=== PATIENT | female | born 1995 | race Caucasian/White ===

== ENCOUNTER 2022-08-23 11:09 | Inpatient (IN) | payer OTHER, SELFPAY ==
[2022-08-23] VITALS (57 sets, daily range): BP systolic 115–183; BP diastolic 59–137; PULSE 131–168; RESP 16–40; TEMP 36.6–37.1; O2SAT 90–98; BMI 33.8; BMI 37.0
--- NOTE | 2022-08-23 11:15 | ECG_ITS ---
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
--- NOTE | 2022-08-23 11:18 | ED_ITS ---
HPI - SOB/Dyspnea General Chief Complaint: Shortness of Breath/Dyspnea Stated Complaint: ASTHMA/SHORTNESS OF BREATH Time Seen by Provider: 08/23/22 11:15 Source: patient Mode of arrival: ambulance Limitations: no limitations History of Present Illness HPI Narrative: patient presents by ambulance with her daughter for evaluation of shortness of breath. She is a known asthmatic. She did not sleep much last night because of frequent use of her inhaler and coughing. She is not running a fever. There's been no nausea vomiting or diarrhea. There is no chest pain. She's not had purulent sputum. She is not on any steroids recently. She does not had any cardiovascular diseases. She was given a nebulizer treatment by the squad and also given Solu-Medrol intravenously. She does not use supplemental oxygen at home. She does not have any other comorbidities. Related Data Allergies Allergy/AdvReac Type Severity Reaction Status Date / Time No Known Drug Allergies Allergy Verified 08/23/22 11:11 Exam Narrative Exam Narrative: patient was definitely wheezing and laboring upon our arrival here. She had a borderline pulse oximetry in the upper 80s to low 90s despite tachypnea so she was placed on low-flow cannula to assist. She had no stridor. She was not posturing. Her skin was warm and dry and not diaphoretic HEENT showed no focus of infection. Lips and tongue oral cavity are normal. I shows no evidence of conjunctivitis. Neck was soft and supple. Respiratory showed substantial decrease aeration bilaterally with no pleural or pericardial rub. She had expiratory wheezing bilaterally. A stat portable chest x-ray is ordered. Cardiovascular she does have sinus tachycardia. Extremities show no sign of leg swelling edema or venous cords. Neuro no focal neurological deficits or symptoms at this time. Constitutional Vital Signs - 24 hr 08/23/22 11:12 08/23/22 11:31 08/23/22 11:53 Temperature 98.6 F Pulse Rate [Monitor] 156 H 135 H Respiratory Rate 24 22 Blood Pressure [Left Arm] 183/110 H 134/86 H Pulse Oximetry 92 L 90 L 94 L Oxygen Delivery Method Room Air Nasal Cannula Oxygen Delivery Flow Rate 1 2 Course Vital Signs Vital signs: Vital Signs Temperature 98.6 F 08/23/22 11:12 Pulse Rate 156 H 08/23/22 11:12 Respiratory Rate 24 08/23/22 11:12 Blood Pressure 183/110 H 06/27/23 11:12 Pulse Oximetry 92 L 08/23/22 11:12 Temperature 98.6 F 08/23/22 11:12 Pulse Rate 135 H 08/23/22 11:53 Respiratory Rate 22 08/23/22 11:53 Blood Pressure 134/86 H 08/23/22 11:53 Pulse Oximetry 94 L 08/23/22 11:53 Oxygen Delivery Method Nasal Cannula 08/23/22 11:53 Oxygen Delivery Flow Rate 2 08/23/22 11:53 MDM - SOB/Dyspnea MDM Narrative Medical decision making narrative: upon further questioning the patient says she ran out of her steroid inhaler several days ago and had been using a regular basis. She is now received a total of three nebulizer treatments and is still having substantial amount of wheezing and decreased air flow. She agrees that she needs to be admitted to the hospital. The chest x-ray did not show a pneumonia. Do not see any clinical indication of ovarian embolism.she is d-dimer was negative. Her arterial blood gases were interpreted and do not show any hypercarbia. Lab Data Labs: Lab Results 08/23/22 08/23/22 Range/Units 11:28 11:35 WBC 17.3 H (4.0-11.0) 10^3/uL RBC 4.91 (4.20-5.40) 10^6/uL Hgb 15.8 (12.0-16.0) g/dL Hct 46.5 (36.0-48.0) % MCV 94.7 (81.0-99.0) fL MCH 32.2 (26.7-34.0) pg MCHC 34.0 (29.9-35.2) g/dL RDW 12.2 (11.0-15.0) % Plt Count 305 (150-450) 10^3/uL MPV 10.2 (9.5-13.5) fL Neut % (Auto) 84.8 H (43.0-75.0) % Lymph % (Auto) 8.4 L (20.5-60.0) % [place] % (Auto) 5.0 (1.7-12.0) % Eos % (Auto) 1.0 (0.9-7.0) % Baso % (Auto) 0.3 (0.2-2.0) % Neut # (Auto) 14.6 H (1.4-6.5) 10^3/uL Lymph # (Auto) 1.5 (1.2-3.8) 10^3/uL [place] # (Auto) 0.9 H (0.3-0.8) 10^3/uL Eos # (Auto) 0.2 (0.0-0.7) 10^3/uL Baso # (Auto) 0.1 (0.0-0.1) 10^3/uL Abs Immat Gran (auto) 0.08 H (0.00-0.03) 10^3/uL Imm/Tot Granulo (auto) 0.5 (0.0-0.5) % D-Dimer 0.29 (<=0.59) mg/L FEU Puncture Site Lr ABG pH 7.396 (7.350-7.450) ABG pCO2 32.2 L (35.0-45.0) mmHg ABG pO2 71.9 L (80.0-100.0) mmHg ABG HCO3 19.8 L (22.0-26.0) mmol/L ABG O2 Saturation 95.0 % ABG Base Excess -5.1 L (-2.0-2.0) mmol/L Son Test Positive (POSITIVE) Sodium 140 (136-145) mmol/L Potassium 3.7 (3.5-5.1) mmol/L Chloride 104 (98-107) mmol/L Carbon Dioxide 24.3 (21.0-32.0) mmol/L Anion Gap 15.4 BUN 7.0 (7.0-18.0) mg/dL Creatinine 0.86 (0.55-1.02) mg/dL Est GFR ( Amer) >60 (>=60) Est GFR (Non-Af Amer) >60 (>=60) BUN/Creatinine Ratio 8.1 Glucose 122 H (74-106) mg/dL Calcium 9.1 (8.5-10.1) mg/dL Discharge Plan Discharge Chief Complaint: Shortness of Breath/Dyspnea Clinical Impression: Asthma with acute exacerbation Patient Disposition: Admitted as Observation Time of Disposition Decision: 13:26 Referrals: Physician,Non-Staff, MD [Primary Care Provider] - 1 week
[2022-08-23 11:36] LABS: Basophils Absolute Auto 0.1 10^3/uL (0.0-0.1); Basophils Percent Auto 0.3 % (0.2-2.0); Eosinophils Absolute Auto 0.2 10^3/uL (0.0-0.7); Hematocrit 46.5 % (36.0-48.0); Hemoglobin 15.8 g/dL (12.0-16.0); Immature Granulocytes Abs Auto 0.08 10^3/uL (0.00-0.03); Immature Granulocytes Pct Auto 0.5 % (0.0-0.5); Lymphocytes Absolute Auto 1.5 10^3/uL (1.2-3.8); Lymphocytes Percent Auto 8.4 % (20.5-60.0); Mean Corpuscular Hemoglobin 32.2 pg (26.7-34.0); Mean Corpuscular Volume 94.7 fL (81.0-99.0); Mean Platelet Volume 10.2 fL (9.5-13.5); Monocytes Absolute Auto 0.9 10^3/uL (0.3-0.8); Neutrophils Absolute Auto 14.6 10^3/uL (1.4-6.5); Neutrophils Percent Auto 84.8 % (43.0-75.0); Platelet Count 305 10^3/uL (150-450); Red Blood Count 4.91 10^6/uL (4.20-5.40); Red Cell Distribution Width 12.2 % (11.0-15.0); White Blood Count 17.3 10^3/uL (4.0-11.0)
--- NOTE | 2022-08-23 11:37 | PC.NURSE ---
cardiopulmonary at bedside abgs obtained
[2022-08-23] MEDS: METHYLPREDNISOLONE SOD SUCC PF 125 MG/2 ML VIAL IVP (11:39)
[2022-08-23 11:43] LABS: ABG PCO2 32.2 mmHg (35.0-45.0); PO2 ABG 71.9 mmHg (80.0-100.0); pH ABG 7.396 (7.350-7.450)
[2022-08-23 11:43] LABS: Anion Gap 15.4; BUN Creatinine Ratio 8.1; Calcium 9.1 mg/dL (8.5-10.1); Carbon Dioxide 24.3 mmol/L (21.0-32.0); Chloride 104 mmol/L (98-107); Estimated GFR (African America >60 (>=60); Estimated GFR (Non-African Ame >60 (>=60); Glucose 122 mg/dL (74-106); Potassium 3.7 mmol/L (3.5-5.1); Sodium 140 mmol/L (136-145)
[2022-08-23 11:44] LABS: Allen Test POSITIVE (POSITIVE); Base Excess ABG -5.1 mmol/L (-2.0-2.0); HCO3 ABG 19.8 mmol/L (22.0-26.0); O2 Mode RA; Puncture Site LR
--- NOTE | 2022-08-23 11:49 | PC.NURSE ---
136/86 143 hr pt respirations 22/min 93% [id number]
[2022-08-23] MEDS: IPRATROPIUM/ALBUTEROL SULFATE 3 ML AMPUL.NEB IH ×4 (11:54→23:17)
[2022-08-23 11:56] LABS: D Dimer 0.29 mg/L FEU (<=0.59)
--- NOTE | 2022-08-23 12:00 | XR_ITS ---
[address] [address] Patient Name: PARK TORREZ MRN: [id number] date: 1995 Sex: F Assigned Patient Location: ED.MAIN Current Patient Location: ER Accession/Order Number: [id number] Exam Date: 08/23/2022 11:55 Report Date: 08/23/2022 12:21 At the request of: SONG FERRO Procedure: XR chest 1V EXAM: XR chest 1V at 1202 hours HISTORY: dyspnea COMPARISON: 02/12/2020 TECHNIQUE: AP upright portable chest x-ray FINDINGS: The heart is not enlarged and the vasculature is not distended. No acute infiltrate, effusion or pneumothorax is identified. The osseous structures are grossly intact. IMPRESSION: No acute infiltrate or evidence of cardiac decompensation. The overall appearance of the chest is unchanged. Electronically authenticated by: ENRRIQUE CAMPBELL Date: 08/23/2022 12:21
--- NOTE | 2022-08-23 12:00 | PC.NURSE ---
xray at bedside
--- NOTE | 2022-08-23 12:11 | PC.NURSE ---
pt given ice chips and water per request
[2022-08-23] MEDS: ALBUTEROL SULFATE 2.5 MG/3 ML VIAL NEB IH (13:41)
[2022-08-23] MEDS: LACTATED RINGER'S SOLUTION 1,000 ML 125 ML IV (15:46)
[2022-08-23] MEDS: ALPRAZOLAM 0.5 MG TABLET PO ×2 (15:46→23:38)
[2022-08-23] MEDS: ENOXAPARIN SODIUM 40 MG/0.4 ML SYRINGE SUBQ (17:06)
[2022-08-23 17:24] LABS: SARS-CoV-2 Ag NEGATIVE (NEGATIVE)
[2022-08-23] MEDS: LORAZEPAM 2 MG/ML 1 ML VIAL 1 MG IV (18:04)
--- NOTE | 2022-08-23 19:19 | ECG_ITS ---
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
[2022-08-23 19:43] LABS: Allen Test POSITIVE (POSITIVE); HCO3 ABG 19.2 mmol/L (22.0-26.0); Liters per Minute 5; O2 Mode NASAL CANNULA; Oxygen Saturation ABG 94.9 %; PO2 ABG 76.1 mmHg (80.0-100.0); pH ABG 7.312 (7.350-7.450)
[2022-08-23 19:44] LABS: Puncture Site L RADIAL
--- NOTE | 2022-08-23 19:46 | P.PN_ITS ---
Progress Note: Subjective Subjective Interval history: I was called to see this patient because of worsening work of breathing. Patient is admitted here late today for asthma exacerbation. Patient remains quite short of breath. Expiratory wheezing. Heart rate is up 240?160. Able to speak short sentences. Sitting upright. Respiratory rate 35?40/minute Exam Narrative Exam Narrative: . Physical Exam: Respiratory distress, pleasant, lucid, cooperative, Head - atraumatic, eyes - pupils equal, round, reactive to light, extra ocular movement intact, MMM Neck - supple, thyroid not enlarged, LN not palpated Lungs -coarse breath sounds bilaterally, expiratory wheezing, using accessory muscles, tachypnea CVS - heart sounds S1, S2, no additional murmurs gallop, regular rate and rhyt hm, tachycardia Gastrointestinal?abdomen is soft, non-tender, non-distended, no organomegaly, positive bowel sounds Extremities no clubbing, cyanosis or edema Neurological?cranial nerve II?XII grossly intact, no meningeal signs, no cerebellar signs, no sensory deficit Musculoskeletal - joints, no effusions, ROM preserved Dermatological - the skin dry, warm, no rashes Psychiatric?patient is AAO X3, patient has normal affect Constitutional Vital Signs - 24 hr 08/23/22 11:12 08/23/22 11:31 08/23/22 11:53 Temperature 98.6 F Pulse Rate Pulse Rate [Monitor] 156 H 135 H Respiratory Rate 24 22 Blood Pressure Blood Pressure [Left Arm] 183/110 H 134/86 H Pulse Oximetry 92 L 90 L 94 L Oxygen Delivery Method Room Air Nasal Cannula Oxygen Delivery Flow Rate 1 2 08/23/22 13:41 08/23/22 11:24 08/23/22 11:30 Temperature Pulse Rate 131 H 151 H Pulse Rate [Monitor] Respiratory Rate 21 35 H Blood Pressure Blood Pressure [Left Arm] Pulse Oximetry 95 94 L 91 L Oxygen Delivery Method Oxygen Delivery Flow Rate 08/23/22 11:36 08/23/22 11:37 08/23/22 11:43 Temperature Pulse Rate 147 H 145 H 143 H Pulse Rate [Monitor] Respiratory Rate 16 22 18 Blood Pressure 158/137 H 175/125 H Blood Pressure [Left Arm] Pulse Oximetry 91 L 92 L 90 L Oxygen Delivery Method Oxygen Delivery Flow Rate 08/23/22 11:48 08/23/22 11:57 08/23/22 12:01 Temperature Pulse Rate 143 H 156 H 143 H Pulse Rate [Monitor] Respiratory Rate 21 27 H 17 Blood Pressure 134/86 H 131/91 H 130/93 H Blood Pressure [Left Arm] Pulse Oximetry 96 94 L 93 L Oxygen Delivery Method Oxygen Delivery Flow Rate 08/23/22 12:16 08/23/22 12:31 08/23/22 12:46 Temperature Pulse Rate 137 H 136 H 141 H Pulse Rate [Monitor] Respiratory Rate 23 23 23 Blood Pressure 144/114 H 143/119 H 141/100 H Blood Pressure [Left Arm] Pulse Oximetry 93 L 93 L 93 L Oxygen Delivery Method Oxygen Delivery Flow Rate 08/23/22 13:01 08/23/22 13:16 08/23/22 13:31 Temperature Pulse Rate 139 H 144 H 149 H Pulse Rate [Monitor] Respiratory Rate 25 H 18 28 H Blood Pressure 137/100 H 143/112 H 126/99 H Blood Pressure [Left Arm] Pulse Oximetry 92 L 94 L 97 Oxygen Delivery Method Oxygen Delivery Flow Rate 08/23/22 13:46 08/23/22 14:20 08/23/22 14:30 Temperature 97.9 F Pulse Rate 160 H 140 H Pulse Rate [Monitor] 144 H Respiratory Rate 22 18 28 H Blood Pressure 138/83 H Blood Pressure [Left Arm] 144/76 H 144/86 H Pulse Oximetry 93 L 92 L 94 L Oxygen Delivery Method Nasal Cannula Room Air Oxygen Delivery Flow Rate 2 08/23/22 16:15 08/23/22 14:30 Temperature Pulse Rate 137 H Pulse Rate [Monitor] Respiratory Rate Blood Pressure Blood Pressure [Left Arm] Pulse Oximetry Oxygen Delivery Method Nasal Cannula Oxygen Delivery Flow Rate 2 Progress Note: Objective Labs Labs: Short CBC 08/23/22 Range/Units 11:28 WBC 17.3 H (4.0-11.0) 10^3/uL Hgb 15.8 (12.0-16.0) g/dL Hct 46.5 (36.0-48.0) % Plt Count 305 (150-450) 10^3/uL BMP 08/23/22 11:28 Sodium 140 Potassium 3.7 Chloride 104 Carbon Dioxide 24.3 BUN 7.0 Creatinine 0.86 Glucose 122 H Calcium 9.1 Progress Note: A&P Assessment and Plan (1) Asthma with acute exacerbation: (2) Acute hypoxemic respiratory failure: Plan Asthma with exacerbation. Acute hypoxemic respiratory failure due to above. -Patient maintaining pulse ox of 91% on 5 L supplemental oxygen, work of breathing is increasing -I am going to transfer patient to intensive care unit for close monitoring -I obtained stat EKG revealed sinus tachycardia with possible flutter -I am going to start patient on diltiazem drip -Blood gas to be repeated as well as CBC, metabolic panel, magnesium -I added inhaled Pulmicort as well as oral singular -I start the patient on high flow nasal cannula -If no improvement?patient might need to be intubated Telemedicine Attestation Telemedicine Attestation I conducted this encounter from [[place]] via secure live, [id number] video conference with the patient, located at [facility] with [asthma exacerbation, acute respiratory failure : As the provider for the telehealth service, I attest that I introduced myself to the patient, provided my credentials, disclosed by location and determined that based on a review of the patient's chart and discussion with members of the patient's treatment team, telemedicine via real-time, 2 way, and interactive audio and video platform is an appropriate and effective means of providing the service. ?The patient and I mutually agree this visit is appropriate for telemedicine. ?The virtual encounter was taken place from? [place], [place]. ?The encounter took approximately 35 minutes. ?The nurse was present during the entire time and I was able to move the stethoscope in appropriate directions. ?The patient was evaluated at the Hospital ? Portions of this note may be dictated using [employer] voice recognition software. Variances in spelling and vocabulary are possible and unintentional. Not all errors may be caught and/or corrected. Please notify the author if any discrepancies are noted and/or if the meaning of any statement is unclear.? ? Patient verbally consented for treatment via video visit with patient currently located at [facility] and provider located in [place].]. Prior to the interview, the risks and benefits of telemedicine were discussed with the patient and verbal consent was obtained.
[2022-08-23] MEDS: dilTIAZem HCL 125 MG in 0.9 % SODIUM CHLORIDE 100 ML IV (20:05)
[2022-08-23 20:06] LABS: Basophils Percent Auto 0.1 % (0.2-2.0); Hematocrit 46.2 % (36.0-48.0); Hemoglobin 15.8 g/dL (12.0-16.0); Immature Granulocytes Abs Auto 0.11 10^3/uL (0.00-0.03); Immature Granulocytes Pct Auto 0.5 % (0.0-0.5); Lymphocytes Absolute Auto 0.7 10^3/uL (1.2-3.8); Mean Corpuscular HGB Conc 34.2 g/dL (29.9-35.2); Mean Corpuscular Hemoglobin 32.6 pg (26.7-34.0); Mean Corpuscular Volume 95.5 fL (81.0-99.0); Mean Platelet Volume 10.1 fL (9.5-13.5); Monocytes Absolute Auto 0.2 10^3/uL (0.3-0.8); Monocytes Percent Auto 0.8 % (1.7-12.0); Neutrophils Absolute Auto 20.9 10^3/uL (1.4-6.5); Neutrophils Percent Auto 95.6 % (43.0-75.0); Platelet Count 327 10^3/uL (150-450); Red Blood Count 4.84 10^6/uL (4.20-5.40); Red Cell Distribution Width 12.5 % (11.0-15.0); White Blood Count 21.9 10^3/uL (4.0-11.0)
[2022-08-23 20:28] LABS: Alanine Aminotransferase 43 U/L (14-59); Albumin Globulin Ratio 0.8; Albumin Level 3.8 g/dL (3.4-5.0); Alkaline Phosphatase 149 U/L (46-116); Aspartate Amino Transferase 19 U/L (15-37); BUN Creatinine Ratio 7.3; Bilirubin Total 0.7 mg/dL (0.2-1.0); Calcium 9.2 mg/dL (8.5-10.1); Carbon Dioxide 20.4 mmol/L (21.0-32.0); Chloride 104 mmol/L (98-107); Estimated GFR (African America >60 (>=60); Estimated GFR (Non-African Ame >60 (>=60); Globulin 4.6 g/dL; Glucose 164 mg/dL (74-106); Magnesium 2.6 mg/dL (1.8-2.4); Potassium 4.4 mmol/L (3.5-5.1); Sodium 138 mmol/L (136-145); Total Protein 8.4 g/dL (6.4-8.2)
[2022-08-23] MEDS: LACTATED RINGER'S SOLUTION 1,000 ML 50 ML IV (20:49)
--- NOTE | 2022-08-23 20:50 | RESP.RT ---
Sp02 92% on 5L nasal cannula, RR 30, HR 163. Placed pt on Vapotherm 40L Fi02 50% due to patients increased work of breathing. Sp02 increased to 95% on Vapotherm.
[2022-08-23] MEDS: ACETAMINOPHEN 325 MG TABLET 650 MG PO (22:14)
[2022-08-23] MEDS: BUDESONIDE 0.5 MG/2 ML AMPULE NEB IH (23:17)
[2022-08-24] VITALS (104 sets, daily range): BP systolic 118–183; BP diastolic 80–140; PULSE 1–152; RESP 15–32; TEMP 36.3–36.9; O2SAT 90–99
[2022-08-24] MEDS: METHYLPREDNISOLONE SOD SUCC PF 40 MG/ML VIAL IVP (00:31)
[2022-08-24] MEDS: ONDANSETRON PF 4 MG/2 ML VIAL IV (00:32)
--- NOTE | 2022-08-24 02:07 | PC.NURSE ---
pt feeling light headed. Vitals better, took vapotherm off and applied 5 lts NC. Pt denies feeling more SOB at this time. Will continue to monitor
--- NOTE | 2022-08-24 02:33 | PC.NURSE ---
decreased fio2 40% d/t pt 99% spo2. RT coming up to give pt a breathing trmt
[2022-08-24] MEDS: IPRATROPIUM/ALBUTEROL SULFATE 3 ML AMPUL.NEB IH ×4 (03:01→15:32)
--- NOTE | 2022-08-24 03:16 | PC.NURSE ---
RT gave pt breathing trmt
--- NOTE | 2022-08-24 03:29 | PC.NURSE ---
decreased cardizem 10mg/hr - HR currently 104
--- NOTE | 2022-08-24 04:20 | PC.NURSE ---
decreased cardizem gtt 5mg/hr
--- NOTE | 2022-08-24 04:31 | RESP.RT ---
fio2 decreased down to 40%
[2022-08-24 04:50] LABS: Basophils Percent Auto 0.1 % (0.2-2.0); Hematocrit 45.8 % (36.0-48.0); Hemoglobin 15.3 g/dL (12.0-16.0); Immature Granulocytes Abs Auto 0.09 10^3/uL (0.00-0.03); Immature Granulocytes Pct Auto 0.5 % (0.0-0.5); Lymphocytes Absolute Auto 0.8 10^3/uL (1.2-3.8); Lymphocytes Percent Auto 4.4 % (20.5-60.0); Mean Corpuscular HGB Conc 33.4 g/dL (29.9-35.2); Mean Corpuscular Hemoglobin 32.2 pg (26.7-34.0); Mean Corpuscular Volume 96.4 fL (81.0-99.0); Mean Platelet Volume 10.3 fL (9.5-13.5); Monocytes Absolute Auto 0.4 10^3/uL (0.3-0.8); Monocytes Percent Auto 2.4 % (1.7-12.0); Neutrophils Absolute Auto 16.4 10^3/uL (1.4-6.5); Neutrophils Percent Auto 92.6 % (43.0-75.0); Platelet Count 287 10^3/uL (150-450); Red Blood Count 4.75 10^6/uL (4.20-5.40); Red Cell Distribution Width 12.7 % (11.0-15.0); White Blood Count 17.7 10^3/uL (4.0-11.0)
[2022-08-24 05:15] LABS: Alanine Aminotransferase 42 U/L (14-59); Albumin Globulin Ratio 0.8; Albumin Level 3.7 g/dL (3.4-5.0); Alkaline Phosphatase 140 U/L (46-116); Anion Gap 16.4; Aspartate Amino Transferase 17 U/L (15-37); BUN Creatinine Ratio 10.5; Bilirubin Total 0.7 mg/dL (0.2-1.0); Calcium 9.3 mg/dL (8.5-10.1); Chloride 103 mmol/L (98-107); Estimated GFR (African America >60 (>=60); Estimated GFR (Non-African Ame >60 (>=60); Globulin 4.4 g/dL; Glucose 160 mg/dL (74-106); Potassium 4.4 mmol/L (3.5-5.1); Sodium 139 mmol/L (136-145); Total Protein 8.1 g/dL (6.4-8.2)
[2022-08-24] MEDS: METHYLPREDNISOLONE SOD SUCC PF 40 MG/ML VIAL 60 MG IVP (07:45)
[2022-08-24 07:51] LABS: Glucometer 137 mg/dL (74-106)
[2022-08-24 07:59] LABS: Adenovirus NOT DETECTED (NOT DETECTE); Bordetella parapertussis NOT DETECTED (NOT DETECTE); Coronavirus 229E NOT DETECTED (NOT DETECTE); Coronavirus HKU1 NOT DETECTED (NOT DETECTE); Coronavirus NL63 NOT DETECTED (NOT DETECTE); Coronavirus OC43 NOT DETECTED (NOT DETECTE); Human Metapneumovirus NOT DETECTED (NOT DETECTE); Influenza A NOT DETECTED (NOT DETECTE); Influenza B NOT DETECTED (NOT DETECTE); Mycoplasma pneumoniae NOT DETECTED (NOT DETECTE); Parainfluenza Virus 1 NOT DETECTED (NOT DETECTE); Parainfluenza Virus 2 NOT DETECTED (NOT DETECTE); Parainfluenza Virus 3 NOT DETECTED (NOT DETECTE); Parainfluenza Virus 4 NOT DETECTED (NOT DETECTE); Respiratory Syncytial Virus NOT DETECTED (NOT DETECTE); SARS-CoV-2 NOT DETECTED (NOT DETECTE)
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
--- NOTE | 2022-08-24 08:04 | P.HP_ITS ---
H&P: HPI History of Present Illness Chief complaint: ASTHMA/SHORTNESS OF BREATH Narrative: Patient is a history of asthma presented to the emergency room with increasing shortness of breath, found to have acute exacerbation of asthma as well and is admitted to the [facility] floor, overnight she had some tachycardia and was transferred back to the intensive care unit. Review of Systems ROS Constitutional Denies: fever or chills Respiratory Reports: shortness of breath, cough and wheezing PFSH PFSH Medical History (Updated 08/24/22 @ 09:19 by Jonathan Umanzor DO) Family History (Updated 08/23/22 @ 15:39 by Mariya Hayes RN) Grandmother Family history of cancer Family history of diabetes mellitus Family history of hypertension Mother Family history of hypertension Grandfather Family history of diabetes mellitus Family history of myocardial infarction Father Family history of diabetes mellitus Social History (Updated 08/23/22 @ 15:42 by Mariya Hayes RN) Within the past year, how often did you have a drink containing alcohol: 2-4 times a month Within the past year, how many standard drinks containing alcohol did you have on a typical day: 1 or 2 Within the past year, how often did you have six or more drinks on one occasion: less than monthly Total score: 1 Score interpretation: A score of 3 or more indicates drinking is likely to affect patient's safety. Smoking status: Former smoker Second hand tobacco smoke exposure: Yes Non-prescribed substance use: denies use Previous occupational history: Not employed Known occupational exposures/hazards: No Highest level of school completed/degree received: 12th grade, no diploma Are you now , , , , never or living with a partner: living with partner In a typical week, how many times do you talk on the telephone with family, friends, or neighbors: 3 or more times per week How often do you get together with friends or relatives: twice per week How often do you attend confucianist or gnosticist services: 1-3 times per year Do you belong to any clubs or organizations such as confucianist groups unions, fraternal or athletic groups, or school groups: no Total score: 2 Score interpretation: A score of greater than or equal to 2 indicates the lowest level of social isolation. Little interest or pleasure in doing things: several days Feeling down, depressed, or hopeless: not at all Feel stressed/tense/nervous/anxious/difficulty sleeping: not at all Do you think of yourself as: straight/heterosexual Gender Identity: female Meds Home Medications and Allergies Home Medications Medication Instructions Recorded Confirmed Type No Known Home Medications 08/23/22 08/23/22 History Allergies Allergy/AdvReac Type Severity Reaction Status Date / Time No Known Drug Allergies Allergy Verified 08/23/22 11:11 Exam Constitutional Vital Signs - 24 hr 08/23/22 11:12 08/23/22 11:31 08/23/22 11:53 Temperature 98.6 F Pulse Rate Pulse Rate [Monitor] 156 H 135 H Respiratory Rate 24 22 Blood Pressure Blood Pressure [Left Arm] 183/110 H 134/86 H Pulse Oximetry 92 L 90 L 94 L Oxygen Delivery Method Room Air Nasal Cannula Oxygen Delivery Flow Rate 1 2 Fraction of Inspired Oxygen 08/23/22 13:41 08/23/22 11:24 08/23/22 11:30 Temperature Pulse Rate 131 H 151 H Pulse Rate [Monitor] Respiratory Rate 21 35 H Blood Pressure Blood Pressure [Left Arm] Pulse Oximetry 95 94 L 91 L Oxygen Delivery Method Oxygen Delivery Flow Rate Fraction of Inspired Oxygen 08/23/22 11:36 08/23/22 11:37 08/23/22 11:43 Temperature Pulse Rate 147 H 145 H 143 H Pulse Rate [Monitor] Respiratory Rate 16 22 18 Blood Pressure 158/137 H 175/125 H Blood Pressure [Left Arm] Pulse Oximetry 91 L 92 L 90 L Oxygen Delivery Method Oxygen Delivery Flow Rate Fraction of Inspired Oxygen 08/23/22 11:48 08/23/22 11:57 08/23/22 12:01 Temperature Pulse Rate 143 H 156 H 143 H Pulse Rate [Monitor] Respiratory Rate 21 27 H 17 Blood Pressure 134/86 H 131/91 H 130/93 H Blood Pressure [Left Arm] Pulse Oximetry 96 94 L 93 L Oxygen Delivery Method Oxygen Delivery Flow Rate Fraction of Inspired Oxygen 08/23/22 12:16 08/23/22 12:31 08/23/22 12:46 Temperature Pulse Rate 137 H 136 H 141 H Pulse Rate [Monitor] Respiratory Rate 23 23 23 Blood Pressure 144/114 H 143/119 H 141/100 H Blood Pressure [Left Arm] Pulse Oximetry 93 L 93 L 93 L Oxygen Delivery Method Oxygen Delivery Flow Rate Fraction of Inspired Oxygen 08/23/22 13:01 08/23/22 13:16 08/23/22 13:31 Temperature Pulse Rate 139 H 144 H 149 H Pulse Rate [Monitor] Respiratory Rate 25 H 18 28 H Blood Pressure 137/100 H 143/112 H 126/99 H Blood Pressure [Left Arm] Pulse Oximetry 92 L 94 L 97 Oxygen Delivery Method Oxygen Delivery Flow Rate Fraction of Inspired Oxygen 08/23/22 13:46 08/23/22 14:20 08/23/22 14:30 Temperature 97.9 F Pulse Rate 160 H 140 H Pulse Rate [Monitor] 144 H Respiratory Rate 22 18 28 H Blood Pressure 138/83 H Blood Pressure [Left Arm] 144/76 H 144/86 H Pulse Oximetry 93 L 92 L 94 L Oxygen Delivery Method Nasal Cannula Room Air Oxygen Delivery Flow Rate 2 Fraction of Inspired Oxygen 08/23/22 16:15 08/23/22 14:30 08/23/22 20:05 Temperature Pulse Rate 137 H Pulse Rate [Monitor] Respiratory Rate Blood Pressure 150/130 H Blood Pressure [Left Arm] Pulse Oximetry Oxygen Delivery Method Nasal Cannula Oxygen Delivery Flow Rate 2 Fraction of Inspired Oxygen 08/23/22 21:00 08/23/22 20:00 08/23/22 19:04 Temperature Pulse Rate 144 H Pulse Rate [Monitor] 155 H Respiratory Rate Blood Pressure Blood Pressure [Left Arm] Pulse Oximetry 97 93 L Oxygen Delivery Method Nasal Cannula Oxygen Delivery Flow Rate 5 Fraction of Inspired Oxygen 08/23/22 20:04 08/23/22 19:04 08/23/22 19:18 Temperature Pulse Rate 150 H 168 H Pulse Rate [Monitor] Respiratory Rate 28 H 30 H Blood Pressure Blood Pressure [Left Arm] Pulse Oximetry 95 93 L 92 L Oxygen Delivery Method Vapotherm Nasal Cannula Nasal Cannula Oxygen Delivery Flow Rate 40 5 5 Fraction of Inspired Oxygen 50 08/23/22 18:48 08/23/22 18:50 08/23/22 19:00 Temperature Pulse Rate 155 H 157 H 153 H Pulse Rate [Monitor] Respiratory Rate 38 H 28 H Blood Pressure Blood Pressure [Left Arm] Pulse Oximetry 93 L Oxygen Delivery Method Nasal Cannula Oxygen Delivery Flow Rate 5 Fraction of Inspired Oxygen 08/23/22 19:10 08/23/22 19:20 08/23/22 19:30 Temperature Pulse Rate 156 H 168 H 164 H Pulse Rate [Monitor] Respiratory Rate 25 H 34 H 36 H Blood Pressure Blood Pressure [Left Arm] Pulse Oximetry 94 L 93 L 93 L Oxygen Delivery Method Oxygen Delivery Flow Rate Fraction of Inspired Oxygen 08/23/22 19:40 08/23/22 19:50 08/23/22 20:03 Temperature Pulse Rate 163 H 162 H Pulse Rate [Monitor] Respiratory Rate 33 H 40 H Blood Pressure Blood Pressure [Left Arm] Pulse Oximetry 93 L 92 L 93 L Oxygen Delivery Method Oxygen Delivery Flow Rate Fraction of Inspired Oxygen 08/23/22 20:10 08/23/22 20:14 08/23/22 20:15 Temperature Pulse Rate 154 H 150 H Pulse Rate [Monitor] Respiratory Rate 27 H 32 H Blood Pressure 135/115 H Blood Pressure [Left Arm] Pulse Oximetry 95 94 L 95 Oxygen Delivery Method Oxygen Delivery Flow Rate Fraction of Inspired Oxygen 08/23/22 20:19 08/23/22 20:20 08/23/22 20:30 Temperature Pulse Rate 153 H 150 H 146 H Pulse Rate [Monitor] Respiratory Rate 23 27 H 22 Blood Pressure 143/117 H 139/116 H 137/103 H Blood Pressure [Left Arm] Pulse Oximetry 95 96 96 Oxygen Delivery Method Oxygen Delivery Flow Rate Fraction of Inspired Oxygen 08/23/22 20:41 08/23/22 20:50 08/23/22 21:00 Temperature Pulse Rate 144 H 160 H 145 H Pulse Rate [Monitor] Respiratory Rate 32 H 31 H 28 H Blood Pressure 154/92 H 151/130 H 132/92 H Blood Pressure [Left Arm] Pulse Oximetry 96 97 Oxygen Delivery Method Oxygen Delivery Flow Rate Fraction of Inspired Oxygen 08/23/22 21:12 08/23/22 21:19 08/23/22 21:20 Temperature Pulse Rate 147 H 143 H 141 H Pulse Rate [Monitor] Respiratory Rate 28 H 25 H 30 H Blood Pressure 136/95 H Blood Pressure [Left Arm] Pulse Oximetry 96 96 96 Oxygen Delivery Method Oxygen Delivery Flow Rate Fraction of Inspired Oxygen 08/23/22 21:31 08/23/22 21:31 08/23/22 21:58 Temperature Pulse Rate 138 H 138 H 137 H Pulse Rate [Monitor] Respiratory Rate 28 H 24 Blood Pressure 136/91 H 136/91 H Blood Pressure [Left Arm] Pulse Oximetry 96 96 97 Oxygen Delivery Method Vapotherm Oxygen Delivery Flow Rate Fraction of Inspired Oxygen 08/23/22 22:00 08/23/22 21:31 08/23/22 21:41 Temperature Pulse Rate 143 H 139 H Pulse Rate [Monitor] Respiratory Rate 28 H 32 H Blood Pressure 136/91 H 127/85 H Blood Pressure [Left Arm] Pulse Oximetry 96 96 96 Oxygen Delivery Method Vapotherm Oxygen Delivery Flow Rate 40 Fraction of Inspired Oxygen 50 08/23/22 21:51 08/23/22 22:00 08/23/22 22:30 Temperature 98.7 F Pulse Rate 138 H 135 H 133 H Pulse Rate [Monitor] 133 H Respiratory Rate 32 H 24 29 H Blood Pressure 134/59 H 115/95 H 121/93 H Blood Pressure [Left Arm] Pulse Oximetry 96 95 96 Oxygen Delivery Method Vapotherm Vapotherm Oxygen Delivery Flow Rate 40 40 Fraction of Inspired Oxygen 50 50 08/23/22 23:17 08/23/22 23:17 08/23/22 23:31 Temperature Pulse Rate 134 H 135 H 134 H Pulse Rate [Monitor] Respiratory Rate 28 H 30 H Blood Pressure Blood Pressure [Left Arm] Pulse Oximetry 97 96 97 Oxygen Delivery Method Vapotherm Vapotherm Oxygen Delivery Flow Rate 40 40 Fraction of Inspired Oxygen 50 50 08/23/22 22:30 08/23/22 23:00 08/23/22 23:31 Temperature Pulse Rate 131 H 131 H 140 H Pulse Rate [Monitor] Respiratory Rate 34 H 26 H 30 H Blood Pressure 121/93 H 134/101 H 128/91 H Blood Pressure [Left Arm] Pulse Oximetry 96 98 94 L Oxygen Delivery Method Oxygen Delivery Flow Rate Fraction of Inspired Oxygen 08/24/22 00:01 08/24/22 00:25 08/24/22 00:30 Temperature Pulse Rate 128 H 127 H 122 H Pulse Rate [Monitor] Respiratory Rate 32 H 28 H 24 Blood Pressure 183/140 H 167/91 H 161/107 H Blood Pressure [Left Arm] Pulse Oximetry 97 97 96 Oxygen Delivery Method Oxygen Delivery Flow Rate Fraction of Inspired Oxygen 08/24/22 01:10 08/24/22 02:00 08/24/22 02:00 Temperature Pulse Rate 120 H 115 H Pulse Rate [Monitor] 115 H Respiratory Rate Blood Pressure Blood Pressure [Left Arm] Pulse Oximetry 97 96 Oxygen Delivery Method Oxygen Delivery Flow Rate Fraction of Inspired Oxygen 08/24/22 00:30 08/24/22 01:00 08/24/22 01:31 Temperature Pulse Rate 126 H 119 H 115 H Pulse Rate [Monitor] Respiratory Rate 26 H 28 H 32 H Blood Pressure 161/107 H 132/103 H 155/95 H Blood Pressure [Left Arm] Pulse Oximetry 96 98 97 Oxygen Delivery Method Oxygen Delivery Flow Rate 40 Fraction of Inspired Oxygen 50 08/24/22 02:00 08/24/22 02:00 08/24/22 02:00 Temperature 98 F Pulse Rate 117 H 117 H 120 H Pulse Rate [Monitor] Respiratory Rate 31 H 22 30 H Blood Pressure 147/115 H 147/115 H 147/115 H Blood Pressure [Left Arm] Pulse Oximetry 96 96 97 Oxygen Delivery Method Nasal Cannula Oxygen Delivery Flow Rate 5 40 Fraction of Inspired Oxygen 40 08/24/22 02:58 08/24/22 03:01 08/24/22 03:01 Temperature Pulse Rate 111 H Pulse Rate [Monitor] Respiratory Rate 30 H Blood Pressure Blood Pressure [Left Arm] Pulse Oximetry 96 99 99 Oxygen Delivery Method Vapotherm Vapotherm Oxygen Delivery Flow Rate 40 40 Fraction of Inspired Oxygen 50 50 08/24/22 02:31 08/24/22 03:00 08/24/22 03:00 Temperature Pulse Rate 112 H 112 H 112 H Pulse Rate [Monitor] Respiratory Rate 27 H 25 H 31 H Blood Pressure 118/100 H 124/95 H 124/95 H Blood Pressure [Left Arm] Pulse Oximetry 99 98 99 Oxygen Delivery Method Vapotherm Oxygen Delivery Flow Rate 40 40 Fraction of Inspired Oxygen 40 40 08/24/22 03:00 08/24/22 04:29 08/24/22 03:00 Temperature 98.4 F Pulse Rate 110 H 110 H 104 H Pulse Rate [Monitor] Respiratory Rate 31 H 29 H Blood Pressure 124/95 H 124/95 H Blood Pressure [Left Arm] Pulse Oximetry 99 97 99 Oxygen Delivery Method Vapotherm Oxygen Delivery Flow Rate 40 40 Fraction of Inspired Oxygen 40 40 08/24/22 03:32 08/24/22 04:01 08/24/22 04:01 Temperature Pulse Rate 115 H 112 H 111 H Pulse Rate [Monitor] Respiratory Rate 29 H 29 H 28 H Blood Pressure 159/119 H 143/108 H 143/108 H Blood Pressure [Left Arm] Pulse Oximetry 97 98 98 Oxygen Delivery Method Vapotherm Oxygen Delivery Flow Rate 40 Fraction of Inspired Oxygen 40 08/24/22 03:10 08/24/22 05:00 08/24/22 04:01 Temperature Pulse Rate 109 H 114 H Pulse Rate [Monitor] Respiratory Rate 30 H Blood Pressure 143/108 H Blood Pressure [Left Arm] Pulse Oximetry 98 96 97 Oxygen Delivery Method Vapotherm Oxygen Delivery Flow Rate 40 Fraction of Inspired Oxygen 40 08/24/22 04:30 08/24/22 05:01 08/24/22 05:01 Temperature Pulse Rate 111 H 116 H 100 H Pulse Rate [Monitor] Respiratory Rate 30 H 29 H 26 H Blood Pressure 154/103 H 125/96 H 125/96 H Blood Pressure [Left Arm] Pulse Oximetry 96 96 99 Oxygen Delivery Method Oxygen Delivery Flow Rate Fraction of Inspired Oxygen 08/24/22 05:30 08/24/22 05:30 08/24/22 07:00 Temperature Pulse Rate 101 H 103 H 95 H Pulse Rate [Monitor] Respiratory Rate 22 24 Blood Pressure 126/86 H 126/86 H Blood Pressure [Left Arm] Pulse Oximetry 99 99 Oxygen Delivery Method Vapotherm Oxygen Delivery Flow Rate 40 Fraction of Inspired Oxygen 40 08/24/22 07:29 08/24/22 07:30 Temperature 97.6 F Pulse Rate 104 H 104 H Pulse Rate [Monitor] Respiratory Rate 28 H Blood Pressure Blood Pressure [Left Arm] 139/98 H Pulse Oximetry 98 Oxygen Delivery Method Vapotherm Oxygen Delivery Flow Rate Fraction of Inspired Oxygen 40 Common normals: average body habitus; apparent distress Exam limitations: altered mental status General appearance: cooperative; not comfortable HENCA Common normals: normocephalic Chest Common normals: inspection of chest normal Respiratory Common normals: no retractions; abnormal respiratory effort and use of accessory muscles Effort & inspection: respiratory distress and audible wheezes Auscultation: rhonchi and wheezes Cardio Rate: tachycardic; not bradycardic Rhythm: regular rhythm GI Common normals: Normal to inspection, nondistended, normoactive bowel sounds present Results Labs Labs: Short CBC 08/23/22 08/23/22 08/24/22 Range/Units 11:28 19:59 04:03 WBC 17.3 H 21.9 H 17.7 H (4.0-11.0) 10^3/uL Hgb 15.8 15.8 15.3 (12.0-16.0) g/dL Hct 46.5 46.2 45.8 (36.0-48.0) % Plt Count 305 327 287 (150-450) 10^3/uL BMP 08/23/22 08/23/22 08/24/22 11:28 19:59 04:03 Sodium 140 138 139 Potassium 3.7 4.4 4.4 Chloride 104 104 103 Carbon Dioxide 24.3 20.4 L 24.0 BUN 7.0 8.0 9.0 Creatinine 0.86 1.09 H 0.86 Glucose 122 H 164 H 160 H Calcium 9.1 9.2 9.3 Liver Function 08/23/22 08/24/22 Range/Units 19:59 04:03 Total Bilirubin 0.7 0.7 (0.2-1.0) mg/dL AST 19 17 (15-37) U/L ALT 43 42 (14-59) U/L Alkaline Phosphatase 149 H 140 H (46-116) U/L Albumin 3.8 3.7 (3.4-5.0) g/dL ABG ABG results: 08/23/22 08/23/22 11:35 19:29 ABG pH 7.396 7.312 L ABG pCO2 32.2 L 38.0 ABG pO2 71.9 L 76.1 L ABG HCO3 19.8 L 19.2 L ABG O2 Saturation 95.0 94.9 ABG Base Excess -5.1 L -7.0 L Assessment and Plan Assessment and Plan (1) Asthma with acute exacerbation: (2) Acute hypoxemic respiratory failure: (3) Unspecified asthma with status asthmaticus: Plan Tachycardia already, respiratory distress, acute hypoxia, uncontrolled hypertension, leukocytosis with mild acute kidney injury secondary to acute exacerbation of asthma likely related to bronchitis. With worsening respiratory status consult to pulmonology. Increased steroids, added antibiotics. Try to obtain sputum culture. Leukocytosis-monitor daily-Improved Acute kidney injury-improved, monitor daily Tachycardia-check echocardiogram, repeat EKG when slower,Repeat EKG does suggest possible pericarditis-added Toradol and continue with steroids, Awaiting final confirmation on results of echo, Check inflammatory markers
--- NOTE | 2022-08-24 08:12 | XR_ITS ---
The [address] [address] Patient Name: PARK TORREZ MRN: [id number] date: 1995 Sex: F Assigned Patient Location: ICU Current Patient Location: ICU Accession/Order Number: [id number] Exam Date: 08/24/2022 08:24 Report Date: 08/24/2022 08:38 At the request of: HILLARY PALOMARES Procedure: XR chest 1V PROCEDURE: XR chest 1V DATE: 08/24/2022 7:24 AM CDT COMPARISONS: 08/23/2022 CLINICAL INDICATION: 26 years Female Status asthmaticus FINDINGS: The cardiomediastinal silhouette and pulmonary vasculature are within normal limits. The lungs are clear. There is no evidence of pleural effusion or pneumothorax. IMPRESSION: Chest radiograph is within normal limits. Chest is stable from exam done the previous day. No lung infiltrates identified. Electronically authenticated by: CAIO ALVES Date: 08/24/2022 08:38
[2022-08-24 08:14] LABS: Magnesium 2.3 mg/dL (1.8-2.4)
[2022-08-24] MEDS: ALPRAZOLAM 0.5 MG TABLET PO ×2 (08:27→20:24)
[2022-08-24] MEDS: LEVOFLOXACIN IN DEXTROSE 5 % 750 MG/150 ML PIGGYBACK IV (08:28)
--- NOTE | 2022-08-24 08:36 | CM.NOTE ---
Rounds made with Dr. Petersen, increased work of breathing today and need high flow oxygen. Dr. Petersen reached out to Dr. Umanzor for consult. No discharge today.
[2022-08-24 08:45] LABS: Gamma Glutamyl Transpeptidase 41 U/L (8-55)
[2022-08-24 08:57] LABS: Lactate/Lactic Acid 2.7 mmol/L (0.4-2.0)
[2022-08-24 09:02] LABS: Human Rhinovirus/Enterovirus DETECTED (NOT DETECTE)
--- NOTE | 2022-08-24 09:40 | SWNOTE1 ---
SW met with pt to discuss dc needs, pt's mother was in room as well. Pt lives at home with her spouse and her daughter. Pt does not wear home oxygen, but she does have inhalers at home that she uses. Pt is currently on vapotherm. Pt is independent at home. At this time no concerns or needs at discharge. SW to watch for home oxygen needs.
[2022-08-24] MEDS: LACTATED RINGER'S SOLUTION 1,000 ML 499 ML IV (10:00)
[2022-08-24] MEDS: LEVOFLOXACIN IN DEXTROSE 5 % 750 MG/150 ML IV.SOLN 100 MG IV (11:44)
[2022-08-24] MEDS: METHYLPREDNISOLONE SOD SUCC PF 125 MG/2 ML VIAL 60 MG IVP (13:00)
[2022-08-24] MEDS: LACTATED RINGER'S SOLUTION 1,000 ML 70 ML IV (13:01)
[2022-08-24 14:09] LABS: HCG Quantitative 1 mIU/mL; Thyroid Stimulating Hormone 0.273 uIU/mL (0.358-3.740)
--- NOTE | 2022-08-24 15:05 | CA_ITS ---
Patient: PARK TORREZ Exam Date: 08/24/2022 : 1995 Gender:F Ordering : DR Maldonado Petersen . Admission #: [id number] Family : SHAIKH Trino HANLEY . Order #: [id number] CLICK HERE TO VIEW EXAM ECHOCARDIOGRAM REPORT PROCEDURE: CA ECHO DOPPLER COMPLETE INDICATIONS: DUQUE, Abnormal EKG, R/O Pericarditis COMPARISON: None. DESCRIPTION: COMPLETE ECHOCARDIOGRAM Real-time transthoracic echocardiography with 2D, M-mode, spectral and color flow Doppler performed. QUALITY: Technical quality was adequate. LEFT VENTRICLE: Normal chamber size. Normal left ventricular wall thickness. Systolic function appears normal. LV EF: Visual estimation of left ventricular ejection fraction is 55%, but difficult to access accurately due to heartrate. DIASTOLIC: Normal diastolic function. ATRIAL SEPTUM: LEFT ATRIUM: Normal chamber size. RIGHT ATRIUM: Normal chamber size. RIGHT VENTRICLE: Normal chamber size. Normal right ventricular systolic function. TRICUSPID VALVE: Normal mobility and thickness. No stenosis with trivial regurgitation. Unable to assess right sided pressure due to lack of measurable tricuspid regurgitation. MITRAL VALVE: Normal mobility and thickness. No evidence of mitral valve stenosis. There is no mitral annular calcification. No mitral regurgitation. AORTIC VALVE: Normal trileaflet appearance. No visible sclerosis. Normal leaflet mobility. No evidence of aortic valve stenosis. No aortic regurgitation. AORTIC ROOT: Normal diameter and appearance. PULMONIC VALVE: Normal thickness and mobility. No stenosis. No regurgitation. PERICARDIUM: Trivial pericardial effusion is seen. IVC: Collapses with inspirations. Normal in size. The hepatic veins were difficult to visualize. PLEURA: CONCLUSION: 1. Normal ventricular function. LVEF is difficult to assess due to tachycardia but appears normal at 55%. 2. No significant valvular abnormalities. 3. Unable to assess right-sided pressures due to lack of measurable tricuspid regurgitation. 4. Trivial pericardial effusion is seen. 5. The patient appears to be in sinus tachycardia during the exam. Adult Echocardiography Procedure Report Left Ventricle LVEDD (3.7 - 5.6 cm): 4.92 cm LVESD (2.2 - 4.0 cm): 3.10 cm LVIVS thickness (0.6 - 1.2 cm): 0.65 cm LVPW thickness (0.5 - 1.0 cm): 0.78 cm e': 0.19 m/s E - e': 6.51 LVOT Max Gradient: 7.56 mm[Hg] LVOT Area (cm2): 1.37 m/s Peak Velocity (LVOT): 1.37 m/s LVOT Diameter 1.96 cm Left Atrium LA Volume Index (2D A2C): 11.78 ml/m2 Left Atrium Systolic Dimension: 2.75 cm Mitral Valve MV E to A Ratio: 200.12 Mitral Valve A-Wave Peak Velocity: 0.01 m/s Mitral Valve E-Wave Peak Velocity: 1.25 m/s Right Ventricle RV Internal Diastolic Dimension: 2.90 cm Aorta AO Root Diam: 2.45 cm Ascending Ao Diam: 2.20 cm Aortic Valve AoV Area (Peak Mohsen): 2.38 cm2, 2.38 cm2 Peak Velocity(Antegrade Flow): 1.73 m/s Peak Gradient(Antegrade Flow): 11.99 mm[Hg] Tricuspid Valve Peak Velocity (Regurgitant Flow): 1.91 m/s Pulmonic Valve Mean Gradient: 8.36 mm[Hg], 5.92 mm[Hg], 5.03 mm[Hg], 6.21 mm[Hg], 8.39 mm[Hg], 6.18 mm[Hg] Mean Velocity: 1.39 m/s, 1.15 m/s, 1.06 m/s, 1.23 m/s, 1.39 m/s, 1.18 m/s Peak Velocity: 1.66 m/s Peak Gradient: 13.27 mm[Hg], 11.35 mm[Hg], 9.48 mm[Hg], 8.70 mm[Hg], 13.27 mm[Hg], 10.39 mm[Hg] Right Atrium Right Atrium Systolic Pressure: 27.23 ml, 27.23 ml Dictated by: Shaquille Young M.D. on 08/25/2022 at 09:17 Approved by: Shaquille Young M.D. on 08/25/2022 at 09:27
--- NOTE | 2022-08-24 15:05 | ECG_ITS ---
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1995 Requested By: TULIO ESPINOSA Order Number: [id number] Reading MD: TULIO ESPINOSA Measurements Intervals Pine Rate: 87 P: 66 OR: 134 QRS: 93 QRSD: 86 T: -70 QT: 368 QTc: 413 Interpretive Statements 1100 Sinus rhythm 1102 Sinus arrhythmia 4364 Twave abnormality, possible anterolateral ischemia 4664 Twave abnormality, possible inferior ischemia Multifocal T wave inversions, possible pericardidtis 7102 Moderate right axis deviation 9150 abnormal ECG Compared to ECG 08/23/2022 19:33:57 Possible ischemia now present Right-axis deviation now present T-wave abnormality no longer present Electronically Signed On 08-25-2022 6:52:35 EDT by TULIO ESPINOSA
[2022-08-24] MEDS: ENOXAPARIN SODIUM 40 MG/0.4 ML SYRINGE SUBQ (16:44)
[2022-08-24 17:15] LABS: Creatine Kinase 151 U/L (26-192); Creatine Kinase MB 4.56 ng/mL (<=3.60); Myoglobin 42 ng/mL (9-82); Troponin I High Sensitivity 13.9 pg/mL (4.0-51.3)
[2022-08-24] MEDS: KETOROLAC TROMETHAMINE 30 MG/ML VIAL IVP ×2 (18:09→23:53)
[2022-08-24] MEDS: METHYLPREDNISOLONE SOD SUCC PF 125 MG/2 ML VIAL IVP ×2 (18:09→23:53)
[2022-08-24] MEDS: PANTOPRAZOLE SODIUM 40 MG VIAL IV (18:09)
[2022-08-24 18:33] LABS: C Reactive Protein 3.3 mg/dL (<=1.0)
[2022-08-24] MEDS: LEVALBUTEROL HCL 0.63 MG/3 ML VIAL.NEB IH ×2 (20:09→23:51)
[2022-08-24] MEDS: IPRATROPIUM BROMIDE 0.5 MG/2.5 ML VIAL.NEB IH ×2 (20:10→23:51)
[2022-08-24 20:24] LABS: Glucometer 145 mg/dL (74-106)
[2022-08-24 20:24] LABS: Glucometer 135 mg/dL (74-106)
[2022-08-24 20:27] LABS: Glucometer 171 mg/dL (74-106)
[2022-08-24] MEDS: MONTELUKAST SODIUM 10 MG TABLET PO (21:07)
[2022-08-24 21:53] LABS: Creatine Kinase 126 U/L (26-192); Creatine Kinase MB 3.59 ng/mL (<=3.60); Troponin I High Sensitivity 13.7 pg/mL (4.0-51.3)
[2022-08-24] MEDS: BUDESONIDE 0.5 MG/2 ML AMPULE NEB IH (23:51)
[2022-08-25] VITALS (29 sets, daily range): BP systolic 104–135; BP diastolic 77–88; PULSE 77–127; RESP 16–30; TEMP 36.3–36.6; O2SAT 89–99
[2022-08-25 01:08] LABS: Basophils Percent Auto 0.2 % (0.2-2.0); Hematocrit 41.4 % (36.0-48.0); Hemoglobin 13.7 g/dL (12.0-16.0); Immature Granulocytes Pct Auto 0.8 % (0.0-0.5); Lymphocytes Absolute Auto 1.1 10^3/uL (1.2-3.8); Lymphocytes Percent Auto 8.5 % (20.5-60.0); Mean Corpuscular HGB Conc 33.1 g/dL (29.9-35.2); Mean Corpuscular Hemoglobin 32.1 pg (26.7-34.0); Mean Platelet Volume 10.2 fL (9.5-13.5); Monocytes Absolute Auto 0.4 10^3/uL (0.3-0.8); Monocytes Percent Auto 3.3 % (1.7-12.0); Neutrophils Absolute Auto 11.4 10^3/uL (1.4-6.5); Neutrophils Percent Auto 87.2 % (43.0-75.0); Platelet Count 267 10^3/uL (150-450); Red Blood Count 4.27 10^6/uL (4.20-5.40); White Blood Count 13.1 10^3/uL (4.0-11.0)
[2022-08-25 01:25] LABS: C Reactive Protein 1.4 mg/dL (<=1.0)
[2022-08-25 01:27] LABS: Alanine Aminotransferase 34 U/L (14-59); Albumin Globulin Ratio 0.8; Albumin Level 3.2 g/dL (3.4-5.0); Alkaline Phosphatase 115 U/L (46-116); Anion Gap 11.6; Aspartate Amino Transferase 15 U/L (15-37); BUN Creatinine Ratio 14.3; Bilirubin Total 0.4 mg/dL (0.2-1.0); Calcium 9.2 mg/dL (8.5-10.1); Carbon Dioxide 27.2 mmol/L (21.0-32.0); Chloride 105 mmol/L (98-107); Estimated GFR (African America >60 (>=60); Estimated GFR (Non-African Ame >60 (>=60); Globulin 3.9 g/dL; Glucose 164 mg/dL (74-106); Potassium 3.8 mmol/L (3.5-5.1); Sodium 140 mmol/L (136-145); Total Protein 7.1 g/dL (6.4-8.2)
[2022-08-25 01:38] LABS: Creatine Kinase 126 U/L (26-192); Creatine Kinase MB 2.72 ng/mL (<=3.60); Troponin I High Sensitivity 10.4 pg/mL (4.0-51.3)
[2022-08-25 01:39] LABS: Erythrocyte Sedimentation Rate 15 mm/hr (<=20)
[2022-08-25] MEDS: LEVALBUTEROL HCL 0.63 MG/3 ML VIAL.NEB IH ×4 (03:42→15:15)
[2022-08-25] MEDS: IPRATROPIUM BROMIDE 0.5 MG/2.5 ML VIAL.NEB IH ×3 (03:42→11:21)
[2022-08-25] MEDS: METHYLPREDNISOLONE SOD SUCC PF 125 MG/2 ML VIAL IVP (05:24)
[2022-08-25] MEDS: LACTATED RINGER'S SOLUTION 1,000 ML 70 ML IV (05:24)
[2022-08-25] MEDS: KETOROLAC TROMETHAMINE 30 MG/ML VIAL IVP ×2 (05:25→12:52)
[2022-08-25 07:51] LABS: Glucometer 133 mg/dL (74-106)
--- NOTE | 2022-08-25 07:55 | RESP.RT ---
Treatment nearly finished, but stopped due to HR increase from 77 to 121.
[2022-08-25] MEDS: LEVOFLOXACIN IN DEXTROSE 5 % 750 MG/150 ML IV.SOLN 150 MG IV (09:58)
[2022-08-25] MEDS: BUDESONIDE 0.5 MG/2 ML AMPULE NEB IH (11:21)
--- NOTE | 2022-08-25 11:54 | CM.NOTE ---
Rounds made with warren Ventura for discharge today. Dr. Almanzar discussed importance of establishing family MD and f/u with pulmonology for management of her asthma. Pt verbalizes understanding. Will give pt list of accepting physicians prior to discharge.
[2022-08-25 12:52] LABS: Glucometer 130 mg/dL (74-106)
--- NOTE | 2022-08-25 13:35 | CM.NOTE ---
Discussed with pt about preventive care and importance of f/u appointments. Pt given list of accepting physicians. Pt was very receptive and appreciative of information.
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
[2022-08-25] MEDS: METHYLPREDNISOLONE SOD SUCC PF 125 MG/2 ML VIAL 60 MG IVP (14:03)
[2022-08-25 15:19] LABS: SARS-CoV-2 NAA NOT DETECTED (NOT DETECTE)
--- NOTE | 2022-08-25 15:38 | PM.DS1 ---
DS: Providers Provider Date of admission: 08/23/22 14:13 Primary care physician: Non-Staff Physician, Consults: 08/23/22 Consult to [employer] Routine 08/24/22 Consult to Pulmonology Routine Consulting Provider: Jonathan Umanzor 08/24/22 08:01 Consult to Pulmonology Routine Consulting Provider: Jonathan Umanzor Attending physician on discharge: Shaikh Jenelle Discharging clinician: Shaikh Jenelle Anticipated date of discharge: 08/25/22 DS: Diagnosis Discharge Diagnosis (1) Unspecified asthma with status asthmaticus: Assessment and plan: Likely likely provoked by rhino/entero virus infection along with poor air quality. Pt also not been using ICS for her asthma. Had severe bronchospasm and acute resp failure with hypoxia where she was close to being intubated and put on mechanical ventilator but turned around quickly. On RA, denies SOB. Has mild cough but no DUQUE and doing really well. Will d/c home on oral prednisone and Symbicort. (2) Acute hypoxemic respiratory failure: Assessment and plan: Sec to Status asthmaticus. Resolved. Stable for dc on Symbicort. (3) Sepsis: Assessment and plan: HR >90, RR>20 , Resp panel positive for Entero/rhino virus. Stable hemodynamics now. Stable for discharge (4) Tachycardia with heart rate 141-160 beats per minute: Assessment and plan: Combination of albuterol use along with anxiety, acute stress of asthma exacerbation. Resolved now. DS: Summary Hospital Course Hospital Course: 26 y o female presented with acute resp failure with hypoxia sec to asthma exacerbation, initially required O2 supplementation via NC but then graduated to high flow O2 and was at the verge of mechanical ventilation but turned around now on RA with no resp symptoms except for mild cough. She received IV steroids, inhaled bronchodilators but due to worsening resp status, Pulmonary service was consulted to help manage her resp failure, status asthmaticus. She gradually improved and today - on RA with no SOB and only active complaint is mild cough Discharge home on oral prednisone, symbicort. Atrovent as needed as pt experiences tachycardia from ventolin Status at Discharge Functional status at discharge: independent ambulation Overall status at discharge: patient is back to baseline Time Spent with Patient Time attestation: Total time spent providing and/or coordinating discharge services: Time spent: greater than 30 minutes Exam Constitutional Vital Signs - 24 hr 08/24/22 15:47 08/24/22 16:00 08/24/22 18:00 Temperature Pulse Rate 143 H 123 H 121 H Pulse Rate [Monitor] Respiratory Rate Blood Pressure Blood Pressure [Left Arm] Pulse Oximetry 95 95 Oxygen Delivery Method Nasal Cannula Oxygen Delivery Flow Rate 2 Fraction of Inspired Oxygen 08/24/22 18:17 08/24/22 19:27 08/24/22 19:42 Temperature 97.4 F L Pulse Rate 1 L Pulse Rate [Monitor] 115 H Respiratory Rate 20 20 Blood Pressure Blood Pressure [Left Arm] 134/90 H Pulse Oximetry 93 L 92 L Oxygen Delivery Method Room Air Room Air Oxygen Delivery Flow Rate Fraction of Inspired Oxygen 08/24/22 19:45 08/24/22 21:00 08/24/22 20:09 Temperature Pulse Rate 115 H 133 H 106 H Pulse Rate [Monitor] Respiratory Rate 20 Blood Pressure Blood Pressure [Left Arm] Pulse Oximetry 93 L 93 L 96 Oxygen Delivery Method Oxygen Delivery Flow Rate Fraction of Inspired Oxygen 08/24/22 20:26 08/24/22 23:00 08/25/22 01:00 Temperature Pulse Rate 120 H 113 H 115 H Pulse Rate [Monitor] Respiratory Rate Blood Pressure Blood Pressure [Left Arm] Pulse Oximetry 92 L 91 L Oxygen Delivery Method Oxygen Delivery Flow Rate Fraction of Inspired Oxygen 08/25/22 03:00 08/25/22 04:00 08/25/22 04:00 Temperature 97.4 F L Pulse Rate 115 H 90 Pulse Rate [Monitor] 115 H Respiratory Rate 18 18 Blood Pressure Blood Pressure [Left Arm] 135/77 H Pulse Oximetry 91 L 92 L Oxygen Delivery Method Room Air Oxygen Delivery Flow Rate 2 Fraction of Inspired Oxygen 35 08/25/22 05:00 08/24/22 23:51 08/25/22 00:06 Temperature Pulse Rate 99 H 98 H 111 H Pulse Rate [Monitor] Respiratory Rate 18 Blood Pressure Blood Pressure [Left Arm] Pulse Oximetry 91 L 93 L Oxygen Delivery Method Oxygen Delivery Flow Rate Fraction of Inspired Oxygen 08/25/22 00:00 08/25/22 00:00 08/25/22 04:44 Temperature 97.4 F L 98 F Pulse Rate 117 H 106 H Pulse Rate [Monitor] 115 H Respiratory Rate 18 18 18 Blood Pressure Blood Pressure [Left Arm] 135/77 H 104/88 H Pulse Oximetry 93 L 90 L Oxygen Delivery Method Room Air Room Air Oxygen Delivery Flow Rate Fraction of Inspired Oxygen 08/25/22 03:42 08/25/22 05:33 08/25/22 07:39 Temperature Pulse Rate 90 109 H 77 Pulse Rate [Monitor] Respiratory Rate 18 20 Blood Pressure Blood Pressure [Left Arm] Pulse Oximetry 92 L 92 L 93 L Oxygen Delivery Method Oxygen Delivery Flow Rate Fraction of Inspired Oxygen 08/25/22 07:41 08/25/22 08:00 08/25/22 08:00 Temperature 97.8 F Pulse Rate 122 H 120 H Pulse Rate [Monitor] Respiratory Rate 20 Blood Pressure Blood Pressure [Left Arm] 124/82 H Pulse Oximetry 93 L 92 L Oxygen Delivery Method Room Air Room Air Oxygen Delivery Flow Rate Fraction of Inspired Oxygen 08/25/22 08:00 08/24/22 20:25 08/24/22 20:30 Temperature Pulse Rate 102 H 120 H Pulse Rate [Monitor] Respiratory Rate 18 17 18 Blood Pressure 124/82 H Blood Pressure [Left Arm] Pulse Oximetry 92 L 93 L Oxygen Delivery Method Oxygen Delivery Flow Rate Fraction of Inspired Oxygen 08/24/22 20:35 08/24/22 20:40 08/24/22 20:45 Temperature Pulse Rate 128 H 129 H 120 H Pulse Rate [Monitor] Respiratory Rate 23 23 15 Blood Pressure Blood Pressure [Left Arm] Pulse Oximetry 94 L 93 L 96 Oxygen Delivery Method Oxygen Delivery Flow Rate Fraction of Inspired Oxygen 08/24/22 20:50 08/24/22 20:55 08/24/22 21:00 Temperature Pulse Rate 152 H 126 H 132 H Pulse Rate [Monitor] Respiratory Rate 15 20 21 Blood Pressure Blood Pressure [Left Arm] Pulse Oximetry 98 94 L 96 Oxygen Delivery Method Oxygen Delivery Flow Rate Fraction of Inspired Oxygen 08/24/22 21:05 08/24/22 21:10 08/24/22 21:15 Temperature Pulse Rate 126 H 127 H 124 H Pulse Rate [Monitor] Respiratory Rate 25 H 22 22 Blood Pressure Blood Pressure [Left Arm] Pulse Oximetry 91 L 92 L 91 L Oxygen Delivery Method Oxygen Delivery Flow Rate Fraction of Inspired Oxygen 08/24/22 21:20 08/24/22 21:25 08/24/22 21:30 Temperature Pulse Rate 126 H 135 H 126 H Pulse Rate [Monitor] Respiratory Rate 20 24 24 Blood Pressure Blood Pressure [Left Arm] Pulse Oximetry 90 L 93 L 93 L Oxygen Delivery Method Oxygen Delivery Flow Rate Fraction of Inspired Oxygen 08/24/22 21:35 08/24/22 21:40 08/24/22 21:45 Temperature Pulse Rate 122 H 123 H 123 H Pulse Rate [Monitor] Respiratory Rate 21 21 21 Blood Pressure Blood Pressure [Left Arm] Pulse Oximetry 92 L 92 L 91 L Oxygen Delivery Method Oxygen Delivery Flow Rate Fraction of Inspired Oxygen 08/24/22 21:50 08/24/22 21:55 08/24/22 22:00 Temperature Pulse Rate 122 H 120 H 118 H Pulse Rate [Monitor] Respiratory Rate 21 21 20 Blood Pressure Blood Pressure [Left Arm] Pulse Oximetry 91 L 91 L 91 L Oxygen Delivery Method Oxygen Delivery Flow Rate Fraction of Inspired Oxygen 08/24/22 22:05 08/24/22 22:10 08/24/22 22:15 Temperature Pulse Rate 117 H 117 H 117 H Pulse Rate [Monitor] Respiratory Rate 21 20 20 Blood Pressure Blood Pressure [Left Arm] Pulse Oximetry 91 L 91 L 92 L Oxygen Delivery Method Oxygen Delivery Flow Rate Fraction of Inspired Oxygen 08/24/22 22:20 08/24/22 22:25 08/24/22 22:30 Temperature Pulse Rate 114 H 121 H 114 H Pulse Rate [Monitor] Respiratory Rate 20 21 20 Blood Pressure Blood Pressure [Left Arm] Pulse Oximetry 92 L 91 L 91 L Oxygen Delivery Method Oxygen Delivery Flow Rate Fraction of Inspired Oxygen 08/24/22 22:35 08/24/22 22:40 08/24/22 22:45 Temperature Pulse Rate 110 H 113 H 113 H Pulse Rate [Monitor] Respiratory Rate 26 H 22 19 Blood Pressure Blood Pressure [Left Arm] Pulse Oximetry 94 L 91 L 91 L Oxygen Delivery Method Oxygen Delivery Flow Rate Fraction of Inspired Oxygen 08/24/22 22:50 08/24/22 22:55 08/24/22 23:00 Temperature Pulse Rate 112 H 112 H 110 H Pulse Rate [Monitor] Respiratory Rate 20 20 20 Blood Pressure Blood Pressure [Left Arm] Pulse Oximetry 92 L 92 L 92 L Oxygen Delivery Method Oxygen Delivery Flow Rate Fraction of Inspired Oxygen 08/24/22 23:05 08/24/22 23:10 08/24/22 23:15 Temperature Pulse Rate 110 H 110 H 108 H Pulse Rate [Monitor] Respiratory Rate 19 19 19 Blood Pressure Blood Pressure [Left Arm] Pulse Oximetry 92 L 92 L 92 L Oxygen Delivery Method Oxygen Delivery Flow Rate Fraction of Inspired Oxygen 08/24/22 23:20 08/24/22 23:25 08/24/22 23:30 Temperature Pulse Rate 104 H 103 H 103 H Pulse Rate [Monitor] Respiratory Rate 19 19 18 Blood Pressure Blood Pressure [Left Arm] Pulse Oximetry 92 L 92 L 93 L Oxygen Delivery Method Oxygen Delivery Flow Rate Fraction of Inspired Oxygen 08/24/22 23:35 08/24/22 23:40 08/24/22 23:45 Temperature Pulse Rate 103 H 106 H 101 H Pulse Rate [Monitor] Respiratory Rate 18 18 18 Blood Pressure Blood Pressure [Left Arm] Pulse Oximetry 92 L 93 L 93 L Oxygen Delivery Method Oxygen Delivery Flow Rate Fraction of Inspired Oxygen 08/24/22 23:50 08/24/22 23:55 08/25/22 00:00 Temperature Pulse Rate 96 H 96 H 102 H Pulse Rate [Monitor] Respiratory Rate 17 28 H 23 Blood Pressure Blood Pressure [Left Arm] Pulse Oximetry 93 L 99 99 Oxygen Delivery Method Oxygen Delivery Flow Rate Fraction of Inspired Oxygen 08/25/22 00:05 08/25/22 00:10 08/25/22 00:13 Temperature Pulse Rate 111 H 115 H 127 H Pulse Rate [Monitor] Respiratory Rate 22 28 H 30 H Blood Pressure Blood Pressure [Left Arm] Pulse Oximetry 99 98 93 L Oxygen Delivery Method Oxygen Delivery Flow Rate Fraction of Inspired Oxygen 08/25/22 00:14 08/25/22 04:38 08/25/22 07:52 Temperature Pulse Rate 113 H 109 H 95 H Pulse Rate [Monitor] Respiratory Rate 22 22 20 Blood Pressure 135/77 H 104/88 H 124/82 H Blood Pressure [Left Arm] Pulse Oximetry 89 L 98 93 L Oxygen Delivery Method Oxygen Delivery Flow Rate Fraction of Inspired Oxygen 08/25/22 08:00 08/25/22 10:00 08/25/22 11:03 Temperature Pulse Rate 121 H 94 H 102 H Pulse Rate [Monitor] Respiratory Rate Blood Pressure Blood Pressure [Left Arm] Pulse Oximetry Oxygen Delivery Method Oxygen Delivery Flow Rate Fraction of Inspired Oxygen 08/25/22 11:20 08/25/22 11:24 08/25/22 11:24 Temperature Pulse Rate 108 H 108 H Pulse Rate [Monitor] Respiratory Rate Blood Pressure Blood Pressure [Left Arm] Pulse Oximetry 90 L 90 L Oxygen Delivery Method Room Air Oxygen Delivery Flow Rate Fraction of Inspired Oxygen 08/25/22 11:42 08/25/22 12:00 08/25/22 13:00 Temperature Pulse Rate 120 H 94 H Pulse Rate [Monitor] 100 H Respiratory Rate 16 Blood Pressure Blood Pressure [Left Arm] Pulse Oximetry Oxygen Delivery Method Oxygen Delivery Flow Rate Fraction of Inspired Oxygen 08/25/22 14:06 08/25/22 15:15 08/25/22 15:17 Temperature Pulse Rate 98 H 89 89 Pulse Rate [Monitor] Respiratory Rate Blood Pressure Blood Pressure [Left Arm] Pulse Oximetry 91 L 94 L Oxygen Delivery Method Room Air Oxygen Delivery Flow Rate Fraction of Inspired Oxygen 08/25/22 15:35 Temperature Pulse Rate 107 H Pulse Rate [Monitor] Respiratory Rate Blood Pressure Blood Pressure [Left Arm] Pulse Oximetry 91 L Oxygen Delivery Method Oxygen Delivery Flow Rate Fraction of Inspired Oxygen Documenting provider has reviewed patient's vital signs: yes Common normals: no apparent distress General appearance: cooperative and comfortable HENMT Common normals: normocephalic and head/scalp atraumatic Eye Common normals: conjunctivae normal and no scleral icterus Respiratory Common normals: normal respiratory effort, no retractions and no use of accessory muscles Auscultation: wheezes scattered wheezes Cardio Common normals: regular rate, regular rhythm, S1 normal heart sound, S2 normal heart sound and no murmurs Extremity Common normals: normal to inspection and full ROM Neuro Common normals: oriented x3, moves all extremities, no focal motor deficits and no sensory deficits noted Psych Common normals: mental status grossly normal, thought process normal, cooperative, denies hallucinations and denies homicidal ideation DS: Data Data Completed and Pending Labs on day of discharge: Labs from last 24 hours 08/25/22 08/25/22 08/25/22 12:50 07:50 00:55 WBC 13.1 H RBC 4.27 Hgb 13.7 Hct 41.4 MCV 97.0 MCH 32.1 MCHC 33.1 RDW 13.0 Plt Count 267 MPV 10.2 Neut % (Auto) 87.2 H Lymph % (Auto) 8.5 L [place] % (Auto) 3.3 Eos % (Auto) 0.0 L Baso % (Auto) 0.2 Neut # (Auto) 11.4 H Lymph # (Auto) 1.1 L [place] # (Auto) 0.4 Eos # (Auto) 0.0 Baso # (Auto) 0.0 Abs Immat Gran (auto) 0.10 H Imm/Tot Granulo (auto) 0.8 H ESR 15 Sodium 140 Potassium 3.8 Chloride 105 Carbon Dioxide 27.2 Anion Gap 11.6 BUN 13.0 Creatinine 0.91 Est GFR ( Amer) >60 Est GFR (Non-Af Amer) >60 BUN/Creatinine Ratio 14.3 Glucose 164 H Calcium 9.2 Total Bilirubin 0.4 AST 15 ALT 34 Alkaline Phosphatase 115 Total Creatine Kinase 126 CK-MB (CK-2) 2.72 Myoglobin Troponin I High Sens 10.4 C-Reactive Protein 1.4 H Total Protein 7.1 Albumin 3.2 L Globulin 3.9 Albumin/Globulin Ratio 0.8 SARS-CoV-2 RNA (SEEMA) POC Glucose 130 H 133 H 08/24/22 08/24/22 08/24/22 21:06 20:26 16:46 WBC RBC Hgb Hct MCV MCH MCHC RDW Plt Count MPV Neut % (Auto) Lymph % (Auto) [place] % (Auto) Eos % (Auto) Baso % (Auto) Neut # (Auto) Lymph # (Auto) [place] # (Auto) Eos # (Auto) Baso # (Auto) Abs Immat Gran (auto) Imm/Tot Granulo (auto) ESR Sodium Potassium Chloride Carbon Dioxide Anion Gap BUN Creatinine Est GFR ( Amer) Est GFR (Non-Af Amer) BUN/Creatinine Ratio Glucose Calcium Total Bilirubin AST ALT Alkaline Phosphatase Total Creatine Kinase 126 CK-MB (CK-2) 3.59 Myoglobin Troponin I High Sens 13.7 C-Reactive Protein 3.3 H Total Protein Albumin Globulin Albumin/Globulin Ratio SARS-CoV-2 RNA (SEEMA) POC Glucose 171 H 08/24/22 08/24/22 08/24/22 16:41 15:15 12:06 WBC RBC Hgb Hct MCV MCH MCHC RDW Plt Count MPV Neut % (Auto) Lymph % (Auto) [place] % (Auto) Eos % (Auto) Baso % (Auto) Neut # (Auto) Lymph # (Auto) [place] # (Auto) Eos # (Auto) Baso # (Auto) Abs Immat Gran (auto) Imm/Tot Granulo (auto) ESR Sodium Potassium Chloride Carbon Dioxide Anion Gap BUN Creatinine Est GFR ( Amer) Est GFR (Non-Af Amer) BUN/Creatinine Ratio Glucose Calcium Total Bilirubin AST ALT Alkaline Phosphatase Total Creatine Kinase 151 CK-MB (CK-2) 4.56 H* Myoglobin 42 Troponin I High Sens 13.9 C-Reactive Protein Total Protein Albumin Globulin Albumin/Globulin Ratio SARS-CoV-2 RNA (SEEMA) POC Glucose 145 H 135 H 08/23/22 17:05 WBC RBC Hgb Hct MCV MCH MCHC RDW Plt Count MPV Neut % (Auto) Lymph % (Auto) [place] % (Auto) Eos % (Auto) Baso % (Auto) Neut # (Auto) Lymph # (Auto) [place] # (Auto) Eos # (Auto) Baso # (Auto) Abs Immat Gran (auto) Imm/Tot Granulo (auto) ESR Sodium Potassium Chloride Carbon Dioxide Anion Gap BUN Creatinine Est GFR ( Amer) Est GFR (Non-Af Amer) BUN/Creatinine Ratio Glucose Calcium Total Bilirubin AST ALT Alkaline Phosphatase Total Creatine Kinase CK-MB (CK-2) Myoglobin Troponin I High Sens C-Reactive Protein Total Protein Albumin Globulin Albumin/Globulin Ratio SARS-CoV-2 RNA (SEEMA) Not detected POC Glucose Preliminary micro results at discharge 08/24/22 11:00 Sputum Culture - Preliminary Sputum - Expectorated Sputum Discharge Plan Discharge Disposition: Home, Self-Care Condition: Good Discharge Medications: New prednisone 20 mg tablet 20 mg PO BID 7 Days Qty: 14 0RF budesonide-formoterol [Symbicort] 160-4.5 mcg/actuation HFA aerosol inhaler 2 inh inhalation BID Qty: 10.2 0RF Atrovent HFA 17 mcg/actuation HFA aerosol inhaler 2 inh inhalation Q6H PRN (Reason: shortness of breath or wheezing) Qty: 12.9 0RF Rx Instructions: administer with spacer Activity: resume usual activities as tolerated Diet: regular diet Patient Instructions: Ipratropium (By breathing) (Atrovent HFA), Prednisone (By mouth), Budesonide/Formoterol (By breathing), Asthma (GEN) Forms: Portal Instructions Follow Up Appointments: Get established with family physician and follow up in 1 week. Discharge Date/Time: 08/25/22 16:00
--- NOTE | 2022-08-29 14:38 | CM.DCFOLLOWU ---
Person spoke with:patient How are you feeling? well How is your pain? no pain Did you understand your discharge instructions? yes Do you have any questions about your discharge instructions? no Were you given any prescriptions at discharge? yes Were you able to get your prescriptions filled? yes Do you understand how to take your medications as ordered? yes Do you have any questions about your follow up appointment and do you plan to keep your follow up appointment? no questions and established care with Dr. Almanzar Is there anything else that you would like to discuss? no Questions/Comments/Concerns/Other:
== END 2022-08-25 16:00 | disposition home or self-care (01) | DRG 720 ==
LOC: ER 13:55 → MS 14:22 → ICU 20:31
PROVIDERS: Family Medicine; Internal Medicine; Admitting Provider Internal Medicine; Emergency Provider Emergency Medicine Emergency Medical Services; Visit Provider Internal Medicine
DX: A41.89 Other specified sepsis (principal); J12.89 Other viral pneumonia; J96.01 Acute respiratory failure with hypoxia; J45.902 Unspecified asthma with status asthmaticus; B97.10 Unspecified enterovirus as the cause of diseases classified elsewhere; B97.89 Other viral agents as the cause of diseases classified elsewhere; R74.8 Abnormal levels of other serum enzymes; E87.20 Acidosis, unspecified; R65.20 Severe sepsis without septic shock; Z77.110 Contact with and (suspected) exposure to air pollution; Z87.891 Personal history of nicotine dependence; Z20.822 Contact with and (suspected) exposure to COVID-19; Z83.3 Family history of diabetes mellitus; Z82.49 Family history of ischemic heart disease and other diseases of the circulatory system; Z80.9 Family history of malignant neoplasm, unspecified
CPT/HCPCS: 0202U; 36415; 36600; 71045; 80048; 80053; 82550; 82553; 82805; 82977; 83605; 83735; 83874; 84443; 84484; 84702; 85025; 85378; 85652; 86140; 87070; 87205; 87635; 87811; 93005; 93306; 94640; 94761; 94799; 96365; 96366; 96367; 96372; 96375; 96376; 99285; J2920; J2930

== ENCOUNTER 2022-10-19 20:36 | Observation (INO) | payer OTHER, SELFPAY ==
[2022-10-19] VITALS (7 sets, daily range): BP systolic 124–135; BP diastolic 73–104; PULSE 127–157; RESP 20–28; TEMP 37.1–37.6; O2SAT 94–97; BMI 38.1
--- NOTE | 2022-10-19 20:50 | XR_ITS ---
[address] [address] Patient Name: PARK TORREZ MRN: [id number] date: 1995 Sex: F Assigned Patient Location: ER Current Patient Location: ED.MAIN Accession/Order Number: [id number] Exam Date: 10/19/2022 21:00 Report Date: 10/19/2022 21:27 At the request of: JUAN RAMON ELLISON Procedure: XR chest 1V EXAMINATION: XR chest 1V HISTORY: Shortness of breath COMPARISON: Chest x-ray 08/24/2022 TECHNIQUE: Portable chest FINDINGS: The lung parenchyma is free of consolidation or infiltrate. No pneumothorax or pleural effusion. The cardiac, mediastinal and hilar contours are normal. The visualized osseous structures exhibit no gross abnormality. XR/XR chest 1V IMPRESSION: No acute cardiopulmonary abnormality. Electronically authenticated by: OSCAR HUTTON Date: 10/19/2022 21:27
--- NOTE | 2022-10-19 20:52 | ED.SOB1 ---
HPI - SOB/Dyspnea General Chief Complaint: Shortness of Breath/Dyspnea Stated Complaint: SOB Time Seen by Provider: 10/19/22 20:48 Source: patient Mode of arrival: walk-in Limitations: no limitations History of Present Illness HPI Narrative: history of asthma. Is on maintenance Symbicort. just completed Prednisone today. No fever. no chest pain or nausea. has been hospitalized in the past for asthma MD elicited complaint: shortness of breath Related Data Previous Rx's Medication Instructions Recorded budesonide-formoterol HFA 160 2 inh inhalation BID #10.2 grams 08/25/22 mcg-4.5 mcg/actuation aerosol inhaler (Symbicort) ipratropium bromide 17 2 inh inhalation Q6H PRN shortness 08/25/22 mcg/actuation HFA aerosol inhaler of breath or wheezing #12.9 grams (Atrovent HFA) Allergies Allergy/AdvReac Type Severity Reaction Status Date / Time No Known Drug Allergies Allergy Verified 10/19/22 20:51 Review of Systems ROS Status of ROS 10 or more systems reviewed and unremarkable except as noted in history and below Respiratory Reports: shortness of breath, cough and wheezing PFSH PFS Medical History (Updated 10/19/22 @ 23:05 by Humble Richardson MD) Family History (Updated 08/23/22 @ 15:39 by Mariya Hayes RN) Grandmother Family history of cancer Family history of diabetes mellitus Family history of hypertension Mother Family history of hypertension Grandfather Family history of diabetes mellitus Family history of myocardial infarction Father Family history of diabetes mellitus Social History (Updated 08/23/22 @ 15:42 by Mariya Hayes RN) Within the past year, how often did you have a drink containing alcohol: 2-4 times a month Within the past year, how many standard drinks containing alcohol did you have on a typical day: 1 or 2 Within the past year, how often did you have six or more drinks on one occasion: less than monthly Total score: 1 Score interpretation: A score of 3 or more indicates drinking is likely to affect patient's safety. Smoking status: Never smoker Second hand tobacco smoke exposure: Yes Non-prescribed substance use: denies use Previous occupational history: Not employed Known occupational exposures/hazards: No Highest level of school completed/degree received: 12th grade, no diploma Are you now , , , , never or living with a partner: living with partner In a typical week, how many times do you talk on the telephone with family, friends, or neighbors: 3 or more times per week How often do you get together with friends or relatives: twice per week How often do you attend bahai or baptist services: 1-3 times per year Do you belong to any clubs or organizations such as bahai groups unions, fraternal or athletic groups, or school groups: no Total score: 2 Score interpretation: A score of greater than or equal to 2 indicates the lowest level of social isolation. Little interest or pleasure in doing things: several days Feeling down, depressed, or hopeless: not at all Feel stressed/tense/nervous/anxious/difficulty sleeping: not at all Do you think of yourself as: straight/heterosexual Gender Identity: female Exam Constitutional Vital Signs, click to edit/add: Last Vital Signs Temp 99.7 F 10/19/22 20:46 Pulse 138 H 10/19/22 22:24 Resp 26 H 10/19/22 22:24 BP 130/88 10/19/22 21:59 Pulse Ox 96 10/19/22 22:19 O2 Del Method Nasal Cannula 10/19/22 22:19 O2 Flow Rate 2 10/19/22 22:19 Common normals: oriented x3 General appearance: in distress Other: mild-moderate distress HENMT Common normals: normocephalic and head/scalp atraumatic Eye Common normals: PERRL, EOMs intact bilaterally and conjunctivae normal Chest Common normals: inspection of chest normal and palpation of chest normal Respiratory Effort & inspection: tachypneic, respiratory distress and audible wheezes Other: able to speak in short sentences Cardio Common normals: no murmurs Rate: tachycardic GI Common normals: Normal to inspection, nondistended, normoactive bowel sounds present, soft to palpation and non-tender Extremity Common normals: normal to inspection and full ROM Neuro Common normals: oriented x3, CN's II-XII intact bilaterally, moves all extremities, no focal motor deficits and no sensory deficits noted Psych Appearance: grossly normal Course Vital Signs Vital signs: Vital Signs Temperature 99.7 F 10/19/22 20:46 Pulse Rate 157 H 10/19/22 20:46 Respiratory Rate 28 H 10/19/22 20:46 Blood Pressure 124/104 H 10/19/22 20:46 Pulse Oximetry 94 L 10/19/22 20:46 Oxygen Delivery Method Room Air 10/19/22 20:46 Temperature 99.7 F 10/19/22 20:46 Pulse Rate 138 H 10/19/22 22:24 Respiratory Rate 26 H 10/19/22 22:24 Blood Pressure 130/88 10/19/22 21:59 Pulse Oximetry 96 10/19/22 22:19 Oxygen Delivery Method Nasal Cannula 10/19/22 22:19 Oxygen Delivery Flow Rate 2 10/19/22 22:19 MDM - SOB/Dyspnea MDM Narrative Medical decision making narrative: patient presents with acute asthma exacerbation. Arrived short of breath with use of accessory muscles and diffuse wheezing. cxray clear. Treated with xopenex x 2 and solumedrol. Breathing easier now and no longer in respiratory distress. Still has diffuse wheeze. Discussed with the hospitalist and she has been accepted for admission Lab Data Labs: Lab Results 10/19/22 10/19/22 Range/Units 21:00 21:05 WBC 12.4 H (4.0-11.0) 10^3/uL RBC 4.36 (4.20-5.40) 10^6/uL Hgb 14.3 (12.0-16.0) g/dL Hct 41.2 (36.0-48.0) % MCV 94.5 (81.0-99.0) fL MCH 32.8 (26.7-34.0) pg MCHC 34.7 (29.9-35.2) g/dL RDW 12.5 (11.0-15.0) % Plt Count 254 (150-450) 10^3/uL MPV 10.4 (9.5-13.5) fL Neut % (Auto) 70.4 (43.0-75.0) % Lymph % (Auto) 17.5 L (20.5-60.0) % [place] % (Auto) 10.1 (1.7-12.0) % Eos % (Auto) 1.2 (0.9-7.0) % Baso % (Auto) 0.5 (0.2-2.0) % Neut # (Auto) 8.7 H (1.4-6.5) 10^3/uL Lymph # (Auto) 2.2 (1.2-3.8) 10^3/uL [place] # (Auto) 1.3 H (0.3-0.8) 10^3/uL Eos # (Auto) 0.2 (0.0-0.7) 10^3/uL Baso # (Auto) 0.1 (0.0-0.1) 10^3/uL Abs Immat Gran (auto) 0.04 H (0.00-0.03) 10^3/uL Imm/Tot Granulo (auto) 0.3 (0.0-0.5) % Sodium 140 (136-145) mmol/L Potassium 3.9 (3.5-5.1) mmol/L Chloride 105 (98-107) mmol/L Carbon Dioxide 26.0 (21.0-32.0) mmol/L Anion Gap 12.9 BUN 7.0 (7.0-18.0) mg/dL Creatinine 0.87 (0.55-1.02) mg/dL Est GFR ( Amer) >60 (>=60) Est GFR (Non-Af Amer) >60 (>=60) BUN/Creatinine Ratio 8.0 Glucose 128 H (74-106) mg/dL Calcium 8.7 (8.5-10.1) mg/dL Serum HCG, Qual Negative (NEGATIVE) Discharge Plan Discharge Chief Complaint: Shortness of Breath/Dyspnea Clinical Impression: Asthma with acute exacerbation Patient Disposition: Admitted as Observation Prescriptions / Home Meds: No Action budesonide-formoterol [Symbicort] 160-4.5 mcg/actuation HFA aerosol inhaler 2 inh inhalation BID Qty: 10.2 0RF Atrovent HFA 17 mcg/actuation HFA aerosol inhaler 2 inh inhalation Q6H PRN (Reason: shortness of breath or wheezing) Qty: 12.9 0RF Rx Instructions: administer with spacer Referrals: Physician,Non-Staff, MD [Primary Care Provider] - 1 week
[2022-10-19] MEDS: LEVALBUTEROL HCL 1.25 MG/3 ML VIAL NEB IH ×2 (21:00→22:19)
[2022-10-19 21:08] LABS: Basophils Absolute Auto 0.1 10^3/uL (0.0-0.1); Basophils Percent Auto 0.5 % (0.2-2.0); Eosinophils Absolute Auto 0.2 10^3/uL (0.0-0.7); Eosinophils Percent Auto 1.2 % (0.9-7.0); Hematocrit 41.2 % (36.0-48.0); Hemoglobin 14.3 g/dL (12.0-16.0); Immature Granulocytes Abs Auto 0.04 10^3/uL (0.00-0.03); Immature Granulocytes Pct Auto 0.3 % (0.0-0.5); Lymphocytes Absolute Auto 2.2 10^3/uL (1.2-3.8); Lymphocytes Percent Auto 17.5 % (20.5-60.0); Mean Corpuscular HGB Conc 34.7 g/dL (29.9-35.2); Mean Corpuscular Hemoglobin 32.8 pg (26.7-34.0); Mean Corpuscular Volume 94.5 fL (81.0-99.0); Mean Platelet Volume 10.4 fL (9.5-13.5); Monocytes Absolute Auto 1.3 10^3/uL (0.3-0.8); Monocytes Percent Auto 10.1 % (1.7-12.0); Neutrophils Absolute Auto 8.7 10^3/uL (1.4-6.5); Neutrophils Percent Auto 70.4 % (43.0-75.0); Platelet Count 254 10^3/uL (150-450); Red Blood Count 4.36 10^6/uL (4.20-5.40); Red Cell Distribution Width 12.5 % (11.0-15.0); White Blood Count 12.4 10^3/uL (4.0-11.0)
[2022-10-19] MEDS: METHYLPREDNISOLONE SOD SUCC PF 125 MG/2 ML VIAL IVP (21:08)
[2022-10-19 21:18] LABS: Anion Gap 12.9; Calcium 8.7 mg/dL (8.5-10.1); Chloride 105 mmol/L (98-107); Estimated GFR (African America >60 (>=60); Estimated GFR (Non-African Ame >60 (>=60); Glucose 128 mg/dL (74-106); Potassium 3.9 mmol/L (3.5-5.1); Sodium 140 mmol/L (136-145)
[2022-10-19 21:22] LABS: HCG Qualitative NEGATIVE (NEGATIVE)
[2022-10-20] VITALS (17 sets, daily range): BP systolic 119–148; BP diastolic 79–88; PULSE 98–140; RESP 18–22; TEMP 36.7–37.1; O2SAT 86–96; BMI 36.9
--- NOTE | 2022-10-20 02:27 | W.PM.TELEPN ---
Progress Note: Subjective Subjective Interval history: Shortness of breath HPI: This is a very pleasant 27 years old female with history of asthma who presents with above complaints. Patient stated that over the course of the last few days she not been feeling well developing nasal congestion and sinus pressure which ultimately led to worsening shortness of breath, bronchospasm and asthma flare. Patient came to emergency room and asthma attack. She is getting better with IV steroids, bronchodilators. Denies fevers or chills. Exam Narrative Exam Narrative: Physical Exam: Not in distress, pleasant, lucid, cooperative, Head - atraumatic, eyes - pupils equal, round, reactive to light, extra ocular movement intact, MMM Neck - supple, thyroid not enlarged, LN not palpated Lungs -decreased breath sounds at bases, wheezing CVS - heart sounds S1, S2, no additional murmurs gallop, regular rate and rhythm Gastrointestinal?abdomen is soft, non-tender, non-distended, no organomegaly, positive bowel sounds Extremities no clubbing, cyanosis or edema Neurological?cranial nerve II?XII grossly intact, no meningeal signs, no cerebellar signs, no sensory deficit Musculoskeletal - joints, no effusions, ROM preserved Dermatological - the skin dry, warm, no rashes Psychiatric?patient is AAO X3, patient has normal affect Constitutional Vital Signs, click to edit/add: Last Vital Signs Temp 98.6 F 10/20/22 00:19 Pulse 128 H 10/20/22 00:19 Resp 22 10/20/22 00:19 BP 148/79 H 10/20/22 00:19 Pulse Ox 95 10/20/22 02:17 O2 Del Method Nasal Cannula 10/20/22 02:17 O2 Flow Rate 2 10/20/22 02:17 Progress Note: Objective Labs Labs: Short CBC 10/19/22 Range/Units 21:00 WBC 12.4 H (4.0-11.0) 10^3/uL Hgb 14.3 (12.0-16.0) g/dL Hct 41.2 (36.0-48.0) % Plt Count 254 (150-450) 10^3/uL BMP 10/19/22 21:00 Sodium 140 Potassium 3.9 Chloride 105 Carbon Dioxide 26.0 BUN 7.0 Creatinine 0.87 Glucose 128 H Calcium 8.7 Progress Note: A&P Assessment and Plan (1) Asthma: Assessment and Plan: Monitor on medical floor Continue with inhaled and systemic steroids and bronchodilators Continue with empiric antibiotics Oxygen supplementation Plan END: As the provider for the telehealth service, I attest that I introduced myself to the patient, provided my credentials, disclosed by location and determined that based on a review of the patient's chart and discussion with members of the patient's treatment team, telemedicine via real-time, 2 way, and interactive audio and video platform is an appropriate and effective means of providing the service. ?The patient and I mutually agree this visit is appropriate for telemedicine. ?[place] ?The encounter took approximately 35 minutes. ?The nurse was present during the entire time and I was able to move the stethoscope in appropriate directions. ?The patient was evaluated at the Hospital ? Portions of this note may be dictated using [employer] voice recognition software. Variances in spelling and vocabulary are possible and unintentional. Not all errors may be caught and/or corrected. Please notify the author if any discrepancies are noted and/or if the meaning of any statement is unclear.? ? Patient verbally consented for treatment via video visit with patient currently located at [facility] and provider located in [place]. Telemedicine Attestation Telemedicine Attestation I conducted this encounter from [[place]] via secure live, [id number] video conference with the patient, located at [facility] with [asthma]. Prior to the interview, the risks and benefits of telemedicine were discussed with the patient and verbal consent was obtained.
[2022-10-20] MEDS: CEFTRIAXONE 1,000 MG in 0.9 % SODIUM CHLORIDE 50 ML 100 MG IV ×2 (03:07→15:17)
[2022-10-20] MEDS: AZITHROMYCIN 500 MG in 0.9 % SODIUM CHLORIDE 250 ML 250 MG IV (04:16)
[2022-10-20 05:25] LABS: Anion Gap 14.7; Calcium 9.1 mg/dL (8.5-10.1); Carbon Dioxide 22.6 mmol/L (21.0-32.0); Chloride 101 mmol/L (98-107); Estimated GFR (African America >60 (>=60); Estimated GFR (Non-African Ame >60 (>=60); Glucose 168 mg/dL (74-106); Potassium 4.3 mmol/L (3.5-5.1); Sodium 134 mmol/L (136-145)
[2022-10-20] MEDS: METHYLPREDNISOLONE SOD SUCC PF 40 MG/ML VIAL IVP ×3 (05:26→21:53)
--- NOTE | 2022-10-20 09:40 | CM.NOTE ---
Rounds made with Dr. Alonso, no discharge today. ABG's ordered.
--- NOTE | 2022-10-20 10:01 | PM.HP ---
H&P: HPI History of Present Illness Chief complaint: SOB Narrative: 27 y/o female with a history of asthma to ER with SOB. Admitted at end of July for asthma exacerbation and required BiPAP during that hospitalization. C/o URI symptoms with congestion and sinus pressure over the past several days. Day of admission woke up with SOB. SOB worsened and worse with exertion. Chest tight and hard to take deep breath. Mild nonproductive cough. Continued SOB and to ER. BS decreased and given steroids and breathing treatments. WBC 12.4 and low grade temp 99.7. Chest x-ray negative. Admitted for treatment. Started solu-medrol and Xopenex. Started zithromax and rocephin for possible infection. Feels better overnight but continues to have SOB with exertion and chest tightness. Review of Systems ROS Constitutional Denies: fever, chills or night sweats Cardiovascular Denies: chest pain, palpitations or edema Respiratory Reports: shortness of breath, cough and wheezing Genitourinary Denies: painful urination [facility] Medical History (Updated 10/19/22 @ 23:05 by Humble Richardson MD) Family History (Updated 10/20/22 @ 00:35 by Channing Olivera) Grandmother Family history of cancer Family history of diabetes mellitus Family history of COPD (chronic obstructive pulmonary disease) Mother Family history of hypertension Grandfather Family history of diabetes mellitus Family history of myocardial infarction Family history of cancer Father Family history of diabetes mellitus Social History (Updated 10/20/22 @ 00:39 by Channing Olivera) Within the past year, how often did you have a drink containing alcohol: 2-4 times a month Within the past year, how many standard drinks containing alcohol did you have on a typical day: 1 or 2 Within the past year, how often did you have six or more drinks on one occasion: less than monthly Total score: 1 Score interpretation: A score of 3 or more indicates drinking is likely to affect patient's safety. Smoking status: Never smoker Do you use any of these nicotine containing products: vaping products Nicotine containing products detail: NOT HAD ANY FOR OVER TWO YEARS Second hand tobacco smoke exposure: Yes Non-prescribed substance use: denies use Previous occupational history: Not employed Known occupational exposures/hazards: No Highest level of school completed/degree received: high school graduate Are you now , , , , never or living with a partner: living with partner In a typical week, how many times do you talk on the telephone with family, friends, or neighbors: 3 or more times per week How often do you get together with friends or relatives: twice per week How often do you attend confucianism or restorationist services: 1-3 times per year Do you belong to any clubs or organizations such as confucianism groups unions, [employer] or athletic groups, or school groups: no Total score: 2 Score interpretation: A score of greater than or equal to 2 indicates the lowest level of social isolation. Little interest or pleasure in doing things: not at all Feeling down, depressed, or hopeless: not at all Feel stressed/tense/nervous/anxious/difficulty sleeping: not at all Do you think of yourself as: straight/heterosexual Gender Identity: female Meds Home Medications and Allergies Home Medications Medication Instructions Recorded Confirmed Type budesonide-formoterol HFA 160 2 inh inhalation BID #10.2 grams 08/25/22 10/19/22 Rx mcg-4.5 mcg/actuation aerosol inhaler (Symbicort) ipratropium bromide 17 2 inh inhalation Q6H PRN shortness 08/25/22 10/19/22 Rx mcg/actuation HFA aerosol inhaler of breath or wheezing #12.9 grams (Atrovent HFA) Allergies Allergy/AdvReac Type Severity Reaction Status Date / Time No Known Drug Allergies Allergy Verified 10/19/22 20:51 Exam Constitutional Vital Signs, click to edit/add: Last Vital Signs Temp 98.7 F 10/20/22 05:29 Pulse 106 H 10/20/22 07:47 Resp 18 10/20/22 05:29 BP 119/87 10/20/22 05:29 Pulse Ox 86 L 10/20/22 09:44 O2 Del Method Room Air 10/20/22 09:44 O2 Flow Rate 1 10/20/22 09:06 Documenting provider has reviewed patient's vital signs: yes Common normals: no apparent distress, oriented x3 and alert HENMT Common normals: normocephalic Eye Common normals: PERRL and EOMs intact bilaterally Respiratory Auscultation: wheezes and diminished lung sounds (Poor air movement throughout) Cardio Common normals: regular rate, regular rhythm, no gallops, no murmurs and no rub GI Common normals: Normal to inspection, nondistended, normoactive bowel sounds present and non-tender Extremity Common normals: no pedal edema Results Labs Labs: Short CBC 10/19/22 Range/Units 21:00 WBC 12.4 H (4.0-11.0) 10^3/uL Hgb 14.3 (12.0-16.0) g/dL Hct 41.2 (36.0-48.0) % Plt Count 254 (150-450) 10^3/uL BMP 10/19/22 10/20/22 21:00 04:40 Sodium 140 134 L Potassium 3.9 4.3 Chloride 105 101 Carbon Dioxide 26.0 22.6 BUN 7.0 8.0 Creatinine 0.87 0.80 Glucose 128 H 168 H Calcium 8.7 9.1 Assessment and Plan Assessment and Plan (1) Asthma with acute exacerbation: Plan Admitted with asthma exacerbation and continues to have poor air movement. Continue antibiotics, steroids, and breathing treatments. Check ABG. Resume inhaled steroid. Increased ambulation. If continues to improve possible discharge in am.
[2022-10-20] MEDS: LEVALBUTEROL HCL 1.25 MG/3 ML VIAL NEB IH ×3 (10:13→22:16)
[2022-10-20 10:32] LABS: ABG PCO2 32.4 mmHg (35.0-45.0); HCO3 ABG 21.4 mmol/L (22.0-26.0); PO2 ABG 67.4 mmHg (80.0-100.0); pH ABG 7.428 (7.350-7.450)
[2022-10-20 10:33] LABS: Allen Test POSITIVE (POSITIVE); O2 Mode ROOM AIR; Oxygen Saturation ABG 94.7 %; Puncture Site L RADIAL
[2022-10-20] MEDS: BUDESONIDE 0.5 MG/2 ML AMPULE NEB IH (22:17)
[2022-10-21] MEDS: CEFTRIAXONE 1,000 MG in 0.9 % SODIUM CHLORIDE 50 ML 100 MG IV (03:04)
[2022-10-21] MEDS: AZITHROMYCIN 500 MG in 0.9 % SODIUM CHLORIDE 250 ML 150 MG IV (03:41)
[2022-10-21] MEDS: METHYLPREDNISOLONE SOD SUCC PF 40 MG/ML VIAL IVP (05:05)
[2022-10-21 05:08] LABS: pH ABG 7.401 (7.350-7.450)
[2022-10-21 05:09] LABS: ABG PCO2 36.7 mmHg (35.0-45.0); Allen Test POSITIVE (POSITIVE); Base Excess ABG -2 mmol/L (-2.0-2.0); HCO3 ABG 22.8 mmol/L (22.0-26.0); O2 Mode ROOM AIR; Oxygen Saturation ABG 95.3 %; PO2 ABG 73.1 mmHg (80.0-100.0)
[2022-10-21 05:10] LABS: Puncture Site R RADIAL
[2022-10-21 05:15] VITALS: BP 131/87; PULSE 97; TEMP 37.2; O2SAT 95
--- NOTE | 2022-10-21 10:01 | CM.NOTE ---
Rounds made with warren Montes to discharge to home. 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 Almanzar as primary care physician.
--- NOTE | 2022-10-21 10:14 | P.DS_ITS ---
DS: Providers Provider Date of admission: 10/20/22 02:18 Primary care physician: Non-Staff Physician, DS: Diagnosis Discharge Diagnosis (1) Asthma with acute exacerbation: (2) Acute respiratory failure with hypoxia: DS: Summary Hospital Course Hospital Course: Reason for admission: See H&P for details. 27 y/o female with a history of asthma to ER with SOB. Admitted at end of July for asthma exacerbation and required BiPAP during that hospitalization. C/o URI symptoms with congestion and sinus pressure over the past several days. Day of admission woke up with SOB. SOB worsened and worse with exertion. Chest tight and hard to take deep breath. Mild nonproductive cough. Continued SOB and to ER. BS decreased and given steroids and breathing treatments. WBC 12.4 and low grade temp 99.7. Chest x-ray negative. Admitted for treatment. Hospital course: Started solu-medrol and Xopenex. Started zithromax and bin ephin for possible infection. Improved overnight but continues to have SOB with exertion and chest tightness. BS diminished and ABG with low pO2 67. Continued treatments and improved. Able to ambulate around room with less SOB. Mild cough. Afebrile. Repeat ABG with improved pO2. Discharged home in stable condition. Will take cefdinir and zithromax for infection. Take prednisone tapered over 12 days. Resume medication as directed. Arranged for f/u with new pulmonology at [facility]. Time Spent with Patient Time attestation: Total time spent providing and/or coordinating discharge services: Exam Constitutional Vital Signs, click to edit/add: Last Vital Signs Temp 98.9 F 10/21/22 05:15 Pulse 97 H 10/21/22 05:15 Resp 20 10/20/22 22:16 BP 131/87 10/21/22 05:15 Pulse Ox 95 10/21/22 05:15 O2 Del Method Room Air 10/21/22 05:15 O2 Flow Rate 1 10/20/22 09:06 Documenting provider has reviewed patient's vital signs: yes Common normals: no apparent distress, oriented x3 and alert HENMT Common normals: normocephalic Eye Common normals: PERRL and EOMs intact bilaterally Respiratory Auscultation: wheezes and diminished lung sounds Cardio Common normals: regular rate, regular rhythm, no gallops, no murmurs and no rub GI Common normals: Normal to inspection, nondistended, normoactive bowel sounds present and non-tender Extremity Common normals: no pedal edema DS: Data Data Completed and Pending Labs on day of discharge: Labs from last 24 hours 10/21/22 10/20/22 05:00 10:26 Puncture Site R radial L radial ABG pH 7.401 7.428 ABG pCO2 36.7 32.4 L ABG pO2 73.1 L 67.4 L ABG HCO3 22.8 21.4 L ABG O2 Saturation 95.3 94.7 ABG Base Excess -2 -3.0 L Son Test Positive Positive Discharge Plan Discharge Disposition: Home, Self-Care Condition: Fair Discharge Medications: New azithromycin [Zithromax] 250 mg tablet 250 mg PO DAILY 4 Days Qty: 4 0RF Rx Instructions: start on day 2 of therapy prednisone 10 mg tablets,dose pack 10 mg PO DAILY Qty: 39 0RF Rx Instructions: 6 PO daily x 3 days, then 4 PO daily x 3 days, then 2 PO daily x 3 days, then 1 PO daily x 3 days cefdinir 300 mg capsule 300 mg PO BID 10 Days Qty: 20 0RF Continued budesonide-formoterol [Symbicort] 160-4.5 mcg/actuation HFA aerosol inhaler 2 inh inhalation BID Qty: 10.2 0RF Atrovent HFA 17 mcg/actuation HFA aerosol inhaler 2 inh inhalation Q6H PRN (Reason: shortness of breath or wheezing) Qty: 12.9 0RF Rx Instructions: administer with spacer Activity: resume usual activities as tolerated Diet: advance to your usual diet Forms: Portal Instructions Follow Up Appointments: [facility] nov 14 @1:30 1919Mariya Daily [phone]
--- NOTE | 2022-10-25 14:51 | CM.DCFOLLOWU ---
Person spoke with: Jaja How are you feeling? Much better How is your pain? None Did you understand your discharge instructions? Yes Do you have any questions about your discharge instructions? No Were you given any prescriptions at discharge? Yes Were you able to get your prescriptions filled? Yes Do you understand how to take your medications as ordered? Yes Do you have any questions about your follow up appointment and do you plan to keep your follow up appointment? No Is there anything else that you would like to discuss? I did wake up with hives and itching and not sure what caused the hives. Pt took one dose of Benadryl and they are gone. Denies any trouble breathing, hives only. Nothing after medication taken today. Encouraged pt to reach out to primary care doctor. uestions/Comments/Concerns/Other:
== END 2022-10-21 11:12 | disposition home or self-care (01) ==
LOC: ER 23:05 → MS 10-20 02:19
PROVIDERS: Internal Medicine; Admitting Provider Family Medicine; Emergency Provider Internal Medicine; Visit Provider Family Medicine
DX: J45.901 Unspecified asthma with (acute) exacerbation (principal); J96.01 Acute respiratory failure with hypoxia; Z79.899 Other long term (current) drug therapy
CPT/HCPCS: 36415; 36600; 71045; 80048; 82805; 84703; 85025; 94640; 94761; 96365; 96366; 96367; 96375; 96376; 99285; G0378; J0456; J2920; J2930; Q3014

== ENCOUNTER 2022-11-19 12:30 | Emergency (ER) | payer OTHER, SELFPAY ==
[2022-11-19 12:48] VITALS: BP 132/87; PULSE 83; RESP 18; TEMP 37; O2SAT 100; BMI 37.9
--- NOTE | 2022-11-19 12:58 | XR_ITS ---
[facility] [id number] Patient Name: PARK TORREZ MRN: [id number] date: 1995 Sex: F Assigned Patient Location: ER Current Patient Location: Accession/Order Number: [id number] Exam Date: 11/19/2022 13:00 Report Date: 11/19/2022 14:31 At the request of: KALEB HORN Procedure: XR elbow RT min 3V HISTORY: Right elbow pain with decreased range motion after a fall. XR elbow RT min 3V: 11/19/2022 1:00 PM EDT COMPARISON: None. FINDINGS: 3 views of the right elbow were obtained. No fracture or dislocation is seen, but there is evidence of a large joint effusion/hemarthrosis with prominence of the anterior and posterior fat pads seen on the lateral view. Incidental note is made of a probable linear radiopaque control implant within the subcutaneous fat of the medial aspect of the upper arm at the level of the distal humeral diaphysis at the edge of the [id number]. XR/XR elbow RT min 3V IMPRESSION: No fracture or dislocation is seen, but there is evidence of a large joint effusion/hemarthrosis and this is compatible with a probable occult, nondisplaced fracture of the elbow given the clinical history of trauma. This should be treated as a fracture and follow-up radiographs in 7-10 days could be obtained to evaluate for the occult fracture. Electronically authenticated by: TULIO QUINTANA Date: 11/19/2022 14:31
--- NOTE | 2022-11-19 13:04 | ED.UPPEXIN1 ---
HPI - Extremity Injury (Upper) General Chief Complaint: Extremity Injury, Upper Stated Complaint: R ELBOW INJURY Time Seen by Provider: 11/19/22 12:51 Source: patient Mode of arrival: ambulance Limitations: no limitations History of Present Illness HPI narrative: 27-year-old female presents for right elbow pain. She fell onto it hitting asphalt last night. The shoulder and wrist don't hurt. The pain is moderate and worse when she moves it. Related Data Home Medications Medication Instructions Recorded Confirmed albuterol sulfate 90 mcg/actuation inhalation 11/19/22 aerosol inhaler Previous Rx's Medication Instructions Recorded budesonide-formoterol HFA 160 2 inh inhalation BID #10.2 grams 08/25/22 mcg-4.5 mcg/actuation aerosol inhaler (Symbicort) acetaminophen 300 mg-codeine 30 mg 1 tab PO Q6H PRN pain #20 tabs 11/19/22 tablet Allergies Allergy/AdvReac Type Severity Reaction Status Date / Time No Known Drug Allergies Allergy Verified 11/19/22 12:46 Review of Systems ROS Narrative A ten point review of systems is negative except as noted above. [facility] Medical History (Updated 11/19/22 @ 13:40 by Henry Mcdonnell MD) Family History (Updated 10/20/22 @ 00:35 by Channing Olivera) Grandmother Family history of cancer Family history of diabetes mellitus Family history of COPD (chronic obstructive pulmonary disease) Mother Family history of hypertension Grandfather Family history of diabetes mellitus Family history of myocardial infarction Family history of cancer Father Family history of diabetes mellitus Social History (Updated 10/20/22 @ 00:39 by Channing Olivera) Within the past year, how often did you have a drink containing alcohol: 2-4 times a month Within the past year, how many standard drinks containing alcohol did you have on a typical day: 1 or 2 Within the past year, how often did you have six or more drinks on one occasion: less than monthly Total score: 1 Score interpretation: A score of 3 or more indicates drinking is likely to affect patient's safety. Smoking status: Former smoker Do you use any of these nicotine containing products: vaping products Nicotine containing products detail: NOT HAD ANY FOR OVER TWO YEARS Second hand tobacco smoke exposure: Yes Non-prescribed substance use: denies use Previous occupational history: Not employed Known occupational exposures/hazards: No Highest level of school completed/degree received: high school graduate Are you now , , , , never or living with a partner: living with partner In a typical week, how many times do you talk on the telephone with family, friends, or neighbors: 3 or more times per week How often do you get together with friends or relatives: twice per week How often do you attend taoist or pentecostal services: 1-3 times per year Do you belong to any clubs or organizations such as taoist groups unions, fraternal or athletic groups, or school groups: no Total score: 2 Score interpretation: A score of greater than or equal to 2 indicates the lowest level of social isolation. Little interest or pleasure in doing things: not at all Feeling down, depressed, or hopeless: not at all Feel stressed/tense/nervous/anxious/difficulty sleeping: not at all Do you think of yourself as: straight/heterosexual Gender Identity: female Exam Narrative Exam Narrative: Nurses note and vital signs reviewed and patient is not hypoxic. General: The patient appears well and in no apparent distress. Patient is resting comfortably on cart. Skin: Warm, dry, no pallor noted. There is no rash noted. Head: Normocephalic, atraumatic Eye: Normal conjunctiva, no drainage, Ears, Nose, Mouth, and Throat: oral mucosa is moist. Nares patent. Cardiovascular: Regular Rate and Rhythm Respiratory: Patient is in no distress, no accessory muscle use, lungs are clear to auscultation, no wheezing, rales or rhonchi Back: non-tender GI: nontender Musculoskeletal: the right wrist and shoulder are nontender and have full range of motion. She is reluctant to fully extend the right elbow. No break in the skin or obvious deformity. Neurological: A&O, normal speech Psychiatric: Cooperative Constitutional Vital Signs, click to edit/add: Last Vital Signs Temp 98.6 F 11/19/22 12:48 Pulse 83 11/19/22 12:48 Resp 18 11/19/22 12:48 BP 132/87 11/19/22 12:48 Pulse Ox 100 11/19/22 12:48 O2 Del Method Room Air 11/19/22 12:48 Course Vital Signs Vital signs: Vital Signs Temperature 98.6 F 11/19/22 12:48 Pulse Rate 83 11/19/22 12:48 Respiratory Rate 18 11/19/22 12:48 Blood Pressure 132/87 11/19/22 12:48 Pulse Oximetry 100 11/19/22 12:48 Oxygen Delivery Method Room Air 11/19/22 12:48 Temperature 98.6 F 11/19/22 12:48 Pulse Rate 83 11/19/22 12:48 Respiratory Rate 18 11/19/22 12:48 Blood Pressure 132/87 11/19/22 12:48 Pulse Oximetry 100 11/19/22 12:48 Oxygen Delivery Method Room Air 11/19/22 12:48 MDM - Extremity Injury (Upper) MDM Narrative Medical decision making narrative: x-ray of the elbow on my interpretation shows a posterior fat pad and sail sign. She has an effusion. This is most likely from a nondisplaced radial head fracture. Long arm posterior splint is applied by me, application checked by me and found to be appropriate, she is neurovascularly intact. Sling applied, application checked by me and found to be appropriate, she is neurovascular intact. She'll follow-up with orthopedics. Treatment diagnosis and follow up are discussed with the patient. Differential Diagnosis Differential diagnosis: Likely other (elbow fracture, elbow contusion) Imaging Data right elbow fracture: My impression: effusion Discharge Plan Discharge Chief Complaint: Extremity Injury, Upper Clinical Impression: Elbow fracture, right Patient Disposition: Home, Self-Care Time of Disposition Decision: 13:39 Condition: Good Mode of Transportation: Private Vehicle Prescriptions / Home Meds: New acetaminophen-codeine 300-30 mg tablet 1 tab PO Q6H PRN (Reason: pain) Qty: 20 0RF No Action budesonide-formoterol [Symbicort] 160-4.5 mcg/actuation HFA aerosol inhaler 2 inh inhalation BID Qty: 10.2 0RF albuterol sulfate 90 mcg/actuation HFA aerosol inhaler INHALATION Instructions: Elbow Fracture (ED), How to Use a Sling (ED) Additional Instructions: follow-up with Dr. Valentino Stand Alone Forms: Portal Instructions Referrals: Physician,Non-Staff, MD [Primary Care Provider] - 1 week
== END 2022-11-19 13:53 | disposition home or self-care (01) ==
PROVIDERS: Emergency Provider Emergency Medicine
DX: S52.124A Nondisplaced fracture of head of right radius, initial encounter for closed fracture (principal); W19.XXXA Unspecified fall, initial encounter; Z79.899 Other long term (current) drug therapy; Z87.891 Personal history of nicotine dependence
CPT/HCPCS: 73080; 99283

== ENCOUNTER 2022-12-05 09:01 | Outpatient (OUT) | payer OTHER, SELFPAY ==
--- NOTE | 2022-12-05 09:23 | XR_ITS ---
The [address] [address] Patient Name: PARK TORREZ MRN: [id number] date: 1995 Sex: F Assigned Patient Location: RAD Current Patient Location: RAD Accession/Order Number: [id number] Exam Date: 12/05/2022 09:18 Report Date: 12/05/2022 11:08 At the request of: YESIKA SANDOVAL Procedure: XR elbow RT min 3V PROCEDURE: XR elbow RT min 3V DATE: 12/05/2022 8:18 AM CDT COMPARISONS: 11/19/2022 CLINICAL INDICATION: Occult Closed Fracture Of Right Elbow S42.401A FINDINGS: Previous exam showed evidence of occult right elbow fracture as there was a large joint effusion. Today the elbow joint effusion has resolved.. As on previous exam it is difficult to identify the occult fracture. It is presumed there is a nondisplaced radial head fracture but this cannot be proven on these images. All osseous structures are in good alignment. XR/XR elbow RT min 3V IMPRESSION: 1. Resolution of previously noted right elbow joint effusion 2. Probable occult radial head fracture although the images do not definitely demonstrate a fracture Electronically authenticated by: CAIO ALVES Date: 12/05/2022 11:08
== END 2022-12-05 09:02 | disposition home or self-care (01) ==
LOC: RAD 09:01
PROVIDERS: Visit Provider Orthopaedic Surgery
DX: S42.401A Unspecified fracture of lower end of right humerus, initial encounter for closed fracture (principal)
CPT/HCPCS: 73080

== ENCOUNTER 2023-03-01 07:15 | Emergency (ER) | payer SELFPAY ==
[2023-03-01 07:16] VITALS: BP 131/95; PULSE 132; RESP 18; TEMP 36.6; O2SAT 91; BMI 37.6
[2023-03-01 07:29] VITALS: O2SAT 94
--- NOTE | 2023-03-01 07:30 | ED.GENADUL1 ---
HPI - General Adult General Chief complaint: Shortness of Breath/Dyspnea Stated complaint: SHORTNESS OF BREATH Time Seen by Provider: 03/01/23 07:22 Source: patient Mode of arrival: ambulance History of Present Illness HPI narrative: Patient is a 27-year-old female who is presenting to the Emergency Room with chief complaint of running out of her albuterol inhaler, shortness of breath, cough, congestion and mild sinus pressure for the past 2 days. Patient PCP is Dr. Sanchez, she saw him approximately 2 or 3 months ago in the office. Patient is uncertain if she has a refill for her albuterol inhaler not. Patient's had no nausea, vomiting, diarrhea. She has had shortness of breath, no chest pain or tightness. Patient has a special needs child at home that has a high sensory output, somewhat fluctuant isn't. Patient's child has been coughing. Her face for the past several days. Patient has no recent traveling. Patient is nonsmoker, no smoking around her. Last time patient was on steroids was approximately 2 or 3 months ago, patient does not believe she needs steroids at this time. Patient will need a refill of her albuterol inhaler. No other acute complaints this time. Patient feels like she is breathing much better after albuterol nebulizer was given by EMS. Patient came in by EMS. . All systems are negative except as noted/marked. All systems reviewed and otherwise negative. . Nurses note and vital signs reviewed and patient is not hypoxic. General: The patient appears well and in no apparent distress. Patient is resting comfortably on cart. Patient is not toxic, lethargic, or listless Skin: Warm, dry, no pallor noted. There is no rash noted. No petechiae, purpura. Head: Normocephalic, atraumatic, No tenderness to palpation of bilateral frontal or maxillary sinus. Eye: Normal conjunctiva, no drainage, EOMI. PERRL Ears, Nose, Mouth, and Throat: oral mucosa is moist. Nares patent. Mouth without vesicles. Cardiovascular: Regular Rate and Rhythm, no murmur, gallop, rub Respiratory: Patient is in no distress, no accessory muscle use, lungs are Decreased bilateral, family's left lower base, no rhonchi or rales or crackles, slightly prolonged expiratory phase. Back: non-tender, GI: soft, no tenderness Musculoskeletal: Patient has full range of motion of all of the extremities, no motor, sensory, or focal neurological deficits Neurological: A&O x3, normal speech Psychiatric: Cooperative Related Data Home Medications Medication Instructions Recorded Confirmed albuterol sulfate 90 mcg/actuation inhalation 11/19/22 aerosol inhaler Previous Rx's Medication Instructions Recorded budesonide-formoterol HFA 160 2 inh inhalation BID #10.2 grams 08/25/22 mcg-4.5 mcg/actuation aerosol inhaler (Symbicort) acetaminophen 300 mg-codeine 30 mg 1 tab PO Q6H PRN pain #20 tabs 11/19/22 tablet albuterol sulfate 90 mcg/actuation 2 inh inhalation Q4H PRN shortness 03/01/23 breath activated powder inhaler of breath or wheezing #1 ea Allergies Allergy/AdvReac Type Severity Reaction Status Date / Time No Known Drug Allergies Allergy Verified 03/01/23 07:20 [facility] Medical History (Updated 03/01/23 @ 07:44 by Jus Yan MD) Asthma with acute exacerbation ?J45.901 - Unspecified asthma with (acute) exacerbation (ICD-10) delivery affecting ?P03.4 - [place] affected by delivery (ICD-10) Asthma ?J45.909 - Unspecified asthma, uncomplicated (ICD-10) Family History (Updated 10/20/22 @ 00:35 by Channing Olivera) Grandmother Family history of cancer Family history of diabetes mellitus Family history of COPD (chronic obstructive pulmonary disease) Mother Family history of hypertension Grandfather Family history of diabetes mellitus Family history of myocardial infarction Family history of cancer Father Family history of diabetes mellitus Social History (Updated 10/20/22 @ 00:39 by Channing Olivera) Within the past year, how often did you have a drink containing alcohol: 2-4 times a month Within the past year, how many standard drinks containing alcohol did you have on a typical day: 1 or 2 Within the past year, how often did you have six or more drinks on one occasion: less than monthly Total score: 1 Score interpretation: A score of 3 or more indicates drinking is likely to affect patient's safety. Smoking status: Never smoker Do you use any of these nicotine containing products: vaping products Nicotine containing products detail: NOT HAD ANY FOR OVER TWO YEARS Second hand tobacco smoke exposure: Yes Non-prescribed substance use: denies use Previous occupational history: Not employed Known occupational exposures/hazards: No Highest level of school completed/degree received: high school graduate Are you now , , , , never or living with a partner: living with partner In a typical week, how many times do you talk on the telephone with family, friends, or neighbors: 3 or more times per week How often do you get together with friends or relatives: twice per week How often do you attend oriental orthodox or yazdanism services: 1-3 times per year Do you belong to any clubs or organizations such as oriental orthodox groups unions, [email or web address] or athletic groups, or school groups: no Total score: 2 Score interpretation: A score of greater than or equal to 2 indicates the lowest level of social isolation. Little interest or pleasure in doing things: not at all Feeling down, depressed, or hopeless: not at all Feel stressed/tense/nervous/anxious/difficulty sleeping: not at all Do you think of yourself as: straight/heterosexual Gender Identity: female Exam Constitutional Vital Signs, click to edit/add: Last Vital Signs Temp 97.8 F 03/01/23 07:16 Pulse 132 H 03/01/23 07:16 Resp 18 03/01/23 07:16 BP 131/95 H 03/01/23 07:16 Pulse Ox 94 L 03/01/23 07:35 O2 Del Method Nasal Cannula 03/01/23 07:35 O2 Flow Rate 2 03/01/23 07:35 Course Vital Signs Vital signs: Vital Signs Temperature 97.8 F 03/01/23 07:16 Pulse Rate 132 H 03/01/23 07:16 Respiratory Rate 18 03/01/23 07:16 Blood Pressure 131/95 H 03/01/23 07:16 Pulse Oximetry 91 L 03/01/23 07:16 Oxygen Delivery Method Room Air 03/01/23 07:16 Temperature 97.8 F 03/01/23 07:16 Pulse Rate 132 H 03/01/23 07:16 Respiratory Rate 18 03/01/23 07:16 Blood Pressure 131/95 H 03/01/23 07:16 Pulse Oximetry 94 L 03/01/23 07:35 Oxygen Delivery Method Nasal Cannula 03/01/23 07:35 Oxygen Delivery Flow Rate 2 03/01/23 07:35 Medical Decision Making MDM Narrative Medical decision making narrative: Patient had respiratory syncytial virus, influenza,: Instructed testing there were all negative. Patient was given a DuoNeb breathing treatment did help. Patient is given a refill on her albuterol inhaler. Patient will follow-up with PCP. Patient agrees that she does not need steroids at this time, she'll follow up with PCP if symptoms worse. Patient wheeze [id number] DayQuil, NyQuil, Flonase, Mucinex. Patient ambulated with pulse ox at discharge. Patient was 90-93 percent on room air. Patient felt much better. Patient's heart rate was elevated, she states is her normal when she does any type of albuterol inhaler and will come down within the hour. Patient feels safe to go home. Patient will follow-up with PCP, reauscultation of the patient's lungs were clear, no wheezing, crackles, rales, patient's breath sounds have improved. Lab Data Lab results reviewed: Yes I reviewed the patient's lab results Labs: Lab Results 03/01/23 Range/Units 07:23 SARS-CoV-2 (PCR) Negative (NEGATIVE) Influenza Type A Ag Negative Influenza Type B Ag Negative RSV Antigen Not detected (NOT DETECTE) Streptococcus Screen Negative Discharge Plan Discharge Chief Complaint: Shortness of Breath/Dyspnea Clinical Impression: Asthma exacerbation, Medication refill, Sinus congestion Patient Disposition: Home, Self-Care Condition: Fair Prescriptions / Home Meds: New albuterol sulfate 90 mcg/actuation aerosol powdr breath activated 2 inh inhalation Q4H PRN (Reason: shortness of breath or wheezing) Qty: 1 0RF No Action budesonide-formoterol [Symbicort] 160-4.5 mcg/actuation HFA aerosol inhaler 2 inh inhalation BID Qty: 10.2 0RF albuterol sulfate 90 mcg/actuation HFA aerosol inhaler INHALATION acetaminophen-codeine 300-30 mg tablet 1 tab PO Q6H PRN (Reason: pain) Qty: 20 0RF Instructions: Asthma (ED), Cold Symptoms (ED), Medicine Refill (ED), How to Use Nasal [place] (ED) Additional Instructions: Start using DayQuil, NyQuil, Flonase daily for next 5-7 days Add Mucinex DM if needed. Take daily vitamin C, vitamin D3, and zinc Increase fluids. Alternate Tylenol and Motrin every 4 hours as needed for body aches, muscle pain, joint pain or chest wall pain Follow-up with her PCP is no significant improvement in the next 3-4 days Stand Alone Forms: Portal Instructions Referrals: Physician,Non-Staff, [Physician] - 1 week
[2023-03-01] MEDS: IPRATROPIUM/ALBUTEROL SULFATE 3 ML AMPUL.NEB IH (07:34)
[2023-03-01 07:35] VITALS: O2SAT 94
[2023-03-01 07:54] LABS: Influenza Virus A Antigen Negative; Influenza Virus B Antigen Negative; Internal Control Within Normal Limits; SARS-CoV-2 Ag NEGATIVE (NEGATIVE); Strep A Antigen Screen Negative
[2023-03-01 07:58] LABS: Internal Control Within Normal Limits; Respiratory Syncytial Virus Not Detected (NOT DETECTE)
--- NOTE | 2023-03-01 08:12 | PC.NURSE ---
Informed Dr Yan of Spo2 91% on RA. Walk study done and pt maintained 91-92% on RA. Dr Yan okay with this.
[2023-03-01 08:13] VITALS: BP 134/90; PULSE 137; RESP 16; O2SAT 92
[2023-03-01 15:11] LABS: SARS-CoV-2 NAA NOT DETECTED (NOT DETECTE)
== END 2023-03-01 08:15 | disposition home or self-care (01) ==
PROVIDERS: Emergency Provider Emergency Medicine; PCP Internal Medicine
DX: J45.901 Unspecified asthma with (acute) exacerbation (principal); Z76.0 Encounter for issue of repeat prescription; R09.81 Nasal congestion; F17.290 Nicotine dependence, other tobacco product, uncomplicated
CPT/HCPCS: 87070; 87420; 87635; 87798; 87804; 87811; 87880; 94640; 99283

== ENCOUNTER 2023-06-01 21:34 | Emergency (ER) | payer MEDICAID, SELFPAY ==
[2023-06-01] VITALS (8 sets, daily range): BP systolic 120; BP diastolic 74; PULSE 105–121; O2SAT 95–97; BMI 38.1
--- OUTSIDE RECORDS SUMMARY | 2023-06-01 22:05 | XMS_ITS | CCD ---
Author Organization [facility] Care Team Providers Care Lsw Name Role Phone REQUEST, DR NONE LISTED Primary Care Unavaila ble OBED, DR MILNER Attending Unavailable OBED, DR MILNER Admitting Unavailable REQUEST, NONE LISTED Primary Care Unavaila ble OBED, DR MILNER Attending Unavailable OBED, DR MILNER Consulting Unavailable OBED, DR MILNER Admitting Unavailable OBED, DR MILNER Consulting Unavailable OBED, DR MILNER Admitting Unavailable OBED, DR MILNER Attending Unavailable REQUEST, NONE LISTED Primary Care Unavaila JOVANI Paz Consulting Unavailable DICK HO Consulting Unavailable OBED, DR MILNER Procedure Practitioner Unavailab le REQUEST, NONE LISTED Primary Care Unavaila ble SCOT, JUAN RAMON Admitting Unavailable EMERY VINCENT Consulting Unavailable SCOT, JUAN RAMON Attending Unavailable SCOT, JUAN RAMON Consulting Unavailable Jovani Kathleen Consulting Unavailable Problems Active Problems Problem Classification Problem Date Documented Date Episodic/Chronic Asthma (1 source) Unspecified asthma, uncomplicated; Translations: [UNSPECIFIED ASTHMA UNCOMPLICATED] Onset: 09-03-2020 Chronic E Codes: Struck by; against (1 source) Walked into furniture, initial encounter; Translations: [WALKED INTO FURNITURE INITIAL ENC] Onset: 07-07-2021 Episodic Fracture of lower limb (1 source) Nondisplaced fracture of proximal phalanx of left lesser toe(s), initial encounter for closed fracture; Translations: [NDSPL FX MT PHAL LT LSR TOE INIT CL] Onset: 07-07-2021 Episodic Immunizations and screening for infectious disease (1 source) Encounter for screening for human papillomavirus (HPV); Translations: [ENC SCREENING HUMAN PAPILLOMAVIRUS] Onset: 07-20-2021 Episodic Other complications of ; puerperium affecting management of mother (1 source) Obesity complicating childbirth; Translations: [OBESITY COMPLICATING CHILDBIRTH] Onset: 09-03-2020 Chronic Other connective tissue disease (3 sources) Pain in left toe(s); Translations: [PAIN IN LEFT TOES] Onset: 07-05-2021 Episodic Other nutritional; endocrine; and metabolic disorders (1 source) Obesity, unspecified; Translations: [OBESITY UNSPECIFIED] Onset: 09-03-2020 Chronic Other screening for suspected conditions (not mental disorders or infectious disease) (4 sources) Encounter for screening for malignant neoplasm of cervix; Translations: [ENC SCREENING MALIG NEOPLASM CERV] Onset: 07-15-2021 Episodic Substance-related disorders (1 source) Nicotine dependence, cigarettes, uncomplicated; Translations: [NICOTINE DEPEND CIGARETTES UNCOMP] Onset: 07-07-2021 Chronic Unclassified (1 source) CONTACT W/AND (SUSP) EXPOS COVID-19; Translations: [CONTACT W/AND (SUSP) EXPOS COVID-19] Onset: 09-03-2020 Past or Other Problems Problem Classification Problem Date Documented Da te Episodic/Chronic Fetopelvic disproportion; obstruction (1 source) Obstructed labor due to maternal pelvic abnormality, unspecified; Translations: [OBST LABR D/T MAT PELVIC ABNORM UNS] Onset: 09-03-2020 Episodic Other aftercare (1 source) 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; Translations: [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 DRUG THERAPY] Onset: 09-03-2020 Episodic Other complications of ; puerperium affecting management of mother (3 sources) Diseases of the respiratory system complicating childbirth; Translations: [DISEASES RESP SYS COMP CHILDBIRTH] Onset: 08-10-2020 Episodic Other complications of ; puerperium affecting management of mother (1 source) Abnormality in heart rate and rhythm complicating labor and delivery; Translations: [ABN FETL HEART RATE RHYTHM COMP L AND D] Onset: 09-03-2020 Episodic Other and delivery including normal (5 sources) Encounter for routine follow-up; Translations: [Single live ] Onset: 08-17-2020 Episodic Residual codes; unclassified (1 source) 39 weeks gestation of ; Translations: [39 WEEKS GESTATION OF ] Onset: 09-03-2020 Episodic Screening and history of mental health and substance abuse codes (1 source) Personal history of nicotine dependence; Translations: [PERSONAL HISTORY OF NICOTINE DEPEND] Onset: 09-03-2020 Episodic Results Test Name Value Interpretation Reference Range Facil ity PAP ACOG PANEL 2: 21 to 29on 07-20-2021 . . Normal [facility] Comment on above: Performed By: #### [id number] #### [facility] [address] [place] [address] Dr. Julius Gil Age Gdln ACOG Testing 21-29 Normal [facility] Comment on above: Performed By: #### [id number] #### [facility] [address] [place] [address] Dr. Julius Gil DIAGNOSIS: Comment [facility] Comment on above: Result Comment: NEGA TIVE FOR INTRAEPITHELIAL LESION OR MALIGNANCY. CELLULAR CHANGES ASSOCIATED WITH INFLAMMATION ARE PRESENT. Performed By: #### [id number] #### [facility] [address] [place] [address] Dr. Julius Gil Methodology: CTIM [facility] Comment on above: Result Comment: The Thin Prep(R) Bag Machine Adjuster was unable to read this specimen. Therefore a manual review was performed. Performed By: #### [id number] #### [facility] [address] [place] [address] Dr. Julius Gil Note: Comment [facility] Comment on above: Result Comment: The Pap smear is a screening test designed to aid in the detection of premalignant and malignant conditions of the uterine cervix. It is not a diagnostic procedure and should not be used as the sole means of detecting cervical cancer. Both false-positive and false-negative reports do occur. . Performed By: #### [id number] #### [facility] [address] [place] [address] Dr. Julius Gil Performed by: Comment Normal [facility] Comment on above: Result Comment: Iva Doran Director Education (ASCP) Performed By: #### [id number] #### [facility] [address] [place] [address] Dr. Julius Gil Reflex Criteria: Comment [facility] Comment on above: Result Comment: The HPV DNA reflex criteria were not met with this specimen result therefore, no HPV testing was performed. . Performed By: #### [id number] #### [facility] [address] [place] [address] Dr. Julius Gil Specimen adequacy: Comment Normal [facility] Comment on above: Result Comment: Sati sfactory for evaluation. Endocervical and/or squamous metaplastic cells (endocervical component) are present. Performed By: #### [id number] #### [facility] [address] [place] [address] Dr. Julius Gil XR FOOT LT MIN 3 VIEWSon XR FOOT LT MIN 3 VIEWS EXAM: XR FOOT LT MIN 3 VIEWS HISTORY: Pain COMPARISON: None. TECHNIQUE: Four views of the left foot are performed. FINDINGS: There is an oblique fracture involving the proximal fifth phalanx. There is no significant displacement or angulation. There is adjacent soft tissue swelling. The remaining bony structures are unremarkable. IMPRESSION: Nondisplaced fracture of the proximal fifth phalanx. Electronically authenticated by: JOVANI KATHLEEN Date: 2021-07-05 22:20 Normal [facility] CBC AUTO DIFFon 08-12-2020 BASO # 0.0 103/ul Normal 0.0-0.1 [facility] Comment on above: Performed By: #### C BC #### [facility] [address] [place] [address] Escobar Josey Basophils/100 WBC (Bld) 0.3 % Normal 0.2-2.0 [facility] Comment on above: Performed By: #### C BC #### [facility] [address] [place] [address] Escobar Josey EO # 0.0 103/ul Normal 0.0-0.7 [facility] Comment on above: Performed By: #### C BC #### [facility] [address] [place], [place] [id number] Escobar Josey Eosinophils/100 WBC (Bld) 0.1 % Critically low 0.9-7.0 [facility] Comment on above: Performed By: #### C BC #### [facility] [address] [place] [address] Escobar Josey Erythrocyte distribution width (RBC) [Ratio] 14.7 % Normal 11.0-15.0 [facility] Comment on above: Performed By: #### C BC #### [facility] [address] [place] [address] Escobarbello Dowling Hematocrit (Bld) [Volume fraction] 29.1 % Critically low 36.0-48.0 [facility] Comment on above: Performed By: #### C BC #### [facility] [address] [place] [address] Escobar Josey Hemoglobin (Bld) [Mass/Vol] 9.5 g/dL Critically low 12.0-16.0 [facility] Comment on above: Result Comment: deli moriah 08/11 Performed By: #### C BC #### [facility] [address] [place] [address] Escobarbello Dowling IG # 0.04 10e3/ul Critically high 0.00-0.03 [facility] Comment on above: Performed By: #### C BC #### [facility] [address] [place] [address] Escobarbello Dowling IG % 0.3 % Normal 0.0-0.5 [facility] Comment on above: Performed By: #### C BC #### [facility] [address] [place] [address] Escobar Dowling LYMPH # 3.2 103/ul Normal 1.2-3.8 [facility] Comment on above: Performed By: #### C BC #### [facility] [address] [place] [address] Escobar Dowling Lymphocytes/100 WBC (Bld) 21.2 % Normal 20.5-60.0 [facility] Comment on above: Performed By: #### C BC #### [facility] [address] [place] [address] Escobarbello Dowling MANUAL DIFF REQ NO Normal [facility] Comment on above: Performed By: #### C BC #### [facility] [address] [place] [address] Escobarbello Dowling MCH (RBC) [Entitic mass] 30.6 pg Normal 26.7-34.0 [facility] Comment on above: Performed By: #### C BC #### [facility] [address] [place], [place] [address] Escobar Dowling MCHC (RBC) [Mass/Vol] 32.6 g/dL Normal 29.9-35.2 [facility] Comment on above: Performed By: #### C BC #### [facility] [address] [place], [place] [address] Escobarbello Dowling MCV (RBC) [Entitic vol] 93.9 fL Normal 81.0-99.0 [facility] Comment on above: Performed By: #### C BC #### [facility] [address] [place], [place] [address] Escobar Josey MONO # 1.0 103/ul Critically high 0.3-0.8 [facility] Comment on above: Performed By: #### C BC #### [facility] [address] [place] [id number] Escobar Josey Monocytes/100 WBC (Bld) 6.5 % Normal 1.7-12.0 [facility] Comment on above: Performed By: #### C BC #### [facility] [address] [place] [id number] Escobar Josey NEUT # 10.7 103/ul Critically high 1.4-6.5 [facility] Comment on above: Performed By: #### C BC #### [facility] [address] [place], [place] [address] Escobar Josey Neutrophils/100 WBC (Bld) 71.6 % Normal 43.0-75.0 [facility] Comment on above: Performed By: #### C BC #### [facility] [address] [place], [place] [address] Escobar Josey Platelet mean volume (Bld) [Entitic vol] 10.8 fL Normal 9.5-13.5 [facility] Comment on above: Performed By: #### C BC #### [facility] [address] [place], [place] [address] Escobar Josey PLT 196 103/ul Normal 150-450 [facility] Comment on above: Performed By: #### C BC #### [facility] [address] [place], [place] [address] Escobar Josey RBC 3.10 106/ul Critically low 4.20-5.40 [facility] Comment on above: Performed By: #### C BC #### [facility] [address] [place], [place] [address] Escobar Josey WBC 15.0 103/ul Critically high 4.0-11.0 [facility] Comment on above: Performed By: #### C BC #### [facility] [address] [place], [place] [address] Escobar Josey CBC AUTO DIFFon 08-10-2020 BASO # 0.0 103/ul Normal 0.0-0.1 [facility] Comment on above: Performed By: #### C BC #### [facility] [address] [place], [place] [id number] Escobar Josey Basophils/100 WBC (Bld) 0.3 % Normal 0.2-2.0 [facility] Comment on above: Performed By: #### C BC #### [facility] [address] [place], [place] [address] Escobar Josey EO # 0.1 103/ul Normal 0.0-0.7 [facility] Comment on above: Performed By: #### C BC #### [facility] [address] [place], [place] [address] Escobar Josey Eosinophils/100 WBC (Bld) 0.9 % Normal 0.9-7.0 [facility] Comment on above: Performed By: #### C BC #### [facility] [address] [place], [place] [id number] Escobar Josey Erythrocyte distribution width (RBC) [Ratio] 14.6 % Normal 11.0-15.0 [facility] Comment on above: Performed By: #### C BC #### [facility] [address] [place], [place] [address] Escobar Josey Hematocrit (Bld) [Volume fraction] 35.3 % Critically low 36.0-48.0 [facility] Comment on above: Performed By: #### C BC #### [facility] [address] [place] [id number] Escobar Josey Hemoglobin (Bld) [Mass/Vol] 11.8 g/dL Critically low 12.0-16.0 [facility] Comment on above: Performed By: #### C BC #### [facility] [address] [place], [place] [address] Escobar Josey IG # 0.06 10e3/ul Critically high 0.00-0.03 [facility] Comment on above: Performed By: #### C BC #### [facility] [address] [place], [place] [address] Escobar Josey IG % 0.4 % Normal 0.0-0.5 [facility] Comment on above: Performed By: #### C BC #### [facility] [address] [place] [address] Escobar Josey LYMPH # 2.8 103/ul Normal 1.2-3.8 [facility] Comment on above: Performed By: #### C BC #### [facility] [address] [place] [address] Escobar Josey Lymphocytes/100 WBC (Bld) 21.0 % Normal 20.5-60.0 [facility] Comment on above: Performed By: #### C BC #### [facility] [address] [place], [place] [address] Escobarbello Dowling MANUAL DIFF REQ NO Normal [facility] Comment on above: Performed By: #### C BC #### [facility] [address] [place], [place] [address] Escobar Josey MCH (RBC) [Entitic mass] 30.6 pg Normal 26.7-34.0 [facility] Comment on above: Performed By: #### C BC #### [facility] [address] [place], [place] [address] Escobar Josey MCHC (RBC) [Mass/Vol] 33.4 g/dL Normal 29.9-35.2 [facility] Comment on above: Performed By: #### C BC #### [facility] [address] [place], [place] [address] Escobar Josey MCV (RBC) [Entitic vol] 91.7 fL Normal 81.0-99.0 [facility] Comment on above: Performed By: #### C BC #### [facility] [address] [place] [id number] Escobar Dowling MONO # 1.0 103/ul Critically high 0.3-0.8 [facility] Comment on above: Performed By: #### C BC #### [facility] [address] [place] [id number] Escobar Dowling Monocytes/100 WBC (Bld) 7.3 % Normal 1.7-12.0 [facility] Comment on above: Performed By: #### C BC #### [facility] [address] [place], [place] [address] Escobar Dowling NEUT # 9.4 103/ul Critically high 1.4-6.5 [facility] Comment on above: Performed By: #### C BC #### [facility] [address] [place], [place] [address] Escobar Dowling Neutrophils/100 WBC (Bld) 70.1 % Normal 43.0-75.0 [facility] Comment on above: Performed By: #### C BC #### [facility] [address] [place], [place] [address] Escobar Dowling Platelet mean volume (Bld) [Entitic vol] 11.0 fL Normal 9.5-13.5 [facility] Comment on above: Performed By: #### C BC #### [facility] [address] [place], [place] [address] Escobar Dowling PLT 267 103/ul Normal 150-450 [facility] Comment on above: Performed By: #### C BC #### [facility] [address] [place], [place] [address] Escobar Dowling RBC 3.85 106/ul Critically low 4.20-5.40 [facility] Comment on above: Performed By: #### C BC #### [facility] [address] [place], [place] [address] Escobar Josey WBC 13.4 103/ul Critically high 4.0-11.0 [facility] Comment on above: Performed By: #### C BC #### [facility] [address] [place], [place] [address] Escobar Dowling Covid-19 PCR (CVDTB)on 07-28 SARS-CoV-2 (COVID-19) RNA SEEMA+probe Ql (Unsp spec) Not detected Normal NOT DETECTED [facility] Comment on above: Result Comment: This test is not yet approved or cleared by the [place] FDA. When there are no FDA-approved or cleared tests available, and other criteria are met, FDA can make tests available under an emergency access mechanism called an Emergency Use Authorization (EUA). The EUA for this test is supported by the Product Marketer of Health and Human Service's (HHS's) declaration that circumstances exist to justify the emergency use of in vitro diagnostics for the detection and/or diagnosis of the virus that causes COVID-19. This EUA will remain in effect (meaning this test can be used) for the duration of the COVID-19 declaration justifying emergency of IVDs, unless it is terminated or revoked by FDA (after which the test may no longer be used). When diagnostic testing is negative, the possibility of a false negative should be considered in the context of a patient's recent exposures and the presence of clinical signs and symptoms consistent with SARS-CoV-2. Performed By: #### C VDTBH #### [facility] [address] [place] [id number] Escobar Dowling DRUG SCREEN RAPID (URINE)on 08-10-2020 AMP Negative Normal NEGATIVE [facility] Comment on above: Performed By: #### D RUGRPD #### [facility] [address] [place] [address] Escobar Josey BAR Negative Normal NEGATIVE [facility] Comment on above: Performed By: #### D RUGRPD #### [facility] [address] [place], [place] [address] Escobar Josey BUP Negative Normal NEGATIVE [facility] Comment on above: Performed By: #### D RUGRPD #### [facility] [address] [place], [place] [address] Escobar Josey BZO Negative Normal NEGATIVE [facility] Comment on above: Performed By: #### D RUGRPD #### [facility] [address] [place] [address] Escobar Josey SHONA Negative Normal NEGATIVE [facility] Comment on above: Performed By: #### D RUGRPD #### [facility] [address] [place] [id number] Escobar Josey CUT-OFFS SEE BELOW Normal [facility] Comment on above: Result Comment: AMP (Amphetamine): 500ng/mL, BAR (Barbituates): 200 ng/mL, BZO (Benzodiazepines): 150 ng/mL, BUP (Buprenorphine): 10 ng/mL, SHONA (Cocaine): 150 ng/mL, mAMP (Methamphetamine): 500 ng/mL, MTD (Methadone): 200 ng/mL, OPI (Opiates): 100 ng/mL, OXY (Oxycodone): 100 ng/mL, PCP (Phencyclidine): 25 ng/mL, PPX (Propoxyphene): 300 ng/mL, THC (Cannabinoids): 50 ng/mL, TCA (Trycyclic Antidepressants): 300 ng/mL Performed By: #### D RUGRPD #### [facility] [address] [place] [address] Escobar Josey DRUG CUT HEADER DRUG CLASS TEST SYST EM CUT-OFF CONCENTRATIONS ARE FOLLOWS: Normal [facility] Comment on above: Performed By: #### D RUGRPD #### [facility] [address] [place] [address] Escobar Josey mAMP Negative Normal NEGATIVE [facility] Comment on above: Performed By: #### D RUGRPD #### [facility] [address] [place] [address] Escobar Josey MTD Negative Normal NEGATIVE [facility] Comment on above: Performed By: #### D RUGRPD #### [facility] [address] [place] [address] Escobar Josey OPI Negative Normal NEGATIVE [facility] Comment on above: Performed By: #### D RUGRPD #### [facility] [address] [place] [address] Escobar Josey OXY Negative Normal NEGATIVE [facility] Comment on above: Performed By: #### D RUGRPD #### [facility] [address] [place] [address] Escobar Dowling PCP Negative Normal NEGATIVE [facility] Comment on above: Performed By: #### D RUGRPD #### [facility] [address] [place] [address] Escobar Josey PPX Negative Normal NEGATIVE [facility] Comment on above: Performed By: #### D RUGRPD #### [facility] [address] [place] [address] Escobar Josey TCA Negative Normal NEGATIVE [facility] Comment on above: Performed By: #### D RUGRPD #### [facility] [address] [place] [address] Escobar Josey THC Negative Normal NEGATIVE [facility] Comment on above: Performed By: #### D RUGRPD #### [facility] [address] [place] [address] Josey RAPID COVID-19 ANTIGENon EUA Statement SEE BELOW Normal [facility] Comment on above: Result Comment: This test has not been FDA cleared or approved, but has been authorized by the FDA under an Emergency Use Authorization (EUA) for use by authorized laboratories certified under CLIA that meet the requirements to perform moderate or high complexity testing. This test has been authorized only for the detection of proteins from SARS-CoV-2, not for any other viruses or pathogens. The emergency use of this test is authorized for the duration of the declaration that circumstances exist justifying the authorization of emergency use of in vitro diagnostic tests for detection and/or diagnosis of Covid-19 under section 564(b)(1) of the Act, 21 U.S.C. 360bbb-3(b)(1), unless the declaration is terminated or authorization is revoked sooner. Performed By: #### C VDAG #### [facility] [address] [place] [address] SARS-CoV-2 (COVID-19) RNA SEEMA+probe Ql (Unsp spec) Negative Normal NEGATIVE [facility] Comment on above: Result Comment: Nega tive results are presumptive. They do not preclude infection and should not be used as the sole basis for treatment decisions. Additional confirmatory testing by a molecular method should be considered. Performed By: #### C VDAG #### [facility] [address] [place], [place] [address] Escobar Dowling TYPE AND SCREENon 08-10-2020 TYPE AND SCREEN Negative Normal [facility] Comment on above: Performed By: #### T NS #### [facility] [address] [place], [place] [address] Escobar Dowling Encounters Encounter Date Encounter Type Care Provider Facility Start: 07-15-2021 End: 07-15-[address] NONE LISTED REQUEST Facility: Start: 07-05-2021 End: 07-06-2021 ambulatory NONE LISTED REQUEST Facility: Start: 08-17-2020 End: 08-17-[address] NONE LISTED REQUEST Facility: Start: 08-10-2020 End: 08-13-2020 Evaluation and management of inpatient DR ANNIA CLAY Facility:[facility] Procedures Date Procedure Procedure Detail Performing Clinician Start: 08-11-2020 Extraction of Produc ts of Conception, Low Cervical, Open Approach DR NONE LISTED REQUEST Start: 08-11-2020 Drainage of Amniotic Fluid, Therapeutic from Products of Conception, Via Natural or Artificial Opening NONE LISTED REQUEST Start: 08-10-2020 Introduction of Horm one into Female Reproductive, Via Natural or Artificial Opening NONE LISTED REQUEST Payers Date Payer Category Payer Unknown [id number] 1996 Unknown [id number] 1996 Unknown [id number] 1996 Unknown [id number] 1959 Unknown [id number] Clinical Note 08-10-2020 Note Date & Type Note Facility 08-10-2020 Note OPERATIVE NOTE OPERATION DATE: 08-10-20 ANESTHETIC:Spinal with Duramorph. HAND CIGAR MAKING SUPERVISOR:ANJALI Vargas PREOPERATIVE DIAGNOSIS: 1. Intrauterine at 39 weeks. 2. intolerance of labor. 3. Cephalopelvic disproportion. POSTOPERATIVE DIAGNOSIS:Same as above. PROCEDURE NAME:Primary low transverse Caesarean section. URINE OUTPUT:Yellow and clear. FINDINGS: Viable , Apgars and weight unknown at this time. SPECIMEN:Placenta. BLOOD LOSS: 700 mL. PROCEDURE: Patient was taken back to the Operating Room where she was given a spinal anesthesia with Duramorph without difficulty. She was prepped and draped in the normal sterile fashion. A Pfannenstiel skin incision was then made 2 cm above the symphysis pubis and carried down to underlying rectus fascia using a Bovie. The fascia was incised in the midline and extended laterally using Pelletier scissors. Two Ron clamps were placed on the superior aspect of the fascia and dissected off the underlying rectus muscles. The same was performed on the inferior aspect as well. The muscles were then in the midline. Peritoneum was identified and entered bluntly. The peritoneum was then extended superiorly and inferiorly with good visualization of the bladder. The bladder blade was inserted. Vesicouterine peritoneum was identified, tented up, and entered with Metzenbaum scissors. A bladder flap was then created digitally. The bladder blade was reinserted. A low transverse incision was made on the patient's uterus and extended laterally digitally. The infant was then delivered atraumatically after the bladder blade was removed in the cephalic position. The cord was clamped and cut. Cord blood was obtained. The infant was handed off to awaiting team. The patient's placenta was spontaneously delivered. The uterus was then exteriorized. The uterus was cleared of all clots and debris. The bladder blade was reinserted. The patient's uterine incision was closed using #0 Vicryl in a running lock fashion. Excellent hemostasis was assured. The uterus was then returned to the patient's abdomen. The patient's abdomen was copiously irrigated using warm saline. Peritoneal gutters were cleared of all clots and debris. Again excellent hemostasis was assured. The patient's peritoneum was closed using 3-0 Vicryl in a running fashion. The patient's fascia was closed using #0 Vicryl in a running fashion. The patient's skin was closed using 4-0 Vicryl subcuticularly. The patient tolerated the procedure well. Sponge, lap, and needle counts were correct x2. The patient was taken to the Recovery Room in stable condition. [facility] Signed and Approved by: DR ANNIA CLAY . 2020 15:48:00 [facility] Discharge summary note 08-10-2020 Note Date & Type Note Facility 08-10-2020 Note DISCHARGE SUMMARY Discharge Date: 08-13-20 PRIMARY DIAGNOSIS: 1. Intrauterine at 29 weeks. 2. intolerance of labor. 3. Cephalopelvic disproportion. PROCEDURE: Primary low transverse Caesarean section. CONSULTATION: Anesthesia. HOSPITAL COURSE: Was as expected, please see chart for full details. LABS: Please see chart. DISCHARGE CONDITION: Stable. DISCHARGE PLAN: ACTIVITY: Pelvic rest for 6 weeks. No heavy lifting for 6 weeks greater than [address] when pain free and no longer on narcotics. DIET: Regular. MEDICATIONS: Percocet, 5/325, 1-2 p.o. q4-5h p.r.n. pain. Motrin, 800, 1 p.o. q8h p.r.n. pain. FOLLOW-UP: In 1 week. The patient was instructed to return to the hospital with any vaginal bleeding greater than a period. Any fever unrelieved by Tylenol, any abdominal pain unrelieved with narcotics. [facility] Signed and Approved by: DR ANNIA CLAY . 09/01/2020 14:08:00 [facility] Summary Purpose Family History No Family History Records Found Advance Directives No Advanced Directives Records Found Additional Source Comments INFORMATION SOURCE (unrecogn ized section and content) DATE CREATED AUTHOR 07/21/2021 [facility] FOR RECORDS PERTAINING TO PATIENTS WHO ARE OR HAVE BEEN ENROLLED IN A CHEMICAL DEPENDENCY/SUBSTANCEABUSE PROGRAM, SOME INFORMATION MAY BE OMITTED. This clinical summary was aggregated from multiple sources. Caution should be exercised in using it in the provision of clinical care. This summary normalizes information from multiple sources, and as a consequence, information in this document may materially change the coding, format and clinical context of patient data. In addition, data may be omitted in some cases. CLINICAL DECISIONS SHOULD BE BASED ON THE PRIMARY CLINICAL RECORDS. [employer] provides no warranty or guarantee of the accuracy or completeness of information in this document.
[2023-06-01] MEDS: DIPHENHYDRAMINE HCL 50 MG/ML (1ML) VIAL 25 MG IV (22:07)
[2023-06-01] MEDS: FAMOTIDINE/PF 20 MG/2 ML VIAL IV (22:07)
[2023-06-01] MEDS: METHYLPREDNISOLONE SOD SUCC PF 125 MG/2 ML VIAL IVP (22:08)
[2023-06-01] MEDS: EPINEPHRINE HCL PF 1 MG/ML AMPULE 0.299999999999999989 MG SUBQ ×4 (22:08→23:59)
--- NOTE | 2023-06-01 22:11 | ED_ITS ---
HPI - Allergic Reaction General Chief complaint: Allergic Reaction Stated complaint: ALLERGIC REACTION, LIPS ARE SWELLING Time Seen by Provider: 06/01/23 21:50 Source: patient Mode of arrival: walk-in Limitations: no limitations History of Present Illness HPI narrative: Patient suddenly developed redness and swelling to the right upper and lower eyelids. This rapidly progressed to diffuse erythema/hive reaction with swelling of additional parts of the face including the lips. She also has redness extending into the torso and both arms with swelling of the fingers of both hands. She said that the symptoms began around 830pm. She took 25mg Benadryl around 9pm and then decided to drive herself to the ED for evaluation. Patient denied any known allergies other than seasonal allergies . After discussion, she remembered that she had sprayed a new perfume on herself some time later this afternoon. 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 No new food exposure. She does not currently take any medications. Related Data Home Medications ?Medication ?Instructions ?Recorded ?Confirmed albuterol sulfate 90 mcg/actuation inhalation 11/19/22 aerosol inhaler Previous Rx's ?Medication ?Instructions ?Recorded budesonide-formoterol HFA 160 2 inh inhalation BID #10.2 grams 08/25/22 mcg-4.5 mcg/actuation aerosol inhaler (Symbicort) acetaminophen 300 mg-codeine 30 mg 1 tab PO Q6H PRN pain #20 tabs 11/19/22 tablet albuterol sulfate 90 mcg/actuation 2 inh inhalation Q4H PRN shortness 03/01/23 breath activated powder inhaler of breath or wheezing #1 ea prednisone 20 mg tablet 40 mg (2 x 20 mg) PO DAILY #10 tabs 06/02/23 Allergies Allergy/AdvReac Type Severity Reaction Status Date / Time No Known Drug Allergies Allergy Verified 03/01/23 07:20 [facility] Medical History (Updated 06/01/23 @ 22:18 by Gumaro Koo) Asthma with acute exacerbation ?J45.901 - Unspecified asthma with (acute) exacerbation (ICD-10) delivery affecting ?P03.4 - affected by delivery (ICD-10) Asthma ?J45.909 - Unspecified asthma, uncomplicated (ICD-10) Family History (Updated 10/20/22 @ 00:35 by Channing Olivera) Grandmother Family history of cancer Family history of diabetes mellitus Family history of COPD (chronic obstructive pulmonary disease) Mother Family history of hypertension Grandfather Family history of diabetes mellitus Family history of myocardial infarction Family history of cancer Father Family history of diabetes mellitus Social History (Updated 10/20/22 @ 00:39 by Channing Olivera) Within the past year, how often did you have a drink containing alcohol: 2-4 times a month Within the past year, how many standard drinks containing alcohol did you have on a typical day: 1 or 2 Within the past year, how often did you have six or more drinks on one occasion: less than monthly Total score: 1 Score interpretation: A score of 3 or more indicates drinking is likely to affect patient's safety. Smoking status: Never smoker Do you use any of these nicotine containing products: vaping products Nicotine containing products detail: NOT HAD ANY FOR OVER TWO YEARS Second hand tobacco smoke exposure: Yes Non-prescribed substance use: denies use Previous occupational history: Not employed Known occupational exposures/hazards: No Highest level of school completed/degree received: high school graduate Are you now , , , , never or living with a partner: living with partner In a typical week, how many times do you talk on the telephone with family, friends, or neighbors: 3 or more times per week How often do you get together with friends or relatives: twice per week How often do you attend restorationist or anabaptism services: 1-3 times per year Do you belong to any clubs or organizations such as restorationist groups unions, fraternal or athletic groups, or school groups: no Total score: 2 Score interpretation: A score of greater than or equal to 2 indicates the lowest level of social isolation. Little interest or pleasure in doing things: not at all Feeling down, depressed, or hopeless: not at all Feel stressed/tense/nervous/anxious/difficulty sleeping: not at all Do you think of yourself as: straight/heterosexual Gender Identity: female Exam Narrative Exam Narrative: Nurses notes and vital signs reviewed and patient is not hypoxic. afebrile General: Well-appearing and in no apparent distress. Skin: Warm, dry, no pallor noted. Diffuse, consolidated erythematous rash - found on the face, neck, torso and upper extremities - with some areas of urticarial changes. Marked swelling of the right upper and lower eyelids. Some swelling of the right cheek and the left lower eyelid also noted. Mild swelling of the upper and lower lips. Mild swelling of both hands. Ears, Nose, Mouth, and Throat: No pharyngeal or uvular swelling or edema. No tongue swelling. Oral mucosa is moist Cardiovascular: tachycardia. Respiratory: No accessory muscle use or respiratory distress. Lungs are clear to auscultation, no wheezing, rales or rhonchi Musculoskeletal: normal ROM, no calf or popliteal tenderness. Bilateral hand edema/swelling as noted above GI: Abdomen is soft, non-distended. Normal bowel sounds. No tenderness to palpation. No rebound, guarding, or rigidity noted. Neurological: A&O x4. No cranial nerve dysfunction observed. No truncal a taxia. Moves all extremities. Sensation intact. Psychiatric: Cooperative and interactive. Normal mood and affect. Constitutional Vital Signs, click to edit/add: Last Vital Signs Pulse 116 H 06/01/23 21:55 Resp 18 06/01/23 21:55 BP 120/74 06/01/23 21:55 Pulse Ox 95 06/01/23 21:55 O2 Del Method Room Air 06/01/23 21:55 Course Vital Signs Vital signs: Vital Signs Pulse Rate 116 H 06/01/23 21:55 Respiratory Rate 18 06/01/23 21:55 Blood Pressure 120/74 06/01/23 21:55 Pulse Oximetry 95 06/01/23 21:55 Oxygen Delivery Method Room Air 06/01/23 21:55 Pulse Rate 116 H 06/01/23 21:55 Respiratory Rate 18 06/01/23 21:55 Blood Pressure 120/74 06/01/23 21:55 Pulse Oximetry 95 06/01/23 21:55 Oxygen Delivery Method Room Air 06/01/23 21:55 MDM - Allergic Reaction MDM Narrative Medical decision making narrative: 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 Peripheral IV was established with the patient could also receive IV Benadryl, IV Pepcid, IV Solu-Medrol. She was also ordered to receive nebulized albuterol but the patient apparently gets tachycardic with albuterol use and therefore she was given Xopenex instead. She needed repeated dosing with SQ epinephrine before the diffuse erythema and facial changes resolved. By the time she was discharged home, she had only minimal swelling to the right upper eyelid. She and I talked about her reaction and I stressed the importance of returning if she develops a rapid return of her allergy symptoms. She was instructed to take OTC benadryl for any residual symptoms and I also prescribed prednisone to be taken until full resolution of the allergic reaction. She agreed to throw away the perfume without any additional exposure/use. Discharge Plan Discharge Stand Alone Forms: Portal Instructions Chief Complaint: Allergic Reaction Clinical Impression: Acute allergic reaction Patient Disposition: Home, Self-Care Time of Disposition Decision: 00:03 Prescriptions / Home Meds: New prednisone 20 mg tablet 40 mg PO DAILY Qty: 10 0RF No Action budesonide-formoterol [Symbicort] 160-4.5 mcg/actuation HFA aerosol inhaler 2 inh inhalation BID Qty: 10.2 0RF albuterol sulfate 90 mcg/actuation HFA aerosol inhaler INHALATION acetaminophen-codeine 300-30 mg tablet 1 tab PO Q6H PRN (Reason: pain) Qty: 20 0RF albuterol sulfate 90 mcg/actuation aerosol powdr breath activated 2 inh inhalation Q4H PRN (Reason: shortness of breath or wheezing) Qty: 1 0RF Print Language: Upper Sorbian Instructions: General Allergic Reaction (ED) Referrals: Shaikh Almanzar MD [Primary Care Provider] - 1 week
[2023-06-01] MEDS: LEVALBUTEROL HCL 1.25 MG/3 ML VIAL NEB IH (22:13)
[2023-06-02] VITALS: PULSE 123; O2SAT 96
== END 2023-06-02 00:40 | disposition home or self-care (01) ==
PROVIDERS: Emergency Provider Emergency Medicine; PCP Internal Medicine
DX: T78.49XA Other allergy, initial encounter (principal); X58.XXXA Exposure to other specified factors, initial encounter
CPT/HCPCS: 94640; 96372; 96374; 96375; 99284; J2919

== ENCOUNTER 2023-08-03 18:02 | Emergency (ER) | payer MEDICAID, SELFPAY ==
[2023-08-03 18:06] VITALS: BP 134/90; PULSE 96; TEMP 36.9; O2SAT 95; BMI 37.9
--- OUTSIDE RECORDS SUMMARY | 2023-08-03 18:07 | XMS_ITS | CCD ---
Author Organization [facility] Care Team Providers Care [place] Name Role Phone REQUEST, DR NONE LISTED Primary Care Unavaila ble OBED, DR MILNER Attending Unavailable OBED, DR MILNER Admitting Unavailable REQUEST, NONE LISTED Primary Care Unavaila ble OBED, DR MILNER Attending Unavailable OBED, DR MILNER Consulting Unavailable OBED, DR MILNER Admitting Unavailable OBED, DR MILNER Consulting Unavailable OBED, DR MILNER Admitting Unavailable OBED, DR MILNER Attending Unavailable REQUEST, DR NONE LISTED Primary Care UnavailJOVANI Correa Consulting Unavailable DICK HO Consulting Unavailable OBED, DR MILNER Procedure Practitioner Unavailab le REQUEST, DR NONE LISTED Primary Care Unavaila JUAN RAMON Goss Admitting Unavailable EMERY VINCENT Consulting Unavailable SCOT, [...] encounter for closed fracture; Translations: [NDSPL FX [place] PHAL LT LSR TOE INIT CL] Onset: [...] 09-03-2020 Episodic Other aftercare (1 source) Other parts counterman (current) drug therapy; Translations: [OTH RETIREMENT CURRENT DRUG THERAPY] Onset: 09-03-2020 Episodic Other [...] 21 to 29on 07-20-2021 . . Normal [facility] Comment on above: Performed By: #### [id number] #### [facility] [address] [place] [address] Dr. Julius Gil Age Gdln ACOG Testing 21-29 Normal [facility] Comment on above: Performed By: #### [id number] #### [facility] [address] [place] [address] Dr. Julius Gil DIAGNOSIS: Comment [facility] Comment on above: Result Comment: NEGA TIVE FOR INTRAEPITHELIAL LESION OR MALIGNANCY. CELLULAR CHANGES ASSOCIATED WITH INFLAMMATION ARE PRESENT. Performed By: #### [id number] #### [facility] [address] [place] [address] Dr. Julius Gil Methodology: CTIM [facility] Comment on above: Result Comment: The [employer]in [employer](R[employer] was unable to read this specimen. Therefore a manual review was performed. Performed By: #### [id number] #### [facility] [address] [place] [address] Dr. Julius Gil Note: Comment [facility] Comment on above: Result Comment: The Pap smear is a screening test designed to aid in the detection of premalignant and malignant conditions of the uterine cervix. It is not a diagnostic procedure and should not be used as the sole means of detecting cervical cancer. Both false-positive and false-negative reports do occur. . Performed By: #### [id number] #### [facility] [address] [place] [address] Dr. Julius Gil Performed by: Comment Normal [facility] Comment on above: Result Comment: Iva Doran Grinder Operator External Tool (ASCP) Performed By: #### [id number] #### [facility] [address] [place] [address] Dr. Julius Gil Reflex Criteria: Comment [facility] Comment on above: Result Comment: The HPV DNA reflex criteria were not met with this specimen result therefore, no HPV testing was performed. . Performed By: #### [id number] #### [facility] [address] [place] [address] Dr. Julius Gil Specimen adequacy: Comment Normal [facility] Comment on above: Result Comment: Sati sfactory for evaluation. Endocervical and/or squamous metaplastic cells (endocervical component) are present. Performed By: #### [id number] #### [facility] [address] [place] [address] Dr. Julius Gil XR FOOT LT MIN [...] JOVANI KATHLEEN Date: 2021-07-05 22:20 Normal [facility] CBC AUTO DIFFon 08-12-2020 BASO # 0.0 103/ul Normal 0.0-0.1 [facility] Comment on above: Performed By: #### C BC #### [facility] [address] [place] [address] Escobar Josey Basophils/100 WBC (Bld) 0.3 % Normal 0.2-2.0 [facility] Comment on above: Performed By: #### C BC #### [facility] [address] [place] [address] Escobar Josey EO # 0.0 103/ul Normal 0.0-0.7 [facility] Comment on above: Performed By: #### C BC #### [facility] [address] [place], [place] [id number] Escobar Josey Eosinophils/100 WBC (Bld) 0.1 % Critically low 0.9-7.0 [facility] Comment on above: Performed By: #### C BC #### [facility] [address] [place] [address] Escobar Josey Erythrocyte distribution width (RBC) [Ratio] 14.7 % Normal 11.0-15.0 [facility] Comment on above: Performed By: #### C BC #### [facility] [address] [place] [address] Escobar Dowling Hematocrit (Bld) [Volume fraction] 29.1 % Critically low 36.0-48.0 [facility] Comment on above: Performed By: #### C BC #### [facility] [address] [place] [address] Escobarbello Dowling Hemoglobin (Bld) [Mass/Vol] 9.5 g/dL Critically low 12.0-16.0 [facility] Comment on above: Result Comment: deli moriah 08/11 Performed By: #### C BC #### [facility] [address] [place] [address] Escobarbello Dowling IG # 0.04 10e3/ul Critically high 0.00-0.03 [facility] Comment on above: Performed By: #### C BC #### [facility] [address] [place] [address] Escobarbello Dowling IG % 0.3 % Normal 0.0-0.5 [facility] Comment on above: Performed By: #### C BC #### [facility] [address] [place] [address] Escobar Dowling LYMPH # 3.2 103/ul Normal 1.2-3.8 [facility] Comment on above: Performed By: #### C BC #### [facility] [address] [place] [address] Escobar Dowling Lymphocytes/100 WBC (Bld) 21.2 % Normal 20.5-60.0 [facility] Comment on above: Performed By: #### C BC #### [facility] [address] [place] [address] Escobar Dowling MANUAL DIFF REQ NO Normal [facility] Comment on above: Performed By: #### C BC #### [facility] [address] [place] [address] Escobar Dowling MCH (RBC) [Entitic mass] 30.6 pg Normal 26.7-34.0 [facility] Comment on above: Performed By: #### C BC #### [facility] [address], [place] [address] Escobar Dowling MCHC (RBC) [Mass/Vol] 32.6 g/dL Normal 29.9-35.2 [facility] Comment on above: Performed By: #### C BC #### [facility] [address], [place] [address] Escobar Dowling MCV (RBC) [Entitic vol] 93.9 fL Normal 81.0-99.0 [facility] Comment on above: Performed By: #### C BC #### [facility] [address] [place] [id number] Escobar Dowling MONO # 1.0 103/ul Critically high 0.3-0.8 [facility] Comment on above: Performed By: #### C BC #### [facility] [address] [id number] Escobar Dowling Monocytes/100 WBC (Bld) 6.5 % Normal 1.7-12.0 [facility] Comment on above: Performed By: #### C BC #### [facility] [address] [id number] Escobar Johnsonen NEUT # 10.7 103/ul Critically high 1.4-6.5 [facility] Comment on above: Performed By: #### C BC #### [facility] [address] [id number] Escobar Dowling Neutrophils/100 WBC (Bld) 71.6 % Normal 43.0-75.0 [facility] Comment on above: Performed By: #### C BC #### [facility] [address], [place] [address] Escobarbello Dowling Platelet mean volume (Bld) [Entitic vol] 10.8 fL Normal 9.5-13.5 [facility] Comment on above: Performed By: #### C BC #### [facility] [address] [id number] Escobar Josey PLT 196 103/ul Normal 150-450 [facility] Comment on above: Performed By: #### C BC #### [facility] [address], [place] [address] Escobar Josey RBC 3.10 106/ul Critically low 4.20-5.40 [facility] Comment on above: Performed By: #### C BC #### [facility] [address], [place] [address] Escobar Josey WBC 15.0 103/ul Critically high 4.0-11.0 [facility] Comment on above: Performed By: #### C BC #### [facility] [address] [place] [address] Escobar Josey CBC AUTO DIFFon 08-10-2020 BASO # 0.0 103/ul Normal 0.0-0.1 [facility] Comment on above: Performed By: #### C BC #### [facility] [address] [place], [place] [phone] Escobar Josey Basophils/100 WBC (Bld) 0.3 % Normal 0.2-2.0 [facility] Comment on above: Performed By: #### C BC #### [facility] [address] [place], [place] [id number] Escobar Josey EO # 0.1 103/ul Normal 0.0-0.7 [facility] Comment on above: Performed By: #### C BC #### [facility] [address] [place], [place] [phone] Escobar Josey Eosinophils/100 WBC (Bld) 0.9 % Normal 0.9-7.0 [facility] Comment on above: Performed By: #### C BC #### [facility] [address] [place] [address] Escobar Josey Erythrocyte distribution width (RBC) [Ratio] 14.6 % Normal 11.0-15.0 [facility] Comment on above: Performed By: #### C BC #### [facility] [address] [place], [place] [phone] Escobar Josey Hematocrit (Bld) [Volume fraction] 35.3 % Critically low 36.0-48.0 [facility] Comment on above: Performed By: #### C BC #### [facility] [address] [id number] Escobar Josey Hemoglobin (Bld) [Mass/Vol] 11.8 g/dL Critically low 12.0-16.0 [facility] Comment on above: Performed By: #### C BC #### [facility] [address] [id number] Escobar Josey IG # 0.06 10e3/ul Critically high 0.00-0.03 [facility] Comment on above: Performed By: #### C BC #### [facility] [address] [place] [address] Escobar Josey IG % 0.4 % Normal 0.0-0.5 [facility] Comment on above: Performed By: #### C BC #### [facility] [address] [place] [address] Escobar Josey LYMPH # 2.8 103/ul Normal 1.2-3.8 [facility] Comment on above: Performed By: #### C BC #### [facility] [address] [place] [address] Escobar Josey Lymphocytes/100 WBC (Bld) 21.0 % Normal 20.5-60.0 [facility] Comment on above: Performed By: #### C BC #### [facility] [address] [place] [address] Escobar Josey MANUAL DIFF REQ NO Normal [facility] Comment on above: Performed By: #### C BC #### [facility] [address] [place] [address] Escobar Josey MCH (RBC) [Entitic mass] 30.6 pg Normal 26.7-34.0 [facility] Comment on above: Performed By: #### C BC #### [facility] [address] [place], [place] [id number] Escobar Josey MCHC (RBC) [Mass/Vol] 33.4 g/dL Normal 29.9-35.2 [facility] Comment on above: Performed By: #### C BC #### [facility] [address] [place] [address] Escobar Dowling MCV (RBC) [Entitic vol] 91.7 fL Normal 81.0-99.0 [facility] Comment on above: Performed By: #### C BC #### [facility] [address] [id number] Escobar Dowling MONO # 1.0 103/ul Critically high 0.3-0.8 [facility] Comment on above: Performed By: #### C BC #### [facility] [address] [address] Escobar Dowling Monocytes/100 WBC (Bld) 7.3 % Normal 1.7-12.0 [facility] Comment on above: Performed By: #### C BC #### [facility] [address] [address] Escobar Dowling NEUT # 9.4 103/ul Critically high 1.4-6.5 [facility] Comment on above: Performed By: #### C BC #### [facility] [address] [place] [address] Escobar Dowling Neutrophils/100 WBC (Bld) 70.1 % Normal 43.0-75.0 [facility] Comment on above: Performed By: #### C BC #### [facility] [address] [place], [place] [address] Escobar Dowling Platelet mean volume (Bld) [Entitic vol] 11.0 fL Normal 9.5-13.5 [facility] Comment on above: Performed By: #### C BC #### [facility] [address] [place] [address] Escobarbello Dowling PLT 267 103/ul Normal 150-450 [facility] Comment on above: Performed By: #### C BC #### [facility] [address] [place], [place] [address] Escobar Josey RBC 3.85 106/ul Critically low 4.20-5.40 [facility] Comment on above: Performed By: #### C BC #### [facility] [address] [id number] Escobar Josey WBC 13.4 103/ul Critically high 4.0-11.0 [facility] Comment on above: Performed By: #### C BC #### [facility] [address], [place] [address] Escobar Dowling Covid-19 PCR (CVDTB)on 07-28 SARS-CoV-2 (COVID-19) RNA SEEMA+probe Ql (Unsp spec) Not detected Normal NOT DETECTED [facility] Comment on above: Result Comment: This test is not yet approved or cleared by the [place] FDA. When there are no FDA-approved or cleared tests available, and other criteria are met, FDA can make tests available under an emergency access mechanism called an Emergency Use Authorization (EUA). The EUA for this test is supported by the Eeo Officer of Health and Human Service's (HHS's) declaration [...] SARS-CoV-2. Performed By: #### C VDTBH #### [facility] [address] [place], [place] [id number] Escobar Dowling DRUG SCREEN RAPID (URINE)on 08-10-2020 AMP Negative Normal NEGATIVE [facility] Comment on above: Performed By: #### D RUGRPD #### [facility] [address] [place] [address] Escobar Josey BAR Negative Normal NEGATIVE [facility] Comment on above: Performed By: #### D RUGRPD #### [facility] [address] [place], [place] [address] Escobar Josey BUP Negative Normal NEGATIVE [facility] Comment on above: Performed By: #### D RUGRPD #### [facility] [address] [place], [place] [address] Escobar Josey BZO Negative Normal NEGATIVE [facility] Comment on above: Performed By: #### D RUGRPD #### [facility] [address] [place] [address] Escobar Josey SHONA Negative Normal NEGATIVE [facility] Comment on above: Performed By: #### D RUGRPD #### [facility] [address] [address] Escobar Josey CUT-OFFS SEE BELOW Normal [facility] Comment on above: Result Comment: AMP (Amphetamine): 500ng/mL, BAR (Barbituates): 200 ng/mL, BZO (Benzodiazepines): 150 ng/mL, BUP (Buprenorphine): 10 ng/mL, SHONA (Cocaine): 150 ng/mL, mAMP (Methamphetamine): 500 ng/mL, MTD (Methadone): 200 ng/mL, OPI (Opiates): 100 ng/mL, OXY (Oxycodone): 100 ng/mL, PCP (Phencyclidine): 25 ng/mL, PPX (Propoxyphene): 300 ng/mL, THC (Cannabinoids): 50 ng/mL, TCA (Trycyclic Antidepressants): 300 ng/mL Performed By: #### D RUGRPD #### [facility] [address] [place] [address] Escobar Josey DRUG CUT HEADER DRUG CLASS TEST SYST EM CUT-OFF CONCENTRATIONS ARE FOLLOWS: Normal [facility] Comment on above: Performed By: #### D RUGRPD #### [facility] [address] [place] [address] Escobar Josey mAMP Negative Normal NEGATIVE [facility] Comment on above: Performed By: #### D RUGRPD #### [facility] [address] [place] [address] Escobar Josey MTD Negative Normal NEGATIVE [facility] Comment on above: Performed By: #### D RUGRPD #### [facility] [address] [place] [address] Escobar Josey OPI Negative Normal NEGATIVE [facility] Comment on above: Performed By: #### D RUGRPD #### [facility] [address] [place] [address] Escobar Josey OXY Negative Normal NEGATIVE [facility] Comment on above: Performed By: #### D RUGRPD #### [facility] [address] [place] [address] Escobar Dowling PCP Negative Normal NEGATIVE [facility] Comment on above: Performed By: #### D RUGRPD #### [facility] [address] [place] [address] Escobar Dowling PPX Negative Normal NEGATIVE [facility] Comment on above: Performed By: #### D RUGRPD #### [facility] [address] [place] [address] Escobar Dowling TCA Negative Normal NEGATIVE [facility] Comment on above: Performed By: #### D RUGRPD #### [facility] [address] [place] [address] Escobar Dowling THC Negative Normal NEGATIVE [facility] Comment on above: Performed By: #### D RUGRPD #### [facility] [address] [place] [address] Escobar Josey RAPID COVID-19 ANTIGENon EUA Statement SEE BELOW Normal [facility] Comment on above: Result Comment: This [...] sooner. Performed By: #### C VDAG #### [facility] [address] [place] [address] [facility] ([facility]) RNA SEEMA+probe Ql (Unsp spec) Negative Normal NEGATIVE [facility] Comment on above: Result Comment: Nega tive results are presumptive. They do not preclude infection and should not be used as the sole basis for treatment decisions. Additional confirmatory testing by a molecular method should be considered. Performed By: #### C VDAG #### [facility] [address], [place] [address] Escobar Dowling TYPE AND SCREENon 08-10-2020 TYPE AND SCREEN Negative Normal [facility] Comment on above: Performed By: #### T NS #### [facility] [address], [place] [address] Escobar Dowling Encounters Encounter Date Encounter Type Care Provider Facility Start: 07-15-2021 End: 07-15-2021 ambulatory NONE LISTED REQUEST Facility: Start: 07-05-2021 End: 07-06-[address] NONE LISTED REQUEST Facility: Start: 08-17-2020 End: [...] REQUEST Payers Date Payer Category Payer Unknown [id number] [id number] [id number] 1996 Unknown [id number] [id number] [id number] 1996 Unknown [id number] [id number] [id number] 1996 Unknown [id number] [id number] [id number] 1959 Unknown [id number] Clinical Note 08-10-2020 Note Date & Type Note Facility 08-10-2020 Note OPERATIVE NOTE OPERATION DATE: 08-10-20 ANESTHETIC:Spinal with Duramorph. BLADDER TIER:ANJALI Vargas PREOPERATIVE DIAGNOSIS: 1. Intrauterine at 40 [...] patient's uterus and extended laterally digitally. The was then delivered atraumatically after the bladder blade was removed in the cephalic position. The cord was clamped and cut. Cord blood was obtained. The was handed off to awaiting team. The [...] to the Recovery Room in stable condition. [facility] Signed and Approved by: DR ANNIA CLAY . 2020 15:48:00 [facility] Discharge summary note 08-10-2020 Note Date & [...] Tylenol, any abdominal pain unrelieved with narcotics. [facility] Signed and Approved by: DR ANNIA CLAY . 09/01/2020 14:08:00 [facility] Summary Purpose Family History No Family History Records Found Advance Directives No Advanced Directives Records Found Additional Source Comments INFORMATION SOURCE (unrecogn ized section and content) DATE CREATED AUTHOR 07/21/2021 [facility] FOR RECORDS PERTAINING TO PATIENTS WHO ARE [...] BE BASED ON THE PRIMARY CLINICAL RECORDS. [facility] [facility]. provides no warranty or guarantee of the accuracy or completeness of information in this document.
== END 2023-08-03 18:35 | disposition left against medical advice (07) ==
LOC: ER 18:05
PROVIDERS: Emergency Provider Emergency Medicine; PCP Internal Medicine
DX: Z53.21 Procedure and treatment not carried out due to patient leaving prior to being seen by health care provider (principal)

== ENCOUNTER 2023-12-27 16:18 | Outpatient (OUT) | payer MEDICAID, SELFPAY ==
--- OUTSIDE RECORDS SUMMARY | 2023-12-27 16:24 | XMS_ITS | CCD ---
Author Organization [facility] Care Team Providers Care Distributed Generation Project Manager Name Role Phone REQUEST, DR NONE LISTED [...] REQUEST, DR NONE LISTED Primary Care Unavaila nancy ELLISON, JUAN RAMON Admitting Unavailable EMERY VINCENT Consulting Unavailable SCOT, JUAN RAMON Attending Unavailable SCOT, JUAN RAMON Consulting Unavailable Jovani Kathleen Consulting Unavailable OBED, ANNIA Attending Unavailable Problems Active Problems Problem Classification Problem [...] encounter for closed fracture; Translations: [NDSPL FX CA PHAL LT LSR TOE INIT CL] Onset: [...] 09-03-2020 Episodic Other aftercare (1 source) 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 . Normal [facility] Comment on above: Performed By: #### [id number] #### [facility] [address] [address] [address] Julius Gil Age Gdln ACOG Testing 22- Normal [facility] Comment on above: Performed By: #### [id number] #### [facility] [address] [address] [address] Julius Gil DIAGNOSIS: Comment [facility] Comment on above: Result Comment: NEGA TIVE FOR INTRAEPITHELIAL LESION OR MALIGNANCY. CELLULAR CHANGES ASSOCIATED WITH INFLAMMATION ARE PRESENT. Performed By: #### 4 [id number] #### [facility] [address] [place] [address] Dr. Julius Gil Methodology: CTIM [facility] Comment on above: Result Comment: The Thin Prep(R) Manual Writer was unable to read this specimen. Therefore a manual review was performed. Performed By: #### [id number] #### [facility] [address] [address] [address] Julius Gil Note: Comment [facility] Comment on above: Result Comment: The Pap smear is a screening test designed to aid in the detection of premalignant and malignant conditions of the uterine cervix. It is not a diagnostic procedure and should not be used as the sole means of detecting cervical cancer. Both false-positive and false-negative reports do occur. . Performed By: #### 4 [id number] #### [facility] [address] [place] [address] Dr. Julius Gil Performed by: Comment Normal [facility] Comment on above: Result Comment: Iva Doran Milk Powder Grinder (ASCP) Performed By: #### 4 [id number] #### [facility] [address] [place] [address] Dr. Julius Gil Reflex Criteria: Comment Normal [facility] Comment on above: Result Comment: The HPV DNA reflex criteria were not met with this specimen result therefore, no HPV testing was performed. . Performed By: #### 4 [id number] #### [facility] [address] [place] [address] Dr. Julius Gil Specimen adequacy: Comment Normal [facility] Comment on above: Result Comment: Sati sfactory for evaluation. Endocervical and/or squamous metaplastic cells (endocervical component) are present. Performed By: #### 4 [id number] #### [facility] [address] [place] [address] Dr. Julius Gil XR FOOT LT MIN [...] by: JOVANI KATHLEEN Date: 2021-07-05 22:20 Normal [facility] CBC AUTO DIFFon 08-12-2020 BASO # 0.0 103/ul Normal 0.0-0.1 [facility] Comment on above: Performed By: #### C BC #### [facility] [address] [place] [address] Escobar Josey Basophils/100 WBC (Bld) 0.3 % Normal 0.2-2.0 [facility] Comment on above: Performed By: #### C BC #### [facility] [address] [place] [address] Escobar Josey EO # 0.0 103/ul Normal 0.0-0.7 [facility] Comment on above: Performed By: #### C BC #### [facility] [address] [place] [address] Escobar Josey Eosinophils/100 WBC (Bld) 0.1 % Critically low 0.9-7.0 [facility] Comment on above: Performed By: #### C BC #### [facility] [address] [place] [address] Escobar Josey Erythrocyte distribution width (RBC) [Ratio] 14.7 % Normal 11.0-15.0 [facility] Comment on above: Performed By: #### C BC #### [facility] [address] [place] [address] Escobar Dowling Hematocrit (Bld) [Volume fraction] 29.1 % Critically low 36.0-48.0 [facility] Comment on above: Performed By: #### C BC #### [facility] [address] [place] [address] Escobar Josey Hemoglobin (Bld) [Mass/Vol] 9.5 g/dL Critically low 12.0-16.0 [facility] Comment on above: Result Comment: deli moriah 08/11 Performed By: #### C BC #### [facility] [address] [place] [address] Escobarbello Dowling IG # 0.04 10e3/ul Critically high 0.00-0.03 [facility] Comment on above: Performed By: #### C BC #### [facility] [address] [place] [address] Escobar Josey IG % 0.3 % Normal 0.0-0.5 [facility] Comment on above: Performed By: #### C BC #### [facility] [address] [place] [address] Escobarbello Dowling LYMPH # 3.2 103/ul Normal 1.2-3.8 [facility] Comment on above: Performed By: #### C BC #### [facility] [address] [place] [address] Escobar Dowling Lymphocytes/100 WBC (Bld) 21.2 % Normal 20.5-60.0 [facility] Comment on above: Performed By: #### C BC #### [facility] [address] [place] [address] Escobar Dowling MANUAL DIFF REQ NO Normal [facility] Comment on above: Performed By: #### C BC #### [facility] [address] [place] [address] Escobar Dowling MCH (RBC) [Entitic mass] 30.6 pg Normal 26.7-34.0 [facility] Comment on above: Performed By: #### C BC #### [facility] [address] [id number] Escobar Dowling MCHC (RBC) [Mass/Vol] 32.6 g/dL Normal 29.9-35.2 [facility] Comment on above: Performed By: #### C BC #### [facility] [address] [id number] Escobar Dowling MCV (RBC) [Entitic vol] 93.9 fL Normal 81.0-99.0 [facility] Comment on above: Performed By: #### C BC #### [facility] [address] [place], [place] [address] Escobar Dowling MONO # 1.0 103/ul Critically high 0.3-0.8 [facility] Comment on above: Performed By: #### C BC #### [facility] [address] [place], [place] [address] Escobar Josey Monocytes/100 WBC (Bld) 6.5 % Normal 1.7-12.0 [facility] Comment on above: Performed By: #### C BC #### [facility] [address] [place], [place] [address] Escobar Dowling NEUT # 10.7 103/ul Critically high 1.4-6.5 [facility] Comment on above: Performed By: #### C BC #### [facility] [address] [place], [place] [address] Escobar Josey Neutrophils/100 WBC (Bld) 71.6 % Normal 43.0-75.0 [facility] Comment on above: Performed By: #### C BC #### [facility] [address] [place], [place] [address] Escobarbello Dowling Platelet mean volume (Bld) [Entitic vol] 10.8 fL Normal 9.5-13.5 [facility] Comment on above: Performed By: #### C BC #### [facility] [address] [id number] Escobar Josey PLT 196 103/ul Normal 150-450 [facility] Comment on above: Performed By: #### C BC #### [facility] [address] [place], [place] [address] Escobar Josey RBC 3.10 106/ul Critically low 4.20-5.40 [facility] Comment on above: Performed By: #### C BC #### [facility] [address] [place], [place] [address] Escobar Josey WBC 15.0 103/ul Critically high 4.0-11.0 [facility] Comment on above: Performed By: #### C BC #### [facility] [address] [place], [place] [address] Escobar Josey CBC AUTO DIFFon 08-10-2020 BASO # 0.0 103/ul Normal 0.0-0.1 [facility] Comment on above: Performed By: #### C BC #### [facility] [address] [place], [place] [address] Escobar Josey Basophils/100 WBC (Bld) 0.3 % Normal 0.2-2.0 [facility] Comment on above: Performed By: #### C BC #### [facility] [address] [place] [address] Escobar Josey EO # 0.1 103/ul Normal 0.0-0.7 [facility] Comment on above: Performed By: #### C BC #### [facility] [address] [place], [place] [address] Escobar Josey Eosinophils/100 WBC (Bld) 0.9 % Normal 0.9-7.0 [facility] Comment on above: Performed By: #### C BC #### [facility] [address] [place] [address] Escobar Josey Erythrocyte distribution width (RBC) [Ratio] 14.6 % Normal 11.0-15.0 [facility] Comment on above: Performed By: #### C BC #### [facility] [address] [place] [address] Escobra Josey Hematocrit (Bld) [Volume fraction] 35.3 % Critically low 36.0-48.0 [facility] Comment on above: Performed By: #### C BC #### [facility] [address] [id number] Escobar Josey Hemoglobin (Bld) [Mass/Vol] 11.8 g/dL Critically low 12.0-16.0 [facility] Comment on above: Performed By: #### C BC #### [facility] [address] [id number] Escobar Josey IG # 0.06 10e3/ul Critically high 0.00-0.03 [facility] Comment on above: Performed By: #### C BC #### [facility] [address] [place] [address] Escobar Josey IG % 0.4 % Normal 0.0-0.5 [facility] Comment on above: Performed By: #### C BC #### [facility] [address] [place] [address] Escobar Josey LYMPH # 2.8 103/ul Normal 1.2-3.8 [facility] Comment on above: Performed By: #### C BC #### [facility] [address] [place], [place] [address] Escobar Dowling Lymphocytes/100 WBC (Bld) 21.0 % Normal 20.5-60.0 [facility] Comment on above: Performed By: #### C BC #### [facility] [address] [place], [place] [address] Escobar Dowling MANUAL DIFF REQ NO Normal [facility] Comment on above: Performed By: #### C BC #### [facility] [address] [place], [place] [address] Escobar Josey MCH (RBC) [Entitic mass] 30.6 pg Normal 26.7-34.0 [facility] Comment on above: Performed By: #### C BC #### [facility] [address] [place], [place] [address] Escobar Josey MCHC (RBC) [Mass/Vol] 33.4 g/dL Normal 29.9-35.2 [facility] Comment on above: Performed By: #### C BC #### [facility] [address] [place], [place] [address] Escobar Dowling MCV (RBC) [Entitic vol] 91.7 fL Normal 81.0-99.0 [facility] Comment on above: Performed By: #### C BC #### [facility] [address] [place], [place] [address] Escobar Dowling MONO # 1.0 103/ul Critically high 0.3-0.8 [facility] Comment on above: Performed By: #### C BC #### [facility] [address] [id number] Escobar Dowling Monocytes/100 WBC (Bld) 7.3 % Normal 1.7-12.0 [facility] Comment on above: Performed By: #### C BC #### [facility] [address] [place], [place] [address] Escobar Dowling NEUT # 9.4 103/ul Critically high 1.4-6.5 [facility] Comment on above: Performed By: #### C BC #### [facility] [address] [place], [place] [address] Escobar Dowling Neutrophils/100 WBC (Bld) 70.1 % Normal 43.0-75.0 [facility] Comment on above: Performed By: #### C BC #### [facility] [address] [place], [place] [address] Escobar Dowling Platelet mean volume (Bld) [Entitic vol] 11.0 fL Normal 9.5-13.5 [facility] Comment on above: Performed By: #### C BC #### [facility] [address] [place], [place] [address] Escobar Josey PLT 267 103/ul Normal 150-450 [facility] Comment on above: Performed By: #### C BC #### [facility] [address] [place], [place] [address] Escobar Josey RBC 3.85 106/ul Critically low 4.20-5.40 [facility] Comment on above: Performed By: #### C BC #### [facility] [address] [place], [place] [address] Escobar Josey WBC 13.4 103/ul Critically high 4.0-11.0 [facility] Comment on above: Performed By: #### C BC #### [facility] [address] [place] [address] Escobar Dowling Covid-19 PCR (CVDTB)on 07-28 SARS-CoV-2 (COVID-19) RNA SEEMA+probe Ql (Unsp spec) Not detected Normal NOT DETECTED [facility] Comment on above: Result Comment: This test is not yet approved or cleared by the [place] FDA. When there are no FDA-approved or cleared tests available, and other criteria are met, FDA can make tests available under an emergency access mechanism called an Emergency Use Authorization (EUA). The EUA for this test is supported by the [place] of Health and Human Service's (HHS's) declaration [...] SARS-CoV-2. Performed By: #### C VDTBH #### [facility] [address] [place], [place] [address] Escobar Dowling DRUG SCREEN RAPID (URINE)on 08-10-2020 AMP Negative Normal NEGATIVE [facility] Comment on above: Performed By: #### D RUGRPD #### [facility] [address] [place] [address] Escobar Josey BAR Negative Normal NEGATIVE [facility] Comment on above: Performed By: #### D RUGRPD #### [facility] [address] [place] [address] Escobar Josey BUP Negative Normal NEGATIVE [facility] Comment on above: Performed By: #### D RUGRPD #### [facility] [address] [place] [address] Escobar Josey BZO Negative Normal NEGATIVE [facility] Comment on above: Performed By: #### D RUGRPD #### [facility] [address] [place] [address] Escobar Josey SHONA Negative Normal NEGATIVE [facility] Comment on above: Performed By: #### D RUGRPD #### [facility] [address] [place] [address] CUT-OFFS SEE BELOW Normal [facility] Comment on above: Result Comment: AMP [...] ng/mL Performed By: #### D RUGRPD #### [facility] [address] [place] [address] DRUG CUT HEADER DRUG CLASS TEST SYST EM CUT-OFF CONCENTRATIONS ARE FOLLOWS: Normal [facility] Comment on above: Performed By: #### D RUGRPD #### [facility] [address] [place] [address] [facility] m[facility] Negative Normal NEGATIVE [facility] Comment on above: Performed By: #### D RUGRPD #### [facility] [address] [place] [address] Escobar Josey MTD Negative Normal NEGATIVE [facility] Comment on above: Performed By: #### D RUGRPD #### [facility] [address] [place] [address] [facility] Normal NEGATIVE [facility] Comment on above: Performed By: #### D RUGRPD #### [facility] [address] [place] [address] Josey OXY Negative Normal NEGATIVE [facility] Comment on above: Performed By: #### D RUGRPD #### [facility] [address] [place] [address] Escobar Dowling PCP Negative Normal NEGATIVE [facility] Comment on above: Performed By: #### D RUGRPD #### [facility] [address] [place] [address] Escobar Josey PPX Negative Normal NEGATIVE [facility] Comment on above: Performed By: #### D RUGRPD #### [facility] [address] [place] [address] Josey TCA Negative Normal NEGATIVE [facility] Comment on above: Performed By: #### D RUGRPD #### [facility] [address] [place] [address] Escobar Josey THC Negative Normal NEGATIVE [facility] Comment on above: Performed By: #### D RUGRPD #### [facility] [address] [place] [address] [facility] RAPID COVID-19 ANTIGENon EUA Statement SEE BELOW Normal [facility] Comment on above: Result Comment: [...] sooner. Performed By: #### C VDAG #### [facility] [address] [place] [address] SARS-CoV-2 (COVID-19) RNA SEEMA+probe Ql (Unsp spec) Negative Normal NEGATIVE [facility] Comment on above: Result Comment: Nega tive results are presumptive. They do not preclude infection and should not be used as the sole basis for treatment decisions. Additional confirmatory testing by a molecular method should be considered. Performed By: #### C VDAG #### [facility] [address] [place], [place] [address] Escobar Dowling TYPE AND SCREENon 08-10-2020 TYPE AND SCREEN Negative Normal [facility] Comment on above: Performed By: #### T NS #### [facility] [address] [place], [place] [address] Escobar Dowling Encounters Encounter Date Encounter Type Care Provider Facility Start: 11-14-2023 End: 11-14-2023 ambulatory ANNIA CLAY Not Available Start: 07-15-2021 End: 07-15-2021 ambulatory NONE LISTED REQUEST Facility: Start: 07-05-2021 End: 07-06-2021 ambulatory NONE LISTED REQUEST Facility: Start: 08-17-2020 End: 08-17-2020 ambulatory NONE LISTED REQUEST Facility: Start: 08-10-2020 End: 08-13-2020 Evaluation and management of inpatient DR ANNIA CLAY Facility: Procedures Date Procedure Procedure Detail Performing Clinician Start: 08-11-2020 Extraction of Produc ts of Conception, Low Cervical, Open Approach NONE LISTED REQUEST Start: 08-11-2020 Drainage of Amniotic Fluid, Therapeutic from Products of Conception, Via Natural or Artificial Opening DR NONE LISTED REQUEST Start: 08-10-2020 Introduction of Horm one into Female Reproductive, Via Natural or Artificial Opening NONE LISTED REQUEST Payers Date Payer Category Payer Unknown [id number] .. [id number] 1996 Unknown [id number] .. [id number] 1996 Unknown [id number] 1996 Unknown [id number] 1996 Unknown [id number] 1959 Unknown [id number] Clinical Note 08-10-2020 Note Date & Type Note Facility 08-10-2020 Note OPERATIVE NOTE OPERATION DATE: 08-10-20 ANESTHETIC:Spinal with Duramorph. COMMERCIAL INTELLIGENCE MANAGER:ANJALI Vargas PREOPERATIVE DIAGNOSIS: 1. Intrauterine at 39 weeks. 2. intolerance of labor. 3. Cephalopelvic disproportion. POSTOPERATIVE DIAGNOSIS:Same as above. PROCEDURE NAME:Primary low transverse Caesarean section. URINE OUTPUT:Yellow and clear. FINDINGS: Viable infant, Apgars and weight unknown at this time. [...] to the Recovery Room in stable condition. [facility] Signed and Approved by: DR ANNIA CLAY . 2020 15:48:00 [facility] Discharge summary note 08-10-2020 Note Date [...] Tylenol, any abdominal pain unrelieved with narcotics. [facility] Signed and Approved by: DR ANNIA CLAY . 09/01/2020 14:08:00 [facility] Summary Purpose Family History No Family History Records FoundNo Family History Records Found Advance Directives No Advanced Directives Records FoundNo Advanced Directives Records Found Additional Source Comments INFORMATION SOURCE (unrecogn ized section and content) DATE CREATED AUTHOR 07/21/2021 [facility] DATE CREATED AUTHOR 'S ORGANIZ ATRICO 11/16/2023 [facility] Special[facility] FOR RECORDS PERTAINING TO PATIENTS WHO ARE [...] BE BASED ON THE PRIMARY CLINICAL RECORDS. [facility] provides no warranty or guarantee of the accuracy or completeness of information in this document.
[2023-12-27 16:52] LABS: HCG Quantitative <1 mIU/mL
== END 2023-12-27 16:19 | disposition home or self-care (01) ==
LOC: LAB 16:19
PROVIDERS: Visit Provider Obstetrics & Gynecology
DX: N92.6 Irregular menstruation, unspecified (principal)
CPT/HCPCS: 36415; 84702

== ENCOUNTER 2024-02-12 22:06 | Outpatient (REF) | payer MEDICAID, SELFPAY ==
--- OUTSIDE RECORDS SUMMARY | 2024-02-12 22:09 | XMS_ITS | CCD ---
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 Name Role Phone REQUEST, DR NONE LISTED Primary Care Unavaila ble OBED, DR MILNER Attending Unavailable OBED, DR MILNER Admitting Unavailable REQUEST, NONE LISTED Primary Care Unavaila ble OBED, DR MILNER Attending Unavailable OBED, DR MILENR Consulting Unavailable OBED, DR MILNER Admitting Unavailable OBED, DR MILNER Consulting Unavailable OBED, DR MILNER Admitting Unavailable OBED, DR MILNER Attending Unavailable REQUEST, DR NONE LISTED Primary Care UnavailJOVANI Correa Consulting Unavailable DICK HO Consulting Unavailable OBED, DR MILNER Procedure Practitioner Unavailab le REQUEST, NONE LISTED Primary Care Unavaila JUAN RAMON Goss Admitting Unavailable EMERY VINCENT Consulting Unavailable JUAN RAMON ELLISON Attending Unavailable JUAN RAMON ELLISON Consulting Unavailable Jovani Pulliam Consulting Unavailable ANNIA HORNE Attending Unavailable Jenelle TOBIN [facility] Primary Care Provider [phone] Allergies Allergy Classification Reported Allergen(s) Allergy Type Date of Onset Reaction(s) Facility (2 sources) Prednisone Propensity to adverse [facility] Work Phone: Problems Active Problems Problem Classification Problem Date Documented Date Episodic/Chronic Asthma (1 source) Unspecified asthma, uncomplicated; Translations: [UNSPECIFIED ASTHMA UNCOMPLICATED] Onset: 09-03-2020 Chronic Contraceptive and procreative management (2 sources) Subcutaneous contraceptive implant present; Translations: [Encounter for surveillance of implantable subdermal contraceptive] 11-14-2023 Episodic E Codes: Struck by; against (1 source) Walked into furniture, initial encounter; Translations: [WALKED INTO FURNITURE INITIAL ENC] Onset: 07-07-2021 Episodic Fracture of lower limb (1 source) Nondisplaced fracture of proximal phalanx of left lesser toe(s), initial encounter for closed fracture; Translations: [NDSPL FX [place] PHAL LT LSR TOE INIT CL] Onset: [...] 09-03-2020 Episodic Other aftercare (1 source) Other long term care pharmacist (current) drug therapy; Translations: [[facility] CURRENT DRUG THERAPY] Onset: 09-03-2020 Episodic Other [...] Results Test Name Value Interpretation Reference Range Facility [facility] PREG QUANT HCGon 10-30-2 024 HCG QUANTITATIVE <1 mIU/mL [facility] Comment on above: 5-50 0.2-1 WEEK 50-500 1-2 WEEKS 100-5,000 2-3 WEEKS 500-10,000 3-4 WEEKS 1,000-50,000 4-5 WEEKS 10,000-100,000 5-6 WEEKS 15,000-200,000 6-8 WEEKS 10,000-100,000 2-3 MONTHS [facility] Insertion/Removal of Contrac eptive Capsuleon 11-14-2023 Josey Giordano LPN 11/15/2023 1:52 PM Insertion/Removal of Contraceptive Capsule Date/Time: 11/14/2023 2:13 PM Performed by: Annia Horne DO Authorized by: Annia Horne DO Consent: Consent obtained: Written Consent given by: Patient Patient questions answered: yes Patient agrees, verbalizes understanding, and wants to proceed: yes Educational handouts given: no Instructions and paperwork completed: yes Indication: Indication: Presence of non-biodegradable drug delivery implant Pre-procedure: Prepped with: povidone-iodine Local anesthetic: Lidocaine without epinephrine The site was cleaned and prepped in a sterile fashion: yes Procedure: Procedure: Removal Small stab incision was made in arm: yes Left/right: Right Preloaded contraceptive capsule trocar was placed subdermally: no Visualization of implant was obtained: no Contraceptive capsule was inserted and trocar removed: no Visualization of notch in stylet and palpation of device: no Palpation confirms placement by provider and patient: no Comments: Nexplanon Removal: Patient presents today for removal of Nexplanon. Written consent for procedure was obtained and patient was placed in supine position with right arm flexed at elbow. Skin was cleansed with alcohol/Betadine and 2cc of Lidocaine was injected underneath palpated Nexplanon at distal end. After allowing for sufficient time for numbing agent to take effect, the skin overlying the end of Nexplanon was incised with an 11inch blade scalpel. A 7.5in hemostat was inserted in the incision site to grab device and Nexplanon was released from tissue. Nexplanon implant was removed in its entirety and visualized by myself and patient. The skin was cleansed with alcohol and the incision was covered with gauze. Post-procedure care was reviewed and patient will continue with proposed plan of care. Patient was advised to call office with any questions or concerns. Follow Up: Patient is to return to the office as needed for any routine appointments. [facility] e PAP ACOG PANEL 2: 21 to 29on 07-20-2021 . . Normal [facility] Comment on above: Performed By: #### [id number] #### [facility] [address] [place] [address] Dr. Julius Gil Age Gdln ACOG Testing 22- [facility] Comment on above: Performed By: #### [id number] #### [facility] [address] [place] [address] Dr. Julius Gil DIAGNOSIS: Comment [facility] Comment on above: Result Comment: NEGA TIVE FOR INTRAEPITHELIAL LESION OR MALIGNANCY. CELLULAR CHANGES ASSOCIATED WITH INFLAMMATION ARE PRESENT. Performed By: #### [id number] #### [facility] [address] [place] [address] Dr. Julius Gil Methodology: CTIM [facility] Comment on above: Result Comment: The Thin Prep(R) Citrus Fruit Colorer was unable to read this specimen. Therefore a manual review was performed. Performed By: #### [id number] #### [facility] [address] [place] [address] Dr. Julius Gil Note: Comment [facility] Comment on above: Result Comment: The Pap smear is a screening test designed to aid in the detection of premalignant and malignant conditions of the uterine cervix. It is not a diagnostic procedure and should not be used as the sole means of detecting cervical cancer. Both false-positive and false-negative reports do occur. . Performed By: #### [id number] #### [facility] [address] [place] [address] Dr. Julius Gil Performed by: Comment Normal [facility] Comment on above: Result Comment: Iva Doran Coating Mixer (ASCP) Performed By: #### [id number] #### [facility] [address] [place] [address] Dr. Julius Gil Reflex Criteria: Comment Normal [facility] Comment on above: Result Comment: The HPV DNA reflex criteria were not met with this specimen result therefore, no HPV testing was performed. . Performed By: #### [id number] #### [facility] [address] [place] [address] Dr. Julius Gil Specimen adequacy: Comment Normal The [facility] Comment on above: Result Comment: Sati sfactory for evaluation. Endocervical and/or squamous metaplastic cells (endocervical component) are present. Performed By: #### [id number] #### [facility] [address] [place] [address] Dr. Julius Gil XR FOOT LT MIN [...] proximal fifth phalanx. Electronically authenticated by: JOVANI PULLIAM Date: 2021-07-05 22:20 Normal [facility] CBC AUTO DIFFon 08-12-2020 BASO # 0.0 103/ul Normal 0.0-0.1 [facility] Comment on above: Performed By: #### C BC #### [facility] [address] [place] [address] Escobar Dowling Basophils/100 WBC (Bld) 0.3 % Normal 0.2-2.0 [facility] Comment on above: Performed By: #### C BC #### [facility] [address] [place], [place] [id number] Escobar Josey EO # 0.0 103/ul Normal 0.0-0.7 [facility] Comment on above: Performed By: #### C BC #### [facility] [address] [place], [place] [id number] Escobar Josey Eosinophils/100 WBC (Bld) 0.1 % Critically low 0.9-7.0 [facility] Comment on above: Performed By: #### C BC #### [facility] [address] [place] [address] Escobar Josey Erythrocyte distribution width (RBC) [Ratio] 14.7 % Normal 11.0-15.0 [facility] Comment on above: Performed By: #### C BC #### [facility] [address] [place] [address] Escobar Josey Hematocrit (Bld) [Volume fraction] 29.1 % Critically low 36.0-48.0 [facility] Comment on above: Performed By: #### C BC #### [facility] [address] [place] [address] Escobar Josey Hemoglobin (Bld) [Mass/Vol] 9.5 g/dL Critically low 12.0-16.0 [facility] Comment on above: Result Comment: deli moriah 08/11 Performed By: #### C BC #### [facility] [address] [place] [address] Escobar Josey IG # 0.04 10e3/ul Critically high 0.00-0.03 [facility] Comment on above: Performed By: #### C BC #### [facility] [address] [place] [address] Escobar Josey IG % 0.3 % Normal 0.0-0.5 [facility] Comment on above: Performed By: #### C BC #### [facility] [address] [place] [address] Escobar Josey LYMPH # 3.2 103/ul Normal 1.2-3.8 [facility] Comment on above: Performed By: #### C BC #### [facility] [address] [place], [place] [id number] Escobar Josey Lymphocytes/100 WBC (Bld) 21.2 % Normal 20.5-60.0 [facility] Comment on above: Performed By: #### C BC #### [facility] [address] [place], [place] [id number] Escobar Josey MANUAL DIFF REQ NO Normal [facility] Comment on above: Performed By: #### C BC #### [facility] [address] [place], [place] [id number] Escobarbello Johnsonen MCH (RBC) [Entitic mass] 30.6 pg Normal 26.7-34.0 [facility] Comment on above: Performed By: #### C BC #### [facility] [address] [place], [place] [id number] Escobarbello Dowling MCHC (RBC) [Mass/Vol] 32.6 g/dL Normal 29.9-35.2 [facility] Comment on above: Performed By: #### C BC #### [facility] [address] [place], [place] [id number] Escobar Josey MCV (RBC) [Entitic vol] 93.9 fL Normal 81.0-99.0 [facility] Comment on above: Performed By: #### C BC #### [facility] [address] [place], [place] [id number] Escobar Josey MONO # 1.0 103/ul Critically high 0.3-0.8 [facility] Comment on above: Performed By: #### C BC #### [facility] [address] [place], [place] [id number] Escobar Josey Monocytes/100 WBC (Bld) 6.5 % Normal 1.7-12.0 [facility] Comment on above: Performed By: #### C BC #### [facility] [address] [place], [place] [id number] Escobar Josey NEUT # 10.7 103/ul Critically high 1.4-6.5 [facility] Comment on above: Performed By: #### C BC #### [facility] [address] [place] [address] Escobar Josey Neutrophils/100 WBC (Bld) 71.6 % Normal 43.0-75.0 [facility] Comment on above: Performed By: #### C BC #### [facility] [address] [place] [address] Escobar Josey Platelet mean volume (Bld) [Entitic vol] 10.8 fL Normal 9.5-13.5 [facility] Comment on above: Performed By: #### C BC #### [facility] [address] [place], [place] [id number] Escobar Josey PLT 196 103/ul Normal 150-450 [facility] Comment on above: Performed By: #### C BC #### [facility] [address] [place] [address] Escobar Josey RBC 3.10 106/ul Critically low 4.20-5.40 [facility] Comment on above: Performed By: #### C BC #### [facility] [address] [place], [place] [id number] Escobar Josey WBC 15.0 103/ul Critically high 4.0-11.0 [facility] Comment on above: Performed By: #### C BC #### [facility] [address] [place], [place] [id number] Escobar Josey CBC AUTO DIFFon 08-10-2020 BASO # 0.0 103/ul Normal 0.0-0.1 [facility] Comment on above: Performed By: #### C BC #### [facility] [address] [place], [place] [id number] Escobar Josey Basophils/100 WBC (Bld) 0.3 % Normal 0.2-2.0 [facility] Comment on above: Performed By: #### C BC #### [facility] [address] [place], [place] [address] Escobar Josey EO # 0.1 103/ul Normal 0.0-0.7 [facility] Comment on above: Performed By: #### C BC #### [facility] [address] [place], [place] [id number] Escobar Josey Eosinophils/100 WBC (Bld) 0.9 % Normal 0.9-7.0 [facility] Comment on above: Performed By: #### C BC #### [facility] [address] [place] [address] Escobar Josey Erythrocyte distribution width (RBC) [Ratio] 14.6 % Normal 11.0-15.0 [facility] Comment on above: Performed By: #### C BC #### [facility] [address] [place] [address] Escobar Josey Hematocrit (Bld) [Volume fraction] 35.3 % Critically low 36.0-48.0 [facility] Comment on above: Performed By: #### C BC #### [facility] [address] [place] [address] Escobar Josey Hemoglobin (Bld) [Mass/Vol] 11.8 g/dL Critically low 12.0-16.0 [facility] Comment on above: Performed By: #### C BC #### [facility] [address] [place] [address] Escobar Josey IG # 0.06 10e3/ul Critically high 0.00-0.03 [facility] Comment on above: Performed By: #### C BC #### [facility] [address] [place] [address] Escobar Josey IG % 0.4 % Normal 0.0-0.5 [facility] Comment on above: Performed By: #### C BC #### [facility] [address] [place] [address] Escobar Josey LYMPH # 2.8 103/ul Normal 1.2-3.8 [facility] Comment on above: Performed By: #### C BC #### [facility] [address] [place] [address] Escobar Josey Lymphocytes/100 WBC (Bld) 21.0 % Normal 20.5-60.0 [facility] Comment on above: Performed By: #### C BC #### [facility] [address] [place] [address] Escobar Dowling MANUAL DIFF REQ NO Normal [facility] Comment on above: Performed By: #### C BC #### [facility] [address] [place] [address] Escobar Dowling MCH (RBC) [Entitic mass] 30.6 pg Normal 26.7-34.0 [facility] Comment on above: Performed By: #### C BC #### [facility] [address] [place] [address] Escobar Dowling MCHC (RBC) [Mass/Vol] 33.4 g/dL Normal 29.9-35.2 [facility] Comment on above: Performed By: #### C BC #### [facility] [address] [place] [address] Escobar Dowling MCV (RBC) [Entitic vol] 91.7 fL Normal 81.0-99.0 [facility] Comment on above: Performed By: #### C BC #### [facility] [address] [place] [address] Escobar Dowling MONO # 1.0 103/ul Critically high 0.3-0.8 [facility] Comment on above: Performed By: #### C BC #### [facility] [address] [place] [address] Escobar Dowling Monocytes/100 WBC (Bld) 7.3 % Normal 1.7-12.0 [facility] Comment on above: Performed By: #### C BC #### [facility] [address] [place] [address] Escobar Dowling NEUT # 9.4 103/ul Critically high 1.4-6.5 [facility] Comment on above: Performed By: #### C BC #### [facility] [address] [place] [address] Escobar Josey Neutrophils/100 WBC (Bld) 70.1 % Normal 43.0-75.0 [facility] Comment on above: Performed By: #### C BC #### [facility] [address] [place] [address] Escobar Josey Platelet mean volume (Bld) [Entitic vol] 11.0 fL Normal 9.5-13.5 [facility] Comment on above: Performed By: #### C BC #### [facility] [address] [place], [place] [address] Escobar Dowling PLT 267 103/ul Normal 150-450 [facility] Comment on above: Performed By: #### C BC #### [facility] [address] [place], [place] [address] Escobar Dowling RBC 3.85 106/ul Critically low 4.20-5.40 [facility] Comment on above: Performed By: #### C BC #### [facility] [address] [place], [place] [address] Escobar Dowling WBC 13.4 103/ul Critically high 4.0-11.0 [facility] Comment on above: Performed By: #### C BC #### [facility] [address] [place], [place] [address] Escobar Dowling Covid-19 PCR (CVDTB)on 07-28 SARS-CoV-2 (COVID-19) RNA SEEMA+probe Ql (Unsp spec) Not detected Normal NOT DETECTED [facility] Comment on above: Result Comment: This test is not yet approved or cleared by the [place] FDA. When there are no FDA-approved or cleared tests available, and other criteria are met, FDA can make tests available under an emergency access mechanism called an Emergency Use Authorization (EUA). The EUA for this test is supported by the Pledger of Health and Human Service's (HHS's) declaration [...] SARS-CoV-2. Performed By: #### C VDTBH #### [facility] [address] [place] [address] Escobar Josey DRUG SCREEN RAPID (URINE)on 08-10-2020 AMP Negative Normal NEGATIVE [facility] Comment on above: Performed By: #### D RUGRPD #### [facility] [address] [place] [address] Escobar Josey BAR Negative Normal NEGATIVE [facility] Comment on above: Performed By: #### D RUGRPD #### [facility] [address] [place] [address] Escobar Josey BUP Negative Normal NEGATIVE [facility] Comment on above: Performed By: #### D RUGRPD #### [facility] [address] [place] [address] Escobar Josey BZO Negative Normal NEGATIVE [facility] Comment on above: Performed By: #### D RUGRPD #### [facility] [address] [place] [address] Escobar Josey SHONA Negative Normal NEGATIVE [facility] Comment on above: Performed By: #### D RUGRPD #### [facility] [address] [place] [address] Escobar Josey CUT-OFFS SEE BELOW Normal [facility] Comment on above: Result Comment: AMP [...] ng/mL Performed By: #### D RUGRPD #### [facility] [address] [place] [address] Escobar Josey DRUG CUT HEADER DRUG CLASS TEST SYSTEM CUT-OFF CONCENTRATIONS ARE FOLLOWS: Normal [facility] Comment on above: Performed By: #### D RUGRPD #### [facility] [address] [place] [address] Escobar Josey mAMP Negative Normal NEGATIVE [facility] Comment on above: Performed By: #### D RUGRPD #### [facility] [address] [address] Escobar Josey MTD Negative Normal NEGATIVE [facility] Comment on above: Performed By: #### D RUGRPD #### [facility] [address] [address] Escobar Josey OPI Negative Normal NEGATIVE [facility] Comment on above: Performed By: #### D RUGRPD #### [facility] [address] [place] [address] Escobar Josey OXY Negative Normal NEGATIVE [facility] Comment on above: Performed By: #### D RUGRPD #### [facility] [address] [place] [address] Escobar Josey PCP Negative Normal NEGATIVE [facility] Comment on above: Performed By: #### D RUGRPD #### [facility] [address] [place] [address] Escobar Ojsey PPX Negative Normal NEGATIVE [facility] Comment on above: Performed By: #### D RUGRPD #### [facility] [address] [place] [address] Escobar Josey TCA Negative Normal NEGATIVE [facility] Comment on above: Performed By: #### D RUGRPD #### [facility] [address] [place] [address] Escobar Josey THC Negative Normal NEGATIVE [facility] Comment on above: Performed By: #### D RUGRPD #### [facility] [address] [place] [address] Escobar Josey RAPID COVID-19 ANTIGENon EUA Statement SEE BELOW Normal [facility] Comment on above: Result Comment: This test [...] sooner. Performed By: #### C VDAG #### [facility] [address] [place] [address] Escobar Dowling SARS-CoV-2 (COVID-19) RNA SEEMA+probe Ql (Unsp spec) Negative Normal NEGATIVE [facility] Comment on above: Result Comment: Nega tive results are presumptive. They do not preclude infection and should not be used as the sole basis for treatment decisions. Additional confirmatory testing by a molecular method should be considered. Performed By: #### C VDAG #### [facility] [address] [place] [address] Escobar Dowling TYPE AND SCREENon 08-10-2020 TYPE AND SCREEN Negative Normal [facility] Comment on above: Performed By: #### T NS #### [facility] [address] [place] [address] Escobar Dowling Vital Signs Date Time Vital Sign Value Performing Clinician Arianei lity 11-14-2023 13:51-0400 Body height 160 cm [employer] Work Phone: [facility] 11-14-2023 13:51-0400 Body mass index (BMI) [Ratio] 37.52 kg/m2 [employer] Work Phone: [facility] 11-14-2023 13:51-0400 Body weight 96.07 kg [employer] Work Phone: [facility] 11-14-2023 13:51-0400 Diastolic blood pressure 80 mm[Hg] [employer] Work Phone: [facility] 11-14-2023 13:51-0400 Systolic blood pressure 130 mm[Hg] Annia Horne DO Work Phone: [facility] Encounters Encounter Date Encounter Type Care Provider Facility Start: 12-27-2023 End: 12-27-2023 [facility] Result Encounter Annia Horne DO Work Phone: [facility] Unsolicited Start: 12-27-2023 End: 12-27-2023 [facility] Result Encounter Annia Horne DO Work Phone: [facility]solic[facility] Start: 11-14-2023 End: 11-14-2023 Patient encounter procedure Annia Horne DO Work Phone: [facility] Comment on above: Nexplanon removal; Encounter for removal of etonogestrel implant Start: 11-14-2023 End: 11-14-2023 ambulatory ANNIA OBED Not Available Start: 07-15-2021 End: 07-15-2021 ambulatory NONE LISTED REQUEST Facility: Start: 07-05-2021 End: 07-06-2021 ambulatory NONE LISTED REQUEST Facility: Start: 08-17-2020 End: 08-17-2020 ambulatory NONE LISTED REQUEST Facility: Start: 08-10-2020 End: 08-13-2020 Evaluation and management of inpatient DR ANNIA HORNE Facility: Procedures Date Procedure Procedure Detail Performing Clinician Start: 12-27-2023 [facility] PREG QUANT HCG Shahram Horne DO Work Phone: Start: 11-14-2023 VIRTUAL RECRUITER INSERTION/REMOVA L OF CONTRACEPTIVE CAPSULE Annia Horne DO Work Phone: Start: 08-11-2020 Extraction of Produc ts of Conception, Low Cervical, Open Approach NONE LISTED REQUEST Start: 08-11-2020 Drainage of Amniotic Fluid, Therapeutic from Products of Conception, Via Natural or Artificial Opening NONE LISTED REQUEST Start: 08-10-2020 Introduction of Horm one into Female Reproductive, Via Natural or Artificial Opening NONE LISTED REQUEST Plan of Treatment Date Care Activity Detail Author Start: 02-12-2024 End: 02-12-2024 Patient encounter procedure 02/12/2024 1:40 PM EST Office Visit [facility] [address] [place] [id number] Annia Horne, DO [address] [place] [address] [facility] Start: 10-29-2023 Influenza vaccination Influenza Vacc ine (#1) [facility] Removal non-biodegradable drug delivery implant Remove drug implant device Procedures Routine Encounter for removal of etonogestrel implant Ordered: 11/14/2023 [facility] Work Phone: Comment on above: Ordered: 11/14/2023 Payers Date Payer Category Payer Medicaid [id number] 1996 Unknown [id number] 2.16.84 [id number] 1996 Unknown [id number] 2.16.84 [id number] 1996 Unknown [id number] 2.16.84 [id number] 1996 Unknown [id number] 2.16.84 [id number] 1996 Unknown [id number] 2.16.84 [id number] 1959 Unknown [id number] Social History Date Type Detail Facility Tobacco smoking stat [facility] Tobacco smoking consumption unknown [facility] Healthcare Start: 1995 Sex assigned at Not on file [facility] Gender identity Not on file [facility] are History of Present illness Narrative 11-14-2023 Josey Giordano LPN - 11/14/2023 1:30 PM EDT Note Date & Type Note Facility 11-14-2023 History of Presen t illness Narrative Associated Order(s): Insertion/Removal of Contraceptive Capsule Post-Procedure Diagnose(s): Nexplanon removal Reason for Appointment: Patient ID: Jaja Mascorro is a 28 y.o. female who presents for Contraception (Nexplanon removal) Patient presents today for a Nexplanon Removal appointment. MEDICATIONS No current outpatient medications ALLERGIES Allergies Allergen Reactions Prednisone Hives SURGICAL HISTORY History reviewed. No pertinent surgical history. REVIEW OF SYSTEMS Review of Systems: Review of Systems Constitutional: Negative. HENT: Negative. Eyes: Negative. Respiratory: Negative. Cardiovascular: Negative. Gastrointestinal: Negative. Genitourinary: Negative. Musculoskeletal: Negative. Skin: Negative. Neurological: Negative. All other systems reviewed and are negative. Hematological: Negative. Endocrine: Negative. Allergic/Immunologic: Negative. OBJECTIVE Objective: Physical Exam Constitutional: Appearance: Normal appearance. She is well-developed. Cardiovascular: Rate and Rhythm: Normal rate and regular rhythm. Pulmonary: Effort: Pulmonary effort is normal. Breath sounds: Normal breath sounds. Abdominal: General: Bowel sounds are normal. There is no distension. Palpations: Abdomen is soft. Tenderness: There is no abdominal tenderness. There is no guarding or rebound. Musculoskeletal: General: No swelling. Normal range of motion. Right lower leg: No edema. Left lower leg: No edema. Neurological: Mental Status: She is alert and oriented to person, place, and time. Skin: General: Skin is warm and dry. Psychiatric: Mood and Affect: Mood normal. Behavior: Behavior normal. Vitals and nursing note reviewed. Exam conducted with a poem writer present. Vitals: Estimated body mass index is 37.52 kg/m as calculated from the following: Height as of this encounter: 5' 3 . Weight as of this encounter: 211 lb 12.8 oz. BP: 130/80 No LMP recorded. ASSESSMENT & PLAN Assessment/Plan Encounter Diagnosis: ICD-10-CM 1. Nexplanon removal Z30.46 2. Encounter for removal of etonogestrel implant Z30.46 Remove drug implant device Insertion/Removal of Contraceptive Capsule Date/Time: 11/14/2023 2:13 PM Performed by: Annia Horne DO Authorized by: Annia Horne DO Consent: Consent obtained: Written Consent given by: Patient Patient questions answered: yes Patient agrees, verbalizes understanding, and wants to proceed: yes Educational handouts given: no Instructions and paperwork completed: yes Indication: Indication: Presence of non-biodegradable drug delivery implant Pre-procedure: Prepped with: povidone-iodine Local anesthetic: Lidocaine without epinephrine The site was cleaned and prepped in a sterile fashion: yes Procedure: Procedure: Removal Small stab incision was made in arm: yes Left/right: Right Preloaded contraceptive capsule trocar was placed subdermally: no Visualization of implant was obtained: no Contraceptive capsule was inserted and trocar removed: no Visualization of notch in stylet and palpation of device: no Palpation confirms placement by provider and patient: no Comments: Nexplanon Removal: Patient presents today for removal of Nexplanon. Written consent for procedure was obtained and patient was placed in supine position with right arm flexed at elbow. Skin was cleansed with alcohol/Betadine and 2cc of Lidocaine was injected underneath palpated Nexplanon at distal end. After allowing for sufficient time for numbing agent to take effect, the skin overlying the end of Nexplanon was incised with an 11inch blade scalpel. A 7.5in hemostat was inserted in the incision site to grab device and Nexplanon was released from tissue. Nexplanon implant was removed in its entirety and visualized by myself and patient. The skin was cleansed with alcohol and the incision was covered with gauze. Post-procedure care was reviewed and patient will continue with proposed plan of care. Patient was advised to call office with any questions or concerns. Follow Up: Patient is to return to the office as needed for any routine appointments. Documented by Josey Giordano LPN on behalf of: Annia Horne DO documented in this encounter [facility] Clinical Note 08-10-2020 Note Date & Type Note Facility 08-10-2020 Note OPERATIVE NOTE OPERATION DATE: 08-10-20 ANESTHETIC:Spinal with Duramorph. SKIP HOIST ENGINEER:ANJALI Vargas PREOPERATIVE DIAGNOSIS: 1. Intrauterine at 40 [...] to the Recovery Room in stable condition. [facility] Signed and Approved by: DR ANNIA HORNE . 2020 15:48:00 [facility] Discharge summary note 08-10-2020 Note Date [...] Tylenol, any abdominal pain unrelieved with narcotics. [facility] Signed and Approved by: DR ANNIA HORNE . 09/01/2020 14:08:00 [facility] Evaluation note Note Date & Type Note Facility Evaluation note Diagnosis Nexplanon removal Encounter for removal of etonogestrel implant documented in this encounter [facility] Summary Purpose Family History No Family History Records FoundNo Family History Records Found Advance Directives No Advanced Directives Records FoundNo Advanced Directives Records Found Additional Source Comments INFORMATION SOURCE (unrecogn ized section and content) DATE CREATED AUTHOR 07/21/2021 [facility] DATE CREATED AUTHOR AUTHOR'S ORGANIZ ATION 11/16/2023 [facility] Care Teams (unrecognized sec tion and content) 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 [facility] provides no warranty or guarantee of the accuracy or completeness of information in this document.
== END 2024-02-12 22:07 | disposition home or self-care (01) ==
LOC: LAB 22:06
PROVIDERS: Visit Provider Obstetrics & Gynecology
DX: Z01.419 Encounter for gynecological examination (general) (routine) without abnormal findings (principal)
CPT/HCPCS: 88175

== ENCOUNTER 2024-03-05 15:50 | Outpatient (OUT) | payer MEDICAID, SELFPAY ==
[2024-03-05 17:32] LABS: HCG Quantitative <1 mIU/mL
== END 2024-03-05 15:51 | disposition home or self-care (01) ==
LOC: LAB 15:50
PROVIDERS: Visit Provider Obstetrics & Gynecology
DX: N92.6 Irregular menstruation, unspecified (principal)
CPT/HCPCS: 36415; 84702

== ENCOUNTER 2024-03-13 09:23 | Outpatient (OUT) | payer MEDICAID, SELFPAY ==
--- OUTSIDE RECORDS SUMMARY | 2024-03-13 09:36 | XMS_ITS | CCD ---
Author Organization [facility] Care Team Providers Care Senior Hr Manager Name Role Phone REQUEST, DR NONE LISTED Primary Care Unavaila nancy HORNE, DR MILNER Attending Unavailable OZZIE, DR MILNER Admitting Unavailable REQUEST, NONE LISTED Primary Care Unavaila nancy HORNE, DR MILNER Attending Unavailable OZZIE, DR MILNER Consulting Unavailable OZZIE, DR MILNER Admitting Unavailable OZZIE, DR MILNER Consulting Unavailable OZZIE, DR MILNER Admitting Unavailable OZZIE, DR MILNER Attending Unavailable REQUEST, NONE LISTED Primary Care UnavailJOVANI Correa Consulting Unavailable DICK HO Consulting Unavailable OZZIE, DR MILNER Procedure Practitioner Unavailab le REQUEST, NONE LISTED Primary Care UnavailJUAN RAMON Dykes Admitting Unavailable EMERY VINCENT Consulting Unavailable JUAN RAMON ELLISON Attending Unavailable JUAN RAMON ELLISON Consulting Unavailable Jovani Pulliam Consulting Unavailable Aneesh Almanzar MDikh Primary Care Provider [phone] ANNIA HORNE Attending Unavailable ANNIA HORNE Attending Unavailable Allergies Allergy Classification Reported Allergen(s) Allergy Type Date of Onset Reaction(s) Facility (9 sources) Prednisone Propensity to adverse reactions 4 [facility] Work Phone: Medications Current Medications Medication Drug Class(es) Dates Sig (Normalized) Sig (Original) [id number] 200 actuat albuterol 0.09 mg/actuat metered dose inhaler (6 sources) beta2-Adrenergic Agonist Start: 04-18-2023 take 2 puff(s) by inhalation four times daily as needed for wheezing albuterol HFA 90 mcg/act inhaler INHALE 2 PUFFS 4 TIMES A DAY NEEDED FOR SHORTNESS OF BREATH OR WHEEZING 04/18/2023 Active 24 hr metFORMIN hydrochloride 500 mg extended release oral tablet (2 sources) Biguanide Start: 03-12-2024 End: 04-11-2024 take 1 tablet by mouth every twenty-four hours at mealtime metFORMIN XR (Glucophage-XR) 500 MG 24 hr tablet Indications: Insulin resistance Take 1 tablet (500 mg) by mouth in the evening. Take with meals Do not crush, chew, or split. 30 tablet 11 03/12/2024 04/11/2024 Active w/o A Vit-Fe Fum-FA (PRENATA PO) (6 sources) w/o A Vit-Fe Fum-FA (PRENATA PO) Take by mouth Active Problems Active Problems Problem Classification Problem Date Documented Date Episodic/Chronic Asthma (1 source) Unspecified asthma, uncomplicated; Translations: [UNSPECIFIED ASTHMA UNCOMPLICATED] Onset: 09-03-2020 Chronic Contraceptive and procreative management (4 sources) Subcutaneous contraceptive implant present; Translations: [Encounter for surveillance of implantable subdermal contraceptive] 11-14-2023 Episodic E Codes: Struck by; against (1 source) Walked into furniture, initial encounter; Translations: [WALKED INTO FURNITURE INITIAL ENC] Onset: 07-07-2021 Episodic Fracture of lower limb (1 source) Nondisplaced fracture of proximal phalanx of left lesser toe(s), initial encounter for closed fracture; Translations: [NDSPL FX WI PHAL LT LSR TOE INIT CL] Onset: [...] IN LEFT TOES] Onset: 07-05-2021 Episodic Other endocrine disorders (2 sources) Polycystic ovary syndrome; Translations: [Polycystic ovarian syndrome] 03-12-2024 Chronic Other nutritional; endocrine; and metabolic disorders (1 source) Obesity, unspecified; Translations: [OBESITY UNSPECIFIED] Onset: 09-03-2020 Chronic Other nutritional; endocrine; and metabolic disorders (2 sources) Insulin resistance; Translations: [Insulin resistance] 03-12-2024 Chronic Other screening for suspected conditions (not [...] 09-03-2020 Episodic Other aftercare (1 source) Other terminal superintendent (current) drug therapy; Translations: [OTH FRAME HAND CURRENT DRUG THERAPY] Onset: 09-03-2020 Episodic Other [...] Reference Range Facility [facility] PREG QUANT HCGon 025 HCG QUANTITATIVE <1 mIU/mL [facility] Comment on above: 5-50 0.2-1 WEEK 50-500 1-2 WEEKS 100-5,000 2-3 WEEKS 500-10,000 3-4 WEEKS 1,000-50,000 4-5 WEEKS 10,000-100,000 5-6 WEEKS 15,000-200,000 6-8 WEEKS 10,000-100,000 2-3 MONTHS [facility] e IGP,APTIMA HPV,AGE GDLNon AGE GDLN ACOG TESTING Note . [facility] Comment on above: TESTS RESULT [facility] [employer] RANGE LAB Clinician Provided Cytology Information Source.............Cervix No. of containers..01 ThinPrep Vial Age Algo ACOG Christina... FLAG LEGEND: L-Low Normal,H-High Normal,LL-Alert Low,HH-Alert High <-Panic Low,>-Panic High,A-Abnormal,AA-Critical Abnormal Performed at: 01 =G [facility] [address] [facility] [place] [address] Holly Khan MD, IGP, RFX APTIMA HPV ASCU Note . [facility] Comment on above: TESTS RESULT FLAG UN [employer] REF RANGE LAB DIAGNOSIS: 02 NEGATIVE FOR INTRAEPITHELIAL LESION OR MALIGNANCY. Specimen adequacy: 02 Satisfactory for evaluation. Endocervical and/or squamous metaplastic cells (endocervical component) are present. Performed by: 02 Edwardo Casas Organ Recovery Coordinator ([facility]) . 02 Note: Note 02 The Pap smear is a screening test designed to aid in the detection of premalignant and malignant conditions of the uterine cervix. It is not a diagnostic procedure and should not be used as the sole means of detecting cervical cancer. Both false-positive and false-negative reports do occur. Test Methodology: Note 02 This liquid based ThinPrep(R) pap test was screened with the use of an image guided system. . 02 The HPV DNA reflex criteria were not met with this specimen result therefore, no HPV testing was performed. FLAG LEGEND: L-Low Normal,H-High Normal,LL-Alert Low,HH-Alert High <-Panic Low,>-Panic High,A-Abnormal,AA-Critical Abnormal Performed at: [address] [place] [address] Holly Khan MD, Performed at: =G - [facility] [address] [id number] Rework Operator: Holly Khan MD, Phone: [phone] Performed at: [facility] [address] [id number] Rework Operator: Holly Khan MD, Phone: [phone] [facility]ERVIX [facility] HCG ( test) Ql (U)o n 02-12-2024 Interpretation and review of laboratory results Normal [facility] Preg Test, Ur Negative Negative [facility] care [facility] PREG QUANT HCGon 10-30-2 024 HCG QUANTITATIVE <1 mIU/mL [facility] Comment on above: 5-50 0.2-1 WEEK 50-500 1-2 WEEKS 100-5,000 2-3 WEEKS 500-10,000 3-4 WEEKS 1,000-50,000 4-5 WEEKS 10,000-100,000 5-6 WEEKS 15,000-200,000 6-8 WEEKS 10,000-100,000 2-3 MONTHS [facility] e Insertion/Removal of Contrac eptive Capsuleon [...] office as needed for any routine appointments. [facility] PAP ACOG PANEL 2: 21 to 29on 07-20-2021 . . Normal [facility] Comment on above: Performed By: #### [id number] #### [facility] [address] [place] [address] Dr. Julius Gil Age Gdln ACOG Testing - [facility] Comment on above: Performed By: #### [id number] #### [facility] [address] [place] [address] Dr. Julius Gil DIAGNOSIS: Comment [facility] Comment on above: Result Comment: NEGA TIVE FOR INTRAEPITHELIAL LESION OR MALIGNANCY. CELLULAR CHANGES ASSOCIATED WITH INFLAMMATION ARE PRESENT. Performed By: #### [id number] #### [facility] [address] [place] [address] Dr. Julius Gil Methodology: CTIM [facility] Comment on above: Result Comment: The Thin Prep(R) Child Development Director was unable to read this specimen. Therefore a manual review was performed. Performed By: #### [id number] #### [facility] [address] [place] [address] Dr. Julius Gil Note: Comment [facility] Comment on above: Result Comment: The Pap smear is a screening test designed to aid in the detection of premalignant and malignant conditions of the uterine cervix. It is not a diagnostic procedure and should not be used as the sole means of detecting cervical cancer. Both false-positive and false-negative reports do occur. . Performed By: #### [id number] #### [facility] [address] [place] [address] Dr. Julius Gil Performed by: Comment Normal [facility] Comment on above: Result Comment: Iva Doran Organ Recovery Coordinator (ASCP) Performed By: #### [id number] #### [facility] [address] [place] [address] Dr. Julius Gil Reflex Criteria: Comment Normal [facility] Comment on above: Result Comment: The HPV DNA reflex criteria were not met with this specimen result therefore, no HPV testing was performed. . Performed By: #### [id number] #### [facility] [address] [place] [address] Dr. Julius Gil Specimen adequacy: Comment Normal [facility] Comment on above: Result Comment: Sati sfactory for evaluation. Endocervical and/or squamous metaplastic cells (endocervical component) are present. Performed By: #### 4 [id number] #### [facility] [address] [place] [address] Dr. Julius Gil XR FOOT LT MIN [...] by: JOVANI PULLIAM Date: 2021-07-05 22:20 Normal [facility] CBC AUTO DIFFon 08-12-2020 BASO # 0.0 103/ul Normal 0.0-0.1 [facility] Comment on above: Performed By: #### C BC #### [facility] [address] [place] [address] Escobar Josey Basophils/100 WBC (Bld) 0.3 % Normal 0.2-2.0 [facility] Comment on above: Performed By: #### C BC #### [facility] [address] [place] [address] Escobar Josey EO # 0.0 103/ul Normal 0.0-0.7 [facility] Comment on above: Performed By: #### C BC #### [facility] [address] [place] [address] Escobar Josey Eosinophils/100 WBC (Bld) 0.1 % Critically low 0.9-7.0 [facility] Comment on above: Performed By: #### C BC #### [facility] [address] [place] [address] Escobar Dowling Erythrocyte distribution width (RBC) [Ratio] 14.7 % Normal 11.0-15.0 [facility] Comment on above: Performed By: #### C BC #### [facility] [address] [place] [address] Escobar Dowling Hematocrit (Bld) [Volume fraction] 29.1 % Critically low 36.0-48.0 [facility] Comment on above: Performed By: #### C BC #### [facility] [address] [place] [address] Escobar Dowling Hemoglobin (Bld) [Mass/Vol] 9.5 g/dL Critically low 12.0-16.0 [facility] Comment on above: Result Comment: deli moriah 08/11 Performed By: #### C BC #### [facility] [address] [place] [address] Escobarbello Dowling IG # 0.04 10e3/ul Critically high 0.00-0.03 [facility] Comment on above: Performed By: #### C BC #### [facility] [address] [place] [address] Escobar Dowling IG % 0.3 % Normal 0.0-0.5 [facility] Comment on above: Performed By: #### C BC #### [facility] [address] [place] [address] Escobarbello Dowling LYMPH # 3.2 103/ul Normal 1.2-3.8 [facility] Comment on above: Performed By: #### C BC #### [facility] [address] [place], [place] [id number] Escobar Dowling Lymphocytes/100 WBC (Bld) 21.2 % Normal 20.5-60.0 [facility] Comment on above: Performed By: #### C BC #### [facility] [address] [place], [place] [id number] Escobar Dowling MANUAL DIFF REQ NO Normal [facility] Comment on above: Performed By: #### C BC #### [facility] [address] [place], [place] [address] Escobar Dowling MCH (RBC) [Entitic mass] 30.6 pg Normal 26.7-34.0 [facility] Comment on above: Performed By: #### C BC #### [facility] [address] [place], [place] [address] Escobar Dowling MCHC (RBC) [Mass/Vol] 32.6 g/dL Normal 29.9-35.2 [facility] Comment on above: Performed By: #### C BC #### [facility] [address] [place], [place] [address] Escobarbello Dowling MCV (RBC) [Entitic vol] 93.9 fL Normal 81.0-99.0 [facility] Comment on above: Performed By: #### C BC #### [facility] [address] [place], [place] [address] Escobar Dowling MONO # 1.0 103/ul Critically high 0.3-0.8 [facility] Comment on above: Performed By: #### C BC #### [facility] [address] [place], [place] [address] Escobar Dowling Monocytes/100 WBC (Bld) 6.5 % Normal 1.7-12.0 [facility] Comment on above: Performed By: #### C BC #### [facility] [address] [place], [place] [address] Escobar Dowling NEUT # 10.7 103/ul Critically high 1.4-6.5 [facility] Comment on above: Performed By: #### C BC #### [facility] [address] [place], [place] [address] Escobar Josey Neutrophils/100 WBC (Bld) 71.6 % Normal 43.0-75.0 [facility] Comment on above: Performed By: #### C BC #### [facility] [address] [place], [place] [address] Escobarbello Dowling Platelet mean volume (Bld) [Entitic vol] 10.8 fL Normal 9.5-13.5 [facility] Comment on above: Performed By: #### C BC #### [facility] [address] [place], [place] [address] Escobar Josey PLT 196 103/ul Normal 150-450 [facility] Comment on above: Performed By: #### C BC #### [facility] [address] [place], [place] [address] Escobar Josey RBC 3.10 106/ul Critically low 4.20-5.40 [facility] Comment on above: Performed By: #### C BC #### [facility] [address] [place] [address] Escobar Josey WBC 15.0 103/ul Critically high 4.0-11.0 [facility] Comment on above: Performed By: #### C BC #### [facility] [address] [place], [place] [id number] Escobar Josey CBC AUTO DIFFon 08-10-2020 BASO # 0.0 103/ul Normal 0.0-0.1 [facility] Comment on above: Performed By: #### C BC #### [facility] [address] [place] [address] Escobar Josey Basophils/100 WBC (Bld) 0.3 % Normal 0.2-2.0 [facility] Comment on above: Performed By: #### C BC #### [facility] [address] [place] [address] Escobar Josey EO # 0.1 103/ul Normal 0.0-0.7 [facility] Comment on above: Performed By: #### C BC #### [facility] [address] [place], [place] [phone] Escobar Josey Eosinophils/100 WBC (Bld) 0.9 % Normal 0.9-7.0 [facility] Comment on above: Performed By: #### C BC #### [facility] [address] [place] [address] Escobar Josey Erythrocyte distribution width (RBC) [Ratio] 14.6 % Normal 11.0-15.0 [facility] Comment on above: Performed By: #### C BC #### [facility] [address] [place], [place] [phone] Escobarbello Dowling Hematocrit (Bld) [Volume fraction] 35.3 % Critically low 36.0-48.0 [facility] Comment on above: Performed By: #### C BC #### [facility] [address] [place], [place] [phone] Escobar Josey Hemoglobin (Bld) [Mass/Vol] 11.8 g/dL Critically low 12.0-16.0 [facility] Comment on above: Performed By: #### C BC #### [facility] [address] [place] [address] Escobar Josey IG # 0.06 10e3/ul Critically high 0.00-0.03 [facility] Comment on above: Performed By: #### C BC #### [facility] [address] [place] [address] Escobar Josey IG % 0.4 % Normal 0.0-0.5 [facility] Comment on above: Performed By: #### C BC #### [facility] [address] [place] [address] Escobar Josey LYMPH # 2.8 103/ul Normal 1.2-3.8 [facility] Comment on above: Performed By: #### C BC #### [facility] [address] [place], [place] [phone] Escobar Dowling Lymphocytes/100 WBC (Bld) 21.0 % Normal 20.5-60.0 [facility] Comment on above: Performed By: #### C BC #### [facility] [address] [place], [place] [phone] Escobar Dowling MANUAL DIFF REQ NO Normal [facility] Comment on above: Performed By: #### C BC #### [facility] [address] [place], [place] [phone] Escobarbello Dowling MCH (RBC) [Entitic mass] 30.6 pg Normal 26.7-34.0 [facility] Comment on above: Performed By: #### C BC #### [facility] [address] [place], [place] [phone] Escobarbello Dowling MCHC (RBC) [Mass/Vol] 33.4 g/dL Normal 29.9-35.2 [facility] Comment on above: Performed By: #### C BC #### [facility] [address] [place], [place] [phone] Escobar Dowling MCV (RBC) [Entitic vol] 91.7 fL Normal 81.0-99.0 [facility] Comment on above: Performed By: #### C BC #### [facility] [address] [place] [phone] Escobarbello Dowling MONO # 1.0 103/ul Critically high 0.3-0.8 [facility] Comment on above: Performed By: #### C BC #### [facility] [address] [place], [place] [phone] Escobar Dowling Monocytes/100 WBC (Bld) 7.3 % Normal 1.7-12.0 [facility] Comment on above: Performed By: #### C BC #### [facility] [address] [place], [place] [phone] Escobar Johnsonen NEUT # 9.4 103/ul Critically high 1.4-6.5 [facility] Comment on above: Performed By: #### C BC #### [facility] [address] [place], [place] [phone] Escobar Dowling Neutrophils/100 WBC (Bld) 70.1 % Normal 43.0-75.0 [facility] Comment on above: Performed By: #### C BC #### [facility] [address] [place], [place] [phone] Escobar Dowling Platelet mean volume (Bld) [Entitic vol] 11.0 fL Normal 9.5-13.5 [facility] Comment on above: Performed By: #### C BC #### [facility] [address] [place], [place] [phone] Escobar Josey PLT 267 103/ul Normal 150-450 [facility] Comment on above: Performed By: #### C BC #### [facility] [address] [place], [place] [phone] Escobar Josey RBC 3.85 106/ul Critically low 4.20-5.40 [facility] Comment on above: Performed By: #### C BC #### [facility] [address] [place], [place] [address] Escobar Dowling WBC 13.4 103/ul Critically high 4.0-11.0 [facility] Comment on above: Performed By: #### C BC #### [facility] [address] [place], [place] [address] Escobar Dowling Covid-19 PCR (CVDTB)on 07-28 SARS-CoV-2 (COVID-19) RNA SEEMA+probe Ql (Unsp spec) Not detected Normal NOT DETECTED [facility] Comment on above: Result Comment: This test is not yet approved or cleared by the [place] FDA. When there are no FDA-approved or cleared tests available, and other criteria are met, FDA can make tests available under an emergency access mechanism called an Emergency Use Authorization (EUA). The EUA for this test is supported by the [place] of Health and Human Service's (HHS's) declaration [...] By: #### C VDTBH #### [facility] [address] [place] [address] Escobar Dowling DRUG SCREEN RAPID (URINE)on 08-10-2020 AMP Negative Normal NEGATIVE [facility] Comment on above: Performed By: #### D RUGRPD #### [facility] [address] [place], [place] [phone] Escobar Dowling BAR Negative Normal NEGATIVE [facility] Comment on above: Performed By: #### D RUGRPD #### [facility] [address] [place], [place] [phone] Escobar Josey BUP Negative Normal NEGATIVE [facility] Comment on above: Performed By: #### D RUGRPD #### [facility] [address] [place] [address] Escobar Josey BZO Negative Normal NEGATIVE [facility] Comment on above: Performed By: #### D RUGRPD #### [facility] [address] [place] [address] Escobar Josey SHONA Negative Normal NEGATIVE [facility] Comment on above: Performed By: #### D RUGRPD #### [facility] [address] [place] [address] Escobar Josey CUT-OFFS SEE BELOW Normal [facility] Comment on above: Result Comment: AMP (Amphetamine): [...] By: #### D RUGRPD #### [facility] [address] [place] [address] Escobar Josey DRUG CUT HEADER DRUG CLASS TEST SYSTEM CUT-OFF CONCENTRATIONS ARE FOLLOWS: Normal [facility] Comment on above: Performed By: #### D RUGRPD #### [facility] [address] [place] [address] Escobar Josey mAMP Negative Normal NEGATIVE [facility] Comment on above: Performed By: #### D RUGRPD #### [facility] [address] [place] [address] Escobar Josey MTD Negative Normal NEGATIVE [facility] Comment on above: Performed By: #### D RUGRPD #### [facility] [address] [place] [address] Escobar Josey OPI Negative Normal NEGATIVE [facility] Comment on above: Performed By: #### D RUGRPD #### [facility] [address] [place] [address] Escobar Josey OXY Negative Normal NEGATIVE [facility] Comment on above: Performed By: #### D RUGRPD #### [facility] [address] [place] [address] Escobar Josey PCP Negative Normal NEGATIVE [facility] Comment on above: Performed By: #### D RUGRPD #### [facility] [address] [place] [address] Escobar Josey PPX Negative Normal NEGATIVE [facility] Comment on above: Performed By: #### D RUGRPD #### [facility] [address] [place] [address] Escobar Josey TCA Negative Normal NEGATIVE [facility] Comment on above: Performed By: #### D RUGRPD #### [facility] [address] [place] [address] Escobar Josey THC Negative Normal NEGATIVE [facility] Comment on above: Performed By: #### D RUGRPD #### [facility] [address] [place] [address] Escobar Dowling RAPID COVID-19 ANTIGENon EUA Statement SEE BELOW Normal [facility] Comment on above: Result Comment: This [...] By: #### C VDAG #### [facility] [address] [place], [place] [address] Escobar Dowling SARS-CoV-2 (COVID-19) RNA SEEMA+probe Ql (Unsp spec) Negative Normal NEGATIVE [facility] Comment on above: Result Comment: Nega tive results are presumptive. They do not preclude infection and should not be used as the sole basis for treatment decisions. Additional confirmatory testing by a molecular method should be considered. Performed By: #### C VDAG #### [facility] [address] [place], [place] [address] Escobar Dowling TYPE AND SCREENon 08-10-2020 TYPE AND SCREEN Negative Normal [facility] Comment on above: Performed By: #### T NS #### [facility] [address] [place], [place] [address] Escobar Dowling Vital Signs Date Time Vital Sign Value Performing Clinician Faci lity 03-12-2024 13:41-0500 Body mass index (BMI) [Ratio] 36.31 kg/m2 Annia Ozzie DO Work Phone: [facility] 03-12-2024 13:41-0500 Body weight 92.99 kg Annia Ozzie DO Work Phone: [facility] 03-12-2024 13:41-0500 Diastolic blood pressure 82 mm[Hg] Annia Ozzie DO Work Phone: [facility] 03-12-2024 13:41-0500 Systolic blood pressure 118 mm[Hg] Annia Ozzie DO Work Phone: [facility] 02-12-2024 14:14-0500 Body mass index (BMI) [Ratio] 36.49 kg/m2 Annia Ozzie DO Work Phone: [facility] 02-12-2024 14:14-0500 Body weight 93.44 kg Annia Ozzie DO Work Phone: [facility] 02-12-2024 14:14-0500 Diastolic blood pressure 70 mm[Hg] Annia Ozzie DO Work Phone: [facility] 02-12-2024 14:14-0500 Systolic blood pressure 118 mm[Hg] Annia Ozzie DO Work Phone: [facility] 11-14-2023 13:51-0400 Body height 160 cm Annia Ozzie DO Work Phone: [facility] 11-14-2023 13:51-0400 Body mass index (BMI) [Ratio] 37.52 kg/m2 Annia Ozzie DO Work Phone: [facility] 11-14-2023 13:51-0400 Body weight 96.07 kg Annia Ozzie DO Work Phone: [facility] 11-14-2023 13:51-0400 Diastolic blood pressure 80 mm[Hg] Annia Ozzie DO Work Phone: [facility] 11-14-2023 13:51-0400 Systolic blood pressure 130 mm[Hg] Annia Ozzie DO Work Phone: [facility] Healthcare Encounters Encounter Date Encounter Type Care Provider Facility Start: 03-12-2024 End: 03-12-2024 Office outpatient visit 15 minutes Annia Ozzie DO Work Phone: [facility] Comment on above: Encounter for fertil ity planning; PCOS (polycystic ovarian syndrome); Insulin resistance Start: 03-05-2024 End: 03-05-2024 Clinisync Result Encounter Annia Ozzie DO Work Phone: [facility] External Department Unsolicited Start: 03-05-2024 End: 03-05-2024 Clinisync Result Encounter Annia Ozzie DO Work Phone: [facility] External Department Unsolicited Start: 02-12-2024 End: 02-12-2024 Bamboo flowsheet Annia Ozzie DO Work Phone: [facility] Start: 02-12-2024 End: 02-19-2024 Bamboo flowsheet Annia Ozzie DO Work Phone: [facility] Start: 02-12-2024 End: 02-19-2024 Clinisync Result Encounter Annia Ozzie DO Work Phone: [facility] External Department Unsolicited Start: 02-12-2024 End: 02-12-2024 Patient encounter procedure Annia Ozzie DO Work Phone: [facility] Start: 02-12-2024 End: 02-12-2024 Periodic preventive med est patient 18-39 yrs Annia Ozzie DO Work Phone: [facility] Comment on above: Well woman exam with routine gynecological exam Start: 02-12-2024 End: 02-12-2024 ambulatory ANNIA OZZIE Not Available Start: 12-27-2023 End: 12-27-2023 Clinisync Result Encounter Annia Ozzie DO Work Phone: [facility] External Department Unsolicited Start: 12-27-2023 End: 12-27-2023 Clinisync Result Encounter Annia Ozzie DO Work Phone: [facility] Unsolicited Start: 11-14-2023 End: 11-14-2023 Patient encounter procedure Annia Ozzie DO Work Phone: [facility] Comment on above: Nexplanon removal; Encounter for removal of etonogestrel implant Start: 11-14-2023 End: 11-14-2023 ambulatory ANNIA OZZIE Not Available Start: 07-15-2021 End: 07-15-[address] NONE LISTED REQUEST Facility: Start: 07-05-2021 End: 07-06-[address] NONE LISTED REQUEST Facility: Start: 08-17-2020 End: 08-17-[address] NONE LISTED REQUEST Facility: Start: 08-10-2020 End: 08-13-2020 Evaluation and management of inpatient DR ANNIA HORNE Facility:[facility]1 Procedures Date Procedure Procedure Detail Performing Clinician Start: 03-05-2024 [facility] PREG QUANT HCG Core y Ozzie DO Work Phone: Start: 02-12-2024 Urine test visual color cmprsn meths Annia Ozzie DO Work Phone: Start: 02-12-2024 IGP,APTIMA HPV,AGE GDLN Annia Horne DO Work Phone: Start: 12-27-2023 [facility] PREG QUANT HCG Core y Ozzie DO Work Phone: Start: 11-14-2023 HOSPITAL PHARMACIST INSERTION/REMOVA L OF CONTRACEPTIVE CAPSULE Annia Horne [...] Treatment Date Care Activity Detail Author Start: 02-17-2025 End: 02-17-2025 Patient encounter procedure 02/17/2025 2:00 PM EST Office Visit [facility] [address] [place] [address] OzzieAnnia españa, DO [address] [place] [address] [facility] Start: 03-26-2024 End: 03-26-2024 Professional / ancillary services management 03/26/2024 8:00 AM EST Ancillary Procedure [facility] [address] [place] [id number] [facility] Start: 03-12-2024 End: 03-12-2025 DHEA DHEA Lab Routine PCOS (polycystic ovarian syndrome) Expected: 03/12/2024 (Approximate), Expires: 03/12/2025 [facility] Comment on above: Expected: 03/12/2024 (Approximate), Expires: 03/12/2025 Start: 03-12-2024 End: 03-12-2025 US Pelvis US Pelvis w/ TV Imaging Routine PCOS (polycystic ovarian syndrome) Expected: 03/12/2024, Expires: 03/12/2025 [facility] Comment on above: Expected: 03/12/2024 , Expires: 03/12/2025 Start: 03-12-2024 End: 03-12-2024 Patient encounter procedure 03/12/2024 1:40 PM EST Office Visit [facility] [address] [place] [address] Annia Horne DO [address] [place] [address] [facility] Start: 02-12-2024 End: 02-12-2024 Patient encounter procedure [facility] Comment on above: Arrived Start: 10-29-2023 Influenza vaccination Influenza Vacc ine (#1) [facility] CBC W Auto Different ial panel - Blood CBC and differential Lab Routine PCOS (polycystic ovarian syndrome) Ordered: 03/12/2024 [facility] Comment on above: Ordered: 03/12/2024 Cytology Cervical or vaginal smear or scraping study Pap Smear Pathology and Cytology Routine Well woman exam with routine gynecological exam Ordered: 02/12/2024 [facility] Work Phone: Comment on above: Ordered: 02/12/2024 DHEA-sulfate DHEA-sulfate Lab Routine PCOS (polycystic ovarian syndrome) Ordered: 03/12/2024 [facility] Comment on above: Ordered: 03/12/2024 Follicle stimulating hormone Follicle stimulating hormone Lab Routine PCOS (polycystic ovarian syndrome) Ordered: 03/12/2024 [facility] Comment on above: Ordered: 03/12/2024 hCG, quantitative, hCG, quantitative, Lab Routine PCOS (polycystic ovarian syndrome) Ordered: 03/12/2024 [facility] Work Phone: Comment on above: Ordered: 03/12/2024 Hemoglobin A1c/Hemoglobin.total in Blood Hemoglobin A1c Lab Routine Insulin resistance Ordered: 03/12/2024 [facility] Comment on above: Ordered: 03/12/2024 Luteinizing hormone Luteinizing hormone Lab Routine PCOS (polycystic ovarian syndrome) Ordered: 03/12/2024 [facility] Comment on above: Ordered: 03/12/2024 Removal non-biodegradable drug delivery implant Remove drug implant device Procedures Routine Encounter for removal of etonogestrel implant Ordered: 11/14/2023 [facility] Work Phone: Comment on above: Ordered: 11/14/2023 Thyrotropin [Units/volume] in Serum or Plasma TSH Lab Routine PCOS (polycystic ovarian syndrome) Ordered: 03/12/2024 [facility] Comment on above: Ordered: 03/12/2024 Thyroxine (T4) free [Mass/volume] in Serum or Plasma T4, free Lab Routine PCOS (polycystic ovarian syndrome) Ordered: 03/12/2024 [facility] Comment on above: Ordered: 03/12/2024 Payers Date Payer Category Payer Medicaid [id number] 1996 Unknown [id number] 1996 Unknown [id number] [id number] 1996 Unknown [id number] [id number] [id number] 1996 Unknown [id number] [id number] 1996 Unknown [id number] 2.16.84 [id number] 1996 Unknown [id number] [id number] [id number] 1959 Unknown [id number] Social History Date Type Detail Facility Tobacco smoking stat [facility] Tobacco smoking consumption unknown [facility] Start: 1995 Sex assigned at Not on file [facility] Gender identity Not on file [facility] are History of Present illness Narrative 03-12-2024 Josey Giordano LPN - 03/12/2024 1:40 PM EST Note Date & Type Note Facility 03-12-2024 History of Presen t illness Narrative Reason for Appointment: Patient ID: Jaja Mascorro is a 28 y.o. female who presents for Infertility Patient presents today for Acute Visit. and Fertility Follow Up appointment. MEDICATIONS Current Outpatient Medications Medication Instructions albuterol HFA 90 mcg/act inhaler INHALE 2 PUFFS 4 TIMES A DAY NEEDED FOR SHORTNESS OF BREATH OR WHEEZING w/o A Vit-Fe Fum-FA (PRENATA PO) Oral ALLERGIES Allergies Allergen Reactions Prednisone Hives PROBLEMS Active Ambulatory Problems Diagnosis Date Noted Well woman exam with routine gynecological exam 02/12/2024 Resolved Ambulatory Problems Diagnosis Date Noted No Resolved Ambulatory Problems No Additional Past Medical History HISTORY PAST MEDICAL HISTORY SOCIAL HISTORY No past medical history on file. Social History Tobacco Use Smoking status: Not on file Smokeless tobacco: Not on file Substance Use Topics Alcohol use: Not on file Drug use: Not on file FAMILY HISTORY No family history on file. SURGICAL HISTORY No past surgical history on file. REVIEW OF SYSTEMS Review of Systems: Review [...] nursing note reviewed. Exam conducted with a television repairer present. Vitals: Estimated body mass index is 36.31 kg/m as calculated from the following: Height as of 11/14/23: 5' 3 . Weight as of this encounter: 205 lb. BP: 118/82 Patient's last menstrual period was 02/08/2024 (exact date). ASSESSMENT & PLAN ICD-10-CM 1. Encounter for fertility planning Z31.89 Patient presents today to discuss fertility. Patient was given a standing lab order and ultrasound to have obtained. Patient was instructed to call the office once menstrual cycle begins so femara can be called into patients pharmacy. Patient has been instructed to take Femara on days 3-7 of cycle. On day 21 of cycle patient is to have progesterone labs drawn. Patient was advised to have intercourse on days 12, 14, 16, 18, and 20 of cycle. We will do three rounds of Femara and if patient has not conceived by then, we will perform HSG. Patient has voiced understanding and will call our office for any further questions/concerns. No orders of the defined types were placed in this encounter. Follow Up: In 4 months if not conceived Documented by Josey Giordano LPN on behalf of: Annia Horne DO documented in this encounter [facility] History of Present illness Narrative 02-12-2024 Shanon Gan LPN - 02/12/2024 1:40 PM EST Note Date & Type Note Facility 02-12-2024 History of Presen t illness Narrative Reason for Appointment: Patient ID: Jaja Mascorro is a 28 y.o. female who presents for Gynecologic Exam Patient presents today for Annual Exam. MEDICATIONS Current Outpatient Medications Medication Instructions albuterol HFA 90 mcg/act inhaler INHALE 2 PUFFS 4 TIMES A DAY NEEDED FOR SHORTNESS OF BREATH OR WHEEZING w/o A Vit-Fe Fum-FA (PRENATA PO) Oral ALLERGIES Allergies Allergen Reactions Prednisone Hives PROBLEMS Active Ambulatory Problems Diagnosis Date Noted Well woman exam with routine gynecological exam 02/12/2024 Resolved Ambulatory Problems Diagnosis Date Noted No Resolved Ambulatory Problems No Additional Past Medical History HISTORY PAST MEDICAL HISTORY SOCIAL HISTORY No past medical history on file. Social History Tobacco Use Smoking status: Not on file Smokeless tobacco: Not on file Substance Use Topics Alcohol use: Not on file Drug use: Not on file FAMILY HISTORY No family history on file. SURGICAL HISTORY No past surgical history on file. REVIEW OF SYSTEMS Review of Systems: Review of Systems All other systems reviewed and are negative. OBJECTIVE Objective: Physical Exam Constitutional: Appearance: Normal appearance. She is well-developed. Genitourinary: Vulva normal. Breasts: Breasts are soft. Right: Normal. Left: Normal. Cardiovascular: Rate and Rhythm: Normal rate and [...] nursing note reviewed. Exam conducted with a television repairer present. Vitals: Estimated body mass index is 36.49 kg/m as calculated from the following: Height as of 11/14/23: 5' 3 . Weight as of this encounter: 206 lb. BP: 118/70 Patient's last menstrual period was 02/08/2024 (exact date). ASSESSMENT & PLAN ICD-10-CM 1. Well woman exam with routine gynecological exam Z01.419 Pap Smear POCT , urine manually resulted Annual Exam: Patient presents today for an annual exam. Patient states she is doing well and has no complaints. Pap was obtained without difficulty. Orders Placed This Encounter Procedures POCT , urine manually resulted Follow Up: Patient is to return in one year for annual unless needed otherwise. Documented by Shanon Gan LPN on behalf of: Annia Horne DO documented in this encounter [facility] History of Present illness Narrative 11-14-2023 Josey [...] nursing note reviewed. Exam conducted with a television repairer present. Vitals: Estimated body mass index is [...] Annia Horne DO documented in this encounter [facility] Clinical Note 08-10-2020 Note Date & Type Note Facility 08-10-2020 Note OPERATIVE NOTE OPERATION DATE: 08-10-20 ANESTHETIC:Spinal with Duramorph. RADIOLOGIC TECHNICIAN:ANJALI Vargas PREOPERATIVE DIAGNOSIS: 1. Intrauterine at 40 [...] to the Recovery Room in stable condition. [facility] Signed and Approved by: DR ANNIA HORNE . 2020 15:48:00 [facility] Discharge summary note 08-10-2020 Note Date & [...] Tylenol, any abdominal pain unrelieved with narcotics. [facility] Signed and Approved by: DR ANNIA HORNE . 09/01/2020 14:08:00 [facility] Evaluation note Note Date & Type Note Facility Evaluation note Diagnosis Nexplanon removal Encounter for removal of etonogestrel implant documented in this encounter [facility] Healthcare Evaluation note Note Date & Type Note Facility Evaluation note Diagnosis Well woman exam with routine gynecological exam Routine gynecological examination documented in this encounter [facility] Healthcare Evaluation note Note Date & Type Note Facility Evaluation note Diagnosis Encounter for fertility planning PCOS (polycystic ovarian syndrome) Polycystic ovaries Insulin resistance Other abnormal glucose documented in this encounter [facility] Healthcare Summary Purpose Family History No Family History Records FoundNo Family History Records Found Advance Directives No Advanced Directives Records FoundNo Advanced Directives Records Found Additional Source Comments INFORMATION SOURCE (unrecogn ized section and content) DATE CREATED AUTHOR 07/21/2021 [facility] DATE CREATED AUTHOR AUTHOR'S ORGANIZ ATION 02/14/2024 [facility] [employer] Care Teams (unrecognized sec tion and content) Senior Hr Manager Relationship Specialty Start Date End Date Shaikh Almanzar MD [address] [place] [address] PCP - General Internal Medicine 01/02/23 Senior Hr Manager Relationship Specialty Start Date End Date Shaikh Almanzar MD [address] [place] [address] PCP - General Internal Medicine 01/02/23 Senior Hr Manager Relationship Specialty Start Date End Date Shaikh Almanzar MD [address] [place] [address] PCP - General Internal Medicine 01/02/23 Senior Hr Manager Relationship Specialty Start Date End Date Shaikh Almanzar MD [address] [place] [address] PCP - General Internal Medicine 01/02/23 Senior Hr Manager Relationship Specialty Start Date End Date Shaikh Almanzar MD [address] [place] [address] PCP - General Internal Medicine 01/02/23 Reason for Visit (unrecogniz ed section and content) Reason Comments Contraception Nexplanon removal Reason Comments Gynecologic Exam Reason Comments Infertility FOR RECORDS PERTAINING TO PATIENTS WHO ARE [...] BE BASED ON THE PRIMARY CLINICAL RECORDS. [employer] provides no warranty or guarantee of the accuracy or completeness of information in this document.
[2024-03-13 10:02] LABS: Basophils Percent Auto 0.3 % (0.2-2.0); Eosinophils Absolute Auto 0.2 10^3/uL (0.0-0.7); Eosinophils Percent Auto 2.1 % (0.9-7.0); Hemoglobin 14.2 g/dL (12.0-16.0); Immature Granulocytes Abs Auto 0.02 10^3/uL (0.00-0.03); Immature Granulocytes Pct Auto 0.2 % (0.0-0.5); Lymphocytes Absolute Auto 2.5 10^3/uL (1.2-3.8); Lymphocytes Percent Auto 27.9 % (20.5-60.0); Mean Corpuscular HGB Conc 33.8 g/dL (29.9-35.2); Mean Corpuscular Hemoglobin 32.2 pg (26.7-34.0); Mean Corpuscular Volume 95.2 fL (81.0-99.0); Mean Platelet Volume 10.6 fL (9.5-13.5); Monocytes Absolute Auto 0.5 10^3/uL (0.3-0.8); Monocytes Percent Auto 5.8 % (1.7-12.0); Neutrophils Absolute Auto 5.8 10^3/uL (1.4-6.5); Neutrophils Percent Auto 63.7 % (43.0-75.0); Platelet Count 247 10^3/uL (150-450); Red Blood Count 4.41 10^6/uL (4.20-5.40); Red Cell Distribution Width 12.2 % (11.0-15.0); White Blood Count 9.1 10^3/uL (4.0-11.0)
[2024-03-13 10:10] LABS: Estimated Average Glucose 88 mg/dL; Glycohemoglobin A1C 4.7 % (4.5-6.2)
[2024-03-13 10:20] LABS: HCG Quantitative <1 mIU/mL; Thyroid Stimulating Hormone 1.571 uIU/mL (0.358-3.740)
[2024-03-13 10:38] LABS: Free T4 0.86 ng/dL (0.76-1.46)
[2024-03-14 08:12] LABS: FSH 4.2 mIU/mL (.); Luteinizing Hormone(LH) 11.4 mIU/mL (.)
[2024-03-19 11:07] LABS: DHEA, Serum 166 ng/dL (31-701)
== END 2024-03-13 09:24 | disposition home or self-care (01) ==
LOC: LAB 09:23
PROVIDERS: Visit Provider Obstetrics & Gynecology
DX: E28.2 Polycystic ovarian syndrome (principal); E88.819 Insulin resistance, unspecified; N92.6 Irregular menstruation, unspecified
CPT/HCPCS: 36415; 82626; 82627; 83001; 83002; 83036; 84439; 84443; 84702; 85025

== ENCOUNTER 2024-04-09 09:34 | Outpatient (OUT) | payer MEDICAID, SELFPAY ==
--- OUTSIDE RECORDS SUMMARY | 2024-04-09 09:43 | XMS_ITS | CCD ---
Author Organization [facility] Care Team Providers Care Automotive Assembler Name Role Phone REQUEST, DR NONE LISTED Primary Care Unavaila nancy HORNE, DR MILNER Attending Unavailable OZZIE, DR MILNER Admitting Unavailable REQUEST, NONE LISTED Primary Care Unavaila nancy HORNE, DR MILNER Attending Unavailable OZZIE, DR MILNER Consulting Unavailable OZZIE, DR MLINER Admitting Unavailable OZZIE, DR MILNER Consulting Unavailable [...] Unavailable Aneesh Almanzar MDikh Primary Care Provider [phone] ANNIA HORNE Attending Unavailable ANNIA HORNE Attending Unavailable ANNIA HORNE Attending Unavailable Allergies Allergy Classification Reported Allergen(s) Allergy Type Date of Onset Reaction(s) Facility (10 sources) Prednisone Propensity to adverse reactions 4 [facility] Work Phone: Medications Current Medications Medication Drug Class(es) Dates Sig (Normalized) Sig (Original) [id number] 200 actuat albuterol 0.09 mg/actuat metered dose inhaler (7 sources) beta2-Adrenergic Agonist Start: 04-18-2023 take 2 puff(s) by inhalation four times daily as needed for wheezing albuterol HFA 90 mcg/act inhaler INHALE 2 PUFFS 4 TIMES A DAY NEEDED FOR SHORTNESS OF BREATH OR WHEEZING 04/18/2023 Active 24 hr metFORMIN hydrochloride 500 mg extended release oral tablet (3 sources) Biguanide Start: 03-12-2024 End: 04-11-2024 take 1 tablet by mouth every twenty-four hours at mealtime metFORMIN XR (Glucophage-XR) 500 MG 24 hr tablet Indications: Insulin resistance Take 1 tablet (500 mg) by mouth in the evening. Take with meals Do not crush, chew, or split. 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] Onset: 09-03-2020 Episodic Other [...] Test Name Value Interpretation Reference Range Facility ALL CBC WITH AUTO DIFFon BASOPHILS ABSOLUTE AUTO 0 [facility] Basophils/100 WBC (Bld) 0.3 % 0.2 - 2.0 % [facility] Eosinophils/100 WBC (Bld) 2.1 % 0.9 - 7.0 % [facility] Erythrocyte distribution width (RBC) [Ratio] 12.2 % 11.0 - 15.0 % [facility] Hematocrit (Bld) [Volume fraction] 42 % 36.0 - 48.0 % [facility] Hemoglobin (Bld) [Mass/Vol] 14.2 g/dL 12.0 - 16.0 g/dL [facility] IMMATURE GRANULOCYTES ABS AUTO 0.02 [facility] Immature granulocytes/100 WBC (Bld) 0.2 % 0.0 - 0.5 % [facility] LYMPHOCYTES ABSOLUTE AUTO 2.5 [facility] Lymphocytes/100 WBC (Bld) 27.9 % 20.5 - 60.0 % [facility] MCH (RBC) [Entitic mass] 32.2 pg 26.7 - 34.0 pg [facility] MCHC (RBC) [Mass/Vol] 33.8 g/dL 29.9 - 35.2 g/dL [facility] MCV (RBC) [Entitic vol] 95.2 fL 81.0 - 99.0 fL [facility] MONOCYTES ABSOLUTE AUTO 0.5 [facility] Monocytes/100 WBC (Bld) 5.8 % 1.7 - 12.0 % [facility] NEUTROPHILS ABSOLUTE AUTO 5.8 [facility] Neutrophils/100 WBC (Bld) 63.7 % 43.0 - 75.0 % [facility] Platelet mean volume (Bld) [Entitic vol] 10.6 fL 9.5 - 13.5 fL [facility] TBH EO # 0.2 [facility] [address] [facility] RBC 4.41 [facility] TB WBC 9.1 [facility] TBH PREG QUANT HCGon 025 HCG QUANTITATIVE <1 mIU/mL [facility] Comment on above: 5-50 0.2-1 WEEK 50-500 1-2 WEEKS 100-5,000 2-3 WEEKS 500-10,000 3-4 WEEKS 1,000-50,000 4-5 WEEKS 10,000-100,000 5-6 WEEKS 15,000-200,000 6-8 WEEKS 10,000-100,000 2-3 MONTHS [facility],APTIMA HPV,AGE GDLNon AGE GDLN ACOG TESTING Note . [facility] Comment on above: TESTS RESULT FLAG UN ITS REF RANGE LAB Clinician Provided Cytology Information Source.............Cervix No. of containers..01 ThinPrep Vial Age Algo ACOG Christina... FLAG LEGEND: L-Low Normal,H-High Normal,LL-Alert Low,HH-Alert High <-Panic Low,>-Panic High,A-Abnormal,AA-Critical Abnormal Performed at: 01 =G [facility] [id number] Holly Khan MD, IGP, RFX APTIMA HPV ASCU Note . [facility] Comment on above: TESTS RESULT FLAG U NITS REF RANGE LAB DIAGNOSIS: 02 NEGATIVE FOR INTRAEPITHELIAL LESION OR MALIGNANCY. Specimen adequacy: 02 Satisfactory for evaluation. Endocervical and/or squamous metaplastic cells (endocervical component) are present. Performed by: 02 Edwardo Casas Talk Show Host ([facility]) . 02 Note: Note 02 The Pap [...] <-Panic Low,>-Panic High,A-Abnormal,AA-Critical Abnormal Performed at: [address] [id number] Holly Khan MD, Performed at: =G - [facility] [address] [id number] Ruling Machine Operator: Holly Khan MD, Phone: [phone] Performed at: - [facility] [id number] Ruling Machine Operator: Holly Khan MD, Phone: [phone] BRUSH-SPATULA CERVIX [facility] HCG ( test) Ql (U)o n 02-12-2024 Interpretation and review of laboratory results Normal [facility] re Preg Test, Ur [facility] PREG QUANT HCGon 1030-2 024 HCG QUANTITATIVE <1 mIU/mL [facility] lthcare Comment on above: 5-50 0.2-1 WEEK 50-500 1-2 WEEKS 100-5,000 2-3 WEEKS 500-10,000 3-4 WEEKS 1,000-50,000 4-5 WEEKS 10,000-100,000 5-6 WEEKS 15,000-200,000 6-8 WEEKS 10,000-100,000 2-3 MONTHS [facility] Insertion/Removal of Contrac eptive Capsuleon 11-14-2023 Josey GiordanoSUSANA 11/15/2023 1:52 PM Insertion/Removal of Contraceptive Capsule [...] office as needed for any routine appointments. [facility] PAP ACOG PANEL 2: 21 to 29on 07-20-2021 . . Normal [facility] Comment on above: Performed By: #### [id number] #### [facility] [address] [place] [address] Dr. Julius Gil Age Gdln ACOG Testing 21-29 [facility] Comment on above: Performed By: #### [id number] #### [facility] [address] [place] [address] Dr. Julius Gil DIAGNOSIS: Comment [facility] Comment on above: Result Comment: NEGA TIVE FOR INTRAEPITHELIAL LESION OR MALIGNANCY. CELLULAR CHANGES ASSOCIATED WITH INFLAMMATION ARE PRESENT. Performed By: #### [id number] #### [facility] [address] [place] [address] Dr. Julius Gil Methodology: CTIM [facility] Comment on above: Result Comment: The Thin Prep(R) Roof Bolter Helper was unable to read this specimen. Therefore a manual review was performed. Performed By: #### [id number] #### [facility] [address] [place] [address] Dr. Julius Gil Note: Comment [facility] Comment on above: Result Comment: The Pap smear is a screening test designed to aid in the detection of premalignant and malignant conditions of the uterine cervix. It is not a diagnostic procedure and should not be used as the sole means of detecting cervical cancer. Both false-positive and false-negative reports do occur. . Performed By: #### [id number] #### [facility] [address] [place] [address] Dr. Julius Gil Performed by: Comment Normal [facility] Comment on above: Result Comment: Iva Doran Talk Show Host ([facility]) Performed By: #### [id number] #### [facility] [address] [place] [address] Dr. Julius Gil Reflex Criteria: Comment [facility] Comment on above: Result Comment: The HPV DNA reflex criteria were not met with this specimen result therefore, no HPV testing was performed. . Performed By: #### 4 [id number] #### [facility] [address] [place] [address] Dr. Julius Gil Specimen adequacy: Comment Normal [facility] Comment on above: Result Comment: Sati sfactory for evaluation. Endocervical and/or squamous metaplastic cells (endocervical component) are present. Performed By: #### [id number] #### [facility] [address] [place] [address] Dr. Julius Gil XR FOOT LT MIN [...] JOVANI PULLIAM Date: 2021-07-05 22:20 Normal [facility] CBC AUTO DIFFon 08-12-2020 BASO # 0.0 103/ul Normal 0.0-0.1 [facility] Comment on above: Performed By: #### C BC #### [facility] [address] [place] [address] Escobar Josey Basophils/100 WBC (Bld) 0.3 % Normal 0.2-2.0 [facility] Comment on above: Performed By: #### C BC #### [facility] [address] [place] [address] Escobar Josey EO # 0.0 103/ul Normal 0.0-0.7 [facility] Comment on above: Performed By: #### C BC #### [facility] [address] [place], [place] [id number] Escobar Josey Eosinophils/100 WBC (Bld) 0.1 % Critically low 0.9-7.0 [facility] Comment on above: Performed By: #### C BC #### [facility] [address] [place] [address] Escobar Josey Erythrocyte distribution width (RBC) [Ratio] 14.7 % Normal 11.0-15.0 [facility] Comment on above: Performed By: #### C BC #### [facility] [address] [place] [address] Escobar Dowling Hematocrit (Bld) [Volume fraction] 29.1 % Critically low 36.0-48.0 [facility] Comment on above: Performed By: #### C BC #### [facility] [address] [place] [address] Escobarbello Dowling Hemoglobin (Bld) [Mass/Vol] 9.5 g/dL Critically low 12.0-16.0 [facility] Comment on above: Result Comment: deli moriah 08/11 Performed By: #### C BC #### [facility] [address] [place] [address] Escobarbello Dowling IG # 0.04 10e3/ul Critically high 0.00-0.03 [facility] Comment on above: Performed By: #### C BC #### [facility] [address] [place] [address] Escobarbello Dowling IG % 0.3 % Normal 0.0-0.5 [facility] Comment on above: Performed By: #### C BC #### [facility] [address] [place] [address] Escobar Dowling LYMPH # 3.2 103/ul Normal 1.2-3.8 [facility] Comment on above: Performed By: #### C BC #### [facility] [address] [place] [address] Escobar Dowling Lymphocytes/100 WBC (Bld) 21.2 % Normal 20.5-60.0 [facility] Comment on above: Performed By: #### C BC #### [facility] [address] [place] [address] Escobar Dowling MANUAL DIFF REQ NO Normal [facility] Comment on above: Performed By: #### C BC #### [facility] [address] [place] [address] Escobar Dowling MCH (RBC) [Entitic mass] 30.6 pg Normal 26.7-34.0 [facility] Comment on above: Performed By: #### C BC #### [facility] [address] [place], [place] [address] Escobarbello Dowling MCHC (RBC) [Mass/Vol] 32.6 g/dL Normal 29.9-35.2 [facility] Comment on above: Performed By: #### C BC #### [facility] [address] [place], [place] [address] Escobarbello Dowling MCV (RBC) [Entitic vol] 93.9 fL Normal 81.0-99.0 [facility] Comment on above: Performed By: #### C BC #### [facility] [address] [place], [place] [address] Escobar Josey MONO # 1.0 103/ul Critically high 0.3-0.[address] [facility] Comment on above: Performed By: #### C BC #### [facility] [address] [place] [id number] Escobar Josey Monocytes/100 WBC (Bld) 6.5 % Normal 1.7-12.0 [facility] Comment on above: Performed By: #### C BC #### [facility] [address] [place] [id number] Escobar Josey NEUT # 10.7 103/ul Critically high 1.4-6.5 [facility] Comment on above: Performed By: #### C BC #### [facility] [address] [place], [place] [address] Escobar Josey Neutrophils/100 WBC (Bld) 71.6 % Normal 43.0-75.0 [facility] Comment on above: Performed By: #### C BC #### [facility] [address] [place], [place] [address] Escobar Josey Platelet mean volume (Bld) [Entitic vol] 10.8 fL Normal 9.5-13.5 [facility] Comment on above: Performed By: #### C BC #### [facility] [address] [place], [place] [address] Escobar Josey PLT 196 103/ul Normal 150-450 [facility] Comment on above: Performed By: #### C BC #### [facility] [address] [place], [place] [address] Escobar Josey RBC 3.10 106/ul Critically low 4.20-5.[address] [facility] Comment on above: Performed By: #### C BC #### [facility] [address] [place], [place] [address] Escobar Josey WBC 15.0 103/ul Critically high 4.0-11.0 [facility] Comment on above: Performed By: #### C BC #### [facility] [address] [place], [place] [address] Escobar Josey CBC AUTO DIFFon 08-10-2020 BASO # 0.0 103/ul Normal 0.0-0.1 [facility] Comment on above: Performed By: #### C BC #### [facility] [address] [place] [id number] Escobar Josey Basophils/100 WBC (Bld) 0.3 % Normal 0.2-2.0 [facility] Comment on above: Performed By: #### C BC #### [facility] [address] [place], [place] [address] Escobar Josey EO # 0.1 103/ul Normal 0.0-0.7 [facility] Comment on above: Performed By: #### C BC #### [facility] [address] [place], [place] [address] Escobar Josey Eosinophils/100 WBC (Bld) 0.9 % Normal 0.9-7.0 [facility] Comment on above: Performed By: #### C BC #### [facility] [address] [place] [id number] Escobar Josey Erythrocyte distribution width (RBC) [Ratio] 14.6 % Normal 11.0-15.0 [facility] Comment on above: Performed By: #### C BC #### [facility] [address] [place], [place] [address] Escobar Josey Hematocrit (Bld) [Volume fraction] 35.3 % Critically low 36.0-48.0 [facility] Comment on above: Performed By: #### C BC #### [facility] [address] [place] [id number] Escobar Josey Hemoglobin (Bld) [Mass/Vol] 11.8 g/dL Critically low 12.0-16.0 [facility] Comment on above: Performed By: #### C BC #### [facility] [address] [place], [place] [address] Escobar Josey IG # 0.06 10e3/ul Critically high 0.00-0.03 [facility] Comment on above: Performed By: #### C BC #### [facility] [address] [place], [place] [address] Escobar Josey IG % 0.4 % Normal 0.0-0.5 [facility] Comment on above: Performed By: #### C BC #### [facility] [address] [place] [address] Escobar Josey LYMPH # 2.8 103/ul Normal 1.2-3.8 [facility] Comment on above: Performed By: #### C BC #### [facility] [address] [place] [address] Escobar Josey Lymphocytes/100 WBC (Bld) 21.0 % Normal 20.5-60.0 [facility] Comment on above: Performed By: #### C BC #### [facility] [address] [place], [place] [address] Escobarbello Dowling MANUAL DIFF REQ NO Normal [facility] Comment on above: Performed By: #### C BC #### [facility] [address] [place], [place] [address] Escobar Josey MCH (RBC) [Entitic mass] 30.6 pg Normal 26.7-34.0 [facility] Comment on above: Performed By: #### C BC #### [facility] [address] [place], [place] [address] Escobar Josey MCHC (RBC) [Mass/Vol] 33.4 g/dL Normal 29.9-35.2 [facility] Comment on above: Performed By: #### C BC #### [facility] [address] [place], [place] [address] Escobar Josey MCV (RBC) [Entitic vol] 91.7 fL Normal 81.0-99.0 [facility] Comment on above: Performed By: #### C BC #### [facility] [address] [place], [place] [address] Escobar Dowling MONO # 1.0 103/ul Critically high 0.3-0.[address] [facility] Comment on above: Performed By: #### C BC #### [facility] [address] [place], [place] [address] Escobar Dowling Monocytes/100 WBC (Bld) 7.3 % Normal 1.7-12.0 [facility] Comment on above: Performed By: #### C BC #### [facility] [address] [place], [place] [address] Escobar Dowling NEUT # 9.4 103/ul Critically high 1.4-6.[address] [facility] Comment on above: Performed By: #### C BC #### [facility] [address] [place], [place] [address] Escobar oDwling Neutrophils/100 WBC (Bld) 70.1 % Normal 43.0-75.0 [facility] Comment on above: Performed By: #### C BC #### [facility] [address] [place], [place] [address] Escobar Dowling Platelet mean volume (Bld) [Entitic vol] 11.0 fL Normal 9.5-13.5 [facility] Comment on above: Performed By: #### C BC #### [facility] [address] [place], [place] [address] Escobar Dowling PLT 267 103/ul Normal 150-450 [facility] Comment on above: Performed By: #### C BC #### [facility] [address] [place], [place] [address] Escobar Dowling RBC 3.85 106/ul Critically low 4.20-5.[address] [facility] Comment on above: Performed By: #### C BC #### [facility] [address] [place], [place] [address] Escobarbello Johnsonen WBC 13.4 103/ul Critically high 4.0-11.0 [facility] Comment on above: Performed By: #### C BC #### [facility] [address] [place], [place] [address] Escobar Dowling Covid-19 PCR (CVDTB)on 07-28 SARS-CoV-2 (COVID-19) RNA SEEMA+probe Ql (Unsp spec) Not detected Normal NOT DETECTED [facility] Comment on above: Result Comment: This test is not yet approved or cleared by the [place] FDA. When there are no FDA-approved or cleared tests available, and other criteria are met, FDA can make tests available under an emergency access mechanism called an Emergency Use Authorization (EUA). The EUA for this test is supported by the Health Care Facility Administrator of Health and Human Service's (HHS's) declaration [...] SARS-CoV-2. Performed By: #### C VDTBH #### [facility] [address] [place] [address] Escobar Dowling DRUG SCREEN RAPID (URINE)on 08-10-2020 AMP Negative Normal NEGATIVE [facility] Comment on above: Performed By: #### D RUGRPD #### [facility] [address] [place] [address] Escobar Josey BAR Negative Normal NEGATIVE [facility] Comment on above: Performed By: #### D RUGRPD #### [facility] [address] [place], [place] [address] Escobar Josey BUP Negative Normal NEGATIVE [facility] Comment on above: Performed By: #### D RUGRPD #### [facility] [address] [place], [place] [address] Escobar Josey BZO Negative Normal NEGATIVE [facility] Comment on above: Performed By: #### D RUGRPD #### [facility] [address] [place] [address] Escobar Josey SHONA Negative Normal NEGATIVE [facility] Comment on above: Performed By: #### D RUGRPD #### [facility] [address] [place] [id number] Escobar Josey CUT-OFFS SEE BELOW Normal [facility] Comment on above: Result Comment: AMP (Amphetamine): 500ng/mL, BAR (Barbituates): 200 ng/mL, BZO (Benzodiazepines): 150 ng/mL, BUP (Buprenorphine): 10 ng/mL, SHONA (Cocaine): 150 ng/mL, mAMP (Methamphetamine): 500 ng/mL, MTD (Methadone): 200 ng/mL, OPI (Opiates): 100 ng/mL, OXY (Oxycodone): 100 ng/mL, PCP (Phencyclidine): 25 ng/mL, PPX (Propoxyphene): 300 ng/mL, THC (Cannabinoids): 50 ng/mL, TCA (Trycyclic Antidepressants): 300 ng/mL Performed By: #### D RUGRPD #### [facility] [address] [place] [address] Escobar Josey DRUG CUT HEADER DRUG CLASS TEST SYSTEM CUT-OFF CONCENTRATIONS ARE FOLLOWS: Normal [facility] Comment on above: Performed By: #### D RUGRPD #### [facility] [address] [place] [address] Escobar Josey mAMP Negative Normal NEGATIVE [facility] Comment on above: Performed By: #### D RUGRPD #### [facility] [address] [place] [address] Escobar Josey MTD Negative Normal NEGATIVE [facility] Comment on above: Performed By: #### D RUGRPD #### [facility] [address] [place] [address] Escobar Josey OPI Negative Normal NEGATIVE [facility] Comment on above: Performed By: #### D RUGRPD #### [facility] [address] [place] [address] Escobar Josey OXY Negative Normal NEGATIVE [facility] Comment on above: Performed By: #### D RUGRPD #### [facility] [address] [place] [address] Escobar Dowling PCP Negative Normal NEGATIVE [facility] Comment on above: Performed By: #### D RUGRPD #### [facility] [address] [place] [address] Escobar Josey PPX Negative Normal NEGATIVE [facility] Comment on above: Performed By: #### D RUGRPD #### [facility] [address] [place] [address] Josey TCA Negative Normal NEGATIVE [facility] Comment on above: Performed By: #### D RUGRPD #### [facility] [address] [place] [address] Josey THC Negative Normal NEGATIVE [facility] Comment on above: Performed By: #### D RUGRPD #### [facility] [address] [place], [place] [address] RAPID COVID-19 ANTIGENon EUA Statement SEE BELOW Normal [facility] Comment on above: Result Comment: This [...] sooner. Performed By: #### C VDAG #### [facility] [address] [place] [address] SARS-CoV-2 (COVID-19) RNA SEEMA+probe Ql (Unsp spec) Negative Normal NEGATIVE [facility] Comment on above: Result Comment: Nega tive results are presumptive. They do not preclude infection and should not be used as the sole basis for treatment decisions. Additional confirmatory testing by a molecular method should be considered. Performed By: #### C VDAG #### [facility] [address] [place], [place] [address] Escobar Dowling TYPE AND SCREENon 08-10-2020 TYPE AND SCREEN Negative Normal [facility] Comment on above: Performed By: #### T NS #### [facility] [address] [place], [place] [address] Escobar Dowling Vital Signs Date Time Vital Sign Value Performing Clinician Faci lity 03-12-2024 13:41-0500 Body mass index (BMI) [Ratio] 36.31 kg/m2 Annia Ozzie DO Work Phone: [facility] 03-12-2024 13:41-0500 Body weight 92.99 kg Annia Ozzie DO Work Phone: [facility] 03-12-2024 13:41-0500 Diastolic blood pressure 82 mm[Hg] Annia Ozzie DO Work Phone: [facility] 03-12-2024 13:41-0500 Systolic blood pressure 118 mm[Hg] Annia Ozzie DO Work Phone: [facility] 02-12-2024 14:14-0500 Body mass index (BMI) [Ratio] 36.49 kg/m2 Annia Ozzie DO Work Phone: [facility] 02-12-2024 14:14-0500 Body weight 93.44 kg Annia Ozzie DO Work Phone: [facility] 02-12-2024 14:14-0500 Diastolic blood pressure 70 mm[Hg] Annia Ozzie DO Work Phone: [facility] 02-12-2024 14:14-0500 Systolic blood pressure 118 mm[Hg] Annia Ozzie DO Work Phone: [facility] 11-14-2023 13:51-0400 Body height 160 cm Annia Ozzie DO Work Phone: [facility] 11-14-2023 13:51-0400 Body mass index (BMI) [Ratio] 37.52 kg/m2 Annia Ozzie DO Work Phone: [facility] 11-14-2023 13:51-0400 Body weight 96.07 kg Annia Ozzie DO Work Phone: [facility] 11-14-2023 13:51-0400 Diastolic blood pressure 80 mm[Hg] Annia Ozzie DO Work Phone: [facility] 11-14-2023 13:51-0400 Systolic blood pressure 130 mm[Hg] Annia Ozzie DO Work Phone: [facility] Encounters Encounter Date Encounter Type Care Provider Facility Start: 03-13-2024 End: 03-13-2024 Clinisync Result Encounter Annia Ozzie DO Work Phone: [facility] Unsolicited Start: 03-13-2024 End: 03-13-2024 Clinisync Result Encounter Annia Ozzie DO Work Phone: [facility] Unsolicited Start: 03-12-2024 End: 03-12-2024 Office outpatient visit 15 minutes Annia Ozzie DO Work Phone: [facility] Comment on above: Encounter for fertil ity planning; PCOS (polycystic ovarian syndrome); Insulin resistance Start: 03-12-2024 End: 03-12-2024 ambulatory ANNIA OZZIE Not Available Start: 03-05-2024 End: 03-05-2024 Clinisync Result Encounter Annia Ozzie DO Work Phone: [facility] Unsolicited Start: 03-05-2024 End: 03-05-2024 [...] Date Procedure Procedure Detail Performing Clinician Start: 03-13-2024 ALL CBC WITH AUTO DIFF Annia Ozzie DO Work Phone: Start: 03-05-2024 [facility] PREG QUANT HCG Core y Ozzie DO Work Phone: Start: 02-12-2024 Urine test visual color cmprsn meths Annia Ozzie DO Work Phone: Start: 02-12-2024 IGP,APTIMA HPV,AGE GDLN Annia Ozzie DO Work Phone: Start: 12-27-2023 [facility] PREG QUANT HCG Core y Ozzie DO Work Phone: Start: 11-14-2023 HAND FILER BALANCE WHEEL INSERTION/REMOVA L OF CONTRACEPTIVE CAPSULE Annia Ozzie DO Work Phone: Start: 08-11-2020 Extraction of [...] 02/17/2025 2:00 PM EST Office Visit [facility] [address] [facility] [facility] [place] [address] OzzieAnnia españa, DO [facility] [place], [place] [id number] [facility] Start: 03-26-2024 End: 03-26-2024 Professional / ancillary services management 03/26/2024 8:00 AM EST Ancillary Procedure [facility] [address] [facility] [place] [address] [facility] Start: 03-12-2024 End: 03-12-2025 DHEA DHEA Lab Routine PCOS (polycystic ovarian syndrome) Expected: 03/12/2024 (Approximate), Expires: 03/12/2025 [facility] Comment on above: Expected: 03/12/2024 (Approximate), Expires: 03/12/2025 Start: 03-12-2024 End: 03-12-2025 US Pelvis US Pelvis w/ TV Imaging Routine PCOS (polycystic ovarian syndrome) Expected: 03/12/2024, Expires: 03/12/2025 [facility] Comment on above: Expected: 03/12/2024 , Expires: 03/12/2025 Start: 03-12-2024 End: 03-12-2024 Patient encounter procedure 03/12/2024 1:40 PM EST Office Visit [facility] [address] [place] [id number] Annia Horne, DO [address] [place] [address] [facility] Start: 02-12-2024 End: 02-12-2024 Patient encounter procedure [facility] Comment on above: Arrived Start: 10-29-2023 Influenza vaccination Influenza Vacc ine (#1) [facility] CBC W Auto Different ial panel - Blood CBC and differential Lab Routine PCOS (polycystic ovarian syndrome) Ordered: 03/12/2024 [facility] Comment on above: Ordered: 03/12/2024 Cytology Cervical or vaginal smear or scraping study Pap Smear Pathology and Cytology Routine Well woman exam with routine gynecological exam Ordered: 02/12/2024 [facility] Work Phone: Comment on above: Ordered: 02/12/2024 DHEA-sulfate DHEA-sulfate Lab Routine PCOS (polycystic ovarian syndrome) Ordered: 03/12/2024 [facility] Comment on above: Ordered: 03/12/2024 Follicle stimulating hormone Follicle stimulating hormone Lab Routine PCOS (polycystic ovarian syndrome) Ordered: 03/12/2024 [facility] Comment on above: Ordered: 03/12/2024 hCG, quantitative, hCG, quantitative, Lab Routine PCOS (polycystic ovarian syndrome) Ordered: 03/12/2024 [facility] Work Phone: Comment on above: Ordered: 03/12/2024 Hemoglobin A1c/Hemoglobin.total in Blood Hemoglobin A1c Lab Routine Insulin resistance Ordered: 03/12/2024 [facility] Comment on above: Ordered: 03/12/2024 Luteinizing hormone Luteinizing hormone Lab Routine PCOS (polycystic ovarian syndrome) Ordered: 03/12/2024 [facility] Comment on above: Ordered: 03/12/2024 Removal non-biodegradable drug delivery implant Remove drug implant device Procedures Routine Encounter for removal of etonogestrel implant Ordered: 11/14/2023 [facility] Work Phone: Comment on above: Ordered: 11/14/2023 Thyrotropin [Units/volume] in Serum or Plasma TSH Lab Routine PCOS (polycystic ovarian syndrome) Ordered: 03/12/2024 [facility] Comment on above: Ordered: 03/12/2024 Thyroxine (T4) free [Mass/volume] in Serum or Plasma T4, free Lab Routine PCOS (polycystic ovarian syndrome) Ordered: 03/12/2024 [facility] Comment on above: Ordered: 03/12/2024 Payers Date Payer Category Payer Medicaid [id number] 1996 Unknown [id number] [id number] 1996 Unknown [id number] 2.16.84 [id number] 1996 Unknown [id number] 2.16.84 [id number] 1996 Unknown [id number] 2.16.84 [id number] 1996 Unknown [id number] 2.16.84 [id number] 1996 Unknown [id number] 2.16.84 [id number] 1996 Unknown [id number] 2.16.84 [id number] 1959 Unknown [id number] Social History Date Type Detail Facility Tobacco smoking stat [facility] Tobacco smoking consumption unknown [facility] Start: 1996 Sex assigned at Not on file [facility] Gender identity Not on file [facility] are History of Present illness Narrative 03-12-2024 Josey Giordano, POSTIE - 03/12/2024 1:40 PM EST Note Date [...] nursing note reviewed. Exam conducted with a bundle breaker present. Vitals: Estimated body mass index is [...] nursing note reviewed. Exam conducted with a bundle breaker present. Vitals: Estimated body mass index is 36.49 kg/m as calculated from the following: Height as of 24: 5' 3 . Weight as of this [...] Shanon Gan LPN on behalf of: Annia Horen DO documented in this encounter [facility] [...] nursing note reviewed. Exam conducted with a bundle breaker present. Vitals: Estimated body mass index is [...] Annia Horne DO documented in this encounter [facility] Clinical Note 08-10-2020 Note Date & Type Note Facility 08-10-2020 Note OPERATIVE NOTE OPERATION DATE: 08-10-20 ANESTHETIC:Spinal with Duramorph. LOCOMOTIVE BOILERMAKER:ANJALI Vargas PREOPERATIVE DIAGNOSIS: 1. Intrauterine at 40 [...] to the Recovery Room in stable condition. [facility] Signed and Approved by: DR ANNIA HORNE . 2020 15:48:00 [facility] Discharge summary note 08-10-2020 Note Date & [...] Tylenol, any abdominal pain unrelieved with narcotics. [facility] Signed and Approved by: DR ANNIA HORNE . 09/01/2020 14:08:00 [facility] Evaluation note Note Date & Type Note Facility Evaluation note Diagnosis Nexplanon removal Encounter for removal of etonogestrel implant documented in this encounter [facility] Evaluation note Note Date & Type Note Facility Evaluation note Diagnosis Well woman exam with routine gynecological exam Routine gynecological examination documented in this encounter [facility] Evaluation note Note Date & Type Note Facility Evaluation note Diagnosis Encounter for fertility planning PCOS (polycystic ovarian syndrome) Polycystic ovaries Insulin resistance Other abnormal glucose documented in this encounter [facility] Summary Purpose Family History No Family History Records FoundNo Family History Records Found Advance Directives No Advanced Directives Records FoundNo Advanced Directives Records Found Additional Source Comments INFORMATION SOURCE (unrecogn ized section and content) DATE CREATED AUTHOR 07/21/[address] [facility] pital DATE CREATED AUTHOR AUTHOR'S ORGANIZ ATION 04/06/2024 [facility] Care Teams (unrecognized sec tion and content) Automotive Assembler Relationship Specialty Start Date End Date Shaikh Almanzar MD [address] [place] [address] PCP - General Internal Medicine 01/02/23 Automotive Assembler Relationship Specialty Start Date End Date Shaikh Almanzar MD [address] [place] [address] PCP - General Internal Medicine 01/02/23 Automotive Assembler Relationship Specialty Start Date End Date Shaikh Almanzar MD [address] [place] [address] PCP - General Internal Medicine 01/02/23 Automotive Assembler Relationship Specialty Start Date End Date Shaikh Almanzar MD [address] [place] [address] PCP - General Internal Medicine 01/02/23 Automotive Assembler Relationship Specialty Start Date End Date Shaikh Almanzar MD [address] [place] [address] PCP - General Internal Medicine 01/02/23 Automotive Assembler Relationship Specialty Start Date End Date Shaikh Almanzar MD [address] [place] [address] PCP - General Internal Medicine 01/02/23 Reason [...] BE BASED ON THE PRIMARY CLINICAL RECORDS. [facility]. provides no warranty or guarantee of the accuracy or completeness of information in this document.
[2024-04-10 04:07] LABS: Progesterone 1.2 ng/mL (.)
== END 2024-04-09 09:35 | disposition home or self-care (01) ==
LOC: LAB 09:34
PROVIDERS: Visit Provider Obstetrics & Gynecology
DX: N97.0 Female infertility associated with anovulation (principal)
CPT/HCPCS: 36415; 84144

== ENCOUNTER 2024-07-29 11:43 | Outpatient (RCR) | payer MEDICAID, SELFPAY | END 2024-08-27 09:45 | disposition home or self-care (01) | LOC: LAB 11:43 | PROVIDERS: Visit Provider Obstetrics & Gynecology | DX: Z51.81 Encounter for therapeutic drug level monitoring (principal); N92.6 Irregular menstruation, unspecified | CPT/HCPCS: 36415; 84702 ==

== ENCOUNTER 2024-09-16 07:25 | Outpatient (RCR) | payer MEDICAID, SELFPAY | END 2024-09-26 17:03 | disposition home or self-care (01) | LOC: LAB 07:25 | PROVIDERS: Visit Provider Obstetrics & Gynecology | DX: Z51.81 Encounter for therapeutic drug level monitoring (principal); N92.6 Irregular menstruation, unspecified | CPT/HCPCS: 36415; 84702 ==

== ENCOUNTER 2024-09-20 10:02 | Emergency (ER) | payer MEDICAID, SELFPAY ==
[2024-09-20 10:11] VITALS: BP 136/91; PULSE 87; TEMP 36.8; O2SAT 99; BMI 34.4
--- NOTE | 2024-09-20 10:22 | ED.GENADUL1 ---
HPI HPI - General Adult General Chief complaint: Vaginal Bleeding Stated complaint: 4-5 WEEKS BLEEDING Time Seen by Provider: 09/20/24 10:18 Source: patient Mode of arrival: walk-in History of Present Illness HPI narrative: 29-year-old female presents to the emergency department for vaginal bleeding. She states she is 4 to 5 weeks . It started within the last day and there was no injury. She does not have any abdominal pain or cramps. She is 2 para 1. She has not had an ultrasound during this . She has had 2 hCG titers performed. Related Data Home Medications ?Medication ?Instructions ?Recorded ?Confirmed ipratropium bromide 17 2 puff inhalation Q6H PRN 09/20/24 09/20/24 mcg/actuation HFA aerosol inhaler shortness of breath or wheezing (Atrovent HFA) [id number] 1 mg 1 tab PO DAILY 09/20/24 09/20/24 tablet Allergies Allergy/AdvReac Type Severity Reaction Status Date / Time prednisone Allergy Severe Hives Verified 09/20/24 10:16 Opioid HPI Opioid Management Most Recent Opioid Data: Last Pain Scale 0 08/25/22, 12:52 Review of Systems ROS Narrative A ten point review of systems is negative except as noted above. [facility] Medical History (Updated 09/20/24 @ 12:14 by Henry Mcdonnell MD) Asthma with acute exacerbation ?J45.901 - Unspecified asthma with (acute) exacerbation (ICD-10) delivery affecting ?P03.4 - Bailey affected by delivery (ICD-10) Asthma ?J45.909 - Unspecified asthma, uncomplicated (ICD-10) Family History (Updated 10/20/22 @ 00:35 by Channing Olivera) Grandmother Family history of cancer Family history of diabetes mellitus Family history of COPD (chronic obstructive pulmonary disease) Mother Family history of hypertension Grandfather Family history of diabetes mellitus Family history of myocardial infarction Family history of cancer Father Family history of diabetes mellitus Social History (Updated 10/20/22 @ 00:39 by Channing Olivera) Within the past year, how often did you have a drink containing alcohol: 2-4 times a month Within the past year, how many standard drinks containing alcohol did you have on a typical day: 1 or 2 Within the past year, how often did you have six or more drinks on one occasion: less than monthly Total score: 1 Score interpretation: A score of 3 or more indicates drinking is likely to affect patient's safety. Smoking status: Never smoker Do you use any of these nicotine containing products: vaping products Nicotine containing products detail: NOT HAD ANY FOR OVER TWO YEARS Second hand tobacco smoke exposure: Yes Non-prescribed substance use: denies use Previous occupational history: Not employed Known occupational exposures/hazards: No Highest level of school completed/degree received: high school graduate Are you now , , , , never or living with a partner: living with partner In a typical week, how many times do you talk on the telephone with family, friends, or neighbors: 3 or more times per week How often do you get together with friends or relatives: twice per week How often do you attend uatsdin or taoist services: 1-3 times per year Do you belong to any clubs or organizations such as uatsdin groups unions, fraternal or athletic groups, or school groups: no Total score: 2 Score interpretation: A score of greater than or equal to 2 indicates the lowest level of social isolation. Little interest or pleasure in doing things: not at all Feeling down, depressed, or hopeless: not at all Feel stressed/tense/nervous/anxious/difficulty sleeping: not at all Do you think of yourself as: straight/heterosexual Gender Identity: female Exam Narrative Exam Narrative: Nurses note and vital signs reviewed and patient is not hypoxic. General: The patient appears well and in no apparent distress. Patient is resting comfortably on cart. Skin: Warm, dry, no pallor noted. There is no rash noted. Head: Normocephalic, atraumatic Eye: Normal conjunctiva, no drainage Ears, Nose, Mouth, and Throat: oral mucosa is moist. Nares patent. Cardiovascular: Regular Rate and Rhythm Respiratory: Patient is in no distress, no accessory muscle use, lungs are clear to auscultation, no wheezing, rales or rhonchi Back: non-tender GI: Soft and nontender Musculoskeletal: The patient has no evidence of calf tenderness, no pitting edema, symmetrical pulses noted bilaterally Neurological: A&O, normal speech Psychiatric: Cooperative Constitutional Vital Signs, click to edit/add: Last Vital Signs Temp 98.2 F 09/20/24 10:11 Pulse 87 07/25/25 10:11 Resp 18 09/20/24 10:11 BP 136/91 09/20/24 10:11 Pulse Ox 99 09/20/24 10:11 O2 Del Method Room Air 09/20/24 10:11 Course Vital Signs Vital signs: Vital Signs Temperature 98.2 F 09/20/24 10:11 Pulse Rate 87 09/20/24 10:11 Respiratory Rate 18 09/20/24 10:11 Blood Pressure 136/91 09/20/24 10:11 Pulse Oximetry 99 09/20/24 10:11 Oxygen Delivery Method Room Air 09/20/24 10:11 Temperature 98.2 F 09/20/24 10:11 Pulse Rate 87 09/20/24 10:11 Respiratory Rate 18 09/20/24 10:11 Blood Pressure 136/91 09/20/24 10:11 Pulse Oximetry 99 09/20/24 10:11 Oxygen Delivery Method Room Air 09/20/24 10:11 Medical Decision Making MDM Narrative Medical decision making narrative: hCG titer is now 1803. Ultrasound shows no specific findings per the tach. She will be discharged home with a repeat hCG titer to be drawn on September 22, 2 days from now. Treatment diagnosis and follow-up were discussed with the patient and her mother. Differential Diagnosis Differential Diagnosis: Miscarriage, threatened miscarriage, ectopic Lab Data Lab results reviewed: Yes I reviewed the patient's lab results Labs: Lab Results 09/20/24 Range/Units 10:25 WBC 9.2 (4.0-11.0) 10^3/uL RBC 4.08 L (4.20-5.40) 10^6/uL Hgb 13.6 (12.0-16.0) g/dL Hct 39.3 (36.0-48.0) % MCV 96.3 (81.0-99.0) fL MCH 33.3 (26.7-34.0) pg MCHC 34.6 (29.9-35.2) g/dL RDW 12.9 (11.0-15.0) % Plt Count 248 (150-450) 10^3/uL MPV 10.9 (9.5-13.5) fL Neut % (Auto) 62.8 (43.0-75.0) % Lymph % (Auto) 28.9 (20.5-60.0) % Seneca % (Auto) 7.5 (1.7-12.0) % Eos % (Auto) 0.3 L (0.9-7.0) % Baso % (Auto) 0.3 (0.2-2.0) % Neut # (Auto) 5.8 (1.4-6.5) 10^3/uL Lymph # (Auto) 2.7 (1.2-3.8) 10^3/uL Sen[place] # (Auto) 0.7 (0.3-0.8) 10^3/uL Eos # (Auto) 0.0 (0.0-0.7) 10^3/uL Baso # (Auto) 0.0 (0.0-0.1) 10^3/uL Abs Immat Gran (auto) 0.02 (0.00-0.03) 10^3/uL Imm/Tot Granulo (auto) 0.2 (0.0-0.5) % Sodium 141 (136-145) mmol/L Potassium 3.8 (3.5-5.1) mmol/L Chloride 105 (98-107) mmol/L Carbon Dioxide 27.3 (21.0-32.0) mmol/L Anion Gap 12.5 BUN 5.0 L (7.0-18.0) mg/dL Creatinine 0.63 (0.55-1.02) mg/dL Est GFR ( Amer) >60 (>=60 mL/min/1.73m^2) Est GFR (Non-Af Amer) >60 (>=60 mL/min/1.73m^2) BUN/Creatinine Ratio 7.9 Glucose 97 (74-106) mg/dL Calcium 8.9 (8.5-10.1) mg/dL HCG, Quant 1803 mIU/mL Blood Type O Positive Imaging Data Pelvic ultrasound: Radiologist's impression: No specific findings per technology Discharge Plan Discharge Chief Complaint: Vaginal Bleeding Clinical Impression: Threatened miscarriage Patient Disposition: Home, Self-Care Time of Disposition Decision: 12:14 Condition: Good Mode of Transportation: Private Vehicle Prescriptions / Home Meds: No Action Atrovent HFA 17 mcg/actuation HFA aerosol inhaler 2 puff INHALATION Q6H PRN (Reason: shortness of breath or wheezing) [id number]-[id number]-FA 1 mg tablet 1 tab PO DAILY Print Language: Syriac Instructions: Threatened Miscarriage (ED) Additional Instructions: Repeat hCG titer to be drawn on September 22. Prescription given Referrals: JAMILA LOPEZ [Primary Care Provider, CERTIFIED INDOOR ENVIRONMENTALIST] - 1 week
--- OUTSIDE RECORDS SUMMARY | 2024-09-20 10:24 | XMS_ITS | CCD ---
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 Name Role Phone REQUEST, DR NONE LISTED Primary Care Unavaila ble OZZIE, DR MILNER Attending Unavailable OZZIE, DR MILNER Admitting Unavailable REQUEST, NONE LISTED Primary Care Unavaila ble OZZIE, DR MILNER Attending Unavailable OZZIE, DR MILNER Consulting Unavailable OZZIE, DR MILNER Admitting Unavailable OZZIE, DR MILNER Consulting Unavailable OZZIE, DR MILNER Admitting Unavailable OZZIE, DR MILNER Attending Unavailable REQUEST, NONE LISTED Primary Care UnavailJOVANI Correa Consulting Unavailable DICK HO Consulting Unavailable OZZIE, DR MILNER Procedure Practitioner Unavailab le REQUEST, NONE LISTED Primary Care Unavaila nancy ELLISON, JUAN RAMON Admitting Unavailable EMERY VINCENT Consulting Unavailable JUAN RAMON ELLISON Attending Unavailable JUAN RAMON ELLISON Consulting Unavailable Jovani Pulliam Consulting Unavailable Aneesh Almanzar MDikh Primary Care Provider Kaylee Escudero Primary Care Physician [phone] JOSÉ MIGUEL Escudero Referring Unavailable Johanna Juarez Attending Unavailable KenaJOSÉ MIGUEL walton Attending Unavailable Kena, JOSÉ MIGUEL Knight Attending Unavailable OZZIE, ANNIA Attending Unavailable HATTIE VINCENT Attending Unavailable OZZIE, ANNIA Attending Unavailable OZZIE, ANNIA Attending Unavailable OZZIE, ANNIA Attending Unavailable Allergies Allergy Classification Reported Allergen(s) Allergy Type Date of Onset Reaction(s) Facility (20 sources) Prednisone; Translations: [predniSONE] Propensity to adverse reactions 4 [facility] Work Phone: (2 sources) predniSONE; Translations: [prednisone] Drug Allergy Skin irritation (disorder), Urticaria (disorder) [facility] (3 sources) Albuterol Drug Allergy 3 [facility] Medications Current Medications Medication Drug Class(es) Dates Sig (Normalized) Sig (Original) 24 hr metFORMIN hydrochloride 500 mg extended release oral tablet (12 sources) Biguanide Start: 03-12-2024 End: 04-11-2024 take 1 tablet by mouth every twenty-four hours at mealtime metFORMIN XR (Glucophage-XR) 500 MG 24 hr tablet Indications: Insulin resistance Take 1 tablet (500 mg) by mouth in the evening. Take with meals Do not crush, chew, or split. 30 tablet 11 03/12/2024 Active phentermine hydrochloride 37.5 mg oral tablet (7 sources) Sympathomimetic Amine Anorectic Start: 08-13-2024 End: 12-09-2024 take 1 tablet by mouth before mealtime phentermine (Adipex-P) 37.5 MG tablet Indications: Encounter for weight management Take 1 tablet (37.5 mg) by mouth in the morning. Take before meals. 90 tablet 09/10/2024 12/09/2024 Active w/o A Vit-Fe Fum-FA (PRENATA PO) (16 sources) w/o A Vit-Fe Fum-FA (PRENATA PO) Take by mouth Active Completed/Discontinued Medications Medication Drug Class(es) Dates Sig (Normalized) Sig (Original) [id number] 200 actuat albuterol 0.09 mg/actuat metered dose inhaler (12 sources) beta2-Adrenergic Agonist Start: 04-18-2023 End: 08-13-2024 take 2 puff(s) by inhalation four times daily as needed for wheezing albuterol HFA 90 mcg/act inhaler INHALE 2 PUFFS 4 TIMES A DAY NEEDED FOR SHORTNESS OF BREATH OR WHEEZING 04/18/2023 08/13/2024 Discontinued (Therapy completed) 200 actuat ipratropium bromide 0.017 mg/actuat metered dose inhaler (4 sources) Anticholinergic Start: 04-22-2024 End: 08-13-2024 take 2 puff(s) by mouth every six hours as needed for wheezing Atrovent HFA 17 MCG/ACT inhaler Indications: SOB (shortness of breath) INHALE 2 PUFFS BY MOUTH EVERY 6 HOURS NEEDED FOR SHORTNESS OF BREATH OR WHEEZING 12.9 g 04/22/2024 08/13/2024 Discontinued (Therapy completed) Problems Active Problems Problem Classification Problem Date Documented Date Episodic/Chronic Administrative/social admission (3 sources) Patient encounter status; Translations: [Persons encountering health services in other specified circumstances] 08-13-2024 Episodic Asthma (3 sources) Unspecified asthma, uncomplicated; Translations: [Asthma] Onset: 09-03-2020 06-13-2024 Chronic Contraceptive and procreative management (4 sources) [...] encounter for closed fracture; Translations: [NDSPL FX AK PHAL LT LSR TOE INIT CL] Onset: 07-07-2021 Episodic Immunizations and screening for infectious disease (1 source) Encounter for screening for human papillomavirus (HPV); Translations: [ENC SCREENING HUMAN PAPILLOMAVIRUS] Onset: 07-20-2021 Episodic Menstrual disorders (2 sources) Irregular periods; Translations: [Irregular menstruation, unspecified] 08-13-2024 Chronic Other complications of ; puerperium affecting management [...] resistance; Translations: [Insulin resistance] 03-12-2024 Chronic Other nutritional; endocrine; and metabolic disorders (1 source) Obese class II; Translations: [Body mass index (BMI) 36.0-36.9, adult] Onset: 06-13-2024 Chronic Other screening for suspected conditions (not mental disorders or infectious disease) (4 sources) Encounter for screening for malignant neoplasm of cervix; Translations: [ENC SCREENING MALIG NEOPLASM CERV] Onset: 07-15-2021 Episodic Substance-related disorders (4 sources) Nicotine dependence, cigarettes, uncomplicated; Translations: [Nicotine dependence] Onset: 07-07-2021 Chronic Comment on above: Added secondary to d ocumentation in Social History. Unclassified (1 source) CONTACT W/AND (SUSP) EXPOS COVID-19; Translations: [CONTACT W/AND (SUSP) EXPOS COVID-19] Onset: 09-03-2020 Past or Other Problems Problem Classification Problem Date Documented Da te Episodic/Chronic Fetopelvic disproportion; obstruction (1 source) Obstructed labor due to maternal pelvic abnormality, unspecified; Translations: [OBST LABR D/T MAT PELVIC ABNORM UNS] Onset: 09-03-2020 Episodic Other aftercare (1 source) Other prison (current) drug therapy; Translations: [OTH JAIL CURRENT DRUG THERAPY] Onset: 09-03-2020 Episodic Other [...] TBH PREG QUANT HCGon 025 HCG QUANTITATIVE 900 mIU/mL [facility] Comment on above: 5-50 0.2-1 WEEK 50-500 1-2 WEEKS 100-5,000 2-3 WEEKS 500-10,000 3-4 WEEKS 1,000-50,000 4-5 WEEKS 10,000-100,000 5-6 WEEKS 15,000-200,000 6-8 WEEKS 10,000-100,000 2-3 MONTHS [facility] TBH PREG QUANT HCGon 09-16- 025 HCG QUANTITATIVE 459 mIU/mL [facility] Comment on above: 5-50 0.2-1 WEEK 50-500 1-2 WEEKS 100-5,000 2-3 WEEKS 500-10,000 3-4 WEEKS 1,000-50,000 4-5 WEEKS 10,000-100,000 5-6 WEEKS 15,000-200,000 6-8 WEEKS 10,000-100,000 2-3 [facility] TB PREG QUANT HCGon 07-29- 025 HCG QUANTITATIVE <1 mIU/mL [facility] Comment on above: 5-50 0.2-1 WEEK 50-500 1-2 WEEKS 100-5,000 2-3 WEEKS 500-10,000 3-4 WEEKS 1,000-50,000 4-5 WEEKS 10,000-100,000 5-6 WEEKS 15,000-200,000 6-8 WEEKS 10,000-100,000 2-3 [facility] [place] Pulmonology Office/Clinic No cathy 07-19-2024 Pulmonology Office/Clinic Note Pulmonology Office/Clinic Note Chief Complaint new patient / asthma History of Present Illness This is a 28-year-old female with past medical history significant for asthma since childhood. She had worsening in her asthma over last few years since her . She has been using albuterol more for shortness of breath cough and wheezing. Her primary care physician started her on Airsupra a month ago and she feels that she is doing much better She does smoke cigarettes. She denies sinus disease or acid reflux Review of Systems PHQ Score Initial Depression Screen Score: 0 SCORE 12 point system review was done and negative except what mentioned in HPI Physical Exam Vitals & Measurements HR: 84(Peripheral) BP: 130/85 SpO2: 97% HT: 63 in HT: 160 cm WT: 205.25 lb WT: 93.1 kg BMI: 36.37 General: no distress Skin: warm, dry Head: no trauma, normocephalic Neck: Trachea midline , no adenopathy, no tenderness Eye: normal conjunctiva, sclera clear ENMT: oral mucosa moist Cardiovascular: regular rate and rhythm, normal Respiratory: Lungs CTA ,respirations non labored Chest wall: no deformity. Gastrointestinal: soft , non distended , no tenderness, no guarding. Extremities: no deformity, no trauma Neurological: nonfocal Assessment/Plan 1. Asthma (J45.909: Unspecified asthma, uncomplicated) I will obtain pulmonary function test to evaluate her obstructive lung disease. Since she is doing much better on Airsupra it is okay to continue with this regimen of inhaled corticosteroid and short acting beta agonist. I will reevaluate her in couple months and if she still doing well could continue with this regimen which is supposed to be as-needed basis. If her asthma is not well-controlled could switch to a maintenance inhaler with ICS/LABA like Symbicort or Dulera or or Advair Ordered: Pulmonary Function Testing 2. Smoker (F17.200: Nicotine dependence, unspecified, uncomplicated) We discussed the importance of smoking cessation in her case with underlying asthma because she will develop COPD faster due to smoking Follow-up No qualifying data available 2 months Problem List/Past Medical History Ongoing Asthma Smoker Historical No qualifying data Procedure/Surgical History section (08/10/2020). Medications Airsupra 90 mcg-80 mcg/inh inhalation aerosol, 2 inh, Inhalation, QID, 5 refills Atrovent HFA 17 mcg/inh inhalation aerosol metformin 500 mg Tab, 1 tab(s), Oral, Once a day (at bedtime) Allergies predniSONE (Skin irritation, Urticaria) Social History Alcohol Current. Wine. 1-2 times per month., 06/12/2024 Substance Abuse Never., 06/12/2024 Tobacco Smoker, current status unknown Tobacco Use:. Ready to change: No., 06/13/2024 [facility] Comment on above: Result Comment: Elec tronically Signed By: Johanna Juarez MD\.br\Date and Time Signed: 07/19/24 11:29 EDT Ambulatory Visit Summaryon 0 06-13-2024 Ambulatory Visit Summary Ambulatory Visit Summary JAJA TORREZ :1995 Visit Date:06/13/2024 Ambulatory Visit Instructions Your Diagnosis BMI 36.0-36.9,adult Smoker Asthma Asthma flare Your Care Team Attending Physician - Kaylee Trevino Primary Care Physician - Kaylee Trevino This Is Your Medications List albuterol-budesonide (Airsupra 90 mcg-80 mcg/inh inhalation aerosol) ipratropium (Atrovent HFA 17 mcg/inh inhalation aerosol) metformin (metformin 500 mg Tab) Procedures Performed section (08/10/2020). Discharge Vitals Heart Rate (Peripheral) 80 Respiratory Rate 18 Blood Pressure 128/88 Height 160.4 cm Height 63 in Weight 92.9 kg Weight 204.809 lb BMI 36.11 Medications What How Much When Why Instructions New albuterol-budesonide (Airsupra 90 mcg-80 mcg/ inh inhalation aerosol) 2 Inhalation Inhalation 4 times a day Asthma flare Asthma Refills: 5 Pickup at [facility]/pharmacy #[id number] Unchanged ipratropium (Atrovent HFA 17 mcg/ inh inhalation aerosol) INHALE 2 PUFFS BY MOUTH EVERY 6 HOURS NEEDED FOR SHORTNESS OF BREATH OR WHEEZING. Unchanged metformin (metformin 500 mg Tab) 1 Tablets By Mouth Once a day (at bedtime) Pharmacy Information [facility]/pharmacy #[id number]: [address], [place] [id number] [phone] Allergies predniSONE (Skin irritation, Urticaria) Problems Ongoing - Any problem that you are currently receiving treatment for. Asthma Smoker Patient Survey You may receive a survey via text or e-mail asking about your office visit. Please share your experience with us by completing your survey. We appreciate your feedback and thank you for choosing us for your care. [facility] Family Medicine Office/Clini c Noteon 06-13-2024 Family Medicine Office/Clinic Note Family Medicine Office/Clinic Note HPI Staff Jaja is a 28 year old female to establish care Establish Care: History: Any previous diagnosis: Asthma History of seeing any specialist: pulmonology Dr Umanzor, Dr Hernandez out of [place]( can't go to any of these) , Dr Horne When was your last doctors visit: Last provider: Dr Francois connor Any recent labs: none Health Maintenance UTD: Colonoscopy: no Mammogram: no Pelvic/Pap: 01/2024 normal with Ozzie Acute: Current issues/complaints: Pt states she is having an asthma flair up, feels SOB chest feels tight, and does need referral to a [facility] [employer] [facility], pt is going to call her insurance and find out who she can go to and call back with information Pt taking Metformin due to trying to get History of Present Illness pt presents today to establish care. is having asthma flare up. Review of Systems PHQ Score Initial Depression Screen Score: 0 SCORE Physical Exam Vitals & Measurements HR: 80(Peripheral) RR: 18 BP: 128/88 SpO2: 98% HT: 63 in HT: 160.4 cm WT: 92.9 kg WT: 204.809 lb BMI: 36.11 General: alert, no acute distress ENMT: oral mucosa moist, no pharyngeal erythema or exudate Cardiovascular: regular rate and rhythm, normal peripheral perfusion Respiratory: Lungs CTA, respirations non labored Extremities: no deformity, no trauma Neurological: oriented x 4, LOC appropriate for age, CN II-XII intact, motor strength equal & normal bilaterally, speech normal Assessment/Plan 1. Asthma (J45.909: Unspecified asthma, uncomplicated) pt was seen by Dr. Umanzor in the past. but is not able to return to him. she is going to call her insurance to see what clerk rating would be covered. it has been years since she had PFT. pt has not had PCP. her obgyn ordered inhaler. pt feels it isn't effective. Ordered: albuterol-budesonide, 2 inh, Inhalation, QID, 1 EA, Refill(s) 5, [id number], 160.4, cm, 06/13/24 9:21:00 EDT, Height/Length Dosing, 92.9, kg, 06/13/24 9:21:00 EDT, Weight Dosing 2. Asthma flare (J45.901: Unspecified asthma with (acute) exacerbation) sample of airsupra given and rx sent in. was going to give kenlaog injection but with allergy to prednisone I did not offer that. Ordered: albuterol-budesonide, 2 inh, Inhalation, QID, 1 EA, Refill(s) 5, [id number], 160.4, cm, 06/13/24 9:21:00 EDT, Height/Length Dosing, 92.9, kg, 06/13/24 9:21:00 EDT, Weight Dosing 3. BMI 36.0-36.9,adult (Z68.36: Body mass index [BMI] 36.0-36.9, adult) BMI education given 4. Smoker (F17.200: Nicotine dependence, unspecified, uncomplicated) continue not smoking Follow-up No qualifying data available Problem List/Past Medical History Ongoing Asthma Smoker Historical No qualifying data Procedure/Surgical History section (08/10/2020). Medications Airsupra 90 mcg-80 mcg/inh inhalation aerosol, 2 inh, Inhalation, QID, 5 refills Atrovent HFA 17 mcg/inh inhalation aerosol metformin 500 mg Tab, 1 tab(s), Oral, Once a day (at bedtime) Allergies predniSONE (Skin irritation, Urticaria) Social History Alcohol Current. Wine. 1-2 times per month., 06/12/2024 Substance Abuse Never., 06/12/2024 Tobacco Smoker, current status unknown Tobacco Use:. Ready to change: No., 06/13/2024 [facility] Comment on above: Result Comment: Elec tronically Signed By: Kaylee Trevino\.br\Date and Time Signed: 06/13/24 10:16 EDT ALL PROGESTERONEon PROGESTERONE 1.2 ng/mL . [facility] are Comment on above: Follicular phase 0.1 - 0.9 Luteal phase 1.8 - 23.9 Ovulation phase 0.1 - 12.0 First trimester 11.0 - 44.3 Second trimester 25.4 - 83.3 Third trimester 58.7 - 214.0 Postmenopausal 0.0 - 0.1 Performed at: - [facility] [id number] Toll Repairer Central Office: Hi Betancur PhD, Phone: [phone] [facility] e ALL CBC WITH AUTO DIFFon BASOPHILS ABSOLUTE AUTO 0 [facility] Basophils/100 WBC (Bld) 0.3 % 0.2 - 2.0 % [facility] Eosinophils/100 WBC (Bld) 2.1 % 0.9 - 7.0 % [facility] Erythrocyte distribution width (RBC) [Ratio] 12.2 % 11.0 - 15.0 % [facility] Hematocrit (Bld) [Volume fraction] 42 % 36.0 - 48.0 % [facility] Healthcar e Hemoglobin (Bld) [Mass/Vol] 14.2 g/dL 12.0 - 16.0 g/dL [facility] IMMATURE GRANULOCYTES ABS AUTO 0.02 [facility] Immature granulocytes/100 WBC (Bld) 0.2 % 0.0 - 0.5 % [facility] LYMPHOCYTES ABSOLUTE AUTO 2.5 [facility] Lymphocytes/100 WBC (Bld) 27.9 % 20.5 - 60.0 % [facility] MCH (RBC) [Entitic mass] 32.2 pg 26.7 - 34.0 pg [facility] MCHC (RBC) [Mass/Vol] 33.8 g/dL 29.9 - 35.2 g/dL [facility] MCV (RBC) [Entitic vol] 95.2 fL 81.0 - 99.0 fL [facility] MONOCYTES ABSOLUTE AUTO 0.5 [facility] Monocytes/100 WBC (Bld) 5.8 % 1.7 - 12.0 % [facility] NEUTROPHILS ABSOLUTE AUTO 5.8 [facility] Neutrophils/100 WBC (Bld) 63.7 % 43.0 - 75.0 % [facility] Platelet mean volume (Bld) [Entitic vol] 10.6 fL 9.5 - 13.5 fL [facility] TBH EO # 0.2 [facility] Healthcar e TB PLT 247 [facility] TB RBC 4.41 [facility] TBH WBC 9.1 [facility] Healthcar e [facility] Healthcar e TBH PREG QUANT HCGon 025 HCG QUANTITATIVE <1 mIU/mL [facility] Comment on above: 5-50 0.2-1 WEEK 50-500 1-2 WEEKS 100-5,000 2-3 WEEKS 500-10,000 3-4 WEEKS 1,000-50,000 4-5 WEEKS 10,000-100,000 5-6 WEEKS 15,000-200,000 6-8 WEEKS 10,000-100,000 2-3 MONTHS [facility] Healthcar e IGP,APTIMA HPV,AGE GDLNon 12 -23-2024 AGE GDLN ACOG TESTING Note . [facility] Comment on above: TESTS RESULT FLAG UN ITS REF RANGE LAB Clinician Provided Cytology Information Source.............Cervix No. of containers..01 ThinPrep Vial Age Algo ACOG Christina... FLAG LEGEND: L-Low Normal,H-High Normal,LL-Alert Low,HH-Alert High <-Panic Low,>-Panic High,A-Abnormal,AA-Critical Abnormal Performed at: 01 =G [address] [id number] Holly Khan MD, IGP, RFX APTIMA HPV ASCU Note . [facility] Comment on above: TESTS RESULT FLAG UN ITS REF RANGE LAB DIAGNOSIS: 02 NEGATIVE FOR INTRAEPITHELIAL LESION OR MALIGNANCY. Specimen adequacy: 02 Satisfactory for evaluation. Endocervical and/or squamous metaplastic cells (endocervical component) are present. Performed by: 02 Edwardo [place] Terminal Supervisor ([facility]) . 02 Note: Note 02 The Pap [...] <-Panic Low,>-Panic High,A-Abnormal,AA-Critical Abnormal Performed at: 02 WB [facility] [address] [id number] Holly Khan MD, Performed at: =G - [facility] [address] [id number] Toll Repairer Central Office: Holly Khan MD, Phone: [phone] Performed at: - [facility] [id number] Toll Repairer Central Office: Holly Khan MD, Phone: [phone] BRUSH-SPATULA CERVIX [facility] HCG ( test) Ql (U)o n 02-12-2024 Interpretation and review of laboratory results Normal [facility] Healthsd re Preg Test, Ur Negative Negative [facility] TBH PREG QUANT HCGon 1030-2 024 HCG QUANTITATIVE <1 mIU/mL [facility] lthcare Comment on above: 5-50 0.2-1 WEEK 50-500 1-2 WEEKS 100-5,000 2-3 WEEKS 500-10,000 3-4 WEEKS 1,000-50,000 4-5 WEEKS 10,000-100,000 5-6 WEEKS 15,000-200,000 6-8 WEEKS 10,000-100,000 2-3 MONTHS [facility]car e Insertion/Removal of Contrac eptive Capsuleon 11-14-2023 [...] office as needed for any routine appointments. [facility] PAP ACOG PANEL 2: 21 to 29on 05-24-2022 . . Normal [facility] Comment on above: Performed By: #### [id number] #### [facility] [address] [place] [address] Dr. Julius Gil Age Gdln ACOG Testing - [facility] Comment on above: Performed By: #### [id number] #### [facility] [address] [place] [address] Dr. Julius Gil DIAGNOSIS: Comment [facility] Comment on above: Result Comment: NEGA TIVE FOR INTRAEPITHELIAL LESION OR MALIGNANCY. CELLULAR CHANGES ASSOCIATED WITH INFLAMMATION ARE PRESENT. Performed By: #### [id number] #### [facility] [address] [place] [address] Dr. Julius Gil Methodology: CTIM [facility] Comment on above: Result Comment: The Thin Prep(R) Sanitation Worker was unable to read this specimen. Therefore a manual review was performed. Performed By: #### [id number] #### [facility] [address] [place] [address] Dr. Julius Gil Note: Comment [facility] Comment on above: Result Comment: The Pap smear is a screening test designed to aid in the detection of premalignant and malignant conditions of the uterine cervix. It is not a diagnostic procedure and should not be used as the sole means of detecting cervical cancer. Both false-positive and false-negative reports do occur. . Performed By: #### [id number] #### [facility] [address] [place] [address] Dr. Julius Gil Performed by: Comment [facility] Comment on above: Result Comment: Iva [place] Terminal Supervisor (ASCP) Performed By: #### [id number] #### [facility] [address] [place] [address] Dr. Julius Gil Reflex Criteria: Comment [facility] Comment on above: Result Comment: The HPV DNA reflex criteria were not met with this specimen result therefore, no HPV testing was performed. . Performed By: #### [id number] #### [facility] [address] [place] [address] Dr. Julius Gil Specimen adequacy: Comment Normal [facility] Comment on above: Result Comment: Sati sfactory for evaluation. Endocervical and/or squamous metaplastic cells (endocervical component) are present. Performed By: #### 4 [id number] #### [facility] [address] [place] [address] Dr. Julius Gil XR FOOT LT MIN [...] JOVANI PULLIAM Date: 2021-07-05 22:20 Normal [facility] CBC AUTO DIFFon 08-12-2020 BASO # 0.0 103/ul Normal 0.0-0.1 [facility] Comment on above: Performed By: #### C BC #### [facility] [address] [place] [address] Escobar Josey Basophils/100 WBC (Bld) 0.3 % Normal 0.2-2.0 [facility] Comment on above: Performed By: #### C BC #### [facility] [address] [place] [address] Escobar Josey EO # 0.0 103/ul Normal 0.0-0.7 [facility] Comment on above: Performed By: #### C BC #### [facility] [address] [place] [address] Escobar Josey Eosinophils/100 WBC (Bld) 0.1 % Critically low 0.9-7.0 [facility] Comment on above: Performed By: #### C BC #### [facility] [address] [place] [address] Escobar Josey Erythrocyte distribution width (RBC) [Ratio] 14.7 % Normal 11.0-15.0 [facility] Comment on above: Performed By: #### C BC #### [facility] [address] [id number] Escobar Josey Hematocrit (Bld) [Volume fraction] 29.1 % Critically low 36.0-48.0 [facility] Comment on above: Performed By: #### C BC #### [facility] [address] [address] Escobar Josey Hemoglobin (Bld) [Mass/Vol] 9.5 g/dL Critically low 12.0-16.0 [facility] Comment on above: Result Comment: deli moriah 08/11 Performed By: #### C BC #### [facility] [address] [place] [address] Escobar Josey IG # 0.04 10e3/ul Critically high 0.00-0.03 [facility] Comment on above: Performed By: #### C BC #### [facility] [address] [place] [address] Escobar Josey IG % 0.3 % Normal 0.0-0.5 [facility] Comment on above: Performed By: #### C BC #### [facility] [address] [place] [address] Escobar Josey LYMPH # 3.2 103/ul Normal 1.2-3.8 [facility] Comment on above: Performed By: #### C BC #### [facility] [address] [place] [address] Escobar Josey Lymphocytes/100 WBC (Bld) 21.2 % Normal 20.5-60.0 [facility] Comment on above: Performed By: #### C BC #### [facility] [address] [place] [address] Escobar Josey MANUAL DIFF REQ NO Normal [facility] Comment on above: Performed By: #### C BC #### [facility] [address] [place], [place] [id number] Escobar Josey MCH (RBC) [Entitic mass] 30.6 pg Normal 26.7-34.0 [facility] Comment on above: Performed By: #### C BC #### [facility] [address], [place] [address] Escobar Dowling MCHC (RBC) [Mass/Vol] 32.6 g/dL Normal 29.9-35.2 [facility] Comment on above: Performed By: #### C BC #### [facility] [address], [place] [address] Escobar Dowling MCV (RBC) [Entitic vol] 93.9 fL Normal 81.0-99.0 [facility] Comment on above: Performed By: #### C BC #### [facility] [address], [place] [address] Escobar Josey MONO # 1.0 103/ul Critically high 0.3-0.[address] [facility] Comment on above: Performed By: #### C BC #### [facility] [address] [place] [id number] Escobarbello Dowling Monocytes/100 WBC (Bld) 6.5 % Normal 1.7-12.0 [facility] Comment on above: Performed By: #### C BC #### [facility] [address] [place] [id number] Escobar Josey NEUT # 10.7 103/ul Critically high 1.4-6.5 [facility] Comment on above: Performed By: #### C BC #### [facility] [address] [id number] Escobar Dowling Neutrophils/100 WBC (Bld) 71.6 % Normal 43.0-75.0 [facility] Comment on above: Performed By: #### C BC #### [facility] [address], [place] [address] Escobarbello Dowling Platelet mean volume (Bld) [Entitic vol] 10.8 fL Normal 9.5-13.5 [facility] Comment on above: Performed By: #### C BC #### [facility] [address] [place] [id number] Escobar Josey PLT 196 103/ul Normal 150-450 [facility] Comment on above: Performed By: #### C BC #### [facility] [address], [place] [address] Escobar Josey RBC 3.10 106/ul Critically low 4.20-5.[address] [facility] Comment on above: Performed By: #### C BC #### [facility] [address] [place], [place] [id number] Escobar Josey WBC 15.0 103/ul Critically high 4.0-11.0 [facility] Comment on above: Performed By: #### C BC #### [facility] [address] [place], [place] [id number] Escobar Josey CBC AUTO DIFFon 08-10-2020 BASO # 0.0 103/ul Normal 0.0-0.1 [facility] Comment on above: Performed By: #### C BC #### [facility] [address] [place] [address] Escobar Josey Basophils/100 WBC (Bld) 0.3 % Normal 0.2-2.0 [facility] Comment on above: Performed By: #### C BC #### [facility] [address] [place] [address] Escobar Josey EO # 0.1 103/ul Normal 0.0-0.7 [facility] Comment on above: Performed By: #### C BC #### [facility] [address] [place], [place] [id number] Escobar Josey Eosinophils/100 WBC (Bld) 0.9 % Normal 0.9-7.0 [facility] Comment on above: Performed By: #### C BC #### [facility] [address] [place] [address] Escobar Josey Erythrocyte distribution width (RBC) [Ratio] 14.6 % Normal 11.0-15.0 [facility] Comment on above: Performed By: #### C BC #### [facility] [address] [place] [address] Escobar Josey Hematocrit (Bld) [Volume fraction] 35.3 % Critically low 36.0-48.0 [facility] Comment on above: Performed By: #### C BC #### [facility] [address] [place] [address] Escobar Josey Hemoglobin (Bld) [Mass/Vol] 11.8 g/dL Critically low 12.0-16.0 [facility] Comment on above: Performed By: #### C BC #### [facility] [address] [place] [address] Escobarbello Dowling IG # 0.06 10e3/ul Critically high 0.00-0.03 [facility] Comment on above: Performed By: #### C BC #### [facility] [address] [place] [address] Escobarbello Dowling IG % 0.4 % Normal 0.0-0.5 [facility] Comment on above: Performed By: #### C BC #### [facility] [address] [place] [address] Escobarbello Dowling LYMPH # 2.8 103/ul Normal 1.2-3.8 [facility] Comment on above: Performed By: #### C BC #### [facility] [address] [place] [address] Escobar Dowling Lymphocytes/100 WBC (Bld) 21.0 % Normal 20.5-60.0 [facility] Comment on above: Performed By: #### C BC #### [facility] [address] [place] [address] Escobar Dowling MANUAL DIFF REQ NO Normal [facility] Comment on above: Performed By: #### C BC #### [facility] [address] [place] [address] Escobar Dowling MCH (RBC) [Entitic mass] 30.6 pg Normal 26.7-34.0 [facility] Comment on above: Performed By: #### C BC #### [facility] [address] [place] [address] Escobar Dowling MCHC (RBC) [Mass/Vol] 33.4 g/dL Normal 29.9-35.2 [facility] Comment on above: Performed By: #### C BC #### [facility] [address] [place] [address] Escobar Dowling MCV (RBC) [Entitic vol] 91.7 fL Normal 81.0-99.0 [facility] Comment on above: Performed By: #### C BC #### [facility] [address], [place] [address] Escobarbelol Johnsonen MONO # 1.0 103/ul Critically high 0.3-0.[address] [facility] Comment on above: Performed By: #### C BC #### [facility] [address], [place] [address] Escobar Johnsonen Monocytes/100 WBC (Bld) 7.3 % Normal 1.7-12.0 [facility] Comment on above: Performed By: #### C BC #### [facility] [address], [place] [address] Escobar Josey NEUT # 9.4 103/ul Critically high 1.4-6.[address] [facility] Comment on above: Performed By: #### C BC #### [facility] [address], [place] [address] Escobar Johnsonen Neutrophils/100 WBC (Bld) 70.1 % Normal 43.0-75.0 [facility] Comment on above: Performed By: #### C BC #### [facility] [address], [place] [address] Escobar Dowling Platelet mean volume (Bld) [Entitic vol] 11.0 fL Normal 9.5-13.5 [facility] Comment on above: Performed By: #### C BC #### [facility] [address] [place] [phone] Escobar Josey PLT 267 103/ul Normal 150-450 [facility] Comment on above: Performed By: #### C BC #### [facility] [address], [place] [address] Escobar Josey RBC 3.85 106/ul Critically low 4.20-5.[address] [facility] Comment on above: Performed By: #### C BC #### [facility] [address], [place] [address] Escobar Josey WBC 13.4 103/ul Critically high 4.0-11.0 [facility] Comment on above: Performed By: #### C BC #### [facility] [address] [place] [address] Escobar Dowling Covid-19 PCR (CVDTB)on 07-28 SARS-CoV-2 (COVID-19) RNA SEEMA+probe Ql (Unsp spec) Not detected Normal NOT DETECTED [facility] Comment on above: Result Comment: This test is not yet approved or cleared by the [place] FDA. When there are no FDA-approved or cleared tests available, and other criteria are met, FDA can make tests available under an emergency access mechanism called an Emergency Use Authorization (EUA). The EUA for this test is supported by the [place] [employer] of Health and Human Service's (HHS's) declaration [...] SARS-CoV-2. Performed By: #### C VDTBH #### [facility] [address] [place] [address] Escobar Dowling DRUG SCREEN RAPID (URINE)on 08-10-2020 AMP Negative Normal NEGATIVE [facility] Comment on above: Performed By: #### D RUGRPD #### [facility] [address] [place] [address] Escobar Josey BAR Negative Normal NEGATIVE [facility] Comment on above: Performed By: #### D RUGRPD #### [facility] [address] [place] [address] Escobar Josey BUP Negative Normal NEGATIVE [facility] Comment on above: Performed By: #### D RUGRPD #### [facility] [address] [place] [address] Josey BZO Negative Normal NEGATIVE [facility] Comment on above: Performed By: #### D RUGRPD #### [facility] [address] [place] [address] Escobar Josey SHONA Negative Normal NEGATIVE [facility] Comment on above: Performed By: #### D RUGRPD #### [facility] [address] [place] [address] Escobar Josey CUT-OFFS SEE BELOW Normal [facility] Comment on above: Result Comment: AMP [...] ng/mL Performed By: #### D RUGRPD #### [facility] [address] [place] [address] Escobar Josey DRUG CUT HEADER DRUG CLASS TEST SYSTEM CUT-OFF CONCENTRATIONS ARE FOLLOWS: Normal [facility] Comment on above: Performed By: #### D RUGRPD #### [facility] [address] [place] [address] Escobar Josey mAMP Negative Normal NEGATIVE [facility] Comment on above: Performed By: #### D RUGRPD #### [facility] [address] [place] [address] Escobar Josey MTD Negative Normal NEGATIVE [facility] Comment on above: Performed By: #### D RUGRPD #### [facility] [address] [place] [address] Escobar Josey OPI Negative Normal NEGATIVE [facility] Comment on above: Performed By: #### D RUGRPD #### [facility] [address] [place] [address] Escobar Josey OXY Negative Normal NEGATIVE [facility] Comment on above: Performed By: #### D RUGRPD #### [facility] [address] [place] [address] Escobar Dowling PCP Negative Normal NEGATIVE [facility] Comment on above: Performed By: #### D RUGRPD #### [facility] [address] [place] [address] Escobar Dowling PPX Negative Normal NEGATIVE [facility] Comment on above: Performed By: #### D RUGRPD #### [facility] [address] [place] [address] Escobar Josey TCA Negative Normal NEGATIVE [facility] Comment on above: Performed By: #### D RUGRPD #### [facility] [address] [place] [address] Escobar Josey THC Negative Normal NEGATIVE [facility] Comment on above: Performed By: #### D RUGRPD #### [facility] [address] [place] [address] Escobar Josey RAPID COVID-19 ANTIGENon EUA Statement SEE BELOW Normal [facility] Comment on above: Result Comment: This test [...] sooner. Performed By: #### C VDAG #### [facility] [address] [place], [place] [address] SARS-CoV-2 (COVID-19) RNA SEEMA+probe Ql (Unsp spec) Negative Normal NEGATIVE [facility] Comment on above: Result Comment: Nega tive results are presumptive. They do not preclude infection and should not be used as the sole basis for treatment decisions. Additional confirmatory testing by a molecular method should be considered. Performed By: #### C VDAG #### [facility] [address], [place] [address] Escobar Josey TYPE AND SCREENon 08-10-2020 TYPE AND SCREEN Negative Normal [facility] Comment on above: Performed By: #### T NS #### [facility] [address], [place] [address] Escobar Dowling Vital Signs Date Time Vital Sign Value Performing Clinician Facility 09-10-2024 09:34-0400 Body mass index (BMI) [Ratio] 34.33 kg/m2 Hattie LAND Work Phone: [facility] 09-10-2024 09:34-0400 Body weight 87.91 kg Hattie Vincent PA Work Phone: [facility] 09-10-2024 09:34-0400 Diastolic blood pressure 70 mm[Hg] Hattie Vincent PA Work Phone: [facility] 09-10-2024 09:34-0400 Systolic blood pressure 110 mm[Hg] Hattie Vincent PA Work Phone: [facility] 08-13-2024 09:44-0400 Body mass index (BMI) [Ratio] 37.73 kg/m2 Annia Ozzie DO Work Phone: [facility] 08-13-2024 09:44-0400 Body weight 96.62 kg Annia Ozzie DO Work Phone: [facility] 08-13-2024 09:44-0400 Diastolic blood pressure 76 mm[Hg] Annia Ozzie DO Work Phone: [facility] 08-13-2024 09:44-0400 Systolic blood pressure 122 mm[Hg] Annia Ozzie DO Work Phone: [facility] 06-13-2024 09:12-0400 Blood Pressure Location [employer] [facility] [place] 06-13-2024 09:12-0400 Diastolic blood pressure 88 mm[Hg] Kaylee Escudero [facility] 06-13-2024 09:12-0400 Heart rate 80 /min Kaylee Kena [facility] 06-13-2024 09:12-0400 Respiratory rate 18 /min Kaylee Kena [facility] 06-13-2024 09:12-0400 SaO2% (BldA) [Mass fraction] 98 % Kaylee Kena [facility] 06-13-2024 09:12-0400 Systolic blood pressure 128 mm[Hg] Kaylee Kena [facility] 03-12-2024 13:41-0500 Body mass index (BMI) [Ratio] 36.31 kg/m2 Annia Ozzie DO Work Phone: [facility] 03-12-2024 13:41-0500 Body weight 92.99 kg Annia Ozzie DO Work Phone: [facility] 03-12-2024 13:41-0500 Diastolic blood pressure 82 mm[Hg] Annia Ozzie DO Work Phone: [facility] 03-12-2024 13:41-0500 Systolic blood pressure 118 mm[Hg] Annia Ozzie DO Work Phone: [facility] 02-12-2024 14:14-0500 Body mass index (BMI) [Ratio] 36.49 kg/m2 Annia Ozzie DO Work Phone: [facility] 02-12-2024 14:14-0500 Body weight 93.44 kg Annia Ozzie DO Work Phone: [facility] 02-12-2024 14:14-0500 Diastolic blood pressure 70 mm[Hg] Annia Ozzie DO Work Phone: [facility] 02-12-2024 14:14-0500 Systolic blood pressure 118 mm[Hg] Annia Ozzie DO Work Phone: [facility] 11-14-2023 13:51-0400 Body height 160 cm Annia Ozzie DO Work Phone: [facility] 11-14-2023 13:51-0400 Body mass index (BMI) [Ratio] 37.52 kg/m2 Annia Ozzie DO Work Phone: [facility] 11-14-2023 13:51-0400 Body weight 96.07 kg Annia Ozzie DO Work Phone: [facility] 11-14-2023 13:51-0400 Diastolic blood pressure 80 mm[Hg] Annia Ozzie DO Work Phone: [facility] 11-14-2023 13:51-0400 Systolic blood pressure 130 mm[Hg] Annia Ozzie DO Work Phone: [facility] Healthcare Encounters Encounter Date Encounter Type Care Provider Facility Start: 09-18-2024 End: 09-18-2024 Clinisync Result Encounter Annia Ozzie DO Work Phone: [facility] External Department Unsolicited Start: 09-18-2024 End: 09-18-2024 Clinisync Result Encounter Annia Ozzie DO Work Phone: [facility] External Department Unsolicited Start: 09-16-2024 End: 09-16-2024 Clinisync Result Encounter Annia Ozzie DO Work Phone: [facility] External Department Unsolicited Start: 09-16-2024 End: 09-16-2024 Clinisync Result Encounter Annia Ozzie DO Work Phone: [facility] External Department Unsolicited Start: 09-10-2024 End: 09-10-2024 Bamboo flowsheet Hattie LAND Work Phone: [facility] Start: 09-10-2024 End: 09-10-2024 Bamboo flowsheet Hattie LAND Work Phone: [facility] Start: 09-10-2024 End: 09-10-2024 Office outpatient visit 5 minutes Hattie Vincent PA Work Phone: [facility] Comment on above: Encounter for weight management Start: 09-10-2024 End: 09-10-2024 ambulatory HATTIE VINCENT Not Available Start: 08-13-2024 End: 08-13-2024 Bamboo flowsheet Annia Ozzie DO Work Phone: [facility] Start: 08-13-2024 End: 08-13-2024 Bamboo flowsheet Annia Ozzie DO Work Phone: [facility] Start: 08-13-2024 End: 08-13-2024 Office outpatient visit 15 minutes Annia Ozzie DO Work Phone: [facility] Comment on above: Menstrual periods ir regular; Encounter for weight management Start: 08-13-2024 End: 08-13-2024 ambulatory ANNIA OZZIE Not Available Start: 07-29-2024 End: 07-29-2024 Clinisync Result Encounter Annia Ozzie DO Work Phone: [facility] Unsolicited Start: 07-29-2024 End: 07-29-2024 Clinisync Result Encounter Annia Ozzie DO Work Phone: [facility] Unsolicited Start: 07-19-2024 End: 07-19-2024 ambulatory HYDROTEL OPERATOR Kaylee L Kena Facility:[facility] [place] [place] Start: 06-14-2024 End: 06-25-2024 Pre-admission assessment Kaylee L Kena [facility] Start: 06-13-2024 End: 06-13-2024 ambulatory HYDROTEL OPERATOR Kaylee L Kena Facility:[facility] Start: 06-13-2024 End: 06-13-2024 Patient encounter procedure Kaylee L Kena [facility] [place] Start: 05-08-2024 End: 05-08-2024 ambulatory HYDROTEL OPERATOR Kaylee L Kena Facility:[facility] Start: 05-03-2024 ambulatory HYDROTEL OPERATOR Kaylee Kena Facilit y:[facility] Start: 04-09-2024 End: 04-10-2024 Clinisync Result Encounter Annia Ozzie DO Work Phone: [facility] Unsolicited Start: 04-09-2024 End: 04-10-2024 Clinisync Result Encounter Annia Ozzie DO Work [...] End: 08-17-[address] NONE LISTED REQUEST Facility:[facility] Start: 08-10-2020 End: 08-13-2020 Evaluation and management of inpatient DR ANNIA HORNE Facility:[facility] Procedures Date Procedure Procedure Detail Performing Clinician Start: 09-18-2024 [facility] Core y Ozzie DO Work Phone: Start: 09-16-2024 [facility] PREG QUANT HCG Core y Ozzie DO Work Phone: Start: 07-29-2024 [facility] PREG QUANT HCG Core y Ozzie DO Work Phone: Start: 04-09-2024 ALL PROGESTERONE Annia Ozzie DO Work Phone: Start: 03-13-2024 ALL CBC WITH AUTO DIFF Annia Ozzie DO Work Phone: Start: 03-05-2024 [facility] PREG QUANT HCG Core y Ozzie DO Work Phone: Start: 02-12-2024 Urine test visual color cmprsn meths Annia Ozzie DO Work Phone: Start: 02-12-2024 IGP,APTIMA HPV,AGE GDLN Annia Ozzie DO Work Phone: Start: 12-27-2023 [facility] PREG QUANT HCG Core y Ozzie DO Work Phone: Start: 11-14-2023 HOSPICE AIDE INSERTION/REMOVA L OF CONTRACEPTIVE CAPSULE Annia Ozzie DO Work Phone: Start: 08-11-2020 Extraction of Produc ts of Conception, Low Cervical, Open Approach NONE LISTED REQUEST Start: 08-11-2020 Drainage of Amniotic Fluid, Therapeutic from Products of Conception, Via Natural or Artificial Opening NONE LISTED REQUEST Start: 08-10-2020 section Kaylee lott Start: 08-10-2020 Introduction of Horm one into Female Reproductive, Via Natural or Artificial Opening NONE LISTED REQUEST Plan of Treatment Date Care Activity Detail Author Start: 02-17-2025 End: 02-17-2025 Patient encounter procedure 02/17/2025 2:00 PM EST Office Visit [facility] [address] [place] [address] Annia Horne, DO [address] [place] [address] [facility] Start: 12-03-2024 End: 12-03-2024 Patient encounter procedure 12/03/2024 9:30 AM EDT Office Visit [facility] [address] [place] [phone] Bushra Zepeda, ACCOUNT CLASSIFICATION CLERK [address] [place] [phone] [facility] Start: 10-28-2024 Influenza vaccination [facility] Start: 09-10-2024 End: 09-10-2024 Patient encounter procedure [facility] Comment on above: Arrived Start: 08-13-2024 End: 08-13-2024 Patient encounter procedure [facility] Comment on above: Arrived Start: 04-29-2024 End: 04-29-2024 Professional / ancillary services management 04/29/2024 8:00 AM EST Ancillary Procedure [facility] [address] [facility] [place] [place] [phone] [facility] Start: 03-26-2024 End: 03-26-2024 Professional / ancillary services management 03/26/2024 8:00 AM EST Ancillary Procedure [facility] [address] [facility] [place] [phone] [facility] Start: 03-12-2024 End: 03-12-2025 DHEA DHEA Lab Routine PCOS (polycystic ovarian syndrome) Expected: 03/12/2024 (Approximate), Expires: 03/12/2025 [facility] Comment on above: Expected: 03/12/2024 (Approximate), Expires: 03/12/2025 Start: 03-12-2024 End: 03-12-2025 US Pelvis US Pelvis w/ TV Imaging Routine PCOS (polycystic ovarian syndrome) Expected: 03/12/2024, Expires: 03/12/2025 [facility] Comment on above: Expected: 03/12/2024 , Expires: 03/12/2025 Start: 03-12-2024 End: 03-12-2024 Patient encounter procedure 03/12/2024 1:40 PM EST Office Visit [facility] [address] [facility] [place] [phone] Annia Horne, [address] [place], [place] [id number] [facility] Start: 02-12-2024 End: 02-12-2024 Patient encounter procedure [facility] Comment on above: Arrived Start: 10-29-2023 Influenza vaccination Influenza Vacc ine (#1) [facility] CBC W Auto Different ial panel - Blood CBC and differential Lab Routine PCOS (polycystic ovarian syndrome) Ordered: 03/12/2024 [facility] Comment on above: Ordered: 03/12/2024 Cytology Cervical or vaginal smear or scraping study Pap Smear Pathology and Cytology Routine Well woman exam with routine gynecological exam Ordered: 02/12/2024 [facility] Work Phone: Comment on above: Ordered: 02/12/2024 DHEA-sulfate DHEA-sulfate Lab Routine PCOS (polycystic ovarian syndrome) Ordered: 03/12/2024 [facility] Comment on above: Ordered: 03/12/2024 Follicle stimulating hormone Follicle stimulating hormone Lab Routine PCOS (polycystic ovarian syndrome) Ordered: 03/12/2024 [facility] Comment on above: Ordered: 03/12/2024 hCG, quantitative, hCG, quantitative, Lab Routine PCOS (polycystic ovarian syndrome) Ordered: 03/12/2024 [facility] Work Phone: Comment on above: Ordered: 03/12/2024 Hemoglobin A1c/Hemoglobin.total in Blood Hemoglobin A1c Lab Routine Insulin resistance Ordered: 03/12/2024 [facility] Comment on above: Ordered: 03/12/2024 Luteinizing hormone Luteinizing hormone Lab Routine PCOS (polycystic ovarian syndrome) Ordered: 03/12/2024 [facility] Comment on above: Ordered: 03/12/2024 Removal non-biodegradable drug delivery implant Remove drug implant device Procedures Routine Encounter for removal of etonogestrel implant Ordered: 11/14/2023 [facility] Work Phone: Comment on above: Ordered: 11/14/2023 Thyrotropin [Units/volume] in Serum or Plasma TSH Lab Routine PCOS (polycystic ovarian syndrome) Ordered: 03/12/2024 [facility] Comment on above: Ordered: 03/12/2024 Thyroxine (T4) free [Mass/volume] in Serum or Plasma T4, free Lab Routine PCOS (polycystic ovarian syndrome) Ordered: 03/12/2024 [facility] Comment on above: Ordered: 03/12/2024 Payers Date Payer Category Payer Medicaid [id number] 2023 Private Health Insurance [facility] [id number] 1996 Unknown [id number] 2.16.84 [id number] 1996 Unknown [id number] 2.16.84 [id number] 1996 Unknown [id number] 2.16.84 [id number] 1996 Unknown [id number] 2.16.84 [id number] 1996 Unknown [id number] 2.16.8 [id number] 1996 Unknown [id number] 2.16.8 [id number] 1996 Unknown [id number] 2.16.8 [id number] 1996 Unknown [id number] 2.16.8 [id number] 1996 Unknown [id number] 2.16.8 [id number] 1996 Unknown [id number] 2.16.8 [id number] 1995 Unknown [id number] [id number] 1996 Unknown [id number] [id number] [id number] 1996 Unknown [id number] [id number] [id number] 1959 Unknown [id number] Social History Date Type Detail Facility [facility] Start: 1995 Sex assigned at Not on file [facility] Gender identity Not on file [facility] Start: 06-13-2024 Tobacco smoking status Smoker (findi ng) [facility] Sexual Orientation [facility] Sex Female (finding) [facility] Functional Status Date Assessment Result Facility 06-13-2024 Functional Status N/A [facility] Clinical Notes 08-10-2020 to 09-10-2024 Mery Chowdary, [facility] - 09/10/2024 9:30 AM Artur Giordano, [facility] - 08/13/2024 9:20 AM Artur Giordano, [facility] - 03/12/2024 1:40 PM ESTShelder Gan, [facility] - 02/12/2024 1:40 PM EST Note Date & Type Note Facility 09-10-2024 History of Present illness Narrative Reason for Appointment: Patient ID: Jaja Torrez is a 29 y.o. female who presents for encounter for weight management Patient presents today for a weight management consultation. Patient has been prescribed Adipex and she is here for her 2nd prescription. Today's Vitals: Estimated body mass index is 34.33 kg/m as calculated from the following: Height as of 11/14/23: 5' 3 . Weight as of this encounter: 193 lb 12.8 oz. Previous Weight/BMI: Wt Readings from Last 2 Encounters: 09/10/24 193 lb 12.8 oz 08/13/24 213 lb BMI Readings from Last 2 Encounters: 09/10/24 34.33 kg/m 08/13/24 37.73 kg/m Allergies as of 09/10/2024 - Reviewed 09/10/2024 Allergen Reaction Noted Prednisone Hives 11/14/2023 History reviewed. No pertinent past medical history. History reviewed. No pertinent surgical history. Assessment/Plan Encounter Diagnosis Name Primary? Encounter for weight management Adipex: Patient presents today for 2nd Adipex prescription. Patients weight and blood pressure has been captured and discussed with the patient. I have discussed/reiterated the importance of keeping a food journal, proper nutrition/diet, and exercise regimen while taking Adipex. Patient verbalized understanding and was given a printed prescription signed by provider to take to their local pharmacy. Follow Up: Patient is to return to the office in 3 month for further evaluation to assess patient progress. Weight and blood pressure will need to be obtained in order for patient to receive 5th prescription. Documented by: Mery Chowdary LPN on behalf of EMERY Prince documented in this encounter [facility] 08-13-2024 History of Present illness Narrative Reason for Appointment: Patient ID: Jaja Torrez is a 28 y.o. female who presents for Menstrual Problem (Pt states since she had the Nexplanon taken out in October of 2023 she has had irregular cycles. Pt states she starts period and only spotting and lasting only 2 days when she used to have a 4 day cycle. Pt is not on any b/c at this time. ) Patient presents today for a weight management consultation. Patient desires to initiate Adipex. Initial Vitals for Adipex prescription #1: Estimated body mass index is 37.73 kg/m as calculated from the following: Height as of 24: 5' 3 . Weight as of this encounter: 213 lb. Allergies as of 08/13/2024 - Reviewed 08/13/2024 Allergen Reaction Noted Albuterol 11/14/2022 Prednisone Hives 11/14/2023 No past medical history on file. History reviewed. No pertinent surgical history. Review of Systems: Review of Systems Constitutional: Positive for unexpected weight change. HENT: Negative. Eyes: Negative. Respiratory: Negative. Cardiovascular: Negative. Gastrointestinal: Negative. Genitourinary: Negative. Musculoskeletal: Negative. Skin: Negative. Neurological: Negative. All other systems reviewed and are negative. Hematological: Negative. Endocrine: Negative. Allergic/Immunologic: Negative. Objective Physical Exam Constitutional: Appearance: Normal appearance. She [...] nursing note reviewed. Exam conducted with a polysomnographic technologist present. Assessment/Plan Encounter Diagnosis Name Primary? Menstrual periods irregular Adipex: Patient presents today for initial Adipex prescription. I have discussed in detail the importance of keeping a food journal, proper nutrition/diet, and exercise regimen while taking Adipex. Patient verbalized understanding and signed consents to initiate (Adipex) medication therapy. Patient was given a printed prescription signed by provider to take to their local pharmacy. Follow Up: Patient is to return to the office in 1 month for further evaluation to assess patient progress. Weight and blood pressure will need to be captured in order for patient to receive 2nd prescription. Documented by: Josey Giordano LPN on behalf of Annia Horne DO documented in this encounter [facility] 03-12-2024 History of Present illness Narrative Reason for Appointment: Patient ID: Jaja Torrez is a 28 y.o. female who presents [...] nursing note reviewed. Exam conducted with a polysomnographic technologist present. Vitals: Estimated body mass index is [...] Annia Horne DO documented in this encounter [facility] 02-12-2024 History of Present illness Narrative Reason for Appointment: Patient ID: Jaja Torrez is a 28 y.o. female who presents [...] nursing note reviewed. Exam conducted with a polysomnographic technologist present. Vitals: Estimated body mass index is [...] Annia Horne DO documented in this encounter [facility] 11-14-2023 History of Present illness Narrative Associated Order(s): Insertion/Removal of Contraceptive Capsule Post-Procedure Diagnose(s): Nexplanon removal Reason for Appointment: Patient ID: Jaja Torrez is a 28 y.o. female who presents [...] nursing note reviewed. Exam conducted with a polysomnographic technologist present. Vitals: Estimated body mass index is [...] Annia Horne DO documented in this encounter [facility] 08-10-2020 Note OPERATIVE NOTE OPERATION DATE: 08-10-20 ANESTHETIC:Spinal with Duramorph. CORPORATE ACCOUNT EXECUTIVE:ANJALI Vargas PREOPERATIVE DIAGNOSIS: 1. Intrauterine at 40 [...] CENTER Signed and Approved by: DR ANNIA HORNE . 2020 15:48:00 [facility] 08-10-2020 Note DISCHARGE SUMMARY Discharge Date: 08-13-20 [...] CENTER Signed and Approved by: DR ANNIA HORNE . 09/01/2020 14:08:00 [facility] Evaluation + Plan note Future Appointments Appointment Date:07/19/2024 10:45:00 AM Scheduled Provider:Johanna Juarez MD Location:[facility] Appointment Type:Pulmonary New Patient ([facility]) [facility] Evaluation note Diagnosis Nexplanon removal Encounter for removal of etonogestrel implant [facility] Diagnosis Well woman exam with routine gynecological exam Routine gynecological examination documented [facility] Diagnosis Encounter for fertility planning PCOS (polycystic ovarian syndrome) Polycystic ovaries Insulin resistance Other abnormal glucose documented in this encounter [facility]* Diagnosis Menstrual periods irregular Irregular menstrual cycle Encounter for weight management [facility] Diagnosis Encounter for weight management documented in this encounter [facility] HealthcareHospital course Narrative No data available for this section [facility] Hospital Discharge instructions No data available for this section [facility] Progress note No data available for this section [facility] Summary Purpose Family History No Family History Records Found No data available for this section No data available for this section No Family History Records FoundNo Family History Records Found Advance Directives No Advanced Directives Records FoundNo Advanced Directives Records FoundNo Advanced Directives Records Found Additional Source Comments INFORMATION SOURCE (unrecogn ized section and content) DATE CREATED AUTHOR 07/21/2021 [facility] DATE CREATED AUTHOR AUTHOR'S ORGANIZ ATION 07/31/2024 [facility] DATE CREATED AUTHOR AUTHOR'S ORGANIZ ATION 09/14/2024 [facility] d[facility] Specialists [facility] Care Teams (unrecognized sec tion and content) 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 Start Date End Date Shaikh Almanzar MD [address] [place] [phone] PCP - General Internal Medicine 01/02/23 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 Start Date End Date Shaikh Almanzar MD [address] [place] [phone] PCP - General Internal Medicine 01/02/23 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 Start Date End Date Shaikh Almanzar MD [address] [place] [phone] PCP - General Internal Medicine 01/02/23 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 Start Date End Date Shaikh Almanzar MD [address] [place] [address] PCP - General Internal Medicine 01/02/23 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 Start Date End Date Shaikh Almanzar MD [address] [place] [address] PCP - General Internal Medicine 01/02/23 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 Start Date End Date Shaikh Almanzar MD [address] [place] [address] PCP - General Internal Medicine 01/02/23 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 Start Date End Date Shaikh Almanzar MD [address] [place] [address] PCP - General Internal Medicine 01/02/23 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 Pt states she starts period and only spotting and lasting only 2 days when she used to have a 4 day cycle. Pt is not on any b/c at this time. Reason Comments encounter for weight management FOR RECORDS PERTAINING TO PATIENTS WHO ARE [...] BE BASED ON THE PRIMARY CLINICAL RECORDS. [facility]. provides no warranty or guarantee of the accuracy or completeness of information in this document.
[2024-09-20 10:42] LABS: Hematocrit 39.3 % (36.0-48.0); Hemoglobin 13.6 g/dL (12.0-16.0); Immature Granulocytes Abs Auto 0.02 10^3/uL (0.00-0.03); Immature Granulocytes Pct Auto 0.2 % (0.0-0.5); Lymphocytes Absolute Auto 2.7 10^3/uL (1.2-3.8); Mean Corpuscular HGB Conc 34.6 g/dL (29.9-35.2); Mean Corpuscular Hemoglobin 33.3 pg (26.7-34.0); Mean Corpuscular Volume 96.3 fL (81.0-99.0); Platelet Count 248 10^3/uL (150-450); Red Blood Count 4.08 10^6/uL (4.20-5.40); White Blood Count 9.2 10^3/uL (4.0-11.0)
[2024-09-20 11:39] LABS: Anion Gap 12.5; Blood Urea Nitrogen 5.0 mg/dL (7.0-18.0); Calcium 8.9 mg/dL (8.5-10.1); Carbon Dioxide 27.3 mmol/L (21.0-32.0); Chloride 105 mmol/L (98-107); Estimated GFR (African America >60 (>=60 mL/min/1.73m^2); Estimated GFR (Non-African Ame >60 (>=60 mL/min/1.73m^2); Glucose 97 mg/dL (74-106); Potassium 3.8 mmol/L (3.5-5.1); Sodium 141 mmol/L (136-145)
--- NOTE | 2024-09-20 11:41 | US_ITS ---
The [address] [address] Patient Name: PARK GILLESPIE MRN: [id number] date: 1995 Sex: F Assigned Patient Location: ER Current Patient Location: Accession/Order Number: [id number] Exam Date: 09/20/2024 12:38 Report Date: 09/20/2024 12:41 At the request of: KALEB HORN MD Procedure: US OB transvaginal OB ultrasound. Reason for exam:Heavy bleeding. Comparison:None. Technique: Transvaginal imaging of the uterus and ovaries were obtained. Findings: No intrauterine is noted. No measurable fibroid. Endometrium measures 6 mm without focal abnormality. Trace amount of simple free fluid is noted. Right ovary not visualized. Left ovary measures 2.7 x 1.1 x 1.2 cm. No adnexal mass. US/US OB transvaginal Impression: No intrauterine is seen. Finding may represent early IUP, miscarriage or possibly ectopic , however no evidence of ectopic is seen to this complex free fluid or adnexal mass. Correlation with beta-hCG trend a repeat ultrasound suggested to confirm viability. Right ovary not visualized. Impression dictated by: Sukumar Torres Jr., D.O. 09/20/2024 12:41 PM Dictation Location: [place] [address] Electronically authenticated by: [id number] Y Date: 09/20/2024 12:41
== END 2024-09-20 12:23 | disposition home or self-care (01) ==
PROVIDERS: Emergency Provider Emergency Medicine; PCP Nurse Practitioner
DX: O20.0 Threatened abortion (principal); Z3A.01 Less than 8 weeks gestation of pregnancy
CPT/HCPCS: 36415; 76817; 80048; 84702; 85025; 86900; 86901; 99284

== ENCOUNTER 2024-09-22 08:23 | Outpatient (OUT) | payer MEDICAID, SELFPAY ==
--- OUTSIDE RECORDS SUMMARY | 2024-09-22 08:29 | XMS_ITS | CCD ---
Author Organization [facility] Care Team Providers Care [employer]ure [employer]ist Name Role Phone REQUEST, DR NONE LISTED [...] Unavailable Aneesh Almanzar MDikh Primary Care Provider [phone] Kaylee Escudero Primary Care Physician [phone] JOSÉ MIGUEL Escudero Referring Unavailable Johanna Juarez Attending Unavailable KenaJOSÉ MIGUEL walton Attending Unavailable Kena, JOSÉ MIGUEL Knight Attending Unavailable OZZIE, ANNIA Attending Unavailable HATTIE VINCENT Attending Unavailable OZZIE, ANNIA Attending Unavailable OZZIE, ANNIA Attending Unavailable OZZIE, ANNIA Attending Unavailable Allergies Allergy Classification Reported Allergen(s) Allergy Type Date of Onset Reaction(s) Facility (20 sources) Prednisone; Translations: [predniSONE] Propensity to adverse reactions [facility] Healthcare Work Phone: (2 sources) predniSONE; Translations: [prednisone] Drug Allergy Skin irritation (disorder), Urticaria (disorder) [facility] (3 sources) Albuterol Drug Allergy 3 [facility] [...] Drug Class(es) Dates Sig (Normalized) Sig (Original) [id number] 200 actuat albuterol 0.09 mg/actuat metered dose [...] encounter for closed fracture; Translations: [NDSPL FX MO PHAL LT LSR TOE INIT CL] Onset: [...] 09-03-2020 Episodic Other aftercare (1 source) Other fci (current) drug therapy; Translations: [OTH SKILLED NURSING CURRENT DRUG THERAPY] Onset: 09-03-2020 Episodic Other [...] 15,000-200,000 6-8 WEEKS 10,000-100,000 2-3 MONTHS [facility] TBH PREG QUANT HCGon 09-16- 025 HCG QUANTITATIVE 459 mIU/mL [facility] Comment on above: 5-50 0.2-1 WEEK 50-500 1-2 WEEKS 100-5,000 2-3 WEEKS 500-10,000 3-4 WEEKS 1,000-50,000 4-5 WEEKS 10,000-100,000 5-6 WEEKS 15,000-200,000 6-8 WEEKS 10,000-100,000 2-3 [facility] TB PREG QUANT HCGon 07-29- 025 HCG QUANTITATIVE <1 mIU/mL [facility] Comment on above: 5-50 0.2-1 WEEK 50-500 1-2 WEEKS 100-5,000 2-3 WEEKS 500-10,000 3-4 WEEKS 1,000-50,000 4-5 WEEKS 10,000-100,000 5-6 WEEKS 15,000-200,000 6-8 WEEKS 10,000-100,000 2-[facility] No cathy 07-19-2024 Pulmonology Office/Clinic [...] Use:. Ready to change: No., 06/13/2024 Normal [facility] Comment on above: Result Comment: Elec tronically [...] Asthma flare Asthma Refills: 5 Pickup at [facility]/pharmacy #[id number] Unchanged ipratropium (Atrovent HFA 17 mcg/ inh inhalation aerosol) INHALE 2 PUFFS BY MOUTH EVERY 6 HOURS NEEDED FOR SHORTNESS OF BREATH OR WHEEZING. Unchanged metformin (metformin 500 mg Tab) 1 Tablets By Mouth Once a day (at bedtime) Pharmacy Information [facility]/pharmacy #[id number]: [address], [place] [id number] [phone] Allergies predniSONE (Skin irritation, Urticaria) Problems Ongoing - Any problem that you are currently receiving treatment for. Asthma Smoker Patient Survey You may receive a survey via text or e-mail asking about your office visit. Please share your experience with us by completing your survey. We appreciate your feedback and thank you for choosing us for your care. Normal [facility] Family Medicine Office/Clini c Noteon 06-13-2024 Family Medicine Office/Clinic Note Family Medicine Office/Clinic Note HPI Staff Jaja is a 28 year old female to establish care Establish Care: History: Any previous diagnosis: Asthma History of seeing any specialist: pulmonology Dr Umanzor, Dr Hernandez out of [place]( can't go to any of these) , Dr Horne When was your last doctors visit: Last provider: Dr Francois connor Any recent labs: none Health Maintenance UTD: Colonoscopy: no Mammogram: no Pelvic/Pap: 01/2024 normal with Ozzie Acute: Current issues/complaints: Pt states she is having an asthma flair up, feels SOB chest feels tight, and 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 it has been years [...] Use:. Ready to change: No., 06/13/2024 Normal [facility] Comment on above: Result Comment: Elec tronically Signed By: Kaylee Trevino\.br\Date and Time Signed: 06/13/24 10:16 EDT ALL PROGESTERONEon PROGESTERONE 1.2 ng/mL . [facility] are Comment on above: Follicular phase 0.1 - 0.9 Luteal phase 1.8 - 23.9 Ovulation phase 0.1 - 12.0 First trimester 11.0 - 44.3 Second trimester 25.4 - 83.3 Third trimester 58.7 - 214.0 Postmenopausal 0.0 - 0.1 Performed at: - [address] [id number] Box Gluer: Hi Betancur PhD, Phone: [phone] [facility] e ALL CBC WITH AUTO DIFFon BASOPHILS ABSOLUTE AUTO [address] [facility] Basophils/100 WBC (Bld) 0.3 % 0.2 - 2.0 % [facility] Eosinophils/100 WBC (Bld) 2.1 % 0.9 - 7.0 % [facility] Erythrocyte distribution width (RBC) [Ratio] 12.2 % 11.0 - 15.0 % [facility] Hematocrit (Bld) [Volume fraction] 42 % 36.0 - 48.0 % [facility] Hemoglobin (Bld) [Mass/Vol] 14.2 g/dL 12.0 - 16.0 g/dL [facility] IMMATURE GRANULOCYTES ABS AUTO [facility].[address] [facility] [facility] Immature granulocytes/100 WBC (Bld) 0.2 % 0.0 - 0.5 % [facility] LYMPHOCYTES ABSOLUTE AUTO 2.[address] [facility] Lymphocytes/100 WBC (Bld) 27.9 % 20.5 - 60.0 % [facility] MCH (RBC) [Entitic mass] 32.2 pg 26.7 - 34.[address] [facility] MCHC (RBC) [Mass/Vol] 33.8 g/dL 29.9 - 35.2 g/dL [facility] MCV (RBC) [Entitic vol] 95.2 fL 81.0 - 99.[address] [facility] MONOCYTES ABSOLUTE AUTO 0.[address] [facility] Monocytes/100 WBC (Bld) 5.8 % 1.7 - 12.0 % [facility] NEUTROPHILS ABSOLUTE AUTO 5.[address] [facility] Neutrophils/100 WBC (Bld) 63.7 % 43.0 - 75.0 % [facility] Platelet mean volume (Bld) [Entitic vol] 10.6 fL 9.5 - 13.[address] [facility] TBH EO # 0.2 [facility] Health[facility] TB PLT 247 [facility] TB RBC 4.41 [facility] TBH WBC 9.1 [facility] TBH PREG QUANT HCGon 025 HCG QUANTITATIVE <1 mIU/mL [facility] Comment on above: 5-50 0.2-1 WEEK 50-500 1-2 WEEKS 100-5,000 2-3 WEEKS 500-10,000 3-4 WEEKS 1,000-50,000 4-5 WEEKS 10,000-100,000 5-6 WEEKS 15,000-200,000 6-8 WEEKS 10,000-100,000 2-3 MONTHS CL[facility] IGP,APTIMA HPV,AGE GDLNon 12 -23-2024 AGE GDLN ACOG TESTING Note . [facility] Comment on above: TESTS RESULT FLAG UN ITS REF RANGE LAB Clinician Provided Cytology Information Source.............Cervix No. of containers..01 ThinPrep Vial Age Algo ACOG Christina... FLAG LEGEND: L-Low Normal,H-High Normal,LL-Alert Low,HH-Alert High <-Panic Low,>-Panic High,A-Abnormal,AA-Critical Abnormal Performed at: 01 =G [address] [id number] Holly Khan MD, IGP, RFX APTIMA HPV ASCU Note . [facility] Comment on above: TESTS RESULT FLAG UN ITS REF RANGE LAB DIAGNOSIS: 02 NEGATIVE FOR INTRAEPITHELIAL LESION OR MALIGNANCY. Specimen adequacy: 02 Satisfactory for evaluation. Endocervical and/or squamous metaplastic cells (endocervical component) are present. Performed by: 02 Edwardo Casas Attending Pathologist ([facility]) . 02 Note: Note 02 The [...] High,A-Abnormal,AA-Critical Abnormal Performed at: 02 [address] [facility] [address] [id number] Holly Khan MD, Performed at: =G - [facility] [address] [id number] Box Gluer: Holly Khan MD, Phone: [phone] Performed at: - [facility] [id number] Box Gluer: Holly Khan MD, Phone: [phone] BRUSH-SPATULA CERVIX [facility] HCG ( test) Ql (U)o n 02-12-2024 Interpretation and review of laboratory results Normal [facility] re Preg Test, Ur Negative Negative [facility] TBH PREG QUANT HCGon 1030-2 024 HCG QUANTITATIVE <1 mIU/mL [facility]care Comment on above: 5-50 0.2-1 WEEK 50-500 1-2 WEEKS 100-5,000 2-3 WEEKS 500-10,000 3-4 WEEKS 1,000-50,000 4-5 WEEKS 10,000-100,000 5-6 WEEKS 15,000-200,000 6-8 WEEKS 10,000-100,000 2-3 MONTHS [facility] Insertion/Removal of Contrac eptive Capsuleon 11-14-2023 [...] office as needed for any routine appointments. [facility] PAP ACOG PANEL 2: 21 to 29on 05-24-2022 . . Normal [facility] Comment on above: Performed By: #### [id number] #### [facility] [address] [place] [address] Dr. Julius Gil Age Gdln ACOG Testing - [facility] Comment on above: Performed By: #### 4 [id number] #### [facility] [address] [place] [address] Dr. Julius Gil DIAGNOSIS: Comment [facility] Comment on above: Result Comment: NEGA TIVE FOR INTRAEPITHELIAL LESION OR MALIGNANCY. CELLULAR CHANGES ASSOCIATED WITH INFLAMMATION ARE PRESENT. Performed By: #### 4 [id number] #### [facility] [address] [place] [address] Dr. Julius Gil Methodology: CTIM [facility] Comment on above: Result Comment: The Thin Prep(R) [employer] was unable to read this specimen. Therefore a manual review was performed. Performed By: #### 4 [id number] #### [facility] [address] [place] [address] Dr. Julius Gil Note: Comment [facility] Comment on above: Result Comment: The Pap smear is a screening test designed to aid in the detection of premalignant and malignant conditions of the uterine cervix. It is not a diagnostic procedure and should not be used as the sole means of detecting cervical cancer. Both false-positive and false-negative reports do occur. . Performed By: #### 4 [id number] #### [facility] [address] [place] [address] Dr. Julius Gil Performed by: Comment [facility] Comment on above: Result Comment: Iva Doran Attending Pathologist (ASCP) Performed By: #### 4 [id number] #### [facility] [address] [place] [address] Dr. Julius Gil Reflex Criteria: Comment [facility] Comment on above: Result Comment: The HPV DNA reflex criteria were not met with this specimen result therefore, no HPV testing was performed. . Performed By: #### 4 [id number] #### [facility] [address] [place] [address] Dr. Julius Gil Specimen adequacy: Comment Normal [facility] Comment on above: Result Comment: Sati sfactory for evaluation. Endocervical and/or squamous metaplastic cells (endocervical component) are present. Performed By: #### 4 [id number] #### [facility] [address] [place] [address] Dr. Julius Gil XR FOOT LT MIN [...] JOVANI PULLIAM Date: 2021-07-05 22:20 Normal [facility] CBC AUTO DIFFon 08-12-2020 BASO # 0.0 103/ul Normal 0.0-0.[address] [facility] Comment on above: Performed By: #### C BC #### [facility] [address] [place] [address] Escobar Josey Basophils/100 WBC (Bld) 0.3 % Normal 0.2-2.[address] [facility] Comment on above: Performed By: #### C BC #### [facility] [address] [place] [address] Escobar Josey EO # 0.0 103/ul Normal 0.0-0.7 [facility] Comment on above: Performed By: #### C BC #### [facility] [address] [place] [address] Escobar Josey Eosinophils/100 WBC (Bld) 0.1 % Critically low 0.9-7.0 [facility] Comment on above: Performed By: #### C BC #### [facility] [address] [place] [address] Escobar Josey Erythrocyte distribution width (RBC) [Ratio] 14.7 % Normal 11.0-15.[address] [facility] Comment on above: Performed By: #### C BC #### [facility] [address] [id number] Escobar Josey Hematocrit (Bld) [Volume fraction] 29.1 % Critically low 36.0-48.[address] [facility] Comment on above: Performed By: #### C BC #### [facility] [address] [address] Escobar Josey Hemoglobin (Bld) [Mass/Vol] 9.5 g/dL Critically low 12.0-16.0 [facility] Comment on above: Result Comment: deli moriah 08/11 Performed By: #### C BC #### [facility] [address] [place] [address] Escobar Josey IG # 0.04 10e3/ul Critically high 0.00-0.03 [facility] Comment on above: Performed By: #### C BC #### [facility] [address] [place] [address] Escobar Josey IG % 0.3 % Normal 0.0-0.[address] [facility] Comment on above: Performed By: #### C BC #### [facility] [address] [place] [address] Escobar Josey LYMPH # 3.2 103/ul Normal 1.2-3.[address] [facility] Comment on above: Performed By: #### C BC #### [facility] [address] [place] [address] Escobar Josey Lymphocytes/100 WBC (Bld) 21.2 % Normal 20.5-60.0 [facility] Comment on above: Performed By: #### C BC #### [facility] [address] [place] [address] Escobar Josey MANUAL DIFF REQ NO Normal [facility] Comment on above: Performed By: #### C BC #### [facility] [address] [place], [place] [id number] Escobar Josey MCH (RBC) [Entitic mass] 30.6 pg Normal 26.7-34.[address] [facility] Comment on above: Performed By: #### C BC #### [facility] [address], [place] [address] Escobar Dowling MCHC (RBC) [Mass/Vol] 32.6 g/dL Normal 29.9-35.2 [facility] Comment on above: Performed By: #### C BC #### [facility] [address], [place] [address] Escobar Dowling MCV (RBC) [Entitic vol] 93.9 fL Normal 81.0-99.0 [facility] Comment on above: Performed By: #### C BC #### [facility] [address], [place] [address] Escobar Josey MONO # 1.0 103/ul Critically high 0.3-0.8 [facility] Comment on above: Performed By: #### C BC #### [facility] [address] [id number] Escobarbello Dowling Monocytes/100 WBC (Bld) 6.5 % Normal 1.7-12.0 [facility] Comment on above: Performed By: #### C BC #### [facility] [address] [id number] Escobar Josey NEUT # 10.7 103/ul Critically high 1.4-6.5 The [facility] Comment on above: Performed By: #### C BC #### [facility] [address] [id number] Escobar Dowling Neutrophils/100 WBC (Bld) 71.6 % Normal 43.0-75.0 [facility] Comment on above: Performed By: #### C BC #### [facility] [address], [place] [address] Escobarbello Dowling Platelet mean volume (Bld) [Entitic vol] 10.8 fL Normal 9.5-13.5 [facility] Comment on above: Performed By: #### C BC #### [facility] [address] [id number] Escobar Josey PLT 196 103/ul Normal 150-450 [facility] Comment on above: Performed By: #### C BC #### [facility] [address], [place] [address] Escobar Josey RBC 3.10 106/ul Critically low 4.20-5.40 [facility] Comment on above: Performed By: #### C BC #### [facility] [address] [place], [place] [address] Escobar Josey WBC 15.0 103/ul Critically high 4.0-11.0 [facility] Comment on above: Performed By: #### C BC #### [facility] [address] [place], [place] [id number] Escobar Josey CBC AUTO DIFFon 08-10-2020 BASO # 0.0 103/ul Normal 0.0-0.1 [facility] Comment on above: Performed By: #### C BC #### [facility] [address] [place] [address] Escobar Josey Basophils/100 WBC (Bld) 0.3 % Normal 0.2-2.[address] [facility] Comment on above: Performed By: #### C BC #### [facility] [address] [place] [address] Escobar Josey EO # 0.1 103/ul Normal 0.0-0.[address] [facility] Comment on above: Performed By: #### C BC #### [facility] [address] [place], [place] [address] Escobar Josey Eosinophils/100 WBC (Bld) 0.9 % Normal 0.9-7.[address] [facility] Comment on above: Performed By: #### C BC #### [facility] [address] [place] [address] Escobar Josey Erythrocyte distribution width (RBC) [Ratio] 14.6 % Normal 11.0-15.[address] [facility] Comment on above: Performed By: #### C BC #### [facility] [address] [place] [address] Escobar Josey Hematocrit (Bld) [Volume fraction] 35.3 % Critically low 36.0-48.[address] [facility] Comment on above: Performed By: #### C BC #### [facility] [address] [place] [address] Escobar Josey Hemoglobin (Bld) [Mass/Vol] 11.8 g/dL Critically low 12.0-16.[address] [facility] Comment on above: Performed By: #### C BC #### [facility] [address] [place] [address] Escobarbello Dowling IG # 0.06 10e3/ul Critically high 0.00-0.03 [facility] Comment on above: Performed By: #### C BC #### [facility] [address] [place] [address] Escobarbello Dowling IG % 0.4 % Normal 0.0-0.[address] [facility] Comment on above: Performed By: #### C BC #### [facility] [address] [place] [address] Escobarbello Dowling LYMPH # 2.8 103/ul Normal 1.2-3.8 [facility] Comment on above: Performed By: #### C BC #### [facility] [address] [place] [address] Escobar Dowling Lymphocytes/100 WBC (Bld) 21.0 % Normal 20.5-60.[address] [facility] Comment on above: Performed By: #### C BC #### [facility] [address] [place] [address] Escobar Dowling MANUAL DIFF REQ NO Normal [facility] Comment on above: Performed By: #### C BC #### [facility] [address] [place] [address] Escobar Dowling MCH (RBC) [Entitic mass] 30.6 pg Normal 26.7-34.[address] [facility] Comment on above: Performed By: #### C BC #### [facility] [address] [place] [address] Escobar Dowling MCHC (RBC) [Mass/Vol] 33.4 g/dL Normal 29.9-35.2 [facility] Comment on above: Performed By: #### C BC #### [facility] [address] [place] [address] Escobar Dowling MCV (RBC) [Entitic vol] 91.7 fL Normal 81.0-99.0 [facility] Comment on above: Performed By: #### C BC #### [facility] [address], [place] [address] Escobarbello Johnsonen MONO # 1.0 103/ul Critically high 0.3-0.8 [facility] Comment on above: Performed By: #### C BC #### [facility] [address], [place] [address] Escobar Johnsonen Monocytes/100 WBC (Bld) 7.3 % Normal 1.7-12.[address] [facility] Comment on above: Performed By: #### C BC #### [facility] [address], [place] [address] Escobar Josey NEUT # 9.4 103/ul Critically high 1.4-6.5 [facility] Comment on above: Performed By: #### C BC #### [facility] [address], [place] [address] Escobar Johnsonen Neutrophils/100 WBC (Bld) 70.1 % Normal 43.0-75.[address] [facility] Comment on above: Performed By: #### C BC #### [facility] [address], [place] [address] Escobar Dowling Platelet mean volume (Bld) [Entitic vol] 11.0 fL Normal 9.5-13.5 [facility] Comment on above: Performed By: #### C BC #### [facility] [address] [id number] Escobar Josey PLT 267 103/ul Normal 150-450 [facility] Comment on above: Performed By: #### C BC #### [facility] [address], [place] [address] Escobar Josey RBC 3.85 106/ul Critically low 4.20-5.40 [facility] Comment on above: Performed By: #### C BC #### [facility] [address], [place] [address] Escobar Josey WBC 13.4 103/ul Critically high 4.0-11.0 The [facility] Comment on above: Performed By: #### C BC #### [facility] [address] [place] [address] Escobar Dowling Covid-19 PCR (CVDTB)on 07-28 SARS-CoV-2 (COVID-19) RNA SEEMA+probe Ql (Unsp spec) Not detected Normal NOT DETECTED [facility] Comment on above: Result Comment: This test is not yet approved or cleared by the [place] FDA. When there are no FDA-approved or cleared tests available, and other criteria are met, FDA can make tests available under an emergency access mechanism called an Emergency Use Authorization (EUA). The EUA for this test is supported by the Kier Tender of Health and Human Service's (HHS's) declaration [...] SARS-CoV-2. Performed By: #### C VDTBH #### [facility] [address] [place] [address] Escobar Dowling DRUG SCREEN RAPID (URINE)on 08-10-2020 AMP Negative Normal NEGATIVE [facility] Comment on above: Performed By: #### D RUGRPD #### [facility] [address] [place] [address] Escobar Josey BAR Negative Normal NEGATIVE [facility] Comment on above: Performed By: #### D RUGRPD #### [facility] [address] [place] [address] Escobar Josey BUP Negative Normal NEGATIVE [facility] Comment on above: Performed By: #### D RUGRPD #### [facility] [address] [place] [address] Josey BZO Negative Normal NEGATIVE [facility] Comment on above: Performed By: #### D RUGRPD #### [facility] [address] [place] [address] Escobar Josey SHONA Negative Normal NEGATIVE [facility] Comment on above: Performed By: #### D RUGRPD #### [facility] [address] [place] [address] Escobar Josey CUT-OFFS SEE BELOW Normal [facility] Comment on above: Result Comment: [...] ng/mL Performed By: #### D RUGRPD #### [facility] Laboratory [address] [place] [address] Escobar Josey DRUG CUT HEADER DRUG CLASS TEST SYSTEM CUT-OFF CONCENTRATIONS ARE FOLLOWS: Normal [facility] Comment on above: Performed By: #### D RUGRPD #### [facility] Laboratory [address] [place] [address] Escobar Josey mAMP Negative Normal NEGATIVE [facility] Comment on above: Performed By: #### D RUGRPD #### [facility] Laboratory [address] [place] [address] Escobar Josey MTD Negative Normal NEGATIVE [facility] Comment on above: Performed By: #### D RUGRPD #### [facility] Laboratory [address] [place] [address] Escobar Josey OPI Negative Normal NEGATIVE [facility] Comment on above: Performed By: #### D RUGRPD #### [facility] [address] [place] [address] Escobar Josey OXY Negative Normal NEGATIVE [facility] Comment on above: Performed By: #### D RUGRPD #### [facility] [address] [place] [address] Escobar Dowling PCP Negative Normal NEGATIVE [facility] Comment on above: Performed By: #### D RUGRPD #### [facility] [address] [place] [address] Escobar Dowling PPX Negative Normal NEGATIVE [facility] Comment on above: Performed By: #### D RUGRPD #### [facility] [address] [place] [address] Escobar Josey TCA Negative Normal NEGATIVE [facility] Comment on above: Performed By: #### D RUGRPD #### [facility] [address] [place] [address] Escobar Josey THC Negative Normal NEGATIVE [facility] Comment on above: Performed By: #### D RUGRPD #### [facility] [address] [place] [address] Escobar Josey RAPID COVID-19 ANTIGENon EUA Statement SEE BELOW Normal [facility] Comment on above: Result Comment: This [...] sooner. Performed By: #### C VDAG #### [facility] Laboratory [address] [place], [place] [address]en SARS-CoV-2 (COVID-19) RNA SEEMA+probe Ql (Unsp spec) Negative Normal NEGATIVE [facility] Comment on above: Result Comment: Nega tive results are presumptive. They do not preclude infection and should not be used as the sole basis for treatment decisions. Additional confirmatory testing by a molecular method should be considered. Performed By: #### C VDAG #### [facility] Laboratory [address], [place] [address] Escobar Josey TYPE AND SCREENon 08-10-2020 TYPE AND SCREEN Negative Normal [facility] Comment on above: Performed By: #### T NS #### [facility] [address], [place] [address] Escobar Dowling Vital Signs Date Time Vital Sign Value Performing Clinician Facility 09-10-2024 09:34-0400 Body mass index (BMI) [Ratio] 34.33 kg/m2 Hattie LAND Work Phone: [facility] 09-10-2024 09:34-0400 Body weight 87.91 kg Hattie Vincent PA Work Phone: [facility] 09-10-2024 09:34-0400 Diastolic blood pressure 70 mm[Hg] Hattie Vincent PA Work Phone: [facility] 09-10-2024 09:34-0400 Systolic blood pressure 110 mm[Hg] Hattie Vincent PA Work Phone: [facility] 08-13-2024 09:44-0400 Body mass index (BMI) [Ratio] 37.73 kg/m2 Annia Ozzie DO Work Phone: [facility] 08-13-2024 09:44-0400 Body weight 96.62 kg Annia Ozzie DO Work Phone: [facility] 08-13-2024 09:44-0400 Diastolic blood pressure 76 mm[Hg] Annia Ozzie DO Work Phone: [facility] 08-13-2024 09:44-0400 Systolic blood pressure 122 mm[Hg] Annia Ozzie DO Work Phone: [facility] 06-13-2024 09:12-0400 Blood Pressure Location [facility] [place] 06-13-2024 09:12-0400 Diastolic blood pressure 88 mm[Hg] Kaylee Escudero [facility] 06-13-2024 09:12-0400 Heart rate 80 /min Kaylee Kena [facility] 06-13-2024 09:12-0400 Respiratory rate 18 /min Kaylee Kena [facility] 06-13-2024 09:12-0400 SaO2% (BldA) [Mass fraction] 98 % Kaylee Kena [facility] 06-13-2024 09:12-0400 Systolic blood pressure 128 mm[Hg] Kaylee Kena [facility] 03-12-2024 13:41-0500 Body mass index (BMI) [Ratio] 36.31 kg/m2 Annia Ozzie DO Work Phone: [facility] 03-12-2024 13:41-0500 Body weight 92.99 kg Annia Ozzie DO Work Phone: [facility] 03-12-2024 13:41-0500 Diastolic blood pressure 82 mm[Hg] Annia Ozzie DO Work Phone: [facility] 03-12-2024 13:41-0500 Systolic blood pressure 118 mm[Hg] Annia Ozzie DO Work Phone: [facility] 02-12-2024 14:14-0500 Body mass index (BMI) [Ratio] 36.49 kg/m2 Annia Ozzie DO Work Phone: [facility] 02-12-2024 14:14-0500 Body weight 93.44 kg Annia Ozzie DO Work Phone: [facility] 02-12-2024 14:14-0500 Diastolic blood pressure 70 mm[Hg] Annia Ozzie DO Work Phone: [facility] 02-12-2024 14:14-0500 Systolic blood pressure 118 mm[Hg] Annia Ozzie DO Work Phone: [facility] 11-14-2023 13:51-0400 Body height 160 cm Annia Ozzie DO Work Phone: [facility] 11-14-2023 13:51-0400 Body mass index (BMI) [Ratio] 37.52 kg/m2 Annia Ozzie DO Work Phone: [facility] 11-14-2023 13:51-0400 Body weight 96.07 kg Annia Ozzie DO Work Phone: [facility] 11-14-2023 13:51-0400 Diastolic blood pressure 80 mm[Hg] Annia Ozzie DO Work Phone: [facility] 11-14-2023 13:51-0400 Systolic blood pressure 130 mm[Hg] Annia Ozzie DO Work Phone: [facility] Healthcare Encounters Encounter Date Encounter Type Care Provider Facility Start: 09-18-2024 End: 09-18-2024 Clinisync Result Encounter Annia Ozzie DO Work Phone: [facility] External Department Unsolicited Start: 09-18-2024 End: 09-18-2024 Clinisync Result Encounter Annia Ozzie DO Work Phone: [facility] External Department Unsolicited Start: 09-16-2024 End: 09-16-2024 Clinisync Result Encounter Annia Ozzie DO Work Phone: [facility] External Department Unsolicited Start: 09-16-2024 End: 09-16-2024 Clinisync Result Encounter Annia Ozzie DO Work Phone: [facility] External Department Unsolicited Start: 09-10-2024 End: 09-10-2024 Bamboo flowsheet Hattie LAND Work Phone: [facility] Start: 09-10-2024 End: 09-10-2024 [...] Department Unsolicited Start: 07-19-2024 End: 07-19-2024 ambulatory WHEEL AND AXLE INSPECTOR Kaylee L Kena Facility:[facility] Start: 06-14-2024 End: 06-25-2024 Pre-admission assessment Kaylee L Kena [facility] Start: 06-13-2024 End: 06-13-2024 ambulatory WHEEL AND AXLE INSPECTOR Kaylee L Kena Facility:[facility] Start: 06-13-2024 End: 06-13-2024 Patient encounter procedure Kaylee L Kena [facility] [place] Start: 05-08-2024 End: 05-08-2024 ambulatory WHEEL AND AXLE INSPECTOR Kaylee L Kena Facility:[facility] Start: 05-03-2024 ambulatory WHEEL AND AXLE INSPECTOR Kaylee Kena Facilit y:[facility] Start: [...] Start: 12-27-2023 End: 12-27-2023 Clinisync Result Encounter Annai Ozzie DO Work Phone: [facility] [...] y Ozzie DO Work Phone: Start: 11-14-2023 SENIOR GAME ADVISOR INSERTION/REMOVA L OF CONTRACEPTIVE CAPSULE Annia Ozzie [...] Visit [facility] [address] [place] [address] Annia Horne, DO [address] [place] [address] [facility] Start: 12-03-2024 End: 12-03-2024 Patient encounter procedure 12/03/2024 9:30 AM EDT Office Visit [facility] [address] [place] [address] Bushra Zepeda, ODD PIECE CHECKER [address] [place] [address] [facility] Start: 10-28-2024 Influenza vaccination [facility] Start: 09-10-2024 End: 09-10-2024 Patient encounter procedure [facility] Comment on above: Arrived Start: 08-13-2024 End: 08-13-2024 Patient encounter procedure [facility] Comment on above: Arrived Start: 04-29-2024 End: 04-29-2024 Professional / ancillary services management 04/29/2024 8:00 AM EST Ancillary Procedure [facility] [address] [facility] [place] [phone] [facility] Start: 03-26-2024 End: 03-26-2024 Professional / ancillary services management 03/26/2024 8:00 AM EST Ancillary Procedure [facility] [address] [facility] [place] [address] [facility] Start: 03-12-2024 End: 03-12-2025 [...] EST Office Visit [facility] [address] [facility] [place] [address] Annia Horne, [address] [place], [place] [id number] [facility] Start: 02-12-2024 End: 02-12-2024 Patient encounter procedure [facility] Comment on above: Arrived Start: 10-29-2023 Influenza vaccination Influenza Vacc ine (#1) [facility] CBC W Auto Different ial panel - Blood CBC and differential Lab Routine PCOS (polycystic ovarian syndrome) Ordered: 03/12/[address] [facility] Comment on above: Ordered: 03/12/2024 Cytology Cervical or vaginal smear or scraping study Pap Smear Pathology and Cytology Routine Well woman exam with routine gynecological exam Ordered: 02/12/[address] [facility] Work Phone: Comment on above: Ordered: 02/12/2024 DHEA-sulfate DHEA-sulfate Lab Routine PCOS (polycystic ovarian syndrome) Ordered: 03/12/[address] [facility] Comment on above: Ordered: 03/12/2024 Follicle stimulating hormone Follicle stimulating hormone Lab Routine PCOS (polycystic ovarian syndrome) Ordered: 03/12/[address] [facility] Comment on above: Ordered: 03/12/2024 hCG, quantitative, hCG, quantitative, Lab Routine PCOS (polycystic ovarian syndrome) Ordered: 03/12/[address] [facility] Work Phone: Comment on above: Ordered: 03/12/2024 Hemoglobin A1c/Hemoglobin.total in Blood Hemoglobin A1c Lab Routine Insulin resistance Ordered: 03/12/[address] [facility] Comment on above: Ordered: 03/12/2024 Luteinizing hormone Luteinizing hormone Lab Routine PCOS (polycystic ovarian syndrome) Ordered: 03/12/[address] [facility] Comment on above: Ordered: 03/12/2024 Removal non-biodegradable drug delivery implant Remove drug implant device Procedures Routine Encounter for removal of etonogestrel implant Ordered: 11/14/[address] [facility] Work Phone: Comment on above: Ordered: 11/14/2023 Thyrotropin [Units/volume] in Serum or Plasma TSH Lab Routine PCOS (polycystic ovarian syndrome) Ordered: 03/12/[address] [facility] Comment on above: Ordered: 03/12/2024 Thyroxine (T4) free [Mass/volume] in Serum or Plasma T4, free Lab Routine PCOS (polycystic ovarian syndrome) Ordered: 03/12/[address] [facility] Comment on above: Ordered: 03/12/2024 Payers Date Payer Category Payer Medicaid [id number] 2023 Private Health Insurance [facility] [id number] 1996 Unknown [id number] 2.16.84 [id number] 1996 Unknown [id number] 2.16.84 [id number] 1996 Unknown [id number] 2.16.84 [id number] 1996 Unknown [id number] 2.16.84 0.1.932338.3.579.2.593 1996 Unknown [id number] 2.16.8 40.1.543545.3.579.2.727 1996 Unknown [id number] 2.16.8 40.1.126742.3.579.2.727 1996 Unknown [id number] 2.16.8 40.1.436887.3.579.2.727 1996 Unknown [id number] 2.16.8 40.1.136495.3.579.2.727 1996 Unknown [id number] 2.16.8 40.1.009432.3.579.2.1259 1996 Unknown [id number] 2.16.8 40.1.832646.3.579.2.1259 1996 Unknown [id number] 2.16.84 0.1.321559.3.579.2.1259 1996 Unknown [id number] 2.16.84 0.1.792007.3.579.2.1259 1996 Unknown [id number] 2.16.84 0.1.206817.3.579.2.1259 1959 Unknown [id number] Social History Date Type Detail Facility [facility] Healthcare Start: 1995 Sex assigned at Not on file [facility] Gender identity Not on file [facility] Start: 06-13-2024 Tobacco smoking status Smoker (findi ng) [facility] Sexual Orientation [facility] Sex Female (finding) [facility] Functional Status Date Assessment Result Facility 06-13-2024 Functional Status N/A [facility] Clinical Notes 08-10-2020 to 09-10-2024 Mery Chowdary, VACUUM FRAME OPERATOR - 09/10/2024 9:30 AM Artur Giordano, VACUUM FRAME OPERATOR - 08/13/2024 9:20 AM Artur Giordano, VACUUM FRAME OPERATOR - 03/12/2024 1:40 PM ESTShelder Gan, [facility] - 02/12/2024 1:40 PM EST Note Date [...] Mery Chowdary LPN on behalf of EMERY Pirnce documented in this encounter [facility] 08-13-2024 History of Present illness Narrative Reason [...] nursing note reviewed. Exam conducted with a almond huller present. Assessment/Plan Encounter Diagnosis Name Primary? Menstrual [...] Annia Horne DO documented in this encounter [facility] 03-12-2024 History of Present illness Narrative Reason [...] nursing note reviewed. Exam conducted with a almond huller present. Vitals: Estimated body mass index is [...] Annia Horne DO documented in this encounter [facility] 02-12-2024 History of Present illness Narrative Reason [...] nursing note reviewed. Exam conducted with a almond huller present. Vitals: Estimated body mass index is [...] Annia Horne DO documented in this encounter [facility] 11-14-2023 History of Present illness Narrative Associated [...] nursing note reviewed. Exam conducted with a almond huller present. Vitals: Estimated body mass index is [...] Annia Horne DO documented in this encounter [facility] 08-10-2020 Note OPERATIVE NOTE OPERATION DATE: 08-10-20 ANESTHETIC:Spinal with Duramorph. DIRECTOR GIFT:ANJALI Vargas PREOPERATIVE DIAGNOSIS: 1. Intrauterine at 40 [...] to the Recovery Room in stable condition. [facility] Signed and Approved by: DR ANNIA HORNE . 2020 15:48:[address] [facility] 08-10-2020 Note DISCHARGE SUMMARY Discharge Date: 08-13-20 [...] Tylenol, any abdominal pain unrelieved with narcotics. [facility] Signed and Approved by: DR ANNIA HORNE . 09/01/2020 14:08:[address] [facility] Evaluation + Plan note Future Appointments Appointment Date:07/19/2024 10:45:00 AM Scheduled Provider:Johanna Juarez MD Location:[facility] Appointment Type:Pulmonary New Patient ([facility]) [facility] Evaluation note Diagnosis Nexplanon removal Encounter for removal of etonogestrel implant [facility] Diagnosis Well woman exam with routine gynecological exam Routine gynecological examination documented in this encounter [facility]* Diagnosis Encounter for fertility planning PCOS (polycystic ovarian syndrome) Polycystic ovaries Insulin resistance Other abnormal glucose documented in this encounter [facility] HealthcareEvaluation note* Diagnosis Menstrual periods irregular Irregular menstrual cycle Encounter for weight management documented in this encounter [facility]* Diagnosis Encounter for weight management documented in this encounter [facility] HealthcareHospital course Narrative No data available for this section [facility] Hospital Discharge instructions No data available for this section [facility] Progress note No data available for this section [facility] Summary Purpose Family History No Family History Records Found No data available for this section No data available for this section No Family History Records FoundNo Family History Records Found Advance Directives No Advanced Directives Records FoundNo Advanced Directives Records FoundNo Advanced Directives Records Found Additional Source Comments INFORMATION SOURCE (unrecogn ized section and content) DATE CREATED AUTHOR 07/21/2021 [facility] DATE CREATED AUTHOR AUTHOR'S ORGANIZ ATION 07/31/2024 [facility] DATE CREATED AUTHOR AUTHOR'S ORGANIZ ATION 09/14/2024 [facility] Care Teams (unrecognized sec tion and content) Venture Capitalist Relationship Specialty Start Date End Date Shaikh Almanzar MD [address] [place] [phone] PCP - General Internal Medicine 01/02/23 Venture Capitalist Relationship Specialty Start Date End Date Shaikh Almanzar MD [address] [place] [phone] PCP - General Internal Medicine 01/02/23 Venture Capitalist Relationship Specialty Start Date End Date Shaikh Almanzar MD [address] [place] [phone] PCP - General Internal Medicine 01/02/23 Venture Capitalist Relationship Specialty Start Date End Date Shaikh Almanzar MD [address] [place] [address] PCP - General Internal Medicine 01/02/23 Venture Capitalist Relationship Specialty Start Date End Date Shaikh Almanzar MD [address] [place] [address] PCP - General Internal Medicine 01/02/23 Venture Capitalist Relationship Specialty Start Date End Date Shaikh Almanzar MD [address] [place] [address] PCP - General Internal Medicine 01/02/23 Venture Capitalist Relationship Specialty Start Date End Date Shaikh Almanzar MD [address] [place] [address] PCP - General Internal Medicine 01/02/23 Venture Capitalist Relationship Specialty Start Date End Date Shaikh Almanzar MD [address] [place] [address] PCP - General Internal Medicine 01/02/23 Venture Capitalist Relationship Specialty Start Date End Date Shaikh Almanzar MD [address] [place] [address] PCP - General Internal Medicine 01/02/23 Reason [...] BE BASED ON THE PRIMARY CLINICAL RECORDS. [facility] [employer] [facility]. provides no warranty or guarantee of the accuracy or completeness of information in this document.
== END 2024-09-22 08:24 | disposition home or self-care (01) ==
PROVIDERS: PCP Nurse Practitioner; Visit Provider Emergency Medicine
DX: O20.0 Threatened abortion (principal)
CPT/HCPCS: 36415; 84702

== ENCOUNTER 2024-10-01 07:55 | Outpatient (RCR) | payer MEDICAID, SELFPAY | END 2024-10-26 23:59 | disposition home or self-care (01) | LOC: LAB 07:55 | PROVIDERS: PCP Nurse Practitioner; Visit Provider Obstetrics & Gynecology | DX: N92.6 Irregular menstruation, unspecified (principal) | CPT/HCPCS: 36415; 84702 ==

== ENCOUNTER 2024-11-19 08:23 | Outpatient (RCR) | payer MEDICAID, SELFPAY | END 2024-11-27 08:09 | disposition home or self-care (01) | LOC: LAB 08:23 | PROVIDERS: PCP Nurse Practitioner; Visit Provider Obstetrics & Gynecology | DX: Z32.01 Encounter for pregnancy test, result positive (principal); Z51.81 Encounter for therapeutic drug level monitoring | CPT/HCPCS: 36415; 84702 ==

== ENCOUNTER 2024-12-23 09:01 | Outpatient (RCR) | payer MEDICAID, SELFPAY | END 2024-12-30 12:00 | disposition home or self-care (01) | LOC: LAB 09:01 | PROVIDERS: PCP Nurse Practitioner; Visit Provider Obstetrics & Gynecology | DX: Z51.81 Encounter for therapeutic drug level monitoring (principal); Z32.01 Encounter for pregnancy test, result positive | CPT/HCPCS: 36415; 84702 ==

== ENCOUNTER 2025-01-06 13:05 | Outpatient (OUT) | payer MEDICAID, SELFPAY ==
--- OUTSIDE RECORDS SUMMARY | 2025-01-06 13:08 | XMS_ITS | Encounter Summary ---
Author Organization [facility] Address [address] [place] [address] Care Team Providers Care Sewing Machinist Name Role Phone Shaikh CRISTA Almanzar Primary Care Provider [phone] Encounter Details DateTypeDepartmentCare Team (Latest Contact Info)Wmqsxbeavfh33/27/2025linisync Result Encounter [facility] External Department Unsolicited Chauncey Horne, DO [address] [place], [facility] Social History Tobacco UseTypesPacks/DayYears UsedDateSmoking Tobacco: Never Assessed CommentsUnknownSex and Gender InformationValueDate RecordedSex Assigned at Not on fileLegal GevChiooy63/15/2023 11:47 PM EDTGender IdentityNot on file Sexual OrientationNot on filedocumented as of this encounter Plan of Treatment DateTypeDepartmentCare Team (Latest Contact Info)Povlnvgfmbw67/25/2025 1:40 PM ESTOffice Visit ANGELA MENESES [facility] [employer] [place] [address] Chauncey Horne DO [address] [place], [facility] 02/17/2025 2:00 PM ESTOffice Visit ANGELA MENESES [facility] [employer] [place] [place] [address] Chauncey Horne, DO [address] [place] [address] documented as of this encounter Procedures Procedure NamePriorityDate/TimeAssociated DiagnosisCommentsTBH PREG QUANT HCG Gyzbugw5912/23/2024 9:18 AM EDT documented in this encounter Results * [facility] PREG QUANT HCG (12/23/2024 9:18 AM EDT)ComponentValueRef RangeTest Method Analysis TimePerformed AtPathologist SignatureHCG QUANTITATIVE<1mIU/mLTBH Comment: 5-50 ? 0.2-1 WEEK 50-500 ? 1-2 WEEKS 100-5,000 ?2-3 WEEKS 500-10,000 ? 3-4 WEEKS 1,000-50,000 ?? 4-5 WEEKS 10,000-100,000 5-6 WEEKS 15,000-200,000 6-8 WEEKS 10,000-100,000 2-3 MONTHS Specimen (Source)Anatomical Location / LateralityCollection Method / Volume Collection TimeReceived Time12/23/2024 9:18 AM EDT1 9:19 AM EDT Narrative [facility] - 12/23/2024 10:16 AM EDT Authorizing ProviderResult TypeResult StatusCorey Ozzie DOCLINISYNCFinal Result Performing OrganizationAddressCity/State/ZIP CodePhone Number CLINISYNC [facility] documented in this encounter Visit Diagnoses Not on filedocumented in this encounter Care Teams Team MemberRelationshipSpecialtyStart DateEnd Date Shaikh Almanzar MD [address] [place] [phone] PCP - GeneralInternal Awdvmmro97/6/23documented as of this encounter
--- OUTSIDE RECORDS SUMMARY | 2025-01-06 13:08 | XMS_ITS | Encounter Summary ---
Author Organization [facility] Address [address] [place] [address] Care Team Providers Care Medical Assembler Name Role Phone Shaikh CRISTA Almanzar Primary Care Provider [phone] Encounter Details DateTypeDepartmentCare Team (Latest Contact Info)Akruztjxkdi42/05/2025Telephone [facility] [place] [address] [facility] [place] [address] Chauncey Horne DO [address] [facility] [address] [place], [facility] Social History Tobacco UseTypesPacks/DayYears UsedDateSmoking Tobacco: Never Assessed CommentsUnknownSex and Gender InformationValueDate RecordedSex Assigned at Not on fileLegal UirNpkdnq28/15/2023 11:47 PM EDTGender IdentityNot on file Sexual OrientationNot on filedocumented as of this encounter Miscellaneous Notes * Telephone Encounter - Mery SUSANA Chowdary - 01/01/2025 11:05 AM EST I was just calling my cycle according to my negrito I am 3 days late. Um, so if you just give me a callback because I really am not sure like what to do now if I need to make an appointment with Ozzie just to see if everything is Like, okay, I think just give me a call back at [phone]. Thank you. Patient call was returned and she was advised that we do usually wait a week until after a missed cycle will have her do a home test and call the office and advised on results and that way we can move forward. PVU. documented in this encounter Plan of Treatment DateTypeDepartmentCare Team (Latest Contact Info)Hszhcejsvgj80/25/2025 1:40 PM ESTOffice Visit NOMEne MENESES [address] [place] [address] [place] [address] Chauncey Horne, [address] [facility] [place] [address] 02/17/2025 2:00 PM ESTOffice Visit NOMEne MENESES [address] [place] [address] [place] [phone] Chauncey Horne, [address] [facility] [address] [place], [place] [phone] documented as of this encounter Visit Diagnoses Not on filedocumented in this encounter Care Teams Team MemberRelationshipSpecialtyStart DateEnd Date Shaikh Almanzar MD [address] [place] [address] PCP - GeneralInternal Roouuyxc70/6/23documented as of this encounter
--- OUTSIDE RECORDS SUMMARY | 2025-01-06 13:08 | XMS_ITS | Encounter Summary ---
Author Organization [facility] Address [address] [place] [address] Care Team Providers Care Production Assembly Operator Name Role Phone Shaikh CRISTA Almanzar Primary Care Provider [phone] Encounter Details DateTypeDepartmentCare Team (Latest Contact Info)Ptympxypllw47/22/2025Telephone [facility] [address] [place] [address] Paloma Patel MA Social History Tobacco UseTypesPacks/DayYears UsedDateSmoking Tobacco: Never Assessed CommentsUnknownSex and Gender InformationValueDate RecordedSex Assigned at Not on fileLegal RlqPiieay42/15/2023 11:47 PM EDTGender IdentityNot on file Sexual OrientationNot on filedocumented as of this encounter Miscellaneous Notes * Telephone Encounter - Shanon Gan LPN - 12/19/2024 8:34 AM EDT Spoke with patient in regards to request for lab work. Advised patient that this would need to be cleared through provider as patient is not late for her cycle at this time. Informed patient that based on her cycle she is due to start 12/24/24 & labs are not normally ordered until after a week late for cycle. PVU and will await call back. Shanon Castellon LPN 12/23/24--Dr. Horne advised that he spoke with patient and discussed lab work. Shanon Castellon LPN * Telephone Encounter - Paloma Patel MA - 12/18/2024 11:02 AM EDT Pt called requesting an hCG test to confirm due to a delayed menstrual cycle. Pt reports symptoms of nausea, breast tenderness, and fatigue. Pt states symptoms are not related to illness, noting that ???nobody is sick in my house.?? Pt transferred to Shanon Castellon for further discussion. documented in this encounter Plan of Treatment DateTypeDepartmentCare Team (Latest Contact Info)Cbihvxqxjdj60/25/2025 1:40 PM ESTOffice Visit [facility] [address] [place] [address] Chauncey Horne, DO [address] [facility] [address] [place], [facility] 02/17/2025 2:00 PM ESTOffice Visit [facility] [address] [place] [address] Chauncey Horne, DO [address] [facility] [address] [place] [place], [place] [id number] documented as of this encounter Visit Diagnoses Not on filedocumented in this encounter Care Teams Team MemberRelationshipSpecialtyStart DateEnd Date Shaikh Almanzar MD [address] [place] [address] PCP - GeneralInternal Gttnwxsm56/6/23documented as of this encounter
--- OUTSIDE RECORDS SUMMARY | 2025-01-06 13:08 | XMS_ITS | Encounter Summary ---
Author Organization [facility] Address [address] [facility] [place] [address] Care Team Providers Care Visual Education Director Name Role Phone Shaikh CRISTA Almanzar Primary Care Provider [phone] Encounter Details DateTypeDepartmentCare Team (Latest Contact Info)Wnuujjkfqeu62/10/2025Telephone [facility] [address] [facility] [place] [address] Paloma Patel MA Social History Tobacco UseTypesPacks/DayYears UsedDateSmoking Tobacco: Never Assessed CommentsUnknownSex and Gender InformationValueDate RecordedSex Assigned at Not on fileLegal QhtZhavth35/15/2023 11:47 PM EDTGender IdentityNot on file Sexual OrientationNot on filedocumented as of this encounter Miscellaneous Notes * Telephone Encounter - Paloma Patel MA - 01/06/2025 10:30 AM EST Pt called in stating she is now about 8 days late for her cycles. Pt states she did take UPT but isunsure if it is an indent line or a faint line. Pt is requesting hCG to be drawn. Per Shanon varner blood work for a total of 1 lab draw. If blood work comes back positive we will order anotherhCG level. Pt verbalizes understanding. Order faxed to [facility] documented in this encounter Plan of Treatment DateTypeDepartmentCare Team (Latest Contact Info)Zrrqfxzximw36/25/2025 1:40 PM ESTOffice Visit N[facility] M[facility] [address] [place] [address] [place] [phone] Chauncey Horne, [address] [facility] [place] [address] 02/17/2025 2:00 PM ESTOffice Visit [facility] [address] [facility] [place] [phone] Chauncey Horne, DO [address] [facility] [address] [place], [place] [id number] NameTypePriorityAssociated DiagnosesOrder SchedulehCG, quantitative, LabRoutine Positive urine test ([facility]) Expected: 01/06/2025 (Approximate), Expires: 07/06/2025documented as of this encounter Visit Diagnoses Diagnosis Positive urine test ([facility]) documented in this encounter Care Teams Team MemberRelationshipSpecialtyStart DateEnd Date Shaikh Almanzar MD [address] [place] [address] PCP - GeneralInternal Fgxqzvnc54/6/23documented as of this encounter
--- OUTSIDE RECORDS SUMMARY | 2025-01-06 13:08 | XMS_ITS | Clinical Summary ---
Author Organization [facility] Address [address] [facility] [place] [address] Care Team Providers Care Fuel Management Handler Name Role Phone Shaikh CRISTA Almanzar Primary Care Provider [phone] Allergies Active AllergyReactionsCriticalityNoted BhwyUbagayzaIpsokjlfvfHrsbn28/17/2024 Other Reaction(s): Skin irritation Medications MedicationSigDispense QuantityRefillsLast FilledStart DateEnd DateStatus w/o A Vit-Fe Fum-FA (PRENATA PO) Take by mouthActive metFORMIN XR (Glucophage-XR) 500 MG 24 hr tablet Indications:PCOS (polycystic ovarian syndrome)Take 1 tablet (500 mg) by mouth in the evening. Take with meals Do not crush, chew, or split. 90 tablet /6Active Albuterol-Budesonide (Airsupra) 90-80 MCG/ACT aerosol Inhale 2 Inhalations if needed (WHEEZING)5Active Multiple Vitamin (multivitamin) tablet Take 1 tablet by mouth DailyActive phentermine (Adipex-P) 37.5 MG tablet Indications:Encounter for weight managementTake 1 tablet (37.5 mg) by mouth in the morning. Take before meals. 90 tablet /6Active Active Problems ProblemNoted DateDiagnosed DateWell woman exam with routine gynecological exam 02/12/2024 Encounters DateTypeDepartmentCare EieeSoanmbwukzb31/10/2025Telephone [facility] [address] [facility] [place] [phone] Paloma Patel MA 01/01/2025Telephone [facility] [address] [facility] [place] [address] Chauncey Horne, DO 12/23/2024linisync Result Encounter [facility] External Department Unsolicited Chauncey Horne, DO 12/18/2024Telephone [facility] [address] [facility] [place] [address] Paloma PatelWYKOFF, MA 12/03/2024 9:30 AM EDTOffice Visit [facility] [address] [facility] [place] [address] Bushra Zepeda, ADRIAN Encounter for weight /07/2025amboo flowsheet [facility] [address] [facility] [place] [address] Bushra Zepeda, ADRIAN 11/26/20245949Qjwlzz01/23/2025linisync Result Encounter [facility] External Department Unsolicited Chauncey Horne, DO 11/18/2024Telephone [facility] [address] [facility] [place] [address] Chauncey Horne, DO 10/31/2024Telephone [facility] [address] [facility] [place] [address] Paloma Patel ND 10/22/2024linisync Result Encounter [facility] External Department Unsolicited Chauncey Horne, DO 10/22/2024Orders Only [facility] [address] [facility] [place] [address] Shanon Gan LPN Menstrual periods tdzconlts69/12/2025Telephone [facility] [address] [facility] [place] [address] Akila Medrano LPN 10/08/2024linisync Result Encounter [facility] External Department Unsolicited Chauncey Horne DO from Last 3 Months Social History Tobacco UseTypesPacks/DayYears UsedDateSmoking Tobacco: Never Assessed CommentsUnknownSex and Gender InformationValueDate RecordedSex Assigned at Not on fileLegal IegZdxgmu17/15/2023 11:47 PM EDTGender IdentityNot on file Sexual OrientationNot on file Last Filed Vital Signs Vital SignReadingTime TakenCommentsBlood Zevrvyug388/7012/03/2024 9:37 AM EDT Pulse--Temperature--Respiratory Rate--Oxygen Saturation--Inhaled Oxygen Concentration--Uftefq31.9 kg (171 lb 12.8 oz)12/03/2024 9:37 AM JDYNnnfah234 cm (5' 3 )11/14/2023 1:51 PM EDTBody Mass Index30.4309 1:51 PM EDT Plan of Treatment DateTypeDepartmentCare Team (Latest Contact Info)Cukntzgfquy75/25/2025 1:40 PM ESTOffice Visit [facility] [address] [place] [address] [place] [phone] Chauncey Horne DO [address] [place] [address] [place] [address] 02/17/2025 2:00 PM ESTOffice Visit [facility] [address] [place] [address] [place] [phone] Chauncey Horne DO [address] [place] [address] [place] [address] Health MaintenanceDue DateLast DoneCommentsCOVID-19 Vaccine (2024- season) /Influenza Vaccine (#1)2024Pneumococcal Vaccine: Pediatrics (0 to 5 Years) and At-Risk Patients (6 to 64 Years)Aged OutNo longer eligible based on patient's age to complete this topic Procedures Procedure NamePriorityDate/TimeAssociated DiagnosisCommentsTBH PREG QUANT HCG Txqchkm3212/23/2024 9:18 AM EDT [facility] PREG QUANT LHRWgztmgf37/23/2025 8:29 AM EDT [facility] PREG QUANT AHBHzvbokj42/26/2025 1:30 PM EDT [facility] PREG QUANT CXOFnljlyr78/12/2025 8:39 AM EDT from Last 3 Months Results * [facility] PREG QUANT HCG (12/23/2024 9:18 AM EDT) Only the most recent of4 resultswithin the time period is included. ComponentValueRef RangeTest MethodAnalysis TimePerformed AtPathologist Signature HCG QUANTITATIVE<1mIU/mLTBHComment: 5-50 ? 0.2-1 WEEK 50-500 ? 1-2 [...] Result Performing OrganizationAddressCity/State/ZIP CodePhone Number [facility] from Last 3 Months Insurance Care Teams Team MemberRelationshipSpecialtyStart DateEnd Date Shaikh Almanzar MD [address] [place] [phone] PCP - GeneralInternal Bkijgxqg39/6/23
--- OUTSIDE RECORDS SUMMARY | 2025-01-06 13:26 | XMS_ITS | CCD ---
Author Organization [facility] Care Team Providers Care Point Of Care Technician Name Role Phone REQUEST, DR NONE LISTED Primary Care Unavaila ble OZZIE, DR MILNER Attending Unavailable OZZIE, DR MILNER Admitting Unavailable REQUEST, NONE LISTED Primary Care Unavaila ble OZZIE, DR MILNER Attending Unavailable OZZIE, DR MILNER Consulting Unavailable OZZIE, DR MILNER Admitting Unavailable OZZIE, DR MILNER Consulting Unavailable OZZIE, DR MILNER Admitting Unavailable OZZIE, DR MILNER Attending Unavailable REQUEST, DR NONE LISTED Primary Care UnavailJOVANI Correa Consulting Unavailable DICK HO Consulting Unavailable OZZIE, DR MILNER Procedure Practitioner Unavailab le REQUEST, NONE LISTED Primary Care Unavaila JUAN RAMON Goss Admitting Unavailable EMERY VINCENT Consulting Unavailable JUAN RAMON ELLISON Attending Unavailable JUAN RAMON ELLISON Consulting Unavailable Jovani Pulliam Consulting Unavailable Shaikh Almanzar MD Primary Care Provider Kaylee Escudero Primary Care Physician Kaylee Escudero Attending Unavailable JOSE PARTIDA Attending Unavailable Kaylee Escudero Attending Unavailable Kaylee Escudero Referring Unavailable Johanna Juarez Attending Unavailable Shaikh Almanzar MD Primary Care Provider ANNIA HORNE Attending Unavailable HATTIE VINCENT Attending Unavailable ANNIA HORNE Attending Unavailable ANNIA HORNE Attending Unavailable ANNIA HORNE Attending Unavailable BUSHRA ZEPEDA Attending Unavailable Shaikh Almanzar MD Primary Care Provider [phone] Allergies Allergy ClassificationReported Allergen(s)Allergy TypeDate of OnsetReaction(s) Facility (20 sources)Prednisone; Translations: [predniSONE]Propensity to adverse [id number] Healthcare Work Phone: (2 sources)predniSONE; Translations: [prednisone]Drug AllergySkin irritation (disorder), Urticaria (disorder)[facility] (3 sources)AlbuterolDrug Chhvlom81-91-9805VZRW Healthcare Medications Current Medications MedicationDrug Class(es)DatesSig (Normalized)Sig (Original)Albuterol-Budesonide (Airsupra) 90-80 MCG/ACT aerosol (3 sources)Start: 37-39-7581Lvqjtcjfq-Budesonide (Airsupra) 90-80 MCG/ACT aerosol Inhale 2 Inhalations if needed (WHEEZING) 06/13/2024 Yflpcp45 hr metFORMIN hydrochloride 500 mg extended release oral tablet (20 sources)BiguanideStart: 10-31-2024 End: 49-76-9719mtlb 1 tablet by mouth every twenty-four hours at mealtime metFORMIN XR (Glucophage-XR) 500 MG 24 hr tablet Indications: PCOS (polycystic ovarian syndrome) Take 1 tablet (500 mg) by mouth in the evening. Take with meals Do not crush, chew, or split. 90 tablet 3 10/31/2024 10/26/2025 Active Start: 03-12-2024 End: 72-57-7562nnks 1 tablet by mouth every twenty-four hours at mealtime metFORMIN XR (Glucophage-XR) 500 MG 24 hr tablet Indications: Insulin resistance Take 1 tablet (500mg) by mouth in the evening. Take with meals Do not crush, chew, or split. 30 tablet 11 03/12/2024 09/23/2024 DiscontinuedMultiple Vitamin (multivitamin) tablet (3 sources)take 1 tablet by mouth once dailyMultiple Vitamin (multivitamin) tablet Take 1 tablet by mouth Daily Activephentermine hydrochloride 37.5 mg oral tablet (13 sources)Sympathomimetic Amine AnorecticStart: 08-13-2024 End: 66-61-8716ykyc 1 tablet by mouth before mealtimephentermine (Adipex-P) 37.5 MG tablet Indications: Encounter for weight management Take 1 tablet (37.5 mg) by mouth in the morning. Take before meals. 90 tablet 12/03/2024 03/03/2025 ActivePrenatal w/o A Vit-Fe Fum-FA (PRENATA PO) (20 sources) w/o A Vit-Fe Fum-FA (PRENATA PO) Take by mouth Active Completed/Discontinued Medications MedicationDrug Class(es)DatesSig (Normalized)Sig (Original)[id number] 200 actuat albuterol 0.09 mg/actuat metered dose inhaler (12 sources)beta2-Adrenergic AgonistStart: 04-18-2023 End: 83-67-6927xwdd 2 puff(s) by inhalation four times daily as needed for wheezingalbuterol HFA 90 mcg/act inhaler INHALE 2 PUFFS 4 TIMES A DAY NEEDED FOR SHORTNESS OF BREATH OR WHEEZING 04/18/2023 08/13/2024 Discontinued (Therapy completed)200 actuat ipratropium bromide 0.017 mg/actuat metered dose inhaler (4 sources)AnticholinergicStart: 04-22-2024 End: 36-10-6065lila 2 puff(s) by mouth every six hours as needed for wheezing Atrovent HFA 17 MCG/ACT inhaler Indications: SOB (shortness of breath) INHALE 2 PUFFS BY MOUTH EVERY 6 HOURS NEEDED FOR SHORTNESS OF BREATH OR WHEEZING 12.9 g 04/22/2024 08/13/2024 Discontinued (Therapy completed) Problems Active Problems Problem ClassificationProblemDateDocumented DateEpisodic/Chronic Administrative/social admission (5 sources)Patient encounter status; Translations: [Persons encountering health services in other specified circumstances]82-86-3218HxawrwyaMgaewt (3 sources)Unspecified asthma, uncomplicated; Translations: [Asthma]Onset: [id number] and procreative management (4 sources)Subcutaneous contraceptive implant present; Translations: [Encounter for surveillance of implantable subdermal contraceptive]56-78-5768DwjuyawfV Codes: Struck by; against (1 source)Walked into furniture, initial encounter; Translations: [WALKED INTO FURNITURE INITIAL ENC]Onset: 18-92-8750ZrhdgrjbBuwfdrrd of lower limb (1 source)Nondisplaced fracture of proximal phalanx of left lesser toe(s), initial encounter for closed fracture; Translations: [NDSPL FX HI PHAL LT LSR TOE INIT CL]Onset: 45-68-1653RlitldzxVpclwmspay during ; abruptio placenta; placenta previa (2 sources)Threatened miscarriage; Translations: [Threatened ]09-23-2024 EpisodicImmunizations and screening for infectious disease (1 source)Encounter for screening for human papillomavirus (HPV); Translations: [ENC SCREENING HUMAN PAPILLOMAVIRUS]Onset: 09-82-3835DshpywqaMrgbdwwke disorders (2 sources)Irregular periods; Translations: [Irregular menstruation, unspecified]56-65-5530BhijpoeSqsah complications of ; puerperium affecting management of mother (1 source)Obesity complicating childbirth; Translations: [OBESITY COMPLICATING CHILDBIRTH]Onset: 96-58-2524SfckeslGqsdn connective tissue disease (3 sources)Pain in left toe(s); Translations: [PAIN IN LEFT TOES]Onset: 21-99-9181FxzdivmdRauxo endocrine disorders (2 sources)Polycystic ovary syndrome; Translations: [Polycystic ovarian syndrome]68-20-7410JvcfhotTmphe nutritional; endocrine; and metabolic disorders (1 source)Obesity, unspecified; Translations: [OBESITY UNSPECIFIED]Onset: 15-61-3180EqxhcovHnuof nutritional; endocrine; and metabolic disorders (2 sources)Insulin resistance; Translations: [Insulin resistance]03-12-2024 ChronicOther nutritional; endocrine; and metabolic disorders (1 source)Obese class II; Translations: [Body mass index (BMI) 36.0-36.9, adult] Onset: 10-84-2221FlyozksBwdly screening for suspected conditions (not mental disorders or infectious disease) (4 sources)Encounter for screening for malignant neoplasm of cervix; Translations: [ENC SCREENING MALIG NEOPLASM CERV]Onset: 89-53-5054Htznnmkt Substance-related disorders (4 sources)Nicotine dependence, cigarettes, uncomplicated; Translations: [Nicotine dependence]Onset: 80-87-4880OyqmzicNgzgkmx on above:Added secondary to documentation in Social History.Unclassified (1 source)CONTACT W/AND (SUSP) EXPOS COVID-19; Translations: [CONTACT W/AND (SUSP) EXPOS COVID-19]Onset: 09-03-2020 Past or Other Problems Problem ClassificationProblemDateDocumented DateEpisodic/ChronicFetopelvic disproportion; obstruction (1 source)Obstructed labor due to maternal pelvic abnormality, unspecified; Translations: [OBST LABR D/T MAT PELVIC ABNORM UNS]Onset: 15-75-7836Pbcudcew Other aftercare (1 source)Other alf (current) drug therapy; Translations: [OTH RESIDENTIAL CURRENT DRUG THERAPY]Onset: 46-17-7711ZcnumaurMxmlr complications of ; puerperium affecting management of mother (3 sources)Diseases of the respiratory system complicating childbirth; Translations: [DISEASES RESP SYS COMP CHILDBIRTH]Onset: 67-85-7258JkrumcmsAgjxl complications of ; puerperium affecting management of mother (1 source)Abnormality in heart rate and rhythm complicating labor and delivery; Translations: [ABN FETLHEART RATE RHYTHM COMP L AND D]Onset: 79-97-0877ErhuvicvYscli and delivery including normal (5 sources)Encounter for routine follow-up; Translations: [Single live ]Onset: 15-27-6508QyakmwkcAkyzcoyo codes; unclassified (1 source)39 weeks gestation of ; Translations: [39 WEEKS GESTATION OF ]Onset: 77-83-8190EgqpaorwMomfgpjlq and history of mental health and substance abuse codes (1 source)Personal history of nicotine dependence; Translations: [PERSONAL HISTORY OF NICOTINE DEPEND]Onset: 29-74-2889Hrrocobs Results Test NameValueInterpretationReference RangeFacilityTBH PREG QUANT HCGon 52-35-9187MZS QUANTITATIVE<1mIU/mLNOMS HealthcareComment on above:5-50 0.2-1 WEEK 50-500 1-2 WEEKS 100-5,000 2-3 WEEKS 500-10,000 3-4 WEEKS 1,000-50,000 4-5 WEEKS 10,000-100,000 5-6 WEEKS 15,000-200,000 6-8 WEEKS 10,000-100,000 2-3 MONTHS CLINISYNCNOMS HealthcareAmbulatory Visit Summaryon 10-09-2955Fmacyexiuz Visit SummaryAmbulatory Visit Summary JAJA GILLESPIE :1995 Visit Date:11/21/2024 Ambulatory Visit Instructions Your Diagnosis Cough in adult BMI 31.0-31.9,adult Obesity (BMI 30.0-34.9) Smoker Your Care Team Attending Physician - JOSE PARTIDA CNP Primary Care Physician - Kaylee Trevino This Is Your Medications List albuterol-budesonide (Airsupra 90 mcg-80 mcg/inh inhalation aerosol) metformin (metformin 500 mg Tab) phentermine (phentermine 37.5 mg Tab) Procedures Performed section (08/10/2020). Discharge Vitals Temperature (Oral) 36.8 ???C Heart Rate (Peripheral) 116 Respiratory Rate 18 Blood Pressure 118/76 Height 160 cm Height 63 in Weight 79.7 kg Weight 175.708 lb BMI 31.13 Medications What How Much When Why Instructions Unchanged albuterol-budesonide (Airsupra 90 mcg-80 mcg/ inh inhalation aerosol) 2 Inhalation Inhalation 4 times a day Asthma flare Asthma Unchanged metformin (metformin 500 mg Tab) 1 Tablets By Mouth Once a day (at bedtime) Unchanged phentermine (phentermine 37.5 mg Tab) TAKE 1 TABLET BY MOUTH EVERY DAY IN THE MORNING. TAKE BEFORE MEALS. Allergies predniSONE (Skin irritation, Urticaria) Problems Ongoing - Any problem that you are currently receiving treatment for. Asthma BMI 31.0-31.9,adult Obesity (BMI 30.0-34.9) Smoker Patient Survey You may receive a survey via text or e-mail asking about your office visit. Please share your experience with us by completing your survey. We appreciate your feedback and thank you for choosing us for your care. Patient Portal You may access all of your results and other medical record information on our secure patient portal. If you are not signed up for this yet, please contact [employer] at [phone] to get signed up today. Language Information Language assistance services are available as needed. [facility] Medicine Office/Clinic Noteon 30-47-3183Srwxpo Medicine Office/Clinic NoteFafairlawn rehabilitation [facility] Medicine Office/Clinic Note Chief Complaint Sick Visit The patient reports a cough with associated symptoms of congestion and body aches. HPI Staff Pt presents today for sick visit. Has had cough & congestion since yesterday. No fever. Does feel wheezy at time. History of Present Illness 29-year-old female patient of Hunter Escudero CNP presenting with a cough and associated symptoms. The symptoms began yesterday, characterized by nasal congestion, productive cough, and body aches. She reports difficulty sleeping due to these symptoms and denies any fever. The patient has a history of asthma, for which she uses a Supra inhaler and has an albuterol rescue inhaler available. She has notused the albuterol inhaler recently and reports no recent asthma exacerbations. She is afebrile today in the office at 36.8 C The patient has a history of obesity, having lost 30 pounds recently with the aid of Adipex, prescribed by Dr. Horne. She received a three-month supply of the medication and plans to follow up in November. The patient is a smoker, which may contribute to her respiratory symptoms. She denies any known exposure to sick contacts, although her child, who attends preschool, is also experiencing mild symptoms. Review of Systems PHQ Score Initial Depression Screen Score: 0 SCORE - General: Denies fever. - Respiratory: Reports nasal congestion, productive cough, and body aches. Denies wheezing. - Sleep: Reports difficulty sleeping due to symptoms. Physical Exam Vitals & Measurements T: 36.8 ???C(Oral) HR: 116(Peripheral) RR: 18 BP: 118/76 SpO2: 96% HT: 63 in HT: 160 cm WT: 79.7 kg WT: 175.708 lb BMI: 31.13 General: alert, no acute distress ENMT: TM's clear, oral mucosa moist, no pharyngeal erythema or exudate; positive maxillary sinus tenderness Cardiovascular: regular rate and rhythm, normal peripheral perfusion Respiratory: Lungs CTA, respirations non labored Extremities: no deformity, no trauma Neurological: oriented x 4, LOC appropriate for age speech normal Assessment/Plan 1. Bacterial URI (J06.9: Acute upper respiratory infection, unspecified) - Initiate antibiotic therapy with amoxicillin clavulanate for seven days. - Use albuterol inhaler as needed every six hours for wheezing. Ordered: amoxicillin-clavulanate, 1 tab(s), Oral, q12hr for 7 day(s), 14 tab(s), Refill(s) 0, [id number], 160, cm, 11/21/24 10:42:00 EDT, Height/Length Dosing, 79.7, kg, 11/21/24 10:42:00 EDT, Weight Dosing 2. Asthma (J45.909: Unspecified asthma, uncomplicated) - Continue use of Supra inhaler and albuterol rescue inhaler as needed. 3. Cough in adult (R05.9: Cough, unspecified) - Initiate antibiotic therapy with amoxicillin clavulanate for seven days. - Use albuterol inhaler as needed every six hours for wheezing. Ordered: amoxicillin-clavulanate, 1 tab(s), Oral, q12hr for 7 day(s), 14 tab(s), Refill(s) 0, [facility]/pharmacy #[id number], 160, cm, 11/21/24 10:42:00 EDT, Height/Length Dosing, 79.7, kg, 11/21/24 10:42:00 EDT, Weight Dosing 4. BMI 31.0-31.9,adult (Z68.31: Body mass index [BMI] 31.0-31.9, adult) BMI 31.13 5. Obesity (BMI 30.0-34.9) (E66.811: Obesity, class 1) The standard range for ages 18 and older is >=18.5 and < 25 kg/m2. Your BMI today was above this range, this falls in the overweight to obese category and there are medical benefits to weight loss. We can offer counselling, referral, and/or medical support in addressing this problem. Your BMIand weight management will be followed at subsequent visits. 6. Smoker (F17.200: Nicotine dependence, unspecified, uncomplicated) We strongly recommend to quit tobacco use. Cigarette smoking harms nearly every organ of the body, causes many diseases, and reduces the health of smokers in general. Quitting smoking lowers your risk for smoking-related diseases and can add years to your life. We encourage you to visit www.smokefree.gov access to helpful resources including free telephone support. If you decide on prescription treatment to help you quit, we would be happy to provide these. Follow-up No qualifying data available Patient Education Upper Respiratory Infection, Adult, Peev-pr-Lvnk Problem List/Past Medical History Ongoing Asthma BMI 31.0-31.9,adult Obesity (BMI 30.0-34.9) Smoker Historical No qualifying data Procedure/Surgical History section (08/10/2020). Medications Airsupra 90 mcg-80 mcg/inh inhalation aerosol, 2 inh, Inhalation, QID, 5 refills Augmentin 875 mg-125 mg Tab, 1 tab(s), Oral, q12hr metformin 500 mg Tab, 1 tab(s), Oral, Once a day (at bedtime) phentermine 37.5 mg Tab Allergies predniSONE (Skin irritation, Urticaria) Social History Alcohol Current. Wine. 1-2 times per month., 06/12/2024 Substance Abuse Never., 06/12/2024 Tobacco 4 or less cigarettes(less than 1/4 pack)/day in last 30 days Tobacco Use:. Never Smokeless Tobacco Use:. Cigarettes, Ready to change: No. Household tobacco con (more content not included)...[facility] HospitalComment on above: Result Comment: Electronically Signed By: JOSE PARTIDA CNP\.br\Date and Time Signed: 11/21/24 11:25 EDTTBH PREG QUANT HCGon 12-73-1861KIU QUANTITATIVE<1 mIU/mLNOMS HealthcareComment on above:5-50 0.2-1 WEEK 50-500 1-2 WEEKS 100-5,000 2-3 WEEKS 500-10,000 3-4 WEEKS 1,000-50,000 4-5 WEEKS 10,000-100,000 5-6 WEEKS 15,000-200,000 6-8 WEEKS 10,000-100,000 2-3 MONTHS CLINISYNCNOMS HealthcareTB PREG QUANT HCGon 90-70-2985UUU QUANTITATIVE<1mIU/mL NOMS HealthcareComment on above:5-50 0.2-1 WEEK 50-500 1-2 WEEKS 100-5,000 2-3 WEEKS 500-10,000 3-4 WEEKS 1,000-50,000 4-5 WEEKS 10,000-100,000 5-6 WEEKS 15,000-200,000 6-8 WEEKS 10,000-100,000 2-3 MONTHS CLINISYNCNOMS HealthcareTB PREG QUANT HCGon 61-30-3579BLB OGAJQLWARKFG7lQA/mL NOMS HealthcareComment on above:5-50 0.2-1 WEEK 50-500 1-2 WEEKS 100-5,000 2-3 WEEKS 500-10,000 3-4 WEEKS 1,000-50,000 4-5 WEEKS 10,000-100,000 5-6 WEEKS 15,000-200,000 6-8 WEEKS 10,000-100,000 2-3 [facility] PREG QUANT HCGon 04-62-6161CXZ BLJERPEEKJIX05dCU/mL NOMS HealthcareComment on above:5-50 0.2-1 WEEK 50-500 1-2 WEEKS 100-5,000 2-3 WEEKS 500-10,000 3-4 WEEKS 1,000-50,000 4-5 WEEKS 10,000-100,000 5-6 WEEKS 15,000-200,000 6-8 WEEKS 10,000-100,000 2-3 [facility] PREG QUANT HCGon 47-51-3889GXJ PSPFSWQEEZXS022dOC/mL NOMS HealthcareComment on above:5-50 0.2-1 WEEK 50-500 1-2 WEEKS 100-5,000 2-3 WEEKS 500-10,000 3-4 WEEKS 1,000-50,000 4-5 WEEKS 10,000-100,000 5-6 WEEKS 15,000-200,000 6-8 WEEKS 10,000-100,000 2-3 MONTHS [facility] PREG QUANT HCGon 83-42-1117IUO EUWTSFOLHWYH684dCY/mL NOMS HealthcareComment on above:5-50 0.2-1 WEEK 50-500 1-2 WEEKS 100-5,000 2-3 WEEKS 500-10,000 3-4 WEEKS 1,000-50,000 4-5 WEEKS 10,000-100,000 5-6 WEEKS 15,000-200,000 6-8 WEEKS 10,000-100,000 2-3 MONTHS [facility] PREG QUANT HCGon 41-44-3993WBM WTTZXRUTOUVE619nXY/mL NOMS HealthcareComment on above:5-50 0.2-1 WEEK 50-500 1-2 WEEKS 100-5,000 2-3 WEEKS 500-10,000 3-4 WEEKS 1,000-50,000 4-5 WEEKS 10,000-100,000 5-6 WEEKS 15,000-200,000 6-8 WEEKS 10,000-100,000 2-3 MONTHS CLINISYFLNOMS HealthcareTBH PREG QUANT HCGon 14-50-7236PEL QUANTITATIVE<1mIU/mL [facility] HealthcareComment on above:5-50 0.2-1 WEEK 50-500 1-2 WEEKS 100-5,000 2-3 WEEKS 500-10,000 3-4 WEEKS 1,000-50,000 4-5 WEEKS 10,000-100,000 5-6 WEEKS 15,000-200,000 6-8 WEEKS 10,000-100,000 2-3 MONTHS [facility]YGib[facility] HospitalPulmonology Office/Clinic Noteon 79-94-8555Isvzvzubcuh Office/Clinic NotePulmonology Office/Clinic Note Chief Complaint new patient / [...] with this regimen of inhaled corticosteroid and shortacting beta agonist. I will reevaluate her in couple months and if she still doing well could continue with this regimen which is supposed to be as-needed basis. If her asthma is not well- controlled could switch to a maintenance inhaler with [...] Tobacco Use:. Ready to change: No., 06/13/2024 [facility] HospitalComment on above:Result Comment: Electronically Signed By: Larry TOBIN, Johanna Cota\.br\Date and Time Signed: 07/19/24 11:29 EDT Ambulatory Visit Summaryon 94-74-1782Mxucugnbag Visit SummaryAmbulatory Visit Summary JAJA TORREZ :1995 Visit Date:06/13/2024 [...] mcg/ inh inhalation aerosol) 2 Inhalation Inhalation 4times a day Asthma flare Asthma Refills: 5 Pickup at [facility]/pharmacy #[id number] Unchanged ipratropium (Atrovent HFA 17 mcg/ inh inhalation aerosol) INHALE 2 PUFFS BY MOUTH EVERY 6HOURS NEEDED FOR SHORTNESS OF BREATH OR WHEEZING. Unchanged metformin (metformin 500 mg Tab) 1 Tablets By Mouth Once a day (at bedtime) Pharmacy Information [facility]/pharmacy #[id number]: [address], [place] [id number] [phone] Allergies predniSONE (Skin irritation, Urticaria) Problems Ongoing - Any problem that you are currently receiving treatment for. Asthma Smoker Patient Survey You may receive a survey via text or e-mail asking about your office visit. Please share your experience with us by completing your survey. We appreciate your feedback and thank you for choosing us for your care. [facility] Medicine Office/Clinic Noteon 45-61-8004Aizzmh Medicine Office/Clinic NoteW[facility]/Clinic Note HPI Staff Jaja is a 28 year old female to establish care Establish Care: History: Any previous diagnosis: Asthma History of seeing any specialist: pulmonology Dr Umanzor, Dr Hernandez out of [place] based out of told( can't go to any of these) , Dr Horne When was your last doctors visit: Last provider: Dr Francois connor Any recent labs: none Health Maintenance UTD: Colonoscopy: no Mammogram: no Pelvic/Pap: 01/2024 normal with Ozzie Acute: Current issues/complaints: Pt states she is having an asthma flair up, feels SOB chest feels tight,and does need referral to a Keyboard Teacher, pt is going to call her insurance [...] to call her insurance to see what marketing sales representative would be covered. it has been years [...] Tobacco Use:. Ready to change: No., 06/13/2024 [facility] HospitalComment on above:Result Comment: Electronically Signed By: Kaylee Trevino.br\Date and Time Signed: 06/13/24 10:16 EDTALL PROGESTERONEon 86-81-5342HCGIYDOKWLCT4.2 ng/mL.[facility] HealthcareComment on above: Follicular phase 0.1 - 0.9 Luteal phase 1.8 - 23.9 Ovulation phase 0.1 - 12.0 First trimester 11.0 - 44.3 Second trimester 25.4 - 83.3 Third trimester 58.7 - 214.0 Postmenopausal 0.0 - 0.1 Performed at: [facility] [id number] [employer] Foreign Language Tutor: Hi Betancur PhD, Phone: [phone] CLINISYNCSamaritan HospitalALL CBC WITH AUTO DIFFon 56-47-7387ZFIXOZQSE ABSOLUTE KCRO0OQHL HealthcareBasophils/100 WBC (Bld)0.3 %0.2 - 2.0 %[facility] Eosinophils/100 WBC (Bld)2.1 %0.9 - 7.0 %NOM HealthcareErythrocyte distribution width (RBC) [Ratio]12.2 %11.0 - 15.0 %NOMS HealthcareHematocrit (Bld) [Volume fraction]42 %36.0 - 48.0 %NOM HealthcareHemoglobin (Bld) [Mass/Vol]14.2 g/dL 12.0 - 16.0 g/dLNODC HealthcareIMMATURE GRANULOCYTES ABS AUTO0.02N[facility] Immature granulocytes/100 WBC (Bld)0.2 %0.0 - 0.5 %NOMTwo Rivers Psychiatric HospitalLYMPHOCYTES ABSOLUTE AUTO2.5NOMS HealthcareLymphocytes/100 WBC (Bld)27.9 %20.5 - 60.0 %NOMTwo Rivers Psychiatric HospitalMCH (RBC) [Entitic mass]32.2 pg26.7 - 34.0 pgNOSainte Genevieve County Memorial HospitalMCHC (RBC) [Mass/Vol]33.8 g/dL29.9 - 35.2 g/dLNODC HealthcareMCV (RBC) [Entitic vol]95.2 fL 81.0 - 99.0 fLNODC HealthcareMONOCYTES ABSOLUTE AUTO0.5[facility] Monocytes/100 WBC (Bld)5.8 %1.7 - 12.0 %[facility] HealthcareNEUTROPHILS ABSOLUTE AUTO 5.8NOMS HealthcareNeutrophils/100 WBC (Bld)63.7 %43.0 - 75.0 %[facility] Platelet mean volume (Bld) [Entitic vol]10.6 fL9.5 - 13.5 fLGARFIELD MEMORIAL HOSPITAL HealthcareTBH EO #0.2NOMS HealthcareTBH [id number] HealthcareTBH RBC4.41NOMS HealthcareTB WBC 9.1NOMS HealthcareCLINISYNCNOU MEDICAL [facility] HealthcareTBH PREG QUANT HCGon 55-99-8602OPD QUANTITATIVE<1mIU/mLNOMS HealthcareComment on above:5-50 0.2-1 WEEK 50-500 1-2 WEEKS 100-5,000 2-3 WEEKS 500-10,000 3-4 WEEKS 1,000-50,000 4-5 WEEKS 10,000-100,000 5-6 WEEKS 15,000-200,000 6-8 WEEKS 10,000-100,000 2-3 MONTHS CLINISYNCNOMS HealthcareIGP,APTIMA HPV,AGE GDLNon 27-23-7063TIX GDLN ACOG TESTINGNote.[facility] HealthcareComment on above:TESTS RESULT FLAG UNITS REF RANGE LAB Clinician Provided Cytology Information Source.............Cervix No. of containers..01 ThinPrep Vial Age Algo ACOG Christina... -28 03 FLAG LEGEND: L-Low Normal,H-High Normal,LL-Alert Low,HH-Alert High <-Panic Low,>-Panic High,A-Abnormal,AA-Critical Abnormal Performed at: 01 =G [facility] [address] [place] [address] Holly Khan MD, IGP, RFX APTIMA HPV ASCUNote.[facility] HealthcareComment on above:TESTS RESULT FLAG UNITS REF RANGE LAB DIAGNOSIS: 02 NEGATIVE FOR INTRAEPITHELIAL LESION OR MALIGNANCY. Specimen adequacy: 02 Satisfactory for evaluation. Endocervical and/or squamous metaplastic cells (endocervical component) are present. Performed by: Matt Casas, Gift Shop Manager ([facility]) . 02 Note: Note 02 [...] <-Panic Low,>-Panic High,A-Abnormal,AA-Critical Abnormal Performed at: [address] [id number] Holly Khan MD, Performed at: = - [address] [id number] [employer] Foreign Language Tutor: Holly Khan MD, Phone: [phone] Performed at: [facility] [address] [id number] [employer] Foreign Language Tutor: Holly Khan MD, Phone: [phone] [facility]-SPATULA CERVIX CLINISYNCNODC HealthcareHCG ( test) Ql (U)on 14-50-6254Qmelgmgnzcmozb and review of laboratory resultsNormalNOMS HealthcarePreg Test, UrNegative NegativeNOMS HealthcareNOMS HealthcareTBH PREG QUANT HCGon 81-30-5306NHU QUANTITATIVE<1mIU/mLNOMS HealthcareComment on above:5-50 0.2-1 WEEK 50-500 1-2 WEEKS 100-5,000 2-3 WEEKS 500-10,000 3-4 WEEKS 1,000-50,000 4-5 WEEKS 10,000-100,000 5-6 WEEKS 15,000-200,000 6-8 WEEKS 10,000-100,000 2-3 MONTHS CLINISYNCNOMS HealthcareInsertion/Removal of Contraceptive Capsuleon 11-14-2023 Josey Giordano LPN 11/15/2023 1:52 [...] the office as needed for any routine appointments.[facility] ACOG PANEL 2: 21 to 29on 07-20-2021..NormalThe [facility] HospitalComment on above:Performed By: #### [id number] #### [facility] [address] [place] [address] Dr. Julius Workman Gdln ACOG Pllzfdw37-51DlclpnTtkOhio State East HospitalComment on above:Performed By: #### [id number] #### [facility] [address] [place] [address] Dr. Julius GilDIAGNOSIS:CommentCommunity Memorial Hospitalment on above: Result Comment: NEGATIVE FOR INTRAEPITHELIAL LESION OR MALIGNANCY. CELLULAR CHANGES ASSOCIATED WITH INFLAMMATION ARE PRESENT.Performed By: #### [id number] #### [facility] [address] [place] [address] Dr. Julius GilMethodology:CTMercy Health St. Anne Hospital on above: Result Comment: The Thin Prep(R) Office Clerk Routine was unable to read this specimen. Therefore a manual review was performed.Performed By: #### [id number] #### [place] [address] Dr. Julius GilNote:CommentAultman Orrville Hospital on above:Result Comment: The Pap smear is a screening test designed to aid in the detection of premalignant and malignant conditions of the uterine cervix. It is not a diagnostic procedure and should not be used as the sole means of detecting cervical cancer. Both false-positive and false-negative reports do occur. .Performed By: #### [id number] #### [place] [address] Dr. Julius GilPerformed by:[facility] on above: Result Comment: Idania Doran Gift Shop Manager (ASCP)Performed By: #### [id number] #### [place] [address] Dr. Julius GilReflex Criteria:[facility] on above:Result Comment: The HPV DNA reflex criteria were not met with this specimen result therefore, no HPV testing was performed. .Performed By: #### [id number] #### [place] [address] Dr. Julius GilSpecimen adequacy:[facility] on above:Result Comment: Satisfactory for evaluation. Endocervical and/or squamous metaplastic cells (endocervical component) are present.Performed By: #### [id number] #### [place] [address] Dr. Julius GilXR FOOT LT MIN 3 VIEWSon 05-37-5066AQ FOOT LT MIN 3 VIEWSEXAM: XR FOOT LT MIN 3 VIEWS HISTORY: [...] Electronically authenticated by: JOVANI PULLIAM Date: 2021-07-05 22:20NormalThKettering Health [facility] AUTO DIFFon 44-50-4375HFHP #0.0 103/ulNormal0.0-0.1[facility] Citizens HospitalComment on above:Performed By: #### CBC #### [facility] [address] [place] [address] Escobar KarenBasophils/100 WBC (Bld)0.3 %Normal0.2-2.0[facility] Comment on above:Performed By: #### CBC #### [facility] [address] [place] [address] Escobar KarenEO #0.0 103/ulNormal0.0-0.7The [facility] HospitalComment on above: Performed By: #### CBC #### [facility] [address] [place] [address] Escobar KarenEosinophils/100 WBC (Bld)0.1 %Critically low0.9-7.0The [facility] HospitalComment on above:Performed By: #### CBC #### [facility] [address] [place] [address] Secobar KarenErythrocyte distribution width (RBC) [Ratio]14.7 %Qfmutn41.0-15.0[facility] HospitalComment on above:Performed By: #### CBC #### [facility] [address] [place] [address] Escobar KarenHematocrit (Bld) [Volume fraction]29.1 %Critically low36.0-48.0[facility] HospitalComment on above:Performed By: #### CBC #### [facility] [address] [place] [address] Escobar KarenHemoglobin (Bld) [Mass/Vol]9.5 g/dLCritically low12.0-16.0[facility] HospitalComment on above:Result Comment: delivered 08/11Performed By: #### CBC #### [facility] [address] [place] [address] Escobar JohnsonenIG #0.04 10e3/ulCritically high0.00-0.03The [facility] HospitalComment on above:Performed By: #### CBC #### [facility] [address] [place] [address] Escobar JohnsonenIG %0.3 %Normal0.0-0.5The [facility] HospitalComment on above: Performed By: #### CBC #### [facility] [address] [place] [address] Escobar JohnsonenLYMPH #3.2 103/ulNormal1.2-3.8The [facility] HospitalComment on above: Performed By: #### CBC #### [facility] [address] [place] [address] Escobar DowlingLymphocytes/100 WBC (Bld)21.2 %Gwubzy81.5-60.0[facility] Comment on above:Performed By: #### CBC #### [facility] [address] [place] [address] Escobar JohnsonenMANUAL DIFF REQNONormalThe [facility] HospitalComment on above: Performed By: #### CBC #### [facility] [address] [place] [address] Escobar KarenFRENCH [facility] (RBC) [Entitic mass]30.6 bsEfbkba89.7-34.0[facility] Comment on above:Performed By: #### CBC #### [facility] [address] [place] [address] Escobar KarenMATTEAWAN STATE H[facility] FOR THE [facility] (RBC) [Mass/Vol]32.6 g/xWTlrfkk93.9-35.2[facility] Comment on above:Performed By: #### CBC #### [facility] [address] [place] [address] Escobar KarenMCV (RBC) [Entitic vol]93.9 kEGuhsho07.0-99.0[facility] Comment on above:Performed By: #### CBC #### [facility] [address] [place] [address] Escobar KarenMONO #1.0 103/ulCritically high0.3-0.8The [facility] HospitalComment on above:Performed By: #### CBC #### [facility] [address] [place] [address] Escobar KarenMonocytes/100 WBC (Bld)6.5 %Normal1.7-12.0The [facility] Comment on above:Performed By: #### CBC #### [facility] [address] [place] [address] Escobar JohnsonenNEUT #10.7 103/ulCritically high1.4-6.5The [facility] HospitalComment on above:Performed By: #### CBC #### [facility] [address] [place] [address] Escobar JohnsonenNeutrophils/100 WBC (Bld)71.6 %Cbotxq35.0-75.0The [facility] Comment on above:Performed By: #### CBC #### [facility] [address] [place] [address] Escobar KarenPlatelet mean volume (Bld) [Entitic vol]10.8 fLNormal9.5-13.5The [facility] HospitalComment on above:Performed By: #### CBC #### [facility] [address] [place] [address] Escobar HtjxlLZD152 103/eyJcsggc037-760Woo [facility] HospitalComment on above: Performed By: #### CBC #### [facility] [address] [place] [address] Escobar KarenRBC3.10 106/ulCritically low4.20-5.40The [facility] HospitalComment on above:Performed By: #### CBC #### [facility] [address] [place] [address] Escobar XxoioFTZ54.0 103/ulCritically high4.0-11.0The [facility] HospitalComment on above:Performed By: #### CBC #### [facility] [address] [place] [address] Escobar KarenCBC AUTO DIFFon 21-56-1878FQMF #0.0 103/ulNormal0.0-0.1The [facility] HospitalComment on above:Performed By: #### CBC #### [facility] [address] [place] [address] Escobar KarenBasophils/100 WBC (Bld)0.3 %Normal0.2-2.0The [facility] Comment on above:Performed By: #### CBC #### [facility] [address] [place] [address] Escobar KarenEO #0.1 103/ulNormal0.0-0.7The [facility] HospitalComment on above: Performed By: #### CBC #### [facility] [address] [place] [address] Escobar KarenEosinophils/100 WBC (Bld)0.9 %Normal0.9-7.0The [facility] Comment on above:Performed By: #### CBC #### [facility] [address] [place] [address] Escobar KarenErythrocyte distribution width (RBC) [Ratio]14.6 %Pcawzs43.0-15.0The [facility] HospitalComment on above:Performed By: #### CBC #### [facility] [address] [place] [address] Escobar KarenHematocrit (Bld) [Volume fraction]35.3 %Critically low36.0-48.0The [facility] HospitalComment on above:Performed By: #### CBC #### [facility] [address] [place] [address] Escobar KarenHemoglobin (Bld) [Mass/Vol]11.8 g/dLCritically low12.0-16.0The [facility] HospitalComment on above:Performed By: #### CBC #### [facility] [address] [place] [address] Escobar KarenIG #0.06 10e3/ulCritically high0.00-0.03The [facility] HospitalComment on above:Performed By: #### CBC #### [facility] [address] [place] [address] Escobar JohnsonenIG %0.4 %Normal0.0-0.5The [facility] HospitalComment on above: Performed By: #### CBC #### [facility] [address] [place] [address] Escobar DowlingLYMPH #2.8 103/ulNormal1.2-3.8The [facility] HospitalComment on above: Performed By: #### CBC #### [facility] [address] [place] [address] Escobar DowlingLymphocytes/100 WBC (Bld)21.0 %Nopcoi23.5-60.0[facility] Comment on above:Performed By: #### CBC #### [facility] [address] [place] [address] Escobar JohnsonenMANUAL DIFF REQNONormalThe [facility] HospitalComment on above: Performed By: #### CBC #### [facility] [address] [place] [address] Escobar KarenMCH (RBC) [Entitic mass]30.6 fgDdxqje72.7-34.0[facility] Comment on above:Performed By: #### CBC #### [facility] [address] [place] [address] Escobar KarenMCHC (RBC) [Mass/Vol]33.4 g/oZBimnjs66.9-35.2[facility] Comment on above:Performed By: #### CBC #### [facility] [address] [place] [address] Escobar JohnsonenMCV (RBC) [Entitic vol]91.7 uYXuuhnt68.0-99.0[facility] Comment on above:Performed By: #### CBC #### [facility] [address] [place] [address] Escobar DowlingMONO #1.0 103/ulCritically high0.3-0.8The [facility] HospitalComment on above:Performed By: #### CBC #### [facility] [address] [place] [address] Escobar KarenMonocytes/100 WBC (Bld)7.3 %Normal1.7-12.0The [facility] Comment on above:Performed By: #### CBC #### [facility] [address] [place] [address] Escobar CoombsUT #9.4 103/ulCritically high1.4-6.5The [place] HospitalComment on above:Performed By: #### CBC #### [facility] [address] [place] [address] Escobar JohnsonenNeutrophils/100 WBC (Bld)70.1 %Rdnofa02.0-75.0The [facility] Comment on above:Performed By: #### CBC #### [facility] [address] [place] [address] Escobar DowlingPlatelet mean volume (Bld) [Entitic vol]11.0 fLNormal9.5-13.5The [place] HospitalComment on above:Performed By: #### CBC #### [facility] [address] [place] [address] Escobar JohnsonHkzzfCLC168 103/icSzinrv899-857Rbw [facility] HospitalComment on above: Performed By: #### CBC #### [facility] [address] [place] [address] Escobar KarenRBC3.85 106/ulCritically low4.20-5.40The [place] HospitalComment on above:Performed By: #### CBC #### [facility] [address] [place] [address] Escobar JohnsonenWBC13.4 103/ulCritically high4.0-11.0[facility] HospitalComment on above:Performed By: #### CBC #### [facility] [address] [place] [address] Escobar KarenCovid-19 PCR (CVDTBH)on 27-33-2357NHIK-CoV-2 (COVID-19) RNA SEEMA+probe Ql (Unsp spec)Not detectedNormalNOT DETECTEDThe [facility] Comment on above:Result Comment: This test is not yet approved or cleared by the [place] FDA. When there are no FDA-approved or cleared tests available, and other criteria are met, FDA can make tests available under an emergency access mechanism called an Emergency Use Authorization (EUA). The EUA for this test is supported by the [place] of Health and Human Service's (HHS's) declaration that circumstances exist to justify the emergency use of in vitro diagnostics for the detection and/or diagnosis of the virus that causes COVID- 19. This EUA will remain in effect (meaning [...] of clinical signs and symptoms consistent with SARS-CoV-2.Performed By: #### CVDTBH #### [facility] [address] [place] [address] Escobar KarenDRUG SCREEN RAPID (URINE)on 13-40-7411GFZSrxtlskrVdqlxpVCICXXBCZbc [facility] HospitalComment on above:Performed By: #### DRUGRPD #### [facility] [address] [place] [address] Escobar KarenBARNegativeNormalNEGATIVETrihealth HospitalComment on above: Performed By: #### DRUGRPD #### [facility] [address] [place] [address] Escobar KarenBUPNegativeNormalNEGATIVETrihealth HospitalComment on above: Performed By: #### DRUGRPD #### [facility] [address] [place] [address] Escobar KarenBZONegativeNormalNEGATIVETrihealth HospitalComment on above: Performed By: #### DRUGRPD #### [facility] [address] [place] [address] Escobar KarenCOCNegativeNormalNEGATIVETrihealth HospitalComment on above: Performed By: #### DRUGRPD #### [facility] [address] [place] [address] Escobar KarenCUT-OFFSSEE BELOWNormalThe Elijah HospitalComment on above:Result Comment: AMP (Amphetamine): 500ng/mL, BAR (Barbituates): 200 ng/mL, BZO (Benzodiazepines): 150 ng/mL, BUP (Buprenorphine): 10 ng/mL, SHONA (Cocaine): 150 ng/mL, mAMP (Methamphetamine): 500 ng/mL, MTD (Methadone): 200 ng/mL, OPI (Opiates): 100 ng/mL, OXY (Oxycodone): 100 ng/mL, PCP (Phencyclidine): 25 ng/mL, PPX (Propoxyphene): 300 ng/mL, THC (Cannabinoids): 50 ng/mL, TCA (Trycyclic Antidepressants): 300 ng/mLPerformed By: #### DRUGRPD #### [facility] [address] [place] [address] Escobar KarenDRUG CUT HEADERDRUG CLASS TEST SYSTEM CUT-OFF CONCENTRATIONS ARE FOLLOWS:NormalThe [facility] HospitalComment on above:Performed By: #### DRUGRPD #### [facility] [address] [place] [address] Escobar KarenmAMPNegativeNormalNEGATIVEBarberton Citizens HospitalComment on above: Performed By: #### DRUGRPD #### [facility] [address] [place] [address] Escobar KarenMTDNegativeNormalNEGATIVEBarberton Citizens HospitalCommarshfield medical center on above: Performed By: #### DRUGRPD #### [facility] [address] [place] [address] Escobar KarenOPINegativeNormalNEGATIVEBarberton Citizens HospitalComment on above: Performed By: #### DRUGRPD #### [facility] [address] [place] [address] Escobar KarenOXYNegativeNormalNEGATIVEBarberton Citizens HospitalComment on above: Performed By: #### DRUGRPD #### [facility] [address] [place] [address] Escobar KarenPCPNegativeNormalNEGATIVEBarberton Citizens HospitalComment on above: Performed By: #### DRUGRPD #### [facility] [address] [place] [address] Escobar KarenPPXNegativeNormalNEGATIVEBarberton Citizens HospitalComment on above: Performed By: #### DRUGRPD #### [facility] [address] [place] [address] Escobar KarenTCANegativeNormalNEGATIVEBarberton Citizens HospitalComment on above: Performed By: #### DRUGRPD #### [facility] [address] [place] [address] Escobar KarenTHCNegativeNormalNEGATIVEBarberton Citizens HospitalComment on above: Performed By: #### DRUGRPD #### [facility] [address] [place] [address] Escobar JohnsonenRAPID COVID-19 ANTIGENon 04-06-9088FPA [facility] HospitalComment on above:Result Comment: This test has not been FDA [...] section 564(b)(1) of the Act, 21 U.S.C. 360bbb- 3(b)(1), unless the declaration is terminated or authorization is revoked sooner.Performed By: #### CVDAG #### [facility] [address] [place] [address] Escobar JohnsonYptqcUERR-ScZ-3 (COVID-19) RNA SEEMA+probe Ql (Unsp spec)NegativeNormal NEGATIVEBarberton Citizens HospitalCommarshfield medical center on above:Result Comment: Negative results are presumptive. They do not preclude infection and should not be used as the sole basis for treatment decisions. Additional confirmatory testing by a molecular method should be considered.Performed By: #### CVDAG #### [facility] [address] [place], [place] [address] Escobar JohnsonenTYPE AND SCREENon 78-44-8798MHTT AND SCREENNegativeNormOhio State East HospitalComment on above:Performed By: #### TNS #### [facility] [address] [place], [place] [address] Escobar Dowling Vital Signs Date TimeVital SignValuePerforming LsquseuslQfmglfdw98-06-2934 09:37-0400Body mass index (BMI) [Ratio]30.43 kg/a0OakdsetcBushra Zepeda SCRUB TECHNICIAN Work Phone: [phone] [place], [place] [address]Ilplkzewrx68-92-7981 09:37-0400Body .93 kgBushra Zepeda SCRUB TECHNICIAN Work Phone: [phone] [place], [place] [address]Ricqgdbwlk24-47-0154 09:37-0400Diastolic blood cjrtcume94 mm[Hg]Bushra Zepeda SCRUB TECHNICIAN Work Phone: [phone] [place], [place] [address]Vhxjysyvun85-50-9681 09:37-0400Systolic blood mm[Hg]Bushra Zepeda SCRUB TECHNICIAN Work Phone: [phone] [place], [place] [address]Lzfphtcpzg45-55-0476 10:49-0400Body mass index (BMI) [Ratio]33.75 kg/j1Zfgxe Ozzie DO Work Phone: [phone] [place], [place] [address]Ndkayqlbpz20-84-7448 10:49-0400Body eusllu92.41 kgCorey Ozzie DO Work Phone: [phone] [place], [place] [address]Juyitmofft35-17-2460 10:49-0400Diastolic blood pbfjmnqi17 mm[Hg]Annia Ozize DO Work Phone: [phone] [place], [place] [address]Clrahegopa68-68-4764 10:49-0400Systolic blood hygakzeu513 mm[Hg]Annia Ozzie DO Work Phone: [phone] [place], [place] [address]Vinbcainoi21-22-5226 09:34-0400Body mass index (BMI) [Ratio]34.33 kg/m2Hattie LAND Work Phone: [phone] [place], [place] [address]Wrfosvtkku62-05-6929 09:34-0400Body eprxyd29.91 kgAmy Nisha LAND Work Phone: [facility] HospitalJrbrftisjh55-03-7276 09:34-0400Diastolic blood vpzesrrt08 mm[Hg]Hattie LAND Work Phone: [facility] HospitalAzyqeyegbi11-54-4174 09:34-0400Systolic blood xqicuydt054 mm[Hg]Hattie LAND Work Phone: [phone]-[facility] HospitalBkaahdowdb28-64-1173 09:44-0400Body mass index (BMI) [Ratio]37.73 kg/k7Kkvbj Ozzie DO Work Phone: [phone]-[facility] HospitalVbnwtmwzzt73-23-6505 09:44-0400Body cbzojs86.62 kgCorey Ozzie DO Work Phone: [phone] [place], [place] [address]Zbucgzwjwr48-42-3466 09:44-0400Diastolic blood kpnaqmow83 mm[Hg]Annia Ozzie DO Work Phone: [phone] [place], [place] [address]Gycvbkdixz27-55-2863 09:44-0400Systolic blood nnxzrqyk567 mm[Hg]Annia Ozzie DO Work Phone: [phone] [place], [place] [address]Vqbzmnrmul47-70-4166 09:12-0400Blood Pressure LocationJodi Kena [phone]-IjtvrTrihealth [facility] 06-13-2024 09:12-0400Diastolic blood stadtchh23 mm[Hg]Kaylee Kena [phone]-ToemcTrihealth [facility] 06-13-2024 09:12-0400Heart rate80 /minJodi Kena [phone]-WmgyvTrihealth [facility] 06-13-2024 09:12-0400Respiratory rate18 /minJodi Kena [phone]-MgdwiTrihealth [facility] 06-13-2024 09:12-1461LsD2% (BldA) [Mass fraction]98 %Kaylee Kena [phone]-MipiwTrihealth [facility] 04-17-2025 09:12-0400Systolic blood hygcnxcw073 mm[Hg]Kaylee Kena [phone]-JapabUniversity Hospitals [facility] [place] 03-12-2024 13:41-0500Body mass index (BMI) [Ratio]36.31 kg/s1Wiztf Ozzie DO Work Phone: [facility] HospitalZltlokciaj64-41-2468 13:41-0500Body .99 kgCorey Ozzie DO Work Phone: [facility] HospitalXrcsvtfcas72-79-8674 13:41-0500Diastolic blood kujnficj53 mm[Hg]Annia Ozzie DO Work Phone: [facility] HospitalRkqluzvazh46-57-2115 13:41-0500Systolic blood miqlgowg926 mm[Hg]Annia Ozzie DO Work Phone: [facility] HospitalTfoymhydni33-52-8998 14:14-0500Body mass index (BMI) [Ratio]36.49 kg/d5Omrun Ozzie DO Work Phone: [phone] [place], [place] [address]Axytuhbkds11-35-6916 14:14-0500Body .44 kgCorey Ozzie DO Work Phone: [facility] HospitalVmqhpcykki26-29-6980 14:14-0500Diastolic blood nxagztzm18 mm[Hg]Annia Ozzie DO Work Phone: [facility] HospitalHjisctleqb62-98-7545 14:14-0500Systolic blood iendgxjm653 mm[Hg]Annia Ozzie DO Work Phone: [phone] [place], [place] [address]Hdvgtkaosm22-06-5714 13:51-0400Body glwkku137 cm Annia Ozzie DO Work Phone: [facility] HospitalAbbvocsyck35-67-2848 13:51-0400Body mass index (BMI) [Ratio]37.52 kg/k8Hehav Ozzie DO Work Phone: [facility] HospitalUetfphrdyn76-20-8640 13:51-0400Body qdtjzo98.07 kgCorey Ozzie DO Work Phone: [phone] [place], [place] [address]Qojomivxwm10-02-0880 13:51-0400Diastolic blood hpuyxpxa92 mm[Hg]Annia Ozzie DO Work Phone: [facility] Unbgozeuyv43-81-3338 13:51-0400Systolic blood eeainyhb603 mm[Hg]Annia Ozzie DO Work Phone: [facility] Encounters Encounter DateEncounter TypeCare ProviderFacilityStart: 12-23-2024 End: 41-28-2775Qmfbpqzyh Result EncounterCorey Ozzie DO Work Phone: [facility] External Department UnsolicitedStart: 12-23-2024 End: 56-51-9024Rjorfxjfd Result EncounterCorey Ozzie DO Work Phone: noMS External Department UnsolicitedStart: 12-03-2024 End: 15-11-1740Veznhm Jose Zepeda SCRUB TECHNICIAN Work Phone: [facility] OBGYNStart: 12-03-2024 End: 08-73-5706Xkhmqa flowsJuno Zepeda SCRUB TECHNICIAN Work Phone: noms [facility] OBGYNStart: 12-03-2024 End: 67-35-9830Exrghh outpatient visit 15 minutesBushra Zepeda SCRUB TECHNICIAN Work Phone: NOZP Elijah OBGYNComment on above:Encounter for weight managementStart: 12-03-2024 End: 00-22-5128rnkkxlgusyBMELAUEG EBERLYNot AvailableStart: 11-21-2024 End: 67-46-1369sbmvgjpgwxJYSSTP A LEHMANNFacility:FT FM BellevueStart: 11-19-2024 End: 94-64-8489Ekcmbomfj Result EncounterCorey Ozzie DO Work Phone: [facility] External Department UnsolicitedStart: 11-19-2024 End: 09-74-6318Ufwfswrel Result EncounterCorey Ozzie DO Work Phone: noms External Department UnsolicitedStart: 10-22-2024 End: 05-28-7164Zknwdxaub Result EncounterCorey Ozzie DO Work Phone: noms External Department UnsolicitedStart: 10-22-2024 End: 04-42-6200Ukhtntnta Result EncounterCorey Ozzie DO Work Phone: noms External Department UnsolicitedStart: 10-08-2024 End: 44-90-9272Sxhpzcuxt Result EncounterCorey Ozzie DO Work Phone: noms External Department UnsolicitedStart: 10-08-2024 End: 02-58-5412Zcjqggwyv Result EncounterCorey Ozzie DO Work Phone: noms External Department UnsolicitedStart: 10-01-2024 End: 10-91-5612Jirruwqls Result EncounterCorey Ozzie DO Work Phone: noms External Department UnsolicitedStart: 10-01-2024 End: 46-10-0015Mumxepchz Result EncounterCorey Ozzie DO Work Phone: noms External Department UnsolicitedStart: 09-24-2024 End: 07-17-8114Lbqnxddwk Result EncounterCorey Ozzie DO Work Phone: NOIG External Department UnsolicitedStart: 09-24-2024 End: 69-00-8839Vtudnrevr Result EncounterCorey Ozzie DO Work Phone: noms External Department UnsolicitedStart: 09-23-2024 End: 01-76-9564Adrfvs flowsheetCorey Ozzie DO Work Phone: NOIH [place] OBGYNStart: 09-23-2024 End: 03-80-2406Yzdqar flowsheetCorey Ozzie DO Work Phone: NOBU [facility] OBGYNStart: 09-23-2024 End: 76-47-3813Huhfso outpatient visit 15 minutesCorey Ozzie DO Work Phone: NOZP [place] OBGYNComment on above:Threatened affecting intrauterine ([facility]) (Primary Dx)Start: 09-23-2024 End: 82-23-1255jjbitcydcvWJQJX FAZIONot AvailableStart: 09-18-2024 End: 44-91-3585Lzspxwrgs Result EncounterCorey Ozzie DO Work Phone: [facility] External Department UnsolicitedStart: 09-18-2024 End: 33-00-4572Qcihbubeq Result EncounterCorey Ozzie DO Work Phone: [facility] External Department UnsolicitedStart: 09-16-2024 End: 69-87-1749Bhjmfifts Result EncounterCorey Ozzie DO Work Phone: [facility] External Department UnsolicitedStart: 09-16-2024 End: 57-77-9333Trholegef Result EncounterCorey Ozzie DO Work Phone: [facility] External Department UnsolicitedStart: 09-10-2024 End: 17-89-7150Ylzixl flowsRobert LAND Work Phone: [facility] BCP OBStart: 09-10-2024 End: 92-35-3431Yrwnru Santiago LAND Work Phone: [facility] BCP OBStart: 09-10-2024 End: 03-54-8506Cquwkc outpatient visit 5 minutesAmy Nisha LAND Work Phone: [facility] BCP OBComment on above:Encounter for weight managementStart: 09-10-2024 End: 45-61-2652uhnmkzkyinLJY RAMEYNot AvailableStart: 08-13-2024 End: 41-45-9171Zexdox flowsheetCorey Ozzie DO Work Phone: [facility] BCP OBStart: 08-13-2024 End: 23-32-0272Zzacqb flowsheetCorey Ozzie DO Work Phone: [facility] BCP OBStart: 08-13-2024 End: 54-21-1372Bbcink outpatient visit 15 minutesCorey Ozzie DO Work Phone: [phone] [facility] OBComment on above:Menstrual periods irregular; Encounter for weight managementStart: 08-13-2024 End: 93-20-8404caorsoxdvfQTWHJ FAZIONot AvailableStart: 07-29-2024 End: 67-67-1911Qczyilzqc Result EncounterCorey Ozzie DO Work Phone: noms External Department UnsolicitedStart: 07-29-2024 End: 15-18-2295Ztiameola Result EncounterCorey Ozzie DO Work Phone: noms External Department UnsolicitedStart: 07-19-2024 End: 38-89-2899tklremmfkpZwaj L SchwabFacility:FTMCStart: 06-14-2024 End: 69-85-8444Ztk-admission assessmentJodi L Kena [facility] Start: 06-13-2024 End: 50-46-7846ozirvfdwihDydc L SchwabFacility:FT FM BellevueStart: 06-13-2024 End: 29-05-8244Ncdvfwh encounter procedureJodi L Kena [phone]-SugspBarberton [facility] Start: 05-08-2024 End: 72-40-6512iufygbkeilGpvr L SchwabFacility:FT FM BellevueStart: 05-03-2024 ambulatoryJodi SchwabFacility:FT FM BellevueStart: 04-09-2024 End: 71-55-0141Pjayaaedf Result EncounterCorey Ozzie DO Work Phone: noms External Department UnsolicitedStart: 04-09-2024 End: 78-60-2522Wzmppagag Result EncounterCorey Ozzie DO Work Phone: noms External Department UnsolicitedStart: 03-13-2024 End: 81-09-3131Sgyglewgt Result EncounterCorey Ozzie DO Work Phone: [facility] External Department UnsolicitedStart: 03-13-2024 End: 79-21-2624Cjaybfdjw Result EncounterCorey Ozzie DO Work Phone: noms External Department UnsolicitedStart: 03-12-2024 End: 75-58-1110Htxzwn outpatient visit 15 minutesCorey Ozzie DO Work Phone: noms [facility] OBComment on above:Encounter for fertility planning; PCOS (polycystic ovarian syndrome); Insulin resistanceStart: 03-12-2024 End: 07-34-8441qgrwawvrmsDKDKS FAZIONot AvailableStart: 03-05-2024 End: 04-04-3071Dkwitrnrb Result EncounterCorey Ozzie DO Work Phone: noms External Department UnsolicitedStart: 03-05-2024 End: 39-90-9604Feisbiity Result EncounterCorey Ozzie DO Work Phone: noms External Department UnsolicitedStart: 02-12-2024 End: 77-60-6295Zhqezc flowsheetCorey Ozzie DO Work Phone: NOSH BCP OBStart: 02-12-2024 End: 47-00-3577Dhbkgl flowsheetCorey Ozzie DO Work Phone: NOVO BCP OBStart: 02-12-2024 End: 66-68-2771Fizsiuwhe Result EncounterCorey Ozzie DO Work Phone: noms External Department UnsolicitedStart: 02-12-2024 End: 02-02-2352Stgtmiu encounter procedureCorey Ozzie DO Work Phone: [facility] HealthcareStart: 02-12-2024 End: 27-24-7669Ncshaavt preventive med est patient 18-39 yrsCorey Ozzie DO Work Phone: NONH BCP OBComment on above:Well woman exam with routine gynecological examStart: 02-12-2024 End: 78-72-5009gzshwwbvbxWVSFA FAZIONot AvailableStart: 12-27-2023 End: 69-27-3370Pqwpjjvlt Result EncounterCorey Ozzie DO Work Phone: noms External Department UnsolicitedStart: 12-27-2023 End: 50-70-9541Pjtlzzsct Result EncounterCorey Ozzie DO Work Phone: noms External Department UnsolicitedStart: 11-14-2023 End: 58-46-6176Rbcfaru encounter procedureCorey Ozzie DO Work Phone: NOIG BCP OBComment on above:Nexplanon removal; Encounter for removal of etonogestrel implantStart: 07-15-2021 End: 20-58-3913dajhdfnhiaAP NONE LISTED REQUESTFacility:S8Djthe: 07-05-2021 End: 36-26-2521excigrfbhgLA NONE LISTED REQUESTFacility:K5Nqjuy: 08-17-2020 End: 29-51-1499oaklxvvduoOU NONE LISTED REQUESTFacility:H3Wszpe: 08-10-2020 End: 39-32-3011Jbkzzpfpro and management of inpatientDR ANNIA FAZIOFacility:H1 Procedures DateProcedureProcedure DetailPerforming ClinicianStart: 43-15-2523SAT PREG QUANT HCGCorey Ozzie DO Work Phone: Start: 93-55-4420DYM PREG QUANT HCGCorey Ozzie DO Work Phone: Start: 75-78-9266EEJ PREG QUANT HCGCorey Ozzie DO Work Phone: Start: 03-76-6741HPC PREG QUANT HCGCorey Ozzie DO Work Phone: Start: 25-07-6296LQP PREG QUANT HCGCorey Ozzie DO Work Phone: Start: 24-13-8618IZI PREG QUANT HCGCorey Ozzie DO Work Phone: Start: 07-66-1092NAL PREG QUANT HCGCorey Ozzie DO Work Phone: Start: 59-36-1804NWK PREG QUANT HCGCorey Ozzie DO Work Phone: Start: 61-44-5682RHT PREG QUANT HCGCorey Ozzie DO Work Phone: Start: 60-67-2032TVI PROGESTERONECorey Ozzie DO Work Phone: Start: 92-87-9823VJY CBC WITH AUTO DIFFCorey Ozzie DO Work Phone: Start: 41-17-4154XGL PREG QUANT HCGCorey Ozzie DO Work Phone: Start: 49-42-3079Telny test visual color cmprsn methsCorey Ozzie DO Work Phone: Start: 42-38-9696SQT,APTIMA HPV,AGE GDLNCorey Ozzie DO Work Phone: Start: 30-18-3699BTV PREG QUANT HCGCorey Ozzie DO Work Phone: Start: 60-48-1131UBQ INSERTION/REMOVAL OF CONTRACEPTIVE CAPSULECorey Ozzie DO Work Phone: Start: 32-61-7025Fmamqcheat of Products of Conception, Low Cervical, Open ApproachDR NONE LISTED REQUESTStart: 76-94-7448Lttyhemw of Amniotic Fluid, Therapeutic from Products of Conception, Via Natural or Artificial OpeningDR NONE LISTED REQUESTStart: 40-74-7691Jyfhayta sectionJodi Kena Start: 92-52-1127Nxyysntrbiyd of Hormone into Female Reproductive, Via Natural or Artificial OpeningDR NONE LISTED REQUEST Plan of Treatment DateCare ActivityDetailAuthorStart: 02-17-2025 End: 81-35-9264Oxgpmiq encounter procedureNOMS BCP OBStart: 12-03-2024 End: 02-29-7371Irurlua encounter procedureNOMS BCP OBComment on above:Arrived Start: 07-87-4049Wjdsruoby vaccinationNOMS HealthcareStart: 10-25-2024 End: 03-39-0788zfhlcrnupj81/29/2025 9:00 AM EDT Initial [facility] [address] [id number] TQJS [place] OBGYNStart: 10-25-2024 End: 83-84-3408Vmelwzgodjsd / ancillary services mqhmjmbsqe91/29/2025 8:30 AM EDT Ancillary Procedure [facility] [address] [place] [address] KKPI [place] OBGYNStart: 09-23-2024 End: 25-02-4944Qljosif encounter rbbojoqma85/28/2025 10:40 AM EDT Office Visit [facility] [address] [place] [id number] Annia Horne, DO [address] [place] [address] ArrivedNOMS [place] OBGYNComment on above:ArrivedStart: 09-10-2024 End: 46-38-2157Yhgymbl encounter procedureNOMS BCP OBComment on above:Arrived Start: 08-13-2024 End: 29-86-7789Qeacqre encounter procedureNOMS BCP OBComment on above:Arrived Start: 04-29-2024 End: 72-80-0415Dxbfpowjdzrf / ancillary services /03/2025 8:00 AM EST Ancillary Procedure [facility] [address] [place] [address] JRGT BCP OBStart: 03-26-2024 End: 34-06-1815Qkafmnhdjwil / ancillary services fhswlzduaj66/28/2025 8:00 AM EST Ancillary Procedure [facility] [address] [place] [address] BYKK BCP OBStart: 03-12-2024 End: 31-78-4202KDUTYCPG Lab Routine PCOS (polycystic ovarian syndrome) Expected: 03/12/2024 (Approximate), Expires: 03/12/2025[facility] HealthcareComment on above: Expected: 03/12/2024 (Approximate), Expires: 03/12/2025Start: 03-12-2024 End: 05-57-6254VE PelvisUS Pelvis w/ TV Imaging Routine PCOS (polycystic ovarian syndrome) Expected: 03/12/2024, Expires: 03/12/2025[facility] HealthcareComment on above:Expected: 03/12/2024, Expires: 03/12/2025Start: 03-12-2024 End: 80-66-9826Roymwxe encounter umhwdgcej36/14/2025 1:40 PM EST Office Visit [facility] OB [address] [place] [id number] Annia Horne, DO [address] [place] [address] [facility] OBStart: 02-12-2024 End: 75-84-9044Akpahbs encounter procedureNOCOMMUNITY HOSPITAL OF SAN [facility]ARDINO OBComment on above:Arrived Start: 73-54-5277Fzpofqcld vaccinationInfluenza Vaccine (#1)[facility] HealthcareCBC W Auto Differential panel - BloodCBC and differential Lab Routine PCOS (polycystic ovarian syndrome) Ordered: 03/12/2024[facility] HealthcareComment on above:Ordered: 03/12/2024ytology Cervical or vaginal smear or scraping studyPap Smear Pathology and Cytology Routine Well woman exam with routine gynecological exam Ordered: 02/12/2024[facility] Work Phone: comment on above:Ordered: 02/12/2024HEA-sulfateDHEA- sulfate Lab Routine PCOS (polycystic ovarian syndrome) Ordered: 03/12/2024[facility] HealthcareComment on above:Ordered: 03/12/2024Follicle stimulating hormone Follicle stimulating hormone Lab Routine PCOS (polycystic ovarian syndrome) Ordered: 03/12/2024[facility] HealthcareComment on above:Ordered: 03/12/2024hCG, quantitativehCG, quantitative Lab Routine Threatened affecting intrauterine ([facility]) Ordered: 09/23/2024[facility] Work Phone: comment on above:Ordered: 09/23/2024hCG, quantitative, pregnancyhCG, quantitative, Lab Routine PCOS (polycystic ovarian syndrome) Ordered: 03/12/2024[facility] Healthcare Work Phone: comment on above:Ordered: 03/12/2024Hemoglobin A1c/Hemoglobin.total in BloodHemoglobin A1c Lab Routine Insulin resistance Ordered: 03/12/2024[facility] HealthcareComment on above:Ordered: 03/12/2024 Luteinizing hormoneLuteinizing hormone Lab Routine PCOS (polycystic ovarian syndrome) Ordered: 03/12/2024[facility] HealthcareComment on above:Ordered: 03/12/2024 Removal non-biodegradable drug delivery implantRemove drug implant device Procedures Routine Encounter for removal of etonogestrel implant Ordered: 11/14/2023[facility] Healthcare Work Phone: comment on above:Ordered: 11/14/2023Thyrotropin [Units/volume] in Serum or PlasmaTSH Lab Routine PCOS (polycystic ovarian syndrome) Ordered: 03/12/2024[facility] HealthcareComment on above:Ordered: 03/12/2024 Thyroxine (T4) free [Mass/volume] in Serum or PlasmaT4, free Lab Routine PCOS (polycystic ovarian syndrome) Ordered: 03/12/2024[facility] HealthcareComment on above:Ordered: 03/12/2024 Payers DatePayer CategoryPayerPolicy [id number] [id number] Health [id number] 2..1.974551.3.57[id number] 2..1.141180.3.57[id number] 2.840.1.154636.3.57[id number] 2.0.1.826425.3.57[id number] 2.16.840.1.793801.3.57[id number] 2.16.840.1.616053.3.57[id number] 2.16.840.1.974609.3.57[id number] 2.0.1.751614.3.57[id number] 2.0.1.018073.3.57[id number] 2.16840.1.233264.3.57[id number] 2.0.1.410048.3.57[id number] 2.0.1.842762.3.57[id number] 2.0.1.073182.3.57[id number] 2.0.1.488615.3.57[id number] 2..1.525540.3.57[id number] Social History DateTypeDetailFacilityTobacco smoking status NHISTobacco smoking consumption unknownNODC HealthcareStart: 31-72-6706Ruu assigned at birthNot on [facility] CenterGender identityNot on [facility] Hospitaltart: 30-54-5898Zwufhes smoking statusSmoker (finding)[facility] BellevueSexual OrientationPrem[facility] Health [facility] SexFemale (finding)[facility] Hospitaltart: 28-67-8743GxzYytdwnKIWA Healthcare Functional Status LzerSbxdtkmripMevjblMvevqghq30-33-3156Swwaigaakv StatusN/AFsilviaWayne Healthcare Main Campus [facility] [place] Clinical Notes 08-10-2020 to 12-03-2024 Note Date & SohjOidoYrsennwl98-94-4840 History of Present illness Narrative* Bushra Zepeda NP - 12/03/2024 9:30 AM EDT Reason for Appointment: Patient ID: Jaja Gillespie is a 29 y.o. female who presents for encounter for weight management Patient presents today for a weight management consultation. Patient has been prescribed Adipex andshe is here for her 5th prescription. Today's Vitals: Estimated body mass index is 30.43 kg/m as calculated from the following: Height as of 11/14/23: 5' 3 . Weight as of this encounter: 171 lb 12.8 oz. Previous Weight/BMI: Wt Readings from Last 3 Encounters: 12/03/24 171 lb 12.8 oz 09/23/24 190 lb 8 oz 09/10/24 193 lb 12.8 oz BMI Readings from Last 3 Encounters: 12/03/24 30.43 kg/m 09/23/24 33.75 kg/m 09/10/24 34.33 kg/m Allergies as of 12/03/2024 - Reviewed 12/03/2024 Allergen Reaction Noted Prednisone Hives 11/14/2023 Past Medical History: Diagnosis Date History of miscarriage History reviewed. No pertinent surgical history. Review [...] nursing note reviewed. Exam conducted with a landscape manager present. Assessment/Plan Encounter Diagnosis Name Primary? Encounter for weight management Adipex: Patient presents today for 3rd Adipex prescription. Patient desires additional weigh loss and she is currently taking metformin along with working out to achieve further results. Weight and blood pressure has been captured and I have discussed/reiterated the importance of keeping a food journal, proper nutrition/diet, and exercise regimen. Patient verbalized understanding. Patient has lost more than 5% of her initial body weight Follow Up: Patient is to return to the office in 1 month for further evaluation to assess patient progress. Weight and blood pressure will need to be obtained in order for patient to receive 8th Adipex prescription. Documented by: Mery Chowdary LPN on behalf of Bushra Zepeda NP documented in this encounterSamaritan HospitalUambzlpztq67-14-0029 NotePatient Education Infectious Disease Upper Respiratory Infection, Adult An upper respiratory infection (URI) affects the nose, throat, and upper airways that lead to the lungs. The most common type of URI is often called the common cold. URIs usually get better on their own, without medical treatment. What are the causes? A URI is caused by a germ (virus). You may catch these germs by: ??? Breathing in droplets from an infected person's cough or sneeze. ??? Touching something that has the germ on it (is contaminated) and then touching your mouth, nose, or eyes. What increases the risk? You are more likely to get a URI if: ??? You are very young or very old. ??? You have close contact with others, such as at work, school, or a health care facility. ??? You smoke. ??? You have long-term (chronic) heart or lung disease. ??? You have a weakened disease-fighting system (immune system). ??? You have nasal allergies or asthma. ??? You have a lot of stress. ??? You have poor nutrition. What are the signs or symptoms? Runny or stuffy (congested) nose. ??? Cough. ??? Sneezing. ??? Sore throat. ??? Headache. ??? Feeling tired (fatigue). ??? Fever. ??? Not wanting to eat as much as usual. ??? Pain in your forehead, behind your eyes, and over your cheekbones (sinus pain). ??? Muscle aches. ??? Redness or irritation of the eyes. ??? Pressure in the ears or face. How is this treated? URIs usually get better on their own within 7?10 days. Medicines cannot cure URIs, but your doctor may recommend certain medicines to help relieve symptoms, such as: ??? Bilb-gos-skxzwxo cold medicines. ??? Medicines to reduce coughing (cough suppressants). Coughing is a type of defense against infection that helps to clear the nose, throat, windpipe, and lungs (respiratory system). Take these medicines only as told by your doctor. ??? Medicines to lower your fever. Follow these instructions at home: Activity ??? Rest as needed. ??? If you have a fever, stay home from work or school until your fever is gone, or until your doctor says you may return to work or school. ? You should stay home until you cannot spread the infection anymore (you are not contagious). ? Your doctor may have you wear a face mask so you have less risk of spreading the infection. Relieving symptoms ??? Rinse your mouth often with salt water. To make salt water, dissolve ??1 tsp (3?6 g) of salt in1 cup (237 mL) of warm water. ??? Use a cool-mist humidifier to add moisture to the air. This can help you breathe more easily. Eating and drinking ??? Drink enough fluid to keep your pee (urine) pale yellow. ??? Eat soups and other clear broths. General instructions ??? Take fier-fbl-fkwlwmr and prescription medicines only as told by your doctor. ??? Do not smoke or use any products that contain nicotine or tobacco. If you need help quitting, ask your doctor. ??? Avoid being where people are smoking (avoid secondhand smoke). ??? Stay up to date on all your shots (immunizations), and get the flu shot every year. ??? Keep all follow-up visits. How to prevent the spread of infection to others ??? Wash your hands with soap and water for at least 20 seconds. If you cannot use soap and water, use hand call out clerk. ??? Avoid touching your mouth, face, eyes, or nose. ??? Cough or sneeze into a tissue or your sleeve or elbow. Do not cough or sneeze into your hand orinto the air. Contact a doctor if: ??? You are getting worse, not better. ??? You have any of these: ? A fever or chills. ? Brown or red mucus in your nose. ? Yellow or brown fluid (discharge)coming from your nose. ? Pain in your face, especially when you bend forward. ? Swollen neck glands. ? Pain when you swallow. ? White areas in the back of your throat. Get help right away if: ??? You have shortness of breath that gets worse. ??? You have very bad or constant: ? Headache. ? Ear pain. ? Pain in your forehead, behind your eyes, and over your cheekbones (sinus pain). ? Chest pain. ??? You have long-lasting (chronic) lung disease along with any of these: ? Making high-pitched whistling sounds when you breathe, most often when you breathe out (wheezing). ? Long-lasting cough (more than 14 days). ? Coughing up blood. ? A change in your usual mucus. ??? You have a stiff neck. ??? You have changes in your: ? Vision. ? Hearing. ? Thinking. ? Mood. These symptoms may be an emergency. Get help right away. Call 911. ??? Do not wait to see if the symptoms will go away. ??? Do not drive yourself to the hospital. Summary ??? An upper respiratory infection (URI) is caused by a germ (virus). The most common type of URI is often called the common cold. ??? URIs usually get better within 7?10 days. ??? Take cpau-csb-qckuzzi and prescription med (more content not included)... [facility]07-28-2025 History of Present illness Narrative* Bushra Zepeda NP - 09/23/2024 10:40 AM EDT Reason for Appointment: Patient ID: Jaja Gillespie is a 29 y.o. female who presents for Follow-up Patient presents today for Acute Visit. MEDICATIONS Current Outpatient Medications Medication Instructions w/o A Vit-Fe Fum-FA (PRENATA PO) Take by mouth ALLERGIES Allergies Allergen Reactions Prednisone Hives Other Reaction(s): Skin irritation PROBLEMS Active Ambulatory Problems Diagnosis Date Noted [...] nursing note reviewed. Exam conducted with a landscape manager present. Vitals: Estimated body mass index is 33.75 kg/m as calculated from the following: Height as of 11/14/23: 5' 3 . Weight as of this encounter: 190 lb 8 oz. BP: 116/86 No LMP recorded (lmp unknown). ASSESSMENT & PLAN ICD-10-CM 1. Threatened affecting intrauterine ([facility]) O20.0 Patient evaluated in the Emergency depart with ultrasound completed. Will repeat quantitative HCG tomorrow. Patient with continued vaginal bleeding and denies any complaints of pain. Documented by Bushra Zepeda NP on behalf of: Annia Horne DO documented in this encounterSamaritan HospitalPyywubrozp69-35-1350 History of Present illness Narrative* Mery Chowdary LPN - 09/10/2024 9:30 AM EDT Reason for Appointment: Patient ID: Jaja Torrez is a 29 y.o. female who presents for encounter for weight management Patient presents today for a weight management consultation. Patient has been prescribed Adipex andshe is here for her 2nd prescription. Today's [...] behalf of EMERY Prince documented in this encounterSamaritan HospitalSsgnqscnvs68-07-5057 History of Present illness Narrative* Josey Giordano LPN - 08/13/2024 9:20 AM EDT Reason for Appointment: Patient ID: Jaja Torrez is a 28 y.o. female who presents for Menstrual Problem (Pt states since she had the Nexplanon taken out in October of 2023 she has had irregular cycles. Pt states shestarts period and only spotting and lasting only [...] nursing note reviewed. Exam conducted with a landscape manager present. Assessment/Plan Encounter Diagnosis Name Primary? Menstrual [...] of Annia Horne DO documented in this encounterSamaritan HospitalFcluydosfy76-23-0892 History of Present illness Narrative* Josey Giordano LPN - 03/12/2024 1:40 PM EST Reason for Appointment: Patient ID: Jaja Torrez [...] nursing note reviewed. Exam conducted with a landscape manager present. Vitals: Estimated body mass index is [...] to take Femara on days 3-7 of cycle.On day 21 of cycle patient is to [...] of: Annia Horne DO documented in this encounterSamaritan [id number] History of Present illness Narrative* Shanon Gan LPN - 02/12/2024 1:40 PM EST Reason for Appointment: Patient ID: Jaja Torrez [...] nursing note reviewed. Exam conducted with a landscape manager present. Vitals: Estimated body mass index is 36.49 kg/m as calculated from the following: Height as of 9/17/24: 5' 3 . Weight as of this [...] of: Annia Horne DO documented in this encounterSamaritan [id number] History of Present illness Narrative* Josey Giordano LPN - 11/14/2023 1:30 PM EDTAssociated Order(s): Insertion/Removal of Contraceptive Capsule Post-Procedure Diagnose(s): [...] nursing note reviewed. Exam conducted with a landscape manager present. Vitals: Estimated body mass index is [...] underneath palpated Nexplanon at distal end. After allowingfor sufficient time for numbing agent to take effect, the skin overlying the end of Nexplanon was in cised with an 11inch blade scalpel. A 7.5in hemostat was inserted in the incision site to grab device and Nexplanon was released from tissue. Nexplanon implant was removed in its entirety and visualized by myself and patient. The skin was cleansed with alcohol and the incision was covered with gauze. Post- procedure care was reviewed and patient will continue with proposed plan of care. Patient was advised to call office with any questions or concerns. Follow Up: Patient is to return to the office as needed for any routine appointments. Documented by Josey Giordano LPN on behalf of: Annia Horne DO documented in this encounterSamaritan [id number] NoteOPERATIVE NOTE OPERATION DATE: 08-10-20 ANESTHETIC:Spinal with Duramorph. LAB ANIMAL TECHNICIAN:ANJALI Vargas PREOPERATIVE DIAGNOSIS: 1. Intrauterine at [...] to the Recovery Room in stable condition. [facility] Signed and Approved by: DR ANNIA HORNE . 2020 15:48:00[facility]06-14-2021 NoteDISCHARGE SUMMARY Discharge Date: 08-13-20 PRIMARY DIAGNOSIS: 1. [...] Tylenol, any abdominal pain unrelieved with narcotics. [facility] Signed and Approved by: DR ANNIA HORNE . 09/01/2020 14:08:00[facility] Future Appointments Appointment Date:07/19/2024 10:45:00 AM Scheduled Provider:Johanna Juarez MD Location:[facility].Pulmonary Clinic Appointment Type:Pulmonary New Patient ([place]) [facility] Evaluation note* Diagnosis Nexplanon removal Encounter for removal of etonogestrel implant documented in this encounter [facility] HealthcareEvaluation note* Diagnosis Well woman exam with routine gynecological exam Routine gynecological examination documented in this encounter [facility] HealthcareEvaluation note* Diagnosis Encounter for fertility planning PCOS (polycystic ovarian syndrome) Polycystic ovaries Insulin resistance Other abnormal glucose documented in this encounter [facility] HealthcareEvaluation note* Diagnosis Menstrual periods irregular Irregular menstrual cycle Encounter for weight management documented in this encounter [facility] HealthcareEvaluation note* Diagnosis Encounter for weight management documented in this encounter [facility] HealthcareEvaluation note* Diagnosis Threatened affecting intrauterine ([facility])- Primary documented in this encounter [facility] HealthcareEvaluation note* Diagnosis Encounter for weight management documented in this encounter [facility] HealthcareHospital course Narrative No data available for this section [facility] Hospital Discharge instructions No data available for this section [facility] Progress note No data available for this section [facility] Summary Purpose Family History No Family History Records Found No data available for this section No data available for this section No Family History Records FoundNo Family History Records Found Advance Directives No Advanced Directives Records FoundNo Advanced Directives Records FoundNo Advanced Directives Records Found Additional Source Comments INFORMATION SOURCE (unrecogn ized section and content) DATE CREATED AUTHOR 07/21/2021 [facility] DATE CREATED AUTHOR AUTHOR'S ORGANIZ ATION 11/22/2024 [facility] DATE CREATED AUTHOR AUTHOR'S ORGANIZ ATION 12/05/2024 [facility] EPIC Care Teams (unrecognized sec tion and content) Team MemberRelationshipSpecialtyStart DateEnd Date Shaikh Almanzar MD [address] [place] [address] PCP - GeneralInternal Toeicguk95/6/23Team MemberRelationshipSpecialtyStart Date End Date Shaikh Almanzar MD [address] [place] [address] PCP - GeneralInternal Yxbxsddt10/6/23Team MemberRelationshipSpecialtyStart Date End Date Shaikh Almanzar MD [address] [place] [address] PCP - GeneralInternal Tfidaqpp61/6/23Team MemberRelationshipSpecialtyStart Date End Date Shaikh Almanzar MD [address] [place] [address] PCP - GeneralInternal Fboijicj56/6/23am MemberRelationshipSpecialtyStart Date End Date Shaikh Almanzar MD [address] [place] [address] PCP - GeneralInternal Fyaadonj85/6/23Team MemberRelationshipSpecialtyStart Date End Date Shaikh Almanzar MD [address] [place] [address] PCP - GeneralInternal Khibaavk14/6/23am MemberRelationshipSpecialtyStart Date End Date Shaikh Almanzar MD [address] [place] [address] PCP - GeneralInternal Ucazwzml39/6/23am MemberRelationshipSpecialtyStart Date End Date Shaikh Almanzar MD [address] [place] [address] PCP - GeneralInternal Vntzbcti77/6/23Team MemberRelationshipSpecialtyStart Date End Date Shaikh Almanzar MD [address] [place] [address] PCP - GeneralInternal Lhzxfurd98/6/23Team MemberRelationshipSpecialtyStart Date End Date Shaikh Almanzar MD [address] [place] [address] [facility] - [facility] Qqxtuprr48/6/23am MemberRelationshipSpecialtyStart Date End Date Shaikh Almanzar MD [address] [place] [address] [facility] - [facility] Jgnmtvqd19/6/23am MemberRelationshipSpecialtyStart Date End Date Shaikh Almanzar MD [address] [place] [address] [facility] - [facility] Vbfmelgx11/6/23am MemberRelationshipSpecialtyStart Date End Date Shaikh Almanzar MD [address] [place] [address] [facility] - [facility]Re[facility] Wdlkbhhf71/6/23am MemberRelationshipSpecialtyStart Date End Date Shaikh Almanzar MD [address] [place] [address] [facility] - [facility]Re[facility] Mjigntse03/6/23am MemberRelationshipSpecialtyStart Date End Date Shaikh Almanzar MD [address] [place] [address] [facility] - [facility]Re[facility] Aoqrmfxw44/6/23Team MemberRelationshipSpecialtyStart Date End Date Shaikh Almnazar MD [address] [place] [address] PCP - GeneralInternal Ffgpmpcw59/6/23 Reason for Visit (unrecogniz ed section and content) ReasonCommentsContraceptionNexplanon removalReasonCommentsGynecologic ExamReason CommentsInfertilityReasonCommentsMenstrual ProblemPt states since she had the Nexplanon taken out in October of 2023 she has had irregular cycles. Pt states she starts period and only spotting and lasting only 2 days when she used to have a 4 day cycle. Pt is not on any b/c at this time.ReasonCommentsencounter for weight managementReasonCommentsFollow-up FOR RECORDS PERTAINING TO PATIENTS WHO ARE [...] BE BASED ON THE PRIMARY CLINICAL RECORDS. [facility]. provides no warranty or guarantee of the accuracy or completeness of information in this document.
== END 2025-01-06 13:06 | disposition home or self-care (01) ==
LOC: LAB 13:06
PROVIDERS: PCP Nurse Practitioner; Visit Provider Obstetrics & Gynecology
DX: Z32.01 Encounter for pregnancy test, result positive (principal)
CPT/HCPCS: 36415; 84702